=== PATIENT | female | born 1940 | race Caucasian/White ===

== ENCOUNTER 2023-04-15 08:30 | Outpatient (REF) | payer MEDICARE, SELFPAY ==
[2023-04-15 08:47] LABS: MANUAL DIFF FLAG NO
[2023-04-15 09:10] LABS: Basophils Percent Auto 0.7 % (0-2); Eosinophils Absolute Auto 0.2 X10*3/uL (0.0-0.4); Eosinophils Percent Auto 3.3 % (0-4); Hematocrit 44.7 % (37.0-47.0); Hemoglobin 13.9 g/dl (12.0-16.0); Imm Gran Abs Auto 0.02 X10*3/uL (0.00-0.03); Imm Gran Pct Auto 0.4 % (0.0-0.4); Lymphocytes Absolute Auto 1.3 X10*3/uL (1.2-4.9); Lymphocytes Percent Auto 27.3 % (20-40); Mean Corpuscular HGB Conc 31.1 g/dl (31.0-35.0); Mean Corpuscular Hemoglobin 25.7 pg (27.0-33.0); Mean Corpuscular Volume 82.8 fL (80.0-98.0); Mean Platelet Volume 10.4 fL (9.4-12.3); Monocytes Absolute Auto 0.5 X10*3/uL (0.1-1.2); Monocytes Percent Auto 9.8 % (2-11); Neutrophils Absolute Auto 2.7 x10*3/uL (2.0-8.3); Neutrophils Percent Auto 58.5 % (45-73); Platelet Count 202 X10*3/uL (160-400); Red Cell Distribution Width 14.7 % (11.0-16.0); White Blood Count 4.6 X10*3/uL (4.8-10.8)
[2023-04-15 10:08] LABS: Alanine Aminotransferase 16 U/L (0-31); Albumin Level 3.7 g/dL (3.5-5.0); Alkaline Phosphatase 83 U/L (39-117); Anion Gap 12 (12-20); Aspartate Amino Transferase 19 U/L (5-31); Bilirubin Total 0.6 mg/dL (0.0-1.0); Blood Urea Nitrogen 20 mg/dL (9-16); Carbon Dioxide 28 mmol/L (22-29); Chloride 108 mmol/L (96-108); Cholesterol 137 mg/dL; Estimated Glomerular Filt Rate 51; Glucose Fasting 95 mg/dL (60-99); HDL Cholesterol 43 mg/dL; Iron 53 mcg/dL (30-160); LDL Cholesterol Calculated 75 mg/dl; Percent Iron Saturation 16 % (15-50); Sodium 144 mmol/L (135-145); Total Iron Binding Capacity 326 mcg/dL (228-428); Total Protein 6.5 g/dL (6.5-8.0); Triglycerides 98 mg/dL; Unsaturated Iron Binding 273 ug/dL
[2023-04-15 10:16] LABS: TSH reflex Free T4 3.13 uIU/mL (0.32-4.0); Vitamin D 25-OH Total 61.4 ng/mL (>30)
[2023-04-15 10:26] LABS: Folate 15.8 ng/mL (> or = 4.0); Vitamin B12 1187 pg/mL (200-900)
== END 2023-04-15 08:31 | disposition home or self-care (01) ==
LOC: HO.LAB 08:30
PROVIDERS: PCP Internal Medicine; Visit Provider Internal Medicine
DX: I10 Essential (primary) hypertension (principal); E78.00 Pure hypercholesterolemia, unspecified; E55.9 Vitamin D deficiency, unspecified; E53.8 Deficiency of other specified B group vitamins; D50.9 Iron deficiency anemia, unspecified
CPT/HCPCS: 36415; 80053; 80061; 82306; 82607; 82746; 83540; 84443; 85025

== ENCOUNTER 2023-04-21 13:57 | Outpatient (REF) | payer MEDICARE, SELFPAY ==
[2023-04-21 14:12] LABS: Appearance Urine Clear; Color Urine Yellow; Glucose Urine UA Negative (Negative); Leukocyte Esterase Urine Trace (Negative); Nitrite Urine Positive (Negative); PH 5.5 (5.0-9.0); Specific Gravity - Urine 1.015 (1.005-1.025); UMIC TRIGGER UACC YES; Urine Blood Negative (Negative); Urine Ketones Negative (Negative); Urine Protein Negative (Neg-Trace)
[2023-04-21 14:20] LABS: Bacteria Urine 4+ (None Seen); Hyaline Casts Urine 0-2 /LPF (0-2); RBC Urine 0-2 /HPF (0-2); Squamous Epithelial Cell Urine 0-2 /HPF (0-2); UACC Culture Trigger YES; WBC Urine 0-5 /HPF (0-5)
== END 2023-04-21 13:58 | disposition home or self-care (01) ==
LOC: HO.LNP 13:57
PROVIDERS: Visit Provider Internal Medicine
DX: R82.90 Unspecified abnormal findings in urine (principal)
CPT/HCPCS: 81001; 87086; 87088; 87186

== ENCOUNTER 2023-07-01 13:58 | Outpatient (AMB) | payer MEDICARE, SELFPAY ==
--- NOTE | 2023-07-01 14:01 | A.OFFPC_ITS ---
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 Accompanied by: Self / Same As Patient Allergies amoxicillin [From Augmentin] Allergy (Severe, Verified 07/01/23 14:43) Rash clavulanic acid [From Augmentin] Allergy (Severe, Verified 07/01/23 14:43) Rash levofloxacin [From Levaquin] Allergy (Severe, Verified 07/01/23 14:43) Rash Medication List - Last Reconciled 07/01/23 by Shekhar Young MD apixaban (Eliquis) 2.5 mg PO BID 90 days atorvastatin 40 mg PO DAILY calcium carbonate-vitamin D3 600 mg-10 mcg (400 unit) (Calcium with Vitamin D) 1 tab PO BID cholecalciferol (vitamin D3) 50 mcg PO DAILY omeprazole 40 mg PO DAILY 90 days potassium chloride ER 10 mEq PO DAILY 90 days tramadol 50 mg PO DAILY PRN 90 days Tobacco use date assessed: 04/11/23 Fall risk assessment: No Falls in past year Last assessed Fall Risk: 07/01/23 Dental Screening Dental Screen Date: 07/01/23 Did you have a dental visit in the last 12 months?: Yes Did you have a dental problem in the last 6 months where you did not have access to dental care?: No Was dental information given to patient?: Patient has dentist HPI follow up 3m HPI Details Patient comes in today for her follow up visit States that she still has on and off episodes of palpitations/tachycardia Would notice on her smart watch that her heart rate is running over 100/minute during these episodes Recalls that she would sometimes feel slightly dizzy during these palpitations but denies any chest pains or pressure Notes that she gets SOB easily at times but these are independent of her palpitations Has also been experiencing recurrent pain and discomfort over her left lower abdomen lately States that her left lower abdominal pain has no correlation with bowel mo vements, activity or food intake Relates that she moves her bowels regularly and has no acute urinary symptoms She denies any headaches or fever Denies any nausea or vomiting Would like to know how she did on her labs done a couple of months ago [facility] Medical History Obesity (BMI 30-39.9) Insomnia Anemia Restless leg syndrome 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 History of colitis Hepatic hemangioma Hepatic cyst Osteoporosis Meniere's disease Large hiatal hernia Chronic kidney disease (CKD), stage III (moderate) Atherosclerosis of aorta History of recurrent deep vein thrombosis (DVT) (~12/2020) History of pulmonary embolism (~2017) History of deep vein thrombosis (DVT) of lower extremity (~2016) Pure hypercholesterolemia Benign essential hypertension Surgical History History of colonoscopy History of arthroplasty of left shoulder (~09/2022) History of arthroplasty of right hip (~12/2021) History of arthroplasty of right shoulder (~12/2020) S/P trigger finger release (~2018) History of total left hip arthroplasty (~2016) History of tubal ligation History of left oophorectomy Hx of parotidectomy History of ear surgery History of ankle surgery Family History Other Hypertension Social History Housing: Condominium Patient Tobacco Use Status: Former Tobacco user e-Cigarette/Vaping Use: Never Used service: No Current occupational status: retired Current occupational exposures/hazards: No Cognitive needs: No Hearing needs: No Vision needs: No Questionnaire PHQ-9 Over the last 2 weeks, how often have you been bothered by any of the following problems? Depression Screening Interpretation: Negative Source: Developed by Drs. Andrew Mcghee, Yue Mosqueda, Vazquez Johnson and colleagues, with an educational yesica from [employer]. Thrive Questionnaire Date Thrive assessed: 04/11/23 Currently or been in a relationship where the following occur: no concerns reported PERCY-7 AMB Questionnaire PERCY-7 Date PERCY - 7 assessed: 07/01/23 Feeling nervous, anxious, or on edge: 0 = Not at all Not being able to stop or control worryin = Not at all Worrying too much about different things: 0 = Not at all Trouble relaxin = Not at all Being so restless that it is hard to sit still: 0 = Not at all Becoming easily annoyed or irritable: 0 = Not at all Feeling afraid as if something awful might happen: 0 = Not at all Total PERCY-7 score (0-4 normal; 5-9 mild; 10-14 moderate; 15-21 severe): 0 Source: Developed by Drs. Andrew Mcghee, Yue Mosqueda, Vazquez Johnson and colleagues, with an educational yesica from [employer]. Review of Systems Const Denies chills, Denies fatigue, Denies fever(s) and Denies headache(s) ENT Denies dysphagia, Reports dizziness (at times, when heart rate increases), Denies otalgia, Denies headache(s), Denies odynophagia and Denies sore throat Card Denies chest pain, Reports rapid heart rate (on and off - see HPI), Denies palpitations and Denies dyspnea (but feels that she gets short-winded at times) Resp Denies cough and Denies dyspnea (but feels that she gets short-winded at times) GI Reports abdominal pain (over the left lower abdomen - see HPI), Denies constipation, Denies dysphagia, Denies heartburn, Denies diarrhea, Denies nausea, Denies odynophagia and Denies vomiting Denies difficulty voiding, Denies nocturia and Denies dysuria Musc Reports back pain, Reports arthralgias (involving shoulders and hips, on and off) and Denies muscle weakness Skin/Breast Denies rash Neuro Reports dizziness (at times, when heart rate increases) and Denies headache(s) Endo Denies fatigue and Denies palpitations Physical exam (Primary Care) Vital Signs: Last Vital Signs Pulse 76 07/01/23 14:02 BP 160/100 H 07/01/23 15:06 Pulse Ox 96 07/01/23 14:02 Oxygen Delivery Method Room Air 07/01/23 14:02 BMI result Body Mass Index 31.3 Tobacco/Smoking Status: Tobacco use Status Tobacco use date assessed 04/11/23 07/01/23 14:11 Patient Tobacco Use Status Former Tobacco user 07/01/23 14:11 e-Cigarette/Vaping Use Never Used 07/01/23 14:11 Depression Screening Interpretation: Negative Thrive Assessment: Date of Thrive Assessment Date Thrive assessed 04/11/23 07/01/23 14:11 Currently or been in a relationship where the following occur: no concerns reported Const General: no acute distress and alert HENMT Ears: TM's normal bilaterally and EAC's normal Throat: Yes posterior oropharynx normal and Yes tonsils normal (no TP congestion) Neck Neck: Yes no lymphadenopathy and Yes supple Resp Auscultation: clear to auscultation bilaterally, no rales and no wheezes Cardio Rate: regular rate Rhythm: regular rhythm Heart sounds: no murmurs GI Palpation (GI): Soft to palpation, Tenderness to palpation present (GI) in the LLQ, no guarding, not rigid and No Rebound tenderness present Auscultation: normal bowel sounds Extrem General: Yes no clubbing, cyanosis or edema Results Reviewed Results Reviewed: Laboratory Tests 04/15/23 04/15/23 04/15/23 08:45 08:45 08:45 WBC 4.6 L Hgb Hct Plt Count 202 Sodium Potassium Creatinine Estimated GFR Fasting Glucose 95 Calcium Iron 53 TIBC 326 % Saturation 16 Unsat Iron Binding 273 AST ALT Triglycerides Cholesterol LDL Cholesterol, Calc HDL Cholesterol Vitamin B12 25-OH Vitamin D Total Folate TSH Ur Specific [place] Urine Protein Urine Glucose (UA) Urine Blood 04/15/23 04/15/23 04/15/23 08:45 08:45 08:45 WBC Hgb 13.9 Hct 44.7 Plt Count Sodium Potassium Creatinine Estimated GFR Fasting Glucose Calcium Iron TIBC % Saturation Unsat Iron Binding AST ALT Triglycerides 98 Cholesterol 137 LDL Cholesterol, Calc 75 HDL Cholesterol 43 Vitamin B12 1187 H 25-OH Vitamin D Total 61.4 Folate 15.8 TSH 3.13 Ur Specific [place] Urine Protein Urine Glucose (UA) Urine Blood 04/21/23 04/21/23 07/01/23 09:00 09:00 15:31 WBC Hgb Hct Plt Count Sodium 141 Potassium 4.2 Creatinine 0.95 Estimated GFR 57 Fasting Glucose Calcium Iron TIBC % Saturation Unsat Iron Binding AST ALT Triglycerides Cholesterol LDL Cholesterol, Calc HDL Cholesterol Vitamin B12 25-OH Vitamin D Total Folate TSH Ur Specific [place] 1.015 Urine Protein Negative Urine Glucose (UA) Negative Urine Blood Negative 07/01/23 07/01/23 15:31 15:31 WBC Hgb Hct Plt Count Sodium Potassium Creatinine Estimated GFR Fasting Glucose Calcium 10.0 Iron TIBC % Saturation Unsat Iron Binding AST 22 ALT 15 Triglycerides Cholesterol LDL Cholesterol, Calc HDL Cholesterol Vitamin B12 25-OH Vitamin D Total Folate TSH Ur Specific [place] Urine Protein Urine Glucose (UA) Urine Blood Assessment and Plan Assessment & Plan (1) Left sided abdominal pain: Code(s): R10.9 - Unspecified abdominal pain Plan: Will send her for some repeat labs ALEXANDER for further evaluation Will also send her for abdominal and pelvic US for further evaluation of her recurrent left lower abdominal pain (2) Palpitations: Code(s): R00.2 - Palpitations Plan: Will send her for a 12-lead EKG ALEXANDER Will also send her for an echocardiogram and a 3-day Holter monitor for further evaluation Will refer her as well to cardiology for further evaluation and management (3) Benign essential hypertension: Code(s): I10 - Essential (primary) hypertension Plan: Reinforced low sodium diet - goal is systolic BP of at least 120 to 130 mm, based on her multiple comorbidities Was previously on Triamterene-HCTZ (also for her lower extremity edema) and Irbesartan but these were held due to low blood pressure during hospitalization a few years ago and she has NOT required any Rx since then States that her systolic BP at home usually runs between 110 to 120 mm and diastolic is often in the 70s range Patient is advised to continue monitoring her blood pressure regularly at home (4) Pure hypercholesterolemia: Code(s): E78.00 - Pure hypercholesterolemia, unspecified Plan: Results of her labs done a few months ago reviewed and discussed with patient Reinforced low cholesterol diet Continue Atorvastatin 40 mg QD (5) Atherosclerosis of aorta: Comment: seen on abdominal aorta CT in 2016 and on chest x-rays in 2017 - mild Code(s): I70.0 - Atherosclerosis of aorta Plan: Recommend to continue risk factor(s) modification, including control of her BP and cholesterol, continuing statin therapy, etc. (6) Chronic kidney disease (CKD), stage III (moderate): Comment: due to long-term NSAID use Code(s): N18.30 - Chronic kidney disease, stage 3 unspecified Qualifiers: Chronic kidney disease stage 3 subtype: stage 3a (GFR 45-59) Qualified Code(s): N18.31 - Chronic kidney disease, stage 3a Plan: Patient is advised that her renal function appears stable on her labs done a co uple of months ago and we will continue to monitor her renal function regularly Reinforced avoidance of all NSAIDs as much as possible (7) Anemia: Comment: unable to tolerate oral iron supplements Code(s): D64.9 - Anemia, unspecified Qualifiers: Anemia type: unspecified type Qualified Code(s): D64.9 - Anemia, unspecified Plan: Most likely due to her CKD Patient reportedly had iron infusion done (late last year) shortly before she left [place] and moved here to [facility] earlier this year; she is unable to tolerate any oral iron supplements Recalls experiencing improvement of her symptoms, including less dizziness/orthostasis and less fatigue/more energy Advised that her CBC done a couple of months ago came back normal, with H/H of 13.9/44.7 Her iron studies also came back normal then Will continue to monitor her CBC regularly (8) History of recurrent deep vein thrombosis (DVT): Onset Date: ~12/2020 Comment: initial DVT occurred in 2017 following hip surgery; recurred following right shoulder arthroplasty and s/p COVID vaccine in 12/2020 Code(s): Z86.718 - Personal history of other venous thrombosis and embolism Plan: Continue Eliquis 2.5 mg BID (9) Osteoarthritis of multiple joints: Comment: involving hips and shoulders - symptoms relieved with Celecoxib (previously discussed NSAID use with PCP back in 2018) Code(s): M15.9 - Polyosteoarthritis, unspecified Qualifiers: Osteoarthritis type: primary Qualified Code(s): M15.9 - Polyosteoarthritis, unspecified Plan: Continue Tramadol 50 mg QD PRN Reinforced avoidance of NSAIDs due to her CKD but advised that she can continue taking OTC Tylenol PRN (10) Large hiatal hernia: Comment: seen on MRI in 2017 Code(s): K44.9 - Diaphragmatic hernia without obstruction or gangrene Plan: Dietary restrictions similar to GERD reinforced Continue Omeprazole 40 mg QD (11) Osteoporosis: Comment: of hip (BMD in 08/2018 revealed T-score of -2.9) - started on Alendronate in 09/2018; repeat BMD last done 08/2021 Code(s): M81.0 - Age-related osteoporosis without current pathological fracture Qualifiers: Osteoporosis type: age-related Presence of current pathological fracture: without current pathological fracture Qualified Code(s): M81.0 - Age- related osteoporosis without current pathological fracture Plan: Reinforced fall precautions Continue daily oral Calcium and Vitamin D supplements Will consider repeating BMD next year (2023) for follow up and continuing monitoring (12) Restless leg syndrome: Comment: symptoms relieved with Ropinirole - 2020 Code(s): G25.81 - Restless legs syndrome Plan: Continue Ropinirole - patient takes this only PRN (13) Insomnia: Code(s): G47.00 - Insomnia, unspecified Qualifiers: Insomnia type: unspecified Qualified Code(s): G47.00 - Insomnia, unspecified Plan: Sleep hygiene reinforced Has taken Zolpidem 5 mg Q HS PRN and/or Trazodone 50 mg Q HS PRN in the past (14) Obesity (BMI 30-39.9): Code(s): E66.9 - Obesity, unspecified Plan: Reinforced diet; exercise and weight loss are unrealistic at this point given patient's multiple comorbidities and to a lesser extent, her age States that she gained some weight since she quit smoking a couple of years ago Plan Follow up in 2 months Orders: Orders CA echo transthoracic complete 07/01/23 R06.09 - Other forms of dyspnea, R00.2 - Palpitations ECG 3 day holter monitor 07/01/23 R00.2 - Palpitations US abdomen limited 07/01/23 R10.9 - Unspecified abdominal pain Comprehensive Met. Panel 07/01/23 R10.9 - Unspecified abdominal pain, R60.9 - Edema, unspecified US pelvic limited 07/01/23 R10.9 - Unspecified abdominal pain Complete Blood Count Auto Diff 3 Months I10 - Essential (primary) hypertension, R10.9 - Unspecified abdominal pain, R60.9 - Edema, unspecified Erythrocyte Sedimentation Rate 3 Months R10.9 - Unspecified abdominal pain, R60.9 - Edema, unspecified ECG 12 lead EKG 07/01/23 R00.2 - Palpitations Referrals Cardiology Referral R00.2 - Palpitations Coding Level of Care Code Est Pt Level 4 (99587) Diagnoses Left sided abdominal pain R10.9 Palpitations R00.2 Benign essential hypertension I10 Pure hypercholesterolemia E78.00 Atherosclerosis of aorta I70.0 Stage 3a chronic kidney disease N18.31 Chronic kidney disease stage 3 subtype: stage 3a (GFR 45-59) Anemia, unspecified type D64.9 Anemia type: unspecified type History of recurrent deep vein thrombosis (DVT) Z86.718 Primary osteoarthritis involving multiple joints M15.9 Osteoarthritis type: primary Large hiatal hernia K44.9 Age-related osteoporosis without current pathological fracture M81.0 Osteoporosis type: age-related Presence of current pathological fracture: without current pathological fracture Restless leg syndrome G25.81 Insomnia, unspecified type G47.00 Insomnia type: unspecified Obesity (BMI 30-39.9) E66.9
[2023-07-01 14:02] VITALS: BP 168/84; PULSE 76; O2SAT 96; BMI 31.3
[2023-07-01 15:06] VITALS: BP 160/100
== END 2023-07-01 15:15 | disposition home or self-care (01) ==
PROVIDERS: PCP Internal Medicine; Visit Provider Internal Medicine
DX: R10.9 Unspecified abdominal pain (principal); I70.0 Atherosclerosis of aorta; N18.31 Chronic kidney disease, stage 3a; R00.2 Palpitations; I12.9 Hypertensive chronic kidney disease with stage 1 through stage 4 chronic kidney disease, or unspecified chronic kidney disease; E78.00 Pure hypercholesterolemia, unspecified; D64.9 Anemia, unspecified; Z86.718 Personal history of other venous thrombosis and embolism; M15.9 Polyosteoarthritis, unspecified; K44.9 Diaphragmatic hernia without obstruction or gangrene; M81.0 Age-related osteoporosis without current pathological fracture; G25.81 Restless legs syndrome
CPT/HCPCS: 99214

== ENCOUNTER 2023-07-01 15:22 | Outpatient (REF) | payer MEDICARE, SELFPAY ==
--- NOTE | 2023-07-01 15:33 | ECG_ITS ---
Test Reason : palpitations Blood Pressure : / mmHG Vent. Rate : 088 BPM Atrial Rate : 088 BPM P-R Int : 130 ms QRS Dur : 070 ms QT Int : 352 ms P-R-T Axes : -04 004 049 degrees QTc Int : 425 ms Normal sinus rhythm Normal ECG No previous ECGs available Referred By: Shekhar Young Electronically Signed By:ЕКАТЕРИНА BAUTISTA
[2023-07-01 16:24] LABS: Alanine Aminotransferase 15 U/L (0-31); Alkaline Phosphatase 86 U/L (39-117); Anion Gap 11 (12-20); Aspartate Amino Transferase 22 U/L (5-31); Bilirubin Total 0.4 mg/dL (0.0-1.0); Blood Urea Nitrogen 20 mg/dL (9-16); Carbon Dioxide 27 mmol/L (22-29); Chloride 107 mmol/L (96-108); Estimated Glomerular Filt Rate 57; Glucose Random 99 mg/dL (60-115); Potassium 4.2 mmol/L (3.3-5.1); Sodium 141 mmol/L (135-145); Total Protein 6.8 g/dL (6.5-8.0)
== END 2023-07-01 15:23 | disposition home or self-care (01) ==
LOC: HO.LAB 15:22
PROVIDERS: PCP Internal Medicine; Visit Provider Internal Medicine
DX: R10.9 Unspecified abdominal pain (principal); R60.9 Edema, unspecified; R00.2 Palpitations; R06.09 Other forms of dyspnea
CPT/HCPCS: 36415; 80053; 93005

== ENCOUNTER 2023-07-14 09:35 | Outpatient (REF) | payer MEDICARE, SELFPAY ==
--- NOTE | ~2023-07-14 | US_ITS ---
EXAMINATION: US ABDOMEN LIMITED CLINICAL INFORMATION: Unspecified abdominal pain. Left-sided abdominal pain. COMPARISON: None available. TECHNIQUE: Real-time imaging of the left flank (left kidney and spleen) and left lower quadrant pelvis. FINDINGS: The spleen appears normal measuring 10.1 cm in length. The left kidney measures 9.6 x 3.9 x 4.9 cm. There is parenchymal thinning. A 1.5 cm simple cyst is seen in the lower pole. No follow-up imaging is recommended. The patient directed the hollow handle bench worker to the area of concern. Direct ultrasound performed showed no visible hernia, fluid collection, or mass. US/US abdomen limited IMPRESSION: No visible sonographic abnormality to correlate with the patient's symptoms.
== END 2023-07-14 09:36 | disposition home or self-care (01) ==
LOC: HO.HMGCX 09:35
PROVIDERS: PCP Internal Medicine; Visit Provider Internal Medicine
DX: R10.9 Unspecified abdominal pain (principal)
CPT/HCPCS: 76705

== ENCOUNTER 2023-08-22 15:11 | Outpatient (AMB) | payer MEDICARE, SELFPAY ==
--- NOTE | 2023-08-22 15:19 | A.OFFVIS_ITS ---
Intake Vital Signs 08/22/23 15:29 Height 5 ft 5 in Weight 184 lb BMI 30.6 BP 120/75 Blood Pressure Location Lt brachial Position Sitting Pulse 120 H Intake Visit Reasons: Abdominal pain Intake Note: Patient new consult for abdominal pain. Patient cc: LLQ is been sore and tenderness because abdominal pain in the last weeks, acid reflex is better with Omeprazole and some loose stool . 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 Patient was sent to us by her PCP. Patient had ultrasound for abdominal pain and it was normal. Patient reports left lower quadrant pain for the last few weeks. Patient states that postprandially she will occasionally have a bowel movement, however she does not feel like she empties her bowels completely. Patient denies any melena, hematochezia, unintentional weight loss or ribbon like stools. Patient reports occasional acid reflux without dyspep alpa, dysphagia or odynophagia. Patient also had normal liver enzymes. Patient denies any nausea or vomiting. Denies any history of pancreatitis. 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 History of colitis Hepatic hemangioma Hepatic cyst Osteoporosis Meniere's disease Large hiatal hernia Chronic kidney disease (CKD), stage III (moderate) Atherosclerosis of aorta History of recurrent deep vein thrombosis (DVT) (~12/2020) History of pulmonary embolism (~2016) History of deep vein thrombosis (DVT) of lower extremity (~2016) Pure hypercholesterolemia Benign essential hypertension Surgical History History of colonoscopy History of arthroplasty of left shoulder (~09/2022) History of arthroplasty of right hip (~12/2021) History of arthroplasty of right shoulder (~12/2020) S/P trigger finger release (~2018) History of total left hip arthroplasty (~2016) History of tubal ligation History of left oophorectomy Hx of parotidectomy History of ear surgery History of ankle surgery Family History Other Hypertension [facility] Patient Tobacco Use Status: Former Tobacco user e-Cigarette/Vaping Use: Never Used service: No Current occupational status: retired Current occupational exposures/hazards: No Cognitive needs: No Hearing needs: No Vision needs: No Review of Systems Const Denies weight gain and Denies weight loss ENT Reports no additional complaints, Denies dysphagia and Denies odynophagia Card Reports no additional complaints Resp Reports no additional complaints GI Reports abdominal pain (LLQ), Denies belching, Denies melena, Denies bloating, D enies change in bowel habits, Denies dysphagia, Denies excessive flatus, Denies dyspepsia, Denies heartburn, Denies diarrhea, Denies loose stools, Denies nausea, Denies odynophagia and Denies vomiting Reports no additional complaints Musc Reports no additional complaints Neuro Reports no additional complaints Psych Reports no additional complaints Endo Reports no additional complaints Physical Exam Vital Signs: Last Vital Signs Pulse 120 H 08/22/23 15:29 BP 120/75 08/22/23 15:29 BMI result Body Mass Index 30.6 Const General: healthy appearing, no acute distress and well developed Nutritional Appearance: obese Orientation/consciousness: patient oriented x3 HEENT Head: Yes normal to inspection, Yes normocephalic and Yes atraumatic Face and sinus: Yes normal facial exam Mouth: Normal oral and palatal mucosa present Throat: Yes posterior oropharynx normal, Yes tonsils normal and Yes uvula midline Eyes General: appearance normal, both eyes and all related structures Neck Neck: Yes normal visual inspection, Yes full ROM and Yes trachea midline Thyroid: Thyroid normal Resp Effort & Inspection: normal respiratory effort, able to speak in complete sentences, no tracheal deviation and symmetric chest movement Auscultation: clear to auscultation bilaterally Cardio Rate: regular rate Heart sounds: S1 normal heart sound present and S2 normal heart sound present GI Inspection: Yes normal to inspection, No distended and Yes obesity Palpation (GI): Soft to palpation, not firm, nontender and No hepatosplenomegaly present Auscultation: normal bowel sounds General: Yes no CVA tenderness Back/Spine/Pelvis Back: no CVA tenderness Skin General skin exam: elasticity normal, turgor normal and dry skin Neuro General: patient oriented x3 Psych Appearance: grossly normal Mental Status: mental status grossly normal Results Reviewed Results Reviewed: ABDOMINAL ULTRASOUND LIMITED TO LEFT LOWER QUADRANT 07/14/2023 FINDINGS: The spleen appears normal measuring 10.1 cm in length. The left kidney measures 9.6 x 3.9 x 4.9 cm. There is parenchymal thinning. A 1.5 cm simple cyst is seen in the lower pole. No follow-up imaging is recommended. The patient directed the support specialist to the area of concern. Direct ultrasound performed showed no visible hernia, fluid collection, or mass. US/US abdomen limited IMPRESSION: No visible sonographic abnormality to correlate with the patient's symptoms. Assessment & Plan Assessment & Plan (1) Left sided abdominal pain: Code(s): R10.9 - Unspecified abdominal pain (2) IBS (irritable bowel syndrome): Code(s): K58.9 - Irritable bowel syndrome without diarrhea Qualifiers: Irritable bowel syndrome type: with both diarrhea and constipation Qualified Code(s): K58.2 - Mixed irritable bowel syndrome (3) History of colitis: Code(s): Z87.19 - Personal history of other diseases of the digestive system Plan: Will check CRP, kidney function before sending patient for CT scan. Patient will go for IV and oral CT scan left lower quadrant pain without any tenderness. Most likely cost by diverticulosis, gas trapping or stool trapping. Unlikely diverticulitis, colitis. Patient is afebrile Patient was also encouraged to take Citrucel and Colace daily. I will see her in 3 months, sooner on as needed basis. Patient is agreeable to this plan and verbalizes understanding of instructions. She was given the opportunity to ask questions and all questions answered. Orders: Orders Blood Urea Nitrogen 08/22/23 R10.11 - Right upper quadrant pain CT abdomen pelvis w IV con 08/22/23 R10.9 - Unspecified abdominal pain C Reactive Protein 08/22/23 K58.9 - Irritable bowel syndrome without diarrhea Creatinine 08/22/23 R10.11 - Right upper quadrant pain Medications: New docusate sodium 100 mg PO DAILY 30 caps 3RF K59.00 - Constipation, unspecified methylcellulose (laxative) (Citrucel) 500 mg PO DAILY 30 tabs 3RF K59.00 - Constipation, unspecified Coding Level of Care Code New Pt Level 4 (61817) Diagnoses Left sided abdominal pain R10.9 Irritable bowel syndrome with both constipation and diarrhea K58.2 Irritable bowel syndrome type: with both diarrhea and constipation History of colitis Z87.19 Time Spent (min) 45 Comment 30 minutes spent with patient and additional 15 minutes spent reviewing her records
[2023-08-22 15:29] VITALS: BP 120/75; PULSE 120; BMI 30.6
== END 2023-08-22 15:52 | disposition home or self-care (01) ==
PROVIDERS: PCP Internal Medicine; Visit Provider Nurse Practitioner Family
DX: R10.9 Unspecified abdominal pain (principal); K58.2 Mixed irritable bowel syndrome; Z87.19 Personal history of other diseases of the digestive system
CPT/HCPCS: 99204

== ENCOUNTER 2023-08-22 15:11 | Outpatient (REF) | payer MEDICARE, SELFPAY ==
[2023-08-22 16:41] LABS: Blood Urea Nitrogen 21 mg/dL (9-16); C Reactive Protein 0.48 mg/dL (< or = 0.50); Estimated Glomerular Filt Rate 45
== END 2023-08-22 15:12 | disposition home or self-care (01) ==
LOC: HO.LAB 15:11
PROVIDERS: PCP Internal Medicine; Visit Provider Nurse Practitioner Family
DX: R10.11 Right upper quadrant pain (principal); K58.9 Irritable bowel syndrome, unspecified; Z87.19 Personal history of other diseases of the digestive system
CPT/HCPCS: 36415; 82565; 84520; 86140; 99202

== ENCOUNTER → 2023-08-27 13:48 | Outpatient (REF) | payer MEDICARE, SELFPAY ==
--- NOTE | 2023-08-27 13:52 | HM_ITS ---
* Total monitoring time 7 days. * Underlying rhythm is sinus. Average ventricular rate 83/Min. Range 59 to 136/Min. * Rare supraventricular and ventricular ectopy. * No sustained arrhythmias. * No significant pauses or AV blocks. * No patient markers or events in diary. MTDD
--- NOTE | 2023-08-27 13:52 | CA_ITS ---
Transthoracic Echocardiogram Patient (Last, First, Middle): Macie Gregorio, Gender: Female Date of : 1940 Age: 82 Procedure Date: 08/27/2023 Procedure Type: Transthoracic Echocardiogram Location: OP Height: 165.1 cm Weight: 83.46 kg BSA: 1.91 m2 Heart Rate: 74 bpm BP: 162 / 86 mmHg Hospital Educator: YAYO Referring MD: Shekhar Young MD Air Traffic Control Operator: El Brantley MD Symptoms: R06.09 - Other forms of dyspnea Study Quality: Adequate ECG Rhythm: Sinus Conclusions: - 1. Normal LV ejection fraction of 60-65% 2. Mild calcific aortic and mitral annular calcification noted with normal cardiac valvular Dopplers 3. Normal RV systolic pressure 4. No pericardial effusion Findings Left Ventricle Normal left ventricular size, thickness, and systolic function. The visually estimated ejection fraction is between 60-65%. Spectral Doppler is indicative of an impaired relaxation filling pattern. E/E prime ratio is between 8 and 15 consistent with indeterminate filling pressures. Right Ventricle Normal right ventricular cavity size and systolic function. Atria Both atria are normal in size. Interatrial shunt cannot be excluded. Aortic Valve There is mild calcification of the aortic valve. There is no aortic valve stenosis. There is no aortic valve regurgitation. Mitral Valve There is mild anterior mitral leaflet thickening. There is mild mitral annular calcification. There is trace mitral valve regurgitation. There is no mitral valve stenosis. Pulmonic Valve The pulmonic valve was not well visualized. Tricuspid Valve Likely normal tricuspid valve structure and function. There is mild tricuspid valve regurgitation. The right ventricular systolic pressure is normal. The right ventricular systolic pressure is 31 mmHg. Normal right atrial pressure. There is no evidence of pulmonary hypertension. Great Vessels The pulmonary artery was not well visualized. Venous The inferior vena cava is normal in size and collapses greater than 50% with inspiration. Pericardium/Pleural There is no evidence of pericardial effusion. Prior Study Comparison No prior study available for comparison. Measurements 2D Linear Measurements IVSd: 0.92 0.6-0.9/0.6-1.0 cm LVIDd: 4.84 3.9-5.3/4.2-5.9 cm LVIDd Index: 2.53 2.4-3.2/2.2-3.1 cm/m2 LVIDs: 2.99 2.0-3.6 cm LVPWd: 1.03 0.7-1.1 cm LA Diam: 3.00 2.7-3.8/3.0-4.0 cm LAIDs Index: 1.57 1.5-2.3 cm/m2 LV Mass: 207.08 67-162/88-224 g LV Mass Index: 108.42 43-95/49-115 g/m2 LVOT Diam: 1.90 3.0+(-)1.3 cm Mitral Valve MV Pk E: 1.03 MV PK A: 1.10 MV Decel Time: 167.00 E/A: 0.90 E'Lateral: 3.38 E'Medial: 3.90 E/E' Med: 26.40 E/E' Lat: 30.50 PHT: 49.00 MVA PHT: 4.49 Decel Swain: 6.16 Aortic Valve AoV Pk Bryson: 1.14 AoV Mn Bryson: 0.81 AoV VTI: 0.26 AoV Pk Grad: 5.00 Aov Mn Grad: 3.00 ALEXANDRE Cont.VTI: 1.93 LVOT LVOT Pk Bryson: 0.74 LVOT Mn Bryson: 0.54 LVOT VTI: 0.17 LVOT Pk Grad: 2.00 LVOT Mn Grad: 1.00 LVOT Diam: 1.90 LVOT Area: 2.84 Diastolic Function MV Pk E: 1.03 MV Pk A: 1.10 E/A: 0.90 E'Medial: 3.90 E/E' Med: 26.40 E' Laterial: 3.38 E/E' Lat: 30.50 Right Ventricle TVS' Bryson: 10.10 Tricuspid Valve TR Pk Bryson: 2.64 TR Pk Grad: 28.00 RA Press: 3.00 RVSP: 31.00 Great Vessels Aorta Sinus of Valsalva: 3.10 2.0-3.5 cm Ao Asc: 3.50 2.1-3.4 cm Ao Arch: 2.90 Pulmonary Valve PV Pk Bryson: 0.88 Peak PV Grad: 3.00 Updated in Other Vendor System with Status of Final El Brantley MD electronically signed on 08/27/2023 5:13:50 PM with status of Final
== END ==
LOC: HO.CARD 13:48
PROVIDERS: PCP Internal Medicine; Visit Provider Internal Medicine
DX: R00.2 Palpitations (principal); R06.09 Other forms of dyspnea
CPT/HCPCS: 93242; 93306

== ENCOUNTER → 2023-08-27 13:52 | Outpatient (BNV) | payer MEDICARE, SELFPAY | PROVIDERS: PCP Internal Medicine; Visit Provider Internal Medicine Cardiovascular Disease | DX: I47.10 Supraventricular tachycardia, unspecified (principal) | CPT/HCPCS: 93244; 93306 ==

== ENCOUNTER 2023-09-10 14:03 | Outpatient (AMB) | payer MEDICARE, SELFPAY ==
--- NOTE | 2023-09-10 14:03 | A.OFFPC_ITS ---
Intake Visit Reasons: 2 month f/u/[phone] Intake Note: Patient here for 3 month follow up, c/o lower left side pain, right foot swelling, rapid heart rate [employer] Required: No Accompanied by: Self / Same As Patient Allergies amoxicillin [From Augmentin] Allergy (Severe, Verified 09/15/23 02:38) Rash clavulanic acid [From Augmentin] Allergy (Severe, Verified 09/15/23 02:38) Rash levofloxacin [From Levaquin] Allergy (Severe, Verified 09/15/23 02:38) Rash Medication List - Last Reconciled 09/15/23 by Shekhar Young MD apixaban (Eliquis) 2.5 mg PO BID 90 days atorvastatin 40 mg PO DAILY calcium carbonate-vitamin D3 600 mg-10 mcg (400 unit) (Calcium with Vitamin D) 1 tab PO BID cholecalciferol (vitamin D3) 50 mcg PO DAILY docusate sodium 100 mg PO DAILY methylcellulose (laxative) (Citrucel) 500 mg PO DAILY omeprazole 40 mg PO DAILY 90 days potassium chloride ER 10 mEq PO DAILY 90 days tramadol 50 mg PO DAILY PRN 90 days Tobacco use date assessed: 09/10/23 Fall risk assessment: No Falls in past year Last assessed Fall Risk: 09/10/23 Dental Screening Dental Screen Date: 09/10/23 Did you have a dental visit in the last 12 months?: Yes Did you have a dental problem in the last 6 months where you did not have access to dental care?: No Was dental information given to patient?: Patient has dentist HPI 2 month f/u/[phone] HPI Details Patient's follow-up visit / consultation today is done over the phone - this is a Telehealth visit Patient's current medications have been reviewed and verified with patient and / or caregiver / proxy and have been updated accordingly in the medication list Patient states that she asked to have her appointment today changed to a telehealth visit because she started experiencing sore throat (throat feels like it is on fire ), increased coughing and nasal congestion since last night She denies any fever, headaches or dizziness Denies any chest pains, no increased shortness of breath No nausea/ vomiting; still has on and off left lower abdominal pain No change in bowel habits noted She was seen by GI for left lower abdominal pain recently and she is now scheduled for an abdominal and pelvic CT on 10/21/2023 for further evaluation States that she would still notice her heart rate to be running over 100 beats per minute at times on her smart watch Would like to know how her tests done recently to look into this came out [facility] Medical History Obesity (BMI 30-39.9) Insomnia Anemia Restless leg syndrome 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 History of colitis Hepatic hemangioma Hepatic cyst Osteoporosis Meniere's disease Large hiatal hernia Chronic kidney disease (CKD), stage III (moderate) Atherosclerosis of aorta History of recurrent deep vein thrombosis (DVT) (~12/2020) History of pulmonary embolism (~2016) History of deep vein thrombosis (DVT) of lower extremity (~2016) Pure hypercholesterolemia Benign essential hypertension Surgical History History of colonoscopy History of arthroplasty of left shoulder (~09/2022) History of arthroplasty of right hip (~12/2021) History of arthroplasty of right shoulder (~12/2020) S/P trigger finger release (~2018) History of total left hip arthroplasty (~2016) History of tubal ligation History of left oophorectomy Hx of parotidectomy History of ear surgery History of ankle surgery Family History Other Hypertension [facility] Patient Tobacco Use Status: Former Tobacco user e-Cigarette/Vaping Use: Never Used service: No Current occupational status: retired Current occupational exposures/hazards: No Cognitive needs: No Hearing needs: No Vision needs: No Questionnaire PHQ-9 Over the last 2 weeks, how often have you been bothered by any of the following problems? 1. Little interest or pleasure in doing things: not at all 2. Feeling down, depressed, or hopeless: not at all 3. Trouble falling or staying asleep, or sleeping too much: not at all 4. Feeling tired or having little energy: not at all 5. Poor appetite or overeating: not at all 6. Feeling bad about yourself - or that you are a failure or have let yourself or your family down: not at all 7. Trouble concentrating on things, such as reading the newspaper or watching television: not at all 8. Moving or speaking so slowly that other people could have noticed. Or the opposite - being so fidgety or restless that you have been moving around a lot more than usual: not at all 9. Thoughts that you would be better off or of hurting yourself in some way: not at all Total score: 0 Depression Screening Interpretation: Negative Depression Screening Done: Yes 46306 - PHQ-9 Billing: Yes Source: Developed by Drs. Andrew Mcghee, Yue Mosqueda, Vazquez Johnson and colleagues, with an educational yesica from [employer]. Thrive Questionnaire Date Thrive assessed: 09/10/23 I am a: Patient What is your living situation today?: I have a steady place to live Within the past 12 months, did the food you bought not last and you didn't have the money to get more?: Never true Within the past 12 months, did you worry whether your food would run out before you got money to buy more?: Never true Do you have trouble paying for medicines?: No Do you have trouble getting transportation to medical appointments?: No Do you have trouble paying your heating and electricity bill?: No Do you have trouble taking care of your child, family member or friend?: No Do you have trouble with day-to-day activities such as bathing, preparing meals, shopping, managing finances, etc.?: No Are you currently unemployed and looking for a job?: No Are you interested in more education?: No Please select the resources that you would like help with: None Currently or been in a relationship where the following occur: no concerns reported AUDIT C Alcohol Use Questionnaire (AUDIT-C) 1. How often do you have a drink containing alcohol?: Monthly or less 3. How often do you have six or more drinks on one occasion?: Never Total Score: 1 Score Reviewed/Action Taken: Yes PERCY-7 AMB Questionnaire PERCY-7 Date PERCY - 7 assessed: 09/10/23 Feeling nervous, anxious, or on edge: 0 = Not at all Not being able to stop or control worryin = Not at all Worrying too much about different things: 0 = Not at all Trouble relaxin = Not at all Being so restless that it is hard to sit still: 0 = Not at all Becoming easily annoyed or irritable: 0 = Not at all Feeling afraid as if something awful might happen: 0 = Not at all Total PERCY-7 score (0-4 normal; 5-9 mild; 10-14 moderate; 15-21 severe): 0 Source: Developed by Drs. Andrew Mcghee, Yue Mosqueda, Vazquez Johnson and colleagues, with an educational yesica from [employer]. Review of Systems Const Denies chills, Denies fatigue, Denies fever(s) and Denies headache(s) ENT Denies dysphagia, Reports dizziness (at times, when heart rate increases), Denies headache(s), Denies odynophagia and Denies sore throat Card Denies chest pain, Reports rapid heart rate (on and off - see HPI), Denies palpitations and Denies dyspnea (but feels that she gets short-winded at times) Resp Denies cough and Denies dyspnea (but feels that she gets short-winded at times) GI Reports abdominal pain (over the left lower abdomen - see HPI), Denies constipation, Denies dysphagia, Denies heartburn, Denies diarrhea, Denies nausea, Denies odynophagia and Denies vomiting Denies difficulty voiding, Denies nocturia and Denies dysuria Musc Reports back pain, Reports arthralgias (involving shoulders and hips, on and off) and Denies muscle weakness Skin/Breast Denies rash Neuro Reports dizziness (at times, when heart rate increases) and Denies headache(s) Endo Denies fatigue and Denies palpitations Physical exam (Primary Care) Vital Signs: Physical examination is not performed as visit / consultation today is done over the phone - Telehealth visit All physical findings indicated here, if present, are as per patient's and / or caregivers / proxy's report Tobacco/Smoking Status: Tobacco use Status Tobacco use date assessed 09/10/23 09/10/23 14:06 Patient Tobacco Use Status Former Tobacco user 09/10/23 14:06 e-Cigarette/Vaping Use Never Used 09/10/23 14:06 PHQ-9: PHQ-9 Score PHQ-9: Total score 0 09/10/23 15:05 Depression Screening Interpretation: Negative Thrive Assessment: Date of Thrive Assessment Date Thrive assessed 09/10/23 09/10/23 14:06 Currently or been in a relationship where the following occur: no concerns reported Telehealth Telehealth Location of provider rendering services: practice address Location of patient: address on file Patient Identification confirmed using: Name, : Yes Telehealth method: voice only Patient verbally consented to treatment: Yes Patient verbally consented to billing insurance company: Yes Patient informed of any privacy concerns related to visit: Yes Minutes spent on Phone/Video with Pt.: 23 Assessment and Plan Assessment & Plan (1) Left sided abdominal pain: Code(s): R10.9 - Unspecified abdominal pain Plan: Her labs and abdominal and pelvic US done a couple of months ago were unrev ealing She was seen by GI for her left lower abdominal pain recently and is now scheduled for abdominal and pelvic CT on 10/21/2023 for further evaluation (2) Palpitations: Code(s): R00.2 - Palpitations Plan: Patient's EKG, echocardiogram and 7-day Holter monitor done a few weeks ago all came back normal She was previously referred to cardiology for further evaluation and management and she is scheduled to be seen sometime in early October 2023 She is advised to discuss with Cardiology about possibly setting her up for a 30 day cardiac event monitor for further evaluation if her symptoms continue (3) Benign essential hypertension: Code(s): I10 - Essential (primary) hypertension Plan: Reinforced low sodium diet - goal is systolic BP of at least 120 to 130 mm, based on her multiple comorbidities Was previously on Triamterene-HCTZ (also for her lower extremity edema) and Irbesartan but these were held due to low blood pressure during hospitalization a few years ago and she has NOT required any Rx since then States that her systolic BP at home usually runs between 110 to 120 mm and diastolic is often in the 70s range Patient is reminded to continue monitoring her blood pressure regularly at home (4) Pure hypercholesterolemia: Code(s): E78.00 - Pure hypercholesterolemia, unspecified Plan: Reinforced low cholesterol diet Continue Atorvastatin 40 mg QD (5) Atherosclerosis of aorta: Comment: seen on abdominal aorta CT in 2016 and on chest x-rays in 2017 - mild Code(s): I70.0 - Atherosclerosis of aorta Plan: Recommend to continue risk factor(s) modification, including control of her BP and cholesterol, continuing statin therapy, etc. (6) Chronic kidney disease (CKD), stage III (moderate): Comment: due to long-term NSAID use Code(s): N18.30 - Chronic kidney disease, stage 3 unspecified Qualifiers: Chronic kidney disease stage 3 subtype: stage 3a (GFR 45-59) Qualified Code(s): N18.31 - Chronic kidney disease, stage 3a Plan: Reinforced avoidance of all NSAIDs as much as possible Will continue to monitor her renal function regularly (7) Anemia: Comment: unable to tolerate oral iron supplements Code(s): D64.9 - Anemia, unspecified Qualifiers: Anemia type: unspecified type Qualified Code(s): D64.9 - Anemia, unspecified Plan: Most likely due to her CKD Patient reportedly had iron infusion done (late last year) shortly before she left [place] and moved here to [facility] earlier this year; she is unable to tolerate any oral iron supplements Recalls experiencing improvement of her symptoms, including less dizziness/orthostasis and less fatigue/more energy She is reminded that her CBC done a couple of months ago came back normal, with H/H of 13.9/44.7; her iron studies done back then also came out normal Will continue to monitor her CBC regularly (8) History of recurrent deep vein thrombosis (DVT): Onset Date: ~12/2020 Comment: initial DVT occurred in 2016 following hip surgery; recurred following right shoulder arthroplasty and s/p COVID vaccine in 12/2020 Code(s): Z86.718 - Personal history of other venous thrombosis and embolism Plan: Continue Eliquis 2.5 mg BID (9) Osteoarthritis of multiple joints: Comment: involving hips and shoulders - symptoms relieved with Celecoxib (previously discussed NSAID use with PCP back in 2018) Code(s): M15.9 - Polyosteoarthritis, unspecified Qualifiers: Osteoarthritis type: primary Qualified Code(s): M15.9 - Polyosteoarthritis, unspecified Plan: Continue Tramadol 50 mg QD PRN Reinforced avoidance of NSAIDs due to her CKD but advised that she can continue taking OTC Tylenol PRN (10) Large hiatal hernia: Comment: seen on MRI in 2017 Code(s): K44.9 - Diaphragmatic hernia without obstruction or gangrene Plan: Dietary restrictions similar to GERD reinforced Continue Omeprazole 40 mg QD (11) Osteoporosis: Comment: of hip (BMD in 08/2018 revealed T-score of -2.9) - started on Alendronate in 09/2018; repeat BMD last done 08/2021 Code(s): M81.0 - Age-related osteoporosis without current pathological fracture Qualifiers: Osteoporosis type: age-related Presence of current pathological fracture: without current pathological fracture Qualified Code(s): M81.0 - Age- related osteoporosis without current pathological fracture Plan: Reinforced fall precautions Continue daily oral Calcium and Vitamin D supplements Will consider repeating BMD next year (2023) for follow up and continuing monitoring (12) Restless leg syndrome: Comment: symptoms relieved with Ropinirole - 2020 Code(s): G25.81 - Restless legs syndrome Plan: Continue Ropinirole - patient takes this only PRN (13) Insomnia: Code(s): G47.00 - Insomnia, unspecified Qualifiers: Insomnia type: unspecified Qualified Code(s): G47.00 - Insomnia, unspecified Plan: Sleep hygiene reinforced Has taken Zolpidem 5 mg Q HS PRN and/or Trazodone 50 mg Q HS PRN in the past (14) Obesity (BMI 30-39.9): Code(s): E66.9 - Obesity, unspecified Plan: Reinforced diet; exercise and weight loss are unrealistic at this point given patient's multiple comorbidities and to a lesser extent, her age States that she gained some weight since she quit smoking a couple of years ago Plan Follow up in November 2023 Coding Level of Care Code Tele Est Pt Level 4 (32887) Diagnoses Left sided abdominal pain R10.9 Palpitations R00.2 Benign essential hypertension I10 Pure hypercholesterolemia E78.00 Atherosclerosis of aorta I70.0 Stage 3a chronic kidney disease N18.31 Chronic kidney disease stage 3 subtype: stage 3a (GFR 45-59) Anemia, unspecified type D64.9 Anemia type: unspecified type History of recurrent deep vein thrombosis (DVT) Z86.718 Primary osteoarthritis involving multiple joints M15.9 Osteoarthritis type: primary Large hiatal hernia K44.9 Age-related osteoporosis without current pathological fracture M81.0 Osteoporosis type: age-related Presence of current pathological fracture: without current pathological fracture Restless leg syndrome G25.81 Insomnia, unspecified type G47.00 Insomnia type: unspecified Obesity (BMI 30-39.9) E66.9
== END 2023-09-10 15:07 | disposition home or self-care (01) ==
LOC: HO.HMGH 14:03
PROVIDERS: PCP Internal Medicine; Visit Provider Internal Medicine
DX: R10.32 Left lower quadrant pain (principal); R00.2 Palpitations; R22.41 Localized swelling, mass and lump, right lower limb; N18.31 Chronic kidney disease, stage 3a
CPT/HCPCS: 99443

== ENCOUNTER 2023-10-21 13:16 | Outpatient (REF) | payer MEDICARE, SELFPAY ==
--- NOTE | ~2023-10-21 | CT_ITS ---
EXAMINATION: CT ABDOMEN AND PELVIS WITH CONTRAST CLINICAL INFORMATION: Unspecified abdominal pain COMPARISON: None available. TECHNIQUE: Multidetector volumetric images were obtained from the superior aspect of the liver through the pubic symphysis following administration 85 mL of Omnipaque 350 intravenous and oral contrast. Sagittal and coronal reformatted images were obtained on the technologist's workstation. Oral contrast: No This CT examination was performed using dose optimization techniques as appropriate, variously including the following: *Automated exposure control *Adjustment of mA and/or kV according to patient size (this includes techniques or standardized protocols for targeted exams where dose is matched to indication/reason for exam; i.e. extremities or head) *Use of iterative reconstruction technique DLP: 569 mGy-cm FINDINGS: LUNG BASES: There is platelike atelectasis right middle lobe, lingula.. There is a large hiatal hernia. LIVER, GALLBLADDER, AND BILIARY TREE: The liver is normal in size, shape, and attenuation. There are multiple liver cysts. The largest lobulated cyst in right hepatic lobe measures 5.1 cm. No biliary ductal dilatation is present. The gallbladder is unremarkable with no evidence of radiopaque gallstones, gallbladder wall thickening, or obvious pericholecystic inflammatory changes. PANCREAS: Unremarkable. SPLEEN: Unremarkable. ADRENAL GLANDS: Unremarkable. KIDNEYS AND URETERS: The kidneys are normal in size, shape, and attenuation. No hydronephrosis, hydroureter, or calculi seen. No perinephric stranding. There are bilateral hypodense nonenhancing cyst. 8 1.1 cm cyst seen in mid to lower pole left kidney. BLADDER: Unremarkable. GASTROINTESTINAL TRACT: There is scattered stool, diverticuli and gas seen throughout the colon without distention. Contrast opacified small bowel loops are unremarkable. ABDOMINAL WALL: There is a small umbilical hernia containing fat. LYMPH NODES: Normal. VASCULAR: Unremarkable. PELVIC VISCERA: Unremarkable. OSSEOUS STRUCTURES: There is grade 1 anterolisthesis L3 over L4 and L4 over L5 with loss of L3-L4 and L4-L5 disc heights. No aggressive lytic or sclerotic process seen. CT/CT abdomen pelvis w IV con IMPRESSION: 1. No acute intra-abdominal process seen. 2. Large hiatal hernia. 3. Bilateral renal and liver cysts. 4. Mild constipation. Colonic diverticulosis without diverticulitis. 5. Small umbilical hernia containing fat. 6. Degenerative disc changes L3-L4 and L4-L5 disc levels with grade 1 anterolisthesis L3 over L4 and L4 over L5. Fleischner guidelines were followed.
[2023-10-21] MEDS: Barium Sulfate Oral (Berry) 450 ML ORAL.SUSP 900 ML PO (16:05)
[2023-10-21] MEDS: iohexoL 350 MG/ML 75 ML INFUS..BTL 85 ML IV (16:05)
[2023-10-22 10:42] LABS: Creatinine POC 0.9 mg/dL (0.5-1.4); GFR POC > 60
== END 2023-10-21 13:17 | disposition home or self-care (01) ==
LOC: HO.CT 13:16
PROVIDERS: PCP Internal Medicine; Visit Provider Nurse Practitioner Family
DX: R10.9 Unspecified abdominal pain (principal)
CPT/HCPCS: 74177; 82565; Q9967

== ENCOUNTER 2023-11-28 14:44 | Outpatient (AMB) | payer MEDICARE, SELFPAY ==
--- NOTE | 2023-11-28 14:46 | A.OFFVIS_ITS ---
Intake Vital Signs 11/28/23 14:57 Height 5 ft 5 in Weight 183 lb 15.965 oz BMI 30.6 BP 132/68 Blood Pressure Location Lt brachial Position Sitting Pulse 97 Intake Visit Reasons: 3 month follow up Intake Note: Patient is seen in office for 3 month follow up, following CT results. 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 Patient will go for IV and oral CT scan left lower quadrant pain without any tenderness. Most likely cost by diverticulosis, gas trapping or stool trapping. Unlikely diverticulitis, colitis. Patient is afebrile Patient was also encouraged to take Citrucel and Colace daily. I will see her in 3 months, sooner on as needed basis. Patient is agreeable to this plan and verbalizes understanding of instructions. She was given the opportunity to ask questions and all questions answered. Plan Orders Orders Blood Urea Nitrogen 08/22/[address] abdomen pelvis w IV con 08/22/23 R10.9 C Reactive Protein 08/22/23 K58.9 Creatinine 08/22/23 R10.11 Medications New docusate sodium 100 mg PO DAILY 30 caps 3RF K59.00 methylcellulose (laxative) (Citrucel) 500 mg PO DAILY 30 tabs 3RF K59.00 TODAY'S VISIT: Patient is here today for follow-up and to discuss lab results and CT scan results. Normal CRP. Patient reports that she has been doing well since the last time I have seen her. No more abdominal discomfort. Patient states that she is moving her bowels well without any issues now. CT scan results discussed with patient. Patient had stool scattered throughout her colon. Diverticulosis without diverticulitis. That could have been most likely reason for patient's pain and colleague. Patient reports that she has been moving her bowels well without any issues. She no longer is using Citrucel or Colace. Patient denies any melena, hematochezia, unintentional weight loss or ribbon like stools. Patient wishes not to go for colonoscopy at this time. Reports to be feeling well. Denies any dyspepsia, dysphagia or odynophagia. 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 History of colitis Hepatic hemangioma Hepatic cyst Osteoporosis Meniere's disease Large hiatal hernia Chronic kidney disease (CKD), stage III (moderate) Atherosclerosis of aorta History of recurrent deep vein thrombosis (DVT) (~12/2020) History of pulmonary embolism (~2016) History of deep vein thrombosis (DVT) of lower extremity (~2016) Pure hypercholesterolemia Benign essential hypertension Surgical History History of colonoscopy History of arthroplasty of left shoulder (~09/2022) History of arthroplasty of right hip (~12/2021) History of arthroplasty of right shoulder (~12/2020) S/P trigger finger release (~2018) History of total left hip arthroplasty (~2017) History of tubal ligation History of left oophorectomy Hx of parotidectomy History of ear surgery History of ankle surgery Family History Other Hypertension Social [facility] Patient Tobacco Use Status: Former Tobacco user e-Cigarette/Vaping Use: Never Used service: No Current occupational status: retired Current occupational exposures/hazards: No Cognitive needs: No Hearing needs: No Vision needs: No Review of Systems Const Denies weight gain and Denies weight loss ENT Reports no additional complaints, Denies dysphagia and Denies odynophagia Card Reports no additional complaints Resp Reports no additional complaints GI Denies abdominal pain, Denies belching, Denies melena, Denies bloating, Denies change in bowel habits, Denies dysphagia, Denies excessive flatus, Denies dyspepsia, Denies heartburn, Denies diarrhea, Denies loose stools, Denies nausea, Denies odynophagia and Denies vomiting Musc Reports no additional complaints Neuro Reports no additional complaints Psych Reports no additional complaints Endo Reports no additional complaints Physical Exam Vital Signs: Last Vital Signs Pulse 97 11/28/23 14:57 BP 132/68 11/28/23 14:57 BMI result Body Mass Index 30.6 Const General: healthy appearing, no acute distress and well developed Nutritional Appearance: well nourished and obese Orientation/consciousness: patient oriented x3 Resp Effort & Inspection: normal respiratory effort, able to speak in complete sentences, no tracheal deviation and symmetric chest movement Auscultation: clear to auscultation bilaterally Cardio Rate: regular rate GI Inspection: Yes normal to inspection, No distended and Yes obesity Palpation (GI): Soft to palpation, not firm, nontender and No hepatosplenomegaly present Auscultation: normal bowel sounds General: Yes no CVA tenderness Back/Spine/Pelvis Back: no CVA tenderness Skin General skin exam: elasticity normal, turgor normal and dry skin Neuro General: patient oriented x3 Psych Appearance: grossly normal Mental Status: mental status grossly normal Results Reviewed Results Reviewed: CT OF ABDOMEN AND PELVIS FINDINGS: LUNG BASES: There is platelike atelectasis right middle lobe, lingula.. There is a large hiatal hernia. LIVER, GALLBLADDER, AND BILIARY TREE: The liver is normal in size, shape, and attenuation. There are multiple liver cysts. The largest lobulated cyst in right hepatic lobe measures 5.1 cm. No biliary ductal dilatation is present. The gallbladder is unremarkable with no evidence of radiopaque gallstones, gallbladder wall thickening, or obvious pericholecystic inflammatory changes. PANCREAS: Unremarkable. SPLEEN: Unremarkable. ADRENAL GLANDS: Unremarkable. KIDNEYS AND URETERS: The kidneys are normal in size, shape, and attenuation. No hydronephrosis, hydroureter, or calculi seen. No perinephric stranding. There are bilateral hypodense nonenhancing cyst. 8 1.1 cm cyst seen in mid to lower pole left kidney. BLADDER: Unremarkable. GASTROINTESTINAL TRACT: There is scattered stool, diverticuli and gas seen throughout the colon without distention. Contrast opacified small bowel loops are unremarkable. ABDOMINAL WALL: There is a small umbilical hernia containing fat. LYMPH NODES: Normal. VASCULAR: Unremarkable. PELVIC VISCERA: Unremarkable. OSSEOUS STRUCTURES: There is grade 1 anterolisthesis L3 over L4 and L4 over L5 with loss of L3-L4 and L4-L5 disc heights. No aggressive lytic or sclerotic process seen. CT/CT abdomen pelvis w IV con IMPRESSION: 1. No acute intra-abdominal process seen. 2. Large hiatal hernia. 3. Bilateral renal and liver cysts. 4. Mild constipation. Colonic diverticulosis without diverticulitis. 5. Small umbilical hernia containing fat. 6. Degenerative disc changes L3-L4 and L4-L5 disc levels with grade 1 anterolisthesis L3 over L4 and L4 over L5. Laboratory Tests 08/22/23 16:06 C-Reactive Protein 0.48 Assessment & Plan Assessment & Plan (1) Left sided abdominal pain: Code(s): R10.9 - Unspecified abdominal pain Plan Patient was encouraged to increase fluid intake and activity to promote better bowel motility. Patient was encouraged to take MiraLax [id number] or stool softeners to help her move her bowels better. Avoid dietary triggers. Avoid food that can make her feel bloated, gassy. Low FODMAP diet discussed with patient. List of food recommended as well as list of food to avoid given to patient. Patient will follow-up in the office on as needed basis. She is agreeable to this plan and verbalizes understanding of instructions. She was given the opportunity to ask questions and all questions answered. Thank you for allowing me to participate in her care Coding Level of Care Code Est Pt Level 3 (35435) Diagnoses Left sided abdominal pain R10.9 Time Spent (min) 25 Comment 15 minutes spent with patient and additional 10 minutes spent reviewing her records
[2023-11-28 14:57] VITALS: BP 132/68; PULSE 97; BMI 30.6
== END 2023-11-28 15:37 | disposition home or self-care (01) ==
PROVIDERS: PCP Internal Medicine; Visit Provider Nurse Practitioner Family
DX: R10.9 Unspecified abdominal pain (principal)
CPT/HCPCS: 99213

== ENCOUNTER → 2023-11-28 14:44 | Outpatient (BNVA) | payer MEDICARE, SELFPAY | PROVIDERS: PCP Internal Medicine; Visit Provider Nurse Practitioner Family | DX: R10.9 Unspecified abdominal pain (principal) | CPT/HCPCS: 99212 ==

== ENCOUNTER 2023-12-10 14:28 | Outpatient (AMB) | payer MEDICARE, SELFPAY ==
[2023-12-10 14:49] VITALS: BP 132/86; PULSE 95; O2SAT 94; BMI 31.9
--- NOTE | 2023-12-10 14:49 | MHC.PC.OV ---
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: No Accompanied by: Self / Same As Patient Allergies amoxicillin [From Augmentin] Allergy (Severe, Verified 12/15/23 02:46) Rash clavulanic acid [From Augmentin] Allergy (Severe, Verified 12/15/23 02:46) Rash levofloxacin [From Levaquin] Allergy (Severe, Verified 12/15/23 02:46) Rash Medication List - Last Reconciled 12/15/23 by Shekhar Young MD apixaban (Eliquis) 2.5 mg PO BID 90 days atorvastatin 40 mg PO DAILY 90 days calcium carbonate-vitamin D3 600 mg-10 mcg (400 unit) (Calcium with Vitamin D) 1 tab PO BID cholecalciferol (vitamin D3) 50 mcg PO DAILY omeprazole 40 mg PO DAILY 90 days potassium chloride ER 10 mEq PO DAILY 90 days tramadol 50 mg PO DAILY PRN 90 days trazodone 50 mg PO BEDTIME PRN Tobacco use date assessed: 12/10/23 Fall risk assessment: No Falls in past year Last assessed Fall Risk: 12/10/23 Dental Screening Dental Screen Date: 12/10/23 Did you have a dental visit in the last 12 months?: Yes Did you have a dental problem in the last 6 months where you did not have access to dental care?: No Was dental information given to patient?: Patient has dentist HPI 3 month f/u HPI Details Patient comes in for her follow up visit States that she feels okay She denies any headaches but still has occasional brief dizziness that occurs only when her heart is racing Denies any chest pains, no SOB but still has on and off bouts/sensations of her heart racing No nausea/vomiting, no abdominal pain No change in bowel habits noted Needs her Atorvastatin Rx refilled Had her follow up labs done at [facility] in [place] a couple of weeks ago - to discuss her results (patient brought in a copy of her recent lab results) States that she was seen at [facility] for her recurrent bouts of tachycardia and all of her tests came out okay and the specialist there could also not find a cause/etiology of her symptoms [facility] Medical History Obesity (BMI 30-39.9) Insomnia Anemia Restless leg syndrome 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 History of colitis Hepatic hemangioma Hepatic cyst Osteoporosis Meniere's disease Large hiatal hernia Chronic kidney disease (CKD), stage III (moderate) Atherosclerosis of aorta History of recurrent deep vein thrombosis (DVT) (~12/2020) History of pulmonary embolism (~2016) History of deep vein thrombosis (DVT) of lower extremity (~2016) Pure hypercholesterolemia Benign essential hypertension Surgical History History of colonoscopy History of arthroplasty of left shoulder (~09/2022) History of arthroplasty of right hip (~12/2021) History of arthroplasty of right shoulder (~12/2020) S/P trigger finger release (~2018) History of total left hip arthroplasty (~2016) History of tubal ligation History of left oophorectomy Hx of parotidectomy History of ear surgery History of ankle surgery Family History Other Hypertension Social History Housing: Condominium Patient Tobacco Use Status: Former Tobacco user e-Cigarette/Vaping Use: Never Used service: No Current occupational status: retired Current occupational exposures/hazards: No Cognitive needs: No Hearing needs: No Vision needs: No Questionnaire PHQ-9 Over the last 2 weeks, how often have you been bothered by any of the following problems? 1. Little interest or pleasure in doing things: not at all 2. Feeling down, depressed, or hopeless: not at all 3. Trouble falling or staying asleep, or sleeping too much: not at all 4. Feeling tired or having little energy: not at all 5. Poor appetite or overeating: not at all 6. Feeling bad about yourself - or that you are a failure or have let yourself or your family down: not at all 7. Trouble concentrating on things, such as reading the newspaper or watching television: not at all 8. Moving or speaking so slowly that other people could have noticed. Or the opposite - being so fidgety or restless that you have been moving around a lot more than usual: not at all 9. Thoughts that you would be better off or of hurting yourself in some way: not at all Total score: 0 Depression Screening Interpretation: Negative Depression Screening Done: Yes 94750 - PHQ-9 Billing: Yes Source: Developed by Drs. Andrew Mcghee, Yue Mosqueda, Vazquez Johnson and colleagues, with an educational yesica from [employer]. Thrive Questionnaire Date Thrive assessed: 12/10/23 I am a: Patient What is your living situation today?: I have a steady place to live Within the past 12 months, did the food you bought not last and you didn't have the money to get more?: Never true Within the past 12 months, did you worry whether your food would run out before you got money to buy more?: Never true Do you have trouble paying for medicines?: No Do you have trouble getting transportation to medical appointments?: No Do you have trouble paying your heating and electricity bill?: No Do you have trouble taking care of your child, family member or friend?: No Do you have trouble with day-to-day activities such as bathing, preparing meals, shopping, managing finances, etc.?: No Are you currently unemployed and looking for a job?: No Are you interested in more education?: No Please select the resources that you would like help with: None Currently or been in a relationship where the following occur: no concerns reported THRIVE Score: 0 AUDIT C Alcohol Use Questionnaire (AUDIT-C) 1. How often do you have a drink containing alcohol?: Monthly or less 3. How often do you have six or more drinks on one occasion?: Never Total Score: 1 Score Reviewed/Action Taken: Yes PERCY-7 AMB Questionnaire PERCY-7 Date PERCY - 7 assessed: 12/10/23 Feeling nervous, anxious, or on edge: 0 = Not at all Not being able to stop or control worryin = Not at all Worrying too much about different things: 0 = Not at all Trouble relaxin = Not at all Being so restless that it is hard to sit still: 0 = Not at all Becoming easily annoyed or irritable: 0 = Not at all Feeling afraid as if something awful might happen: 0 = Not at all Total PERCY-7 score (0-4 normal; 5-9 mild; 10-14 moderate; 15-21 severe): 0 Source: Developed by Drs. Andrew Mcghee, Yue Mosqueda, Vazquez Johnson and colleagues, with an educational yesica from [employer]. Review of Systems Const Denies chills, Denies fatigue, Denies fever(s) and Denies headache(s) ENT Denies dysphagia, Reports dizziness (at times, when heart rate increases), Denies otalgia, Denies headache(s), Denies neck pain, Denies odynophagia and Denies sore throat Card Denies chest pain, Reports rapid heart rate (on and off - see HPI), Denies palpitations and Denies dyspnea (but feels that she gets short-winded at times) Resp Denies cough and Denies dyspnea (but feels that she gets short-winded at times) GI Denies abdominal pain, Denies constipation, Denies dysphagia, Denies heartburn, Denies diarrhea, Denies nausea, Denies odynophagia and Denies vomiting Denies difficulty voiding, Denies nocturia, Denies dysuria and Denies urinary urgency Musc Reports back pain, Reports arthralgias (involving shoulders and hips, on and off), Denies muscle weakness and Denies neck pain Skin/Breast Denies rash Neuro Reports dizziness (at times, when heart rate increases) and Denies headache(s) Endo Denies fatigue and Denies palpitations Physical exam (Primary Care) Vital Signs: Last Vital Signs Pulse 95 12/10/23 14:49 BP 132/86 12/10/23 14:49 Pulse Ox 94 12/10/23 14:49 Oxygen Delivery Method Room Air 12/10/23 14:49 BMI result Body Mass Index 31.9 Tobacco/Smoking Status: Tobacco use Status Tobacco use date assessed 12/10/23 12/10/23 14:51 Patient Tobacco Use Status Former Tobacco user 12/10/23 14:51 e-Cigarette/Vaping Use Never Used 12/10/23 14:51 PHQ-9: PHQ-9 Score PHQ-9: Total score 0 12/10/23 15:51 Depression Screening Interpretation: Negative Thrive Assessment: Date of Thrive Assessment Date Thrive assessed 12/10/23 12/10/23 14:51 Currently or been in a relationship where the following occur: no concerns reported Const General: no acute distress and alert HENMT Ears: TM's normal bilaterally and EAC's normal Throat: Yes posterior oropharynx normal and Yes tonsils normal (no TP congestion) Neck Neck: Yes no lymphadenopathy and Yes supple Resp Auscultation: clear to auscultation bilaterally, no rales and no wheezes Cardio Rate: regular rate Rhythm: regular rhythm Heart sounds: no murmurs GI Palpation (GI): Soft to palpation and nontender Auscultation: normal bowel sounds General: Yes no CVA tenderness Back/Spine/Pelvis Back: no CVA tenderness Thoracic/Lumbar Spine: lumbar spinal tenderness (mild) Skin Rashes: no rashes Extrem General: Yes no clubbing, cyanosis or edema Assessment and Plan Assessment & Plan (1) Palpitations: Code(s): R00.2 - Palpitations Plan: Patient's EKG, echocardiogram and 7-day Holter monitor done a few months ago all came back normal She was reportedly seen by cardiology at [facility] in [place] a few weeks ago and was also advised that her tests have all come back normal and they have no explanation at present for her recurrent symptoms (2) Benign essential hypertension: Code(s): I10 - Essential (primary) hypertension Plan: Reinforced low sodium diet - goal is systolic BP of at least 120 to 130 mm, based on her multiple comorbidities Was previously on Triamterene-HCTZ (also for her lower extremity edema) and Irbesartan but these were held due to low blood pressure during hospitalization a few years ago and she has NOT required any Rx since then States that her systolic BP at home usually runs between 110 to 120 mm and diastolic is often in the 70s range Patient is reminded to continue monitoring her blood pressure regularly at home (3) Pure hypercholesterolemia: Code(s): E78.00 - Pure hypercholesterolemia, unspecified Plan: Reinforced low cholesterol diet Continue Atorvastatin 40 mg QD - Rx refilled Will recheck her fasting lipids and labs in 4 months for follow up (4) Atherosclerosis of aorta: Comment: seen on abdominal aorta CT in 2016 and on chest x-rays in 2017 - mild Code(s): I70.0 - Atherosclerosis of aorta Plan: She is recommended to continue risk factor(s) modification, including control of her BP and cholesterol, continuing statin therapy, etc. to help slow down progression of this (5) Chronic kidney disease (CKD), stage III (moderate): Comment: due to long-term NSAID use Code(s): N18.30 - Chronic kidney disease, stage 3 unspecified Qualifiers: Chronic kidney disease stage 3 subtype: stage 3a (GFR 45-59) Qualified Code(s): N18.31 - Chronic kidney disease, stage 3a Plan: Reinforced avoidance of all NSAIDs as much as possible Will continue to monitor her renal function regularly (6) Anemia: Comment: unable to tolerate oral iron supplements Code(s): D64.9 - Anemia, unspecified Qualifiers: Anemia type: unspecified type Qualified Code(s): D64.9 - Anemia, unspecified Plan: Most likely due to her CKD Patient reportedly had iron infusion done (late 2021) shortly before she left [place] and moved here to [facility] last year; she is unable to tolerate any oral iron supplements Recalls experiencing improvement of her symptoms, including less dizziness/orthostasis and less fatigue/more energy Her CBC done at [facility] a couple of weeks ago came back normal, with H/H of 14.0/45.3; her iron studies done back then also came out normal Will continue to monitor her CBC regularly (7) History of recurrent deep vein thrombosis (DVT): Onset Date: ~12/2020 Comment: initial DVT occurred in 2016 following hip surgery; recurred following right shoulder arthroplasty and s/p COVID vaccine in 12/2020 Code(s): Z86.718 - Personal history of other venous thrombosis and embolism Plan: Continue Eliquis 2.5 mg BID (8) Osteoarthritis of multiple joints: Comment: involving hips and shoulders - symptoms relieved with Celecoxib (previously discussed NSAID use with PCP back in 2018) Code(s): M15.9 - Polyosteoarthritis, unspecified Qualifiers: Osteoarthritis type: primary Qualified Code(s): M15.9 - Polyosteoarthritis, unspecified Plan: Continue Tramadol 50 mg QD PRN Reinforced avoidance of NSAIDs due to her CKD but advised that she can continue taking OTC Tylenol PRN (9) Large hiatal hernia: Comment: seen on MRI in 2017 Code(s): K44.9 - Diaphragmatic hernia without obstruction or gangrene Plan: Dietary restrictions similar to GERD reinforced Continue Omeprazole 40 mg QD (10) Osteoporosis: Comment: of hip (BMD in 08/2018 revealed T-score of -2.9) - started on Alendronate in 09/2018; repeat BMD last done 08/2021 Code(s): M81.0 - Age-related osteoporosis without current pathological fracture Qualifiers: Osteoporosis type: age-related Presence of current pathological fracture: without current pathological fracture Qualified Code(s): M81.0 - Age-related osteoporosis without current pathological fracture Plan: Reinforced fall precautions Continue daily oral Calcium and Vitamin D supplements Will consider repeating BMD later this year (2023) for follow up and continuing monitoring (11) Restless leg syndrome: Comment: symptoms relieved with Ropinirole - 2020 Code(s): G25.81 - Restless legs syndrome Plan: Continue Ropinirole - patient takes this only PRN (12) Insomnia: Code(s): G47.00 - Insomnia, unspecified Qualifiers: Insomnia type: unspecified Qualified Code(s): G47.00 - Insomnia, unspecified Plan: Sleep hygiene reinforced Has taken Zolpidem 5 mg Q HS PRN and/or Trazodone 50 mg Q HS PRN in the past (13) Obesity (BMI 30-39.9): Code(s): E66.9 - Obesity, unspecified Plan: Reinforced diet; exercise and weight loss are unrealistic at this point given patient's multiple comorbidities and to a lesser extent, her age States that she gained some weight since she quit smoking a couple of years ago Plan Follow up in 4 months Orders: Orders Comprehensive Galva. Panel Fast 4 Months E78.00 - Pure hypercholesterolemia, unspecified Complete Blood Count Auto Diff 4 Months D64.9 - Anemia, unspecified Lipid Panel 4 Months E78.00 - Pure hypercholesterolemia, unspecified TSH reflex Free T4 4 Months E78.00 - Pure hypercholesterolemia, unspecified UA CC w/rflx Micro + Cult 4 Months R30.0 - Dysuria Vitamin D 25-OH Total 4 Months E55.9 - Vitamin D deficiency, unspecified Medications: Changed From atorvastatin 40 mg PO DAILY To atorvastatin 40 mg PO DAILY 90 days 90 tabs 3RF Coding Level of Care Code Est Pt Level 4 (07137) Diagnoses Palpitations R00.2 Benign essential hypertension I10 Pure hypercholesterolemia E78.00 Atherosclerosis of aorta I70.0 Stage 3a chronic kidney disease N18.31 Chronic kidney disease stage 3 subtype: stage 3a (GFR 45-59) Anemia, unspecified type D64.9 Anemia type: unspecified type History of recurrent deep vein thrombosis (DVT) Z86.718 Primary osteoarthritis involving multiple joints M15.9 Osteoarthritis type: primary Large hiatal hernia K44.9 Age-related osteoporosis without current pathological fracture M81.0 Osteoporosis type: age-related Presence of current pathological fracture: without current pathological fracture Restless leg syndrome G25.81 Insomnia, unspecified type G47.00 Insomnia type: unspecified Obesity (BMI 30-39.9) E66.9
== END 2023-12-10 15:55 | disposition home or self-care (01) ==
PROVIDERS: PCP Internal Medicine; Visit Provider Internal Medicine
DX: I12.9 Hypertensive chronic kidney disease with stage 1 through stage 4 chronic kidney disease, or unspecified chronic kidney disease (principal); I70.0 Atherosclerosis of aorta; N18.31 Chronic kidney disease, stage 3a; R00.2 Palpitations; E78.00 Pure hypercholesterolemia, unspecified; D64.9 Anemia, unspecified; Z86.718 Personal history of other venous thrombosis and embolism; M15.9 Polyosteoarthritis, unspecified; K44.9 Diaphragmatic hernia without obstruction or gangrene; M81.0 Age-related osteoporosis without current pathological fracture; G25.81 Restless legs syndrome; G47.00 Insomnia, unspecified
CPT/HCPCS: 99214

== ENCOUNTER 2024-01-08 15:01 | Outpatient (AMB) | payer MEDICARE, SELFPAY ==
--- NOTE | 2024-01-08 15:01 | A.OFFPC_ITS ---
Intake Visit Reasons: Sore throat/Cough Intake Note: pt states sore throat that started 01/04. Pt states its gotten worse with symptoms of a cough, runny nose, and chest tightening. no relief. 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: No Allergies amoxicillin [From Augmentin] Allergy (Severe, Verified 01/08/24 15:02) Rash clavulanic acid [From Augmentin] Allergy (Severe, Verified 01/08/24 15:02) Rash levofloxacin [From Levaquin] Allergy (Severe, Verified 01/08/24 15:02) Rash Medication List - Last Reconciled 01/08/24 by Ashley Layton MD apixaban (Eliquis) 2.5 mg PO BID 90 days atorvastatin 40 mg PO DAILY 90 days azithromycin (Zithromax) For 250 mg dose pack: take 500 mg today (day 1), then 250 mg for 4 days (days 2-5) PO calcium carbonate-vitamin D3 600 mg-10 mcg (400 unit) (Calcium with Vitamin D) 1 tab PO BID cholecalciferol (vitamin D3) 50 mcg PO DAILY omeprazole 40 mg PO DAILY 90 days potassium chloride ER 10 mEq PO DAILY 90 days tramadol 50 mg PO DAILY PRN 90 days trazodone 50 mg PO BEDTIME PRN Tobacco use date assessed: 01/08/24 Fall risk assessment: No Falls in past year Last assessed Fall Risk: 01/08/24 HPI Sore throat/Cough HPI Details 83-year-old obese female with hypertensi on hypercholesterolemia chronic kidney disease with a history of DVT calling in through [employer]. 4 days ago sore throat, runny nose , cough. - states going to [facility] . no copd or asthma. was from [place]. 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 History of colitis Hepatic hemangioma Hepatic cyst Osteoporosis Meniere's disease Large hiatal hernia Chronic kidney disease (CKD), stage III (moderate) Atherosclerosis of aorta History of recurrent deep vein thrombosis (DVT) (~12/2020) History of pulmonary embolism (~2016) History of deep vein thrombosis (DVT) of lower extremity (~2016) Pure hypercholesterolemia Benign essential hypertension Surgical History History of colonoscopy History of arthroplasty of left shoulder (~09/2022) History of arthroplasty of right hip (~12/2021) History of arthroplasty of right shoulder (~12/2020) S/P trigger finger release (~2018) History of total left hip arthroplasty (~2016) History of tubal ligation History of left oophorectomy Hx of parotidectomy History of ear surgery History of ankle surgery Family History Other Hypertension Social History Housing: [facility] Patient Tobacco Use Status: Former Tobacco user e-Cigarette/Vaping Use: Never Used service: No Current occupational status: retired Current occupational exposures/hazards: No Cognitive needs: No Hearing needs: No Vision needs: No Questionnaire Thrive Questionnaire Date Thrive assessed: 12/10/23 AUDIT C Alcohol Use Questionnaire (AUDIT-C) 1. How often do you have a drink containing alcohol?: Monthly or less 3. How often do you have six or more drinks on one occasion?: Never Total Score: 1 Score Reviewed/Action Taken: Yes PERCY-7 AMB Questionnaire PERCY-7 Date PERCY - 7 assessed: 12/10/23 Source: Developed by Drs. Andrew Mcghee, Yue Mosqueda, Vazquez Johnson and colleagues, with an educational yesica from [employer]. Physical exam (Primary Care) Tobacco/Smoking Status: Tobacco use Status Tobacco use date assessed 01/08/24 01/08/24 15:03 Patient Tobacco Use Status Former Tobacco user 01/08/24 15:03 e-Cigarette/Vaping Use Never Used 01/08/24 15:03 Thrive Assessment: Date of Thrive Assessment Date Thrive assessed 12/10/23 01/08/24 15:03 Telehealth Telehealth Location of provider rendering services: practice address Location of patient: address on file Patient Identification confirmed using: Name, : Yes Telehealth method: voice only ([phone] // android ) Patient verbally consented to treatment: Yes Patient verbally consented to billing insurance company: Yes Patient informed of any privacy concerns related to visit: Yes Minutes spent on Phone/Video with Pt.: 15 Assessment and Plan Assessment & Plan (1) Upper respiratory infection: Code(s): J06.9 - Acute upper respiratory infection, unspecified Plan: increase oral fluid. , Cepacol lozenges for sore throat. For productive cough can use Mucinex and for dry cough can use Delsym. Medications: New azithromycin (Zithromax) For 250 mg dose pack: take 500 mg today (day 1), then 250 mg for 4 days (days 2-5) PO 6 tabs 0RF J06.9 - Acute upper respiratory infection, unspecified Coding Level of Care Code Tele Est Pt Level 3 (49217) Diagnoses Upper respiratory infection J06.9
== END 2024-01-08 16:37 | disposition home or self-care (01) ==
LOC: HO.HMGH 15:01
PROVIDERS: PCP Internal Medicine; Visit Provider Internal Medicine
DX: J06.9 Acute upper respiratory infection, unspecified (principal)
CPT/HCPCS: 99442

== ENCOUNTER 2024-04-12 14:24 | Outpatient (AMB) | payer MEDICARE, SELFPAY ==
--- NOTE | 2024-04-12 14:24 | A.OFFPC_ITS ---
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 Allergies amoxicillin [From Augmentin] Allergy (Severe, Verified 04/12/24 15:20) Rash clavulanic acid [From Augmentin] Allergy (Severe, Verified 04/12/24 15:20) Rash levofloxacin [From Levaquin] Allergy (Severe, Verified 04/12/24 15:20) Rash Medication List - Last Reconciled 04/12/24 by Shekhar Young MD apixaban (Eliquis) 2.5 mg PO BID 90 days atorvastatin 40 mg PO DAILY 90 days calcium carbonate-vitamin D3 600 mg-10 mcg (400 unit) (Calcium with Vitamin D) 1 tab PO BID cholecalciferol (vitamin D3) 50 mcg PO DAILY omeprazole 40 mg PO DAILY 90 days potassium chloride ER 10 mEq PO DAILY 90 days propranolol ER 60 mg PO DAILY tramadol 50 mg PO DAILY PRN 90 days trazodone 50 mg PO BEDTIME PRN Tobacco use date assessed: 01/08/24 Fall risk assessment: No Falls in past year Last assessed Fall Risk: 04/12/24 Dental Screening Dental Screen Date: 12/10/23 HPI 4 month f/u HPI Details Patient comes in today for her follow up visit States that she has been experiencing increased pain over her right knee lately Recalls that she received a cortisone injection into her right knee from [facility] a few months ago with (+) relief of her knee pain States that she was down in [place] with her daughter a couple of months ago and was at a family member's house when she suddenly stepped on a wet area on the floor by the pool about one and a half month ago and slipped and fell onto her right knee and has been experiencing increased pain in her right knee since States that she did not go and get her knee checked out after she fell and instead just iced her knee and kept her left leg elevated for a while and the pain gradually decreased to where it was at least tolerable She went and saw orthopedics at [facility] about a week later and had some x-rays done, which reportedly came out negative and she was advised at the time that she likely has some bone bruising in her knee States that she will be getting another cortisone injection into her knee at the end of April 2024 and that she would really like to avoid any knee surgery as much as possible States that she feels okay otherwise She denies any headaches or dizziness lately Denies any chest pains, no SOB; states that her heart has not raced any further since she was started on Propranolol ER No nausea/vomiting, no abdominal pain No change in bowel habits noted She was not able to get her follow up labs done prior to her appointment today [facility] Medical History Obesity (BMI 30-39.9) Insomnia Anemia Restless leg syndrome 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 History of colitis Hepatic hemangioma Hepatic cyst Osteoporosis Meniere's disease Large hiatal hernia Chronic kidney disease (CKD), stage III (moderate) Atherosclerosis of aorta History of recurrent deep vein thrombosis (DVT) (~12/2020) History of pulmonary embolism (~2016) History of deep vein thrombosis (DVT) of lower extremity (~2016) Pure hypercholesterolemia Benign essential hypertension Surgical History History of colonoscopy History of arthroplasty of left shoulder (~09/2022) History of arthroplasty of right hip (~12/2021) History of arthroplasty of right shoulder (~12/2020) S/P trigger finger release (~2018) History of total left hip arthroplasty (~2016) History of tubal ligation History of left oophorectomy Hx of parotidectomy History of ear surgery History of ankle surgery Family History Other Hypertension Social History Housing: Condominium Patient Tobacco Use Status: Former Tobacco user e-Cigarette/Vaping Use: Never Used service: No Current occupational status: retired Current occupational exposures/hazards: No Cognitive needs: No Hearing needs: No Vision needs: No Questionnaire PHQ-9 Over the last 2 weeks, how often have you been bothered by any of the following problems? 1. Little interest or pleasure in doing things: not at all 2. Feeling down, depressed, or hopeless: not at all 3. Trouble falling or staying asleep, or sleeping too much: not at all 4. Feeling tired or having little energy: not at all 5. Poor appetite or overeating: not at all 6. Feeling bad about yourself - or that you are a failure or have let yourself or your family down: not at all 7. Trouble concentrating on things, such as reading the newspaper or watching television: not at all 8. Moving or speaking so slowly that other people could have noticed. Or the opposite - being so fidgety or restless that you have been moving around a lot more than usual: not at all 9. Thoughts that you would be better off or of hurting yourself in some way: not at all Total score: 0 Depression Screening Interpretation: Negative Depression Screening Done: Yes [id number] - PHQ-9 Billing: Yes Source: Developed by Drs. Andrew Mcghee, Yue Mosqueda, Vazquez Johnson and colleagues, with an educational yesica from [employer]. Thrive Questionnaire Date Thrive assessed: 12/10/23 I am a: Patient What is your living situation today?: I have a steady place to live Within the past 12 months, did the food you bought not last and you didn't have the money to get more?: Never true Within the past 12 months, did you worry whether your food would run out before you got money to buy more?: Never true Do you have trouble paying for medicines?: No Do you have trouble getting transportation to medical appointments?: No Do you have trouble paying your heating and electricity bill?: No Do you have trouble taking care of your child, family member or friend?: No Do you have trouble with day-to-day activities such as bathing, preparing meals, shopping, managing finances, etc.?: No Are you currently unemployed and looking for a job?: No Are you interested in more education?: No Please select the resources that you would like help with: None Currently or been in a relationship where the following occur: no concerns reported THRIVE Score: 0 AUDIT C Alcohol Use Questionnaire (AUDIT-C) 1. How often do you have a drink containing alcohol?: Monthly or less 3. How often do you have six or more drinks on one occasion?: Never Total Score: 1 Score Reviewed/Action Taken: Yes PERCY-7 AMB Questionnaire PERCY-7 Date PERCY - 7 assessed: 12/10/23 Source: Developed by Drs. Andrew Mcghee, Yue Mosqueda, Vazquez Johnson and colleagues, with an educational yesica from [employer]. Review of Systems Const Denies chills, Denies fatigue, Denies fever(s) and Denies headache(s) ENT Denies dysphagia, Denies dizziness, Denies otalgia, Denies headache(s), Denies neck pain, Denies odynophagia and Denies sore throat Card Denies chest pain, Denies rapid heart rate (controlled on Propranolol ER), Denies palpitations and Denies dyspnea Resp Denies cough and Denies dyspnea GI Denies abdominal pain, Denies constipation, Denies dysphagia, Denies heartburn, Denies diarrhea, Denies nausea, Denies odynophagia and Denies vomiting Denies difficulty voiding, Denies nocturia, Denies dysuria and Denies urinary urgency Musc Reports back pain, Reports arthralgias (involving shoulders and hips, on and off; increased pain in the R knee), Denies neck pain and Denies stiffness Skin/Breast Denies rash Neuro Denies dizziness and Denies headache(s) Endo Denies fatigue and Denies palpitations Physical exam (Primary Care) Vital Signs: Last Vital Signs Pulse 78 04/12/24 14:25 BP 142/78 H 04/12/24 14:25 Pulse Ox 95 04/12/24 14:25 Oxygen Delivery Method Room Air 04/12/24 14:25 BMI result Body Mass Index 32.3 Tobacco/Smoking Status: Tobacco use Status Tobacco use date assessed 01/08/24 04/12/24 14:26 Patient Tobacco Use Status Former Tobacco user 04/12/24 14:26 e-Cigarette/Vaping Use Never Used 04/12/24 14:26 PHQ-9: PHQ-9 Score PHQ-9: Total score 0 04/12/24 15:33 Depression Screening Interpretation: Negative Thrive Assessment: Date of Thrive Assessment Date Thrive assessed 12/10/23 04/12/24 14:26 Currently or been in a relationship where the following occur: no concerns reported Const General: no acute distress and alert HENMT Ears: TM's normal bilaterally and EAC's normal Throat: Yes posterior oropharynx normal and Yes tonsils normal (no TP congestion) Neck Neck: Yes no lymphadenopathy and Yes supple Thyroid: Thyroid normal Resp Auscultation: clear to auscultation bilaterally, no rales and no wheezes Cardio Rate: regular rate Rhythm: regular rhythm Heart sounds: no murmurs GI Palpation (GI): Soft to palpation and nontender Auscultation: normal bowel sounds General: Yes no CVA tenderness Back/Spine/Pelvis Back: no CVA tenderness Thoracic/Lumbar Spine: lumbar spinal tenderness (mild) Skin Rashes: no rashes Extrem General: Yes no clubbing, cyanosis or edema Right lower extremity: knee Details: tenderness; no swelling Assessment and Plan Assessment & Plan (1) Palpitations: Code(s): R00.2 - Palpitations Plan: Patient's EKG, echocardiogram and 7-day Holter monitor done a few months ago all came back normal She was reportedly seen by cardiology at [facility] in [place] a few weeks ago and was also advised that her tests have all come back normal and they have no explanation for her recurrent symptoms of palpitations She has since been started on Propranolol ER 60 mg QD and she states that her symptoms have mostly subsided with the Rx - to continue on Propranolol ER 60 mg QD (2) Benign essential hypertension: Code(s): I10 - Essential (primary) hypertension Plan: Reinforced low sodium diet - goal is systolic BP of at least 120 to 130 mm, based on her multiple comorbidities She was previously on Triamterene-HCTZ (also for her lower extremity edema) and Irbesartan but these were held due to low blood pressure during hospitalization a few years ago and eventually stopped - she has NOT required any Rx since States that her systolic BP at home usually runs between 110 to 120 mm and diastolic is often in the 70s range She was started though on Propranolol ER 60 mg QD for her palpitations and she seems to be tolerating the Rx so far Patient is reminded to continue monitoring her blood pressure regularly at home (3) Pure hypercholesterolemia: Code(s): E78.00 - Pure hypercholesterolemia, unspecified Plan: She was not able to get her follow up labs done prior to her appointment today - states that she completely forgot about them but is coming back to [place] tomorrow morning and will try to get these done ALEXANDER Reinforced low cholesterol diet Continue Atorvastatin 40 mg QD Will recheck her fasting lipids in 4 months for follow up (4) Atherosclerosis of aorta: Comment: seen on abdominal aorta CT in 2016 and on chest x-rays in 2017 - mild Code(s): I70.0 - Atherosclerosis of aorta Plan: She is recommended to continue risk factor(s) modification, including control of her BP and cholesterol, continuing statin therapy, etc. to help slow down p rogression of this (5) Chronic kidney disease (CKD), stage III (moderate): Comment: due to long-term NSAID use Code(s): N18.30 - Chronic kidney disease, stage 3 unspecified Qualifiers: Chronic kidney disease stage 3 subtype: stage 3a (GFR 45-59) Qualified Code(s): N18.31 - Chronic kidney disease, stage 3a Plan: Reinforced avoidance of all NSAIDs as much as possible Will continue to monitor her renal function regularly (6) Anemia: Comment: unable to tolerate oral iron supplements Code(s): D64.9 - Anemia, unspecified Qualifiers: Anemia type: unspecified type Qualified Code(s): D64.9 - Anemia, unspecified Plan: Most likely due to her CKD Patient reportedly had iron infusion done (late 2021) shortly before she left [place] and moved here to [facility] last year; she is unable to tolerate any oral iron supplements Recalls experiencing improvement of her symptoms, including less dizziness/orthostasis and less fatigue/more energy Her CBC done at [facility] a few months ago came back normal, with H/H of 14.0/45.3; her iron studies done back then also came out normal Will continue to monitor her CBC regularly (7) History of recurrent deep vein thrombosis (DVT): Onset Date: ~12/2020 Comment: initial DVT occurred in 2017 following hip surgery; recurred following right shoulder arthroplasty and s/p COVID vaccine in 12/2020 Code(s): Z86.718 - Personal history of other venous thrombosis and embolism Plan: Continue Eliquis 2.5 mg BID (8) Osteoarthritis of multiple joints: Comment: involving hips and shoulders - symptoms relieved with Celecoxib (previously discussed NSAID use with PCP back in 2018) Code(s): M15.9 - Polyosteoarthritis, unspecified Qualifiers: Osteoarthritis type: primary Qualified Code(s): M15.9 - Polyosteoarthritis, unspecified Plan: Continue Tramadol 50 mg QD PRN Reinforced avoidance of NSAIDs due to her CKD but advised that she can continue taking OTC Tylenol PRN (9) Large hiatal hernia: Comment: seen on MRI in 2016 Code(s): K44.9 - Diaphragmatic hernia without obstruction or gangrene Plan: Dietary restrictions similar to GERD reinforced Continue Omeprazole 40 mg QD (10) Osteoporosis: Comment: of hip (BMD in 08/2018 revealed T-score of -2.9) - started on Alendronate in 09/2018; repeat BMD last done 08/2021 Code(s): M81.0 - Age-related osteoporosis without current pathological fracture Qualifiers: Osteoporosis type: age-related Presence of current pathological fracture: without current pathological fracture Qualified Code(s): M81.0 - Age- related osteoporosis without current pathological fracture Plan: Reinforced fall precautions Continue daily oral Calcium and Vitamin D supplements Will consider repeating BMD later this year (2023) for follow up and continuing monitoring (11) Restless leg syndrome: Comment: symptoms relieved with Ropinirole - 2020 Code(s): G25.81 - Restless legs syndrome Plan: Continue Ropinirole - patient takes this only PRN (12) Insomnia: Code(s): G47.00 - Insomnia, unspecified Qualifiers: Insomnia type: unspecified Qualified Code(s): G47.00 - Insomnia, unspecified Plan: Sleep hygiene reinforced Has taken Zolpidem 5 mg Q HS PRN and/or Trazodone 50 mg Q HS PRN in the past (13) Obesity (BMI 30-39.9): Code(s): E66.9 - Obesity, unspecified Plan: Reinforced diet; exercise and weight loss are unrealistic at this point given patient's multiple comorbidities and to a lesser extent, her age Plan Follow up in 4 months Orders: Orders Lipid Panel 4 Months E78.00 - Pure hypercholesterolemia, unspecified Comprehensive Marilla. Panel Fast 4 Months E78.00 - Pure hypercholesterolemia, unspecified Coding Level of Care Code Est Pt Level 4 (09201) Diagnoses Palpitations R00.2 Benign essential hypertension I10 Pure hypercholesterolemia E78.00 Atherosclerosis of aorta I70.0 Stage 3a chronic kidney disease N18.31 Chronic kidney disease stage 3 subtype: stage 3a (GFR 45-59) Anemia, unspecified type D64.9 Anemia type: unspecified type History of recurrent deep vein thrombosis (DVT) Z86.718 Primary osteoarthritis involving multiple joints M15.9 Osteoarthritis type: primary Large hiatal hernia K44.9 Age-related osteoporosis without current pathological fracture M81.0 Osteoporosis type: age-related Presence of current pathological fracture: without current pathological fracture Restless leg syndrome G25.81 Insomnia, unspecified type G47.00 Insomnia type: unspecified Obesity (BMI 30-39.9) E66.9
[2024-04-12 14:25] VITALS: BP 142/78; PULSE 78; O2SAT 95; BMI 32.3
== END 2024-04-12 15:29 | disposition home or self-care (01) ==
PROVIDERS: PCP Internal Medicine; Visit Provider Internal Medicine
DX: I12.9 Hypertensive chronic kidney disease with stage 1 through stage 4 chronic kidney disease, or unspecified chronic kidney disease (principal); R00.2 Palpitations; I70.0 Atherosclerosis of aorta; N18.31 Chronic kidney disease, stage 3a; E78.00 Pure hypercholesterolemia, unspecified; D64.9 Anemia, unspecified; Z86.718 Personal history of other venous thrombosis and embolism; M15.9 Polyosteoarthritis, unspecified; K44.9 Diaphragmatic hernia without obstruction or gangrene; M81.0 Age-related osteoporosis without current pathological fracture; G25.81 Restless legs syndrome; G47.00 Insomnia, unspecified; E66.9 Obesity, unspecified
CPT/HCPCS: 99214

== ENCOUNTER 2024-04-15 11:34 | Outpatient (REF) | payer MEDICARE, SELFPAY ==
[2024-04-15 12:03] LABS: MANUAL DIFF FLAG NO
[2024-04-15 12:47] LABS: Basophils Percent Auto 0.6 % (0-2); Eosinophils Absolute Auto 0.1 X10*3/uL (0.0-0.4); Eosinophils Percent Auto 2.6 % (0-4); Hematocrit 39.8 % (37.0-47.0); Hemoglobin 12.4 g/dl (12.0-16.0); Imm Gran Abs Auto 0.02 X10*3/uL (0.00-0.03); Imm Gran Pct Auto 0.4 % (0.0-0.4); Lymphocytes Absolute Auto 1.2 X10*3/uL (1.2-4.9); Lymphocytes Percent Auto 23.7 % (20-40); Mean Corpuscular HGB Conc 31.2 g/dl (31.0-35.0); Mean Corpuscular Hemoglobin 25.7 pg (27.0-33.0); Mean Corpuscular Volume 82.4 fL (80.0-98.0); Monocytes Absolute Auto 0.4 X10*3/uL (0.1-1.2); Monocytes Percent Auto 8.9 % (2-11); Neutrophils Absolute Auto 3.1 x10*3/uL (2.0-8.3); Neutrophils Percent Auto 63.8 % (45-73); Platelet Count 189 X10*3/uL (160-400); Red Blood Count 4.83 X10*6/uL (4.20-5.50); White Blood Count 4.9 X10*3/uL (4.8-10.8)
[2024-04-15 13:39] LABS: TSH reflex Free T4 1.94 uIU/mL (0.32-4.0); Vitamin D 25-OH Total 51.9 ng/mL (>30)
== END 2024-04-15 11:35 | disposition home or self-care (01) ==
LOC: HO.LAB 11:34
PROVIDERS: PCP Internal Medicine; Visit Provider Internal Medicine
DX: E78.00 Pure hypercholesterolemia, unspecified (principal); E55.9 Vitamin D deficiency, unspecified; D64.9 Anemia, unspecified
CPT/HCPCS: 36415; 82306; 84443; 85025

== ENCOUNTER 2024-04-16 10:00 | Outpatient (REF) | payer MEDICARE, SELFPAY ==
[2024-04-16 10:47] LABS: Appearance Urine Cloudy; Color Urine Yellow; Glucose Urine UA Negative (Negative); Leukocyte Esterase Urine Moderate (2+) (Negative); Nitrite Urine Positive (Negative); Specific Gravity - Urine 1.015 (1.005-1.025); UMIC TRIGGER UACC YES; Urine Blood Negative (Negative); Urine Ketones Negative (Negative); Urine Protein Negative (Neg-Trace)
[2024-04-16 10:56] LABS: Bacteria Urine 4+ (None Seen); Hyaline Casts Urine 0-2 /LPF (0-2); RBC Urine 0-2 /HPF (0-2); Squamous Epithelial Cell Urine 0-2 /HPF (0-2); UACC Culture Trigger YES
[2024-04-16 11:26] LABS: Alanine Aminotransferase 16 U/L (0-31); Alkaline Phosphatase 82 U/L (39-117); Anion Gap 11 (12-20); Aspartate Amino Transferase 20 U/L (5-31); Bilirubin Total 0.7 mg/dL (0.0-1.0); Blood Urea Nitrogen 14 mg/dL (9-16); Calcium 9.6 mg/dL (8.4-10.2); Carbon Dioxide 28 mmol/L (22-29); Chloride 109 mmol/L (96-108); Cholesterol 128 mg/dL (<200); Estimated Glomerular Filt Rate 45; Glucose Fasting 95 mg/dL (60-99); HDL Cholesterol 49 mg/dL (>40); LDL Cholesterol Calculated 63 mg/dL (<100); Sodium 144 mmol/L (135-145); Total Protein 6.5 g/dL (6.5-8.0); Triglycerides 84 mg/dL (<150)
== END 2024-04-16 10:01 | disposition home or self-care (01) ==
LOC: HO.LAB 10:00
PROVIDERS: PCP Internal Medicine; Visit Provider Internal Medicine
DX: E78.00 Pure hypercholesterolemia, unspecified (principal); R30.0 Dysuria; R82.90 Unspecified abnormal findings in urine
CPT/HCPCS: 36415; 80053; 80061; 81001; 87086; 87088; 87186

== ENCOUNTER 2024-06-29 16:41 | Outpatient (REF) | payer MEDICARE, SELFPAY ==
--- NOTE | ~2024-06-29 | CT_ITS ---
EXAMINATION CT HEAD WITHOUT CONTRAST CLINICAL INFORMATION: Dizziness and giddiness COMPARISON: None TECHNIQUE: CT of the head was performed without intravenous contrast. Reformatted axial, coronal, and sagittal images were reviewed. This CT examination was performed using dose optimization techniques as appropriate, variously including the following: *Automated exposure control *Adjustment of mA and/or kV according to patient size (this includes techniques or standardized protocols for targeted exams where dose is matched to indication/reason for exam; i.e. extremities or head) *Use of iterative reconstruction technique DLP: 665 mGy-cm FINDINGS: No intracranial hemorrhage, extra-axial fluid collection, or midline shift is identified. Evidence of the cerebral sulci with commensurate ventriculomegaly consistent with age-related cerebral volume loss. Auguste-white matter differentiation is preserved. The ventricles are within normal limits. Basal cisterns are within normal limits. Vascular calcifications of the cerebellar arteries. Paranasal sinuses are clear. Mastoid air cells and middle ear cavities are clear. No acute calvarial fractures. CT/CT head/brain wo IV con IMPRESSION: 1. No acute intracranial abnormality. 2. Age-related cerebral volume loss. Electronically signed by: Simeon Ramos DO 06/30/2024 05:27 PM EDT
== END 2024-06-29 16:42 | disposition home or self-care (01) ==
LOC: HO.CT 16:41
PROVIDERS: PCP Internal Medicine; Visit Provider Internal Medicine
DX: R42 Dizziness and giddiness (principal)
CPT/HCPCS: 70450

== ENCOUNTER 2024-08-10 14:18 | Outpatient (AMB) | payer MEDICARE, SELFPAY ==
[2024-08-10 14:25] VITALS: BP 120/72; PULSE 70; O2SAT 96; BMI 32.0
--- NOTE | 2024-08-10 14:25 | A.OFFPC_ITS ---
Vital Signs 08/10/24 14:25 Height 5 ft 5 in Weight 192 lb 6 oz BMI 32.0 BP 120/72 Blood Pressure Location Lt brachial Position Sitting Pulse 70 Pulse Source Pulse Oximeter Pulse Oximetry (%) 96 Oxygen Delivery Method Room Air Intake Visit Reasons: 3 Month F/U Testing Specialist Required: No Accompanied by: Self / Same As Patient Allergies amoxicillin [From Augmentin] Allergy (Severe, Verified 08/10/24 14:59) Rash clavulanic acid [From Augmentin] Allergy (Severe, Verified 08/10/24 14:59) Rash levofloxacin [From Levaquin] Allergy (Severe, Verified 08/10/24 14:59) Rash Medication List - Last Reconciled 08/10/24 by Shekhar Young MD apixaban (Eliquis) 2.5 mg PO BID 90 days atorvastatin 40 mg PO DAILY 90 days calcium carbonate-vitamin D3 600 mg-10 mcg (400 unit) (Calcium with Vitamin D) 1 tab PO BID cholecalciferol (vitamin D3) 50 mcg PO DAILY omeprazole 40 mg PO DAILY 90 days potassium chloride ER 10 mEq PO DAILY 90 days propranolol ER 60 mg PO DAILY tramadol 50 mg PO DAILY PRN 90 days trazodone 50 mg PO BEDTIME PRN Tobacco use date assessed: 08/10/24 Fall risk assessment: 1 Fall in past year Last assessed Fall Risk: 08/10/24 Dental Screening Dental Screen Date: 08/10/24 Did you have a dental visit in the last 12 months?: Yes Did you have a dental problem in the last 6 months where you did not have access to dental care?: No Was dental information given to patient?: Patient has dentist HPI 3 Month F/U HPI Details Patient comes in today for her follow up visit States that she feels off-balanced from time to time lately when she is walking - she describes it more accurately as a sensation that she is listing to one side (more often her right side) when she is walking States that she feels okay otherwise She denies any headaches or dizziness Denies any chest pains or palpitations, no increased SOB No nausea/vomiting, no abdominal pain No change in bowel habits noted Needs her Trazodone Rx refilled She again was not able to get her follow up labs done prior to her appointment today although she did get her labs done a few days after her last visit in March 2024 [facility] Medical History Obesity (BMI 30-39.9) Insomnia Anemia Restless leg syndrome 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 History of colitis Hepatic hemangioma Hepatic cyst Osteoporosis Meniere's disease Large hiatal hernia Chronic kidney disease (CKD), stage III (moderate) Atherosclerosis of aorta History of recurrent deep vein thrombosis (DVT) (~12/2020) History of pulmonary embolism (~2016) History of deep vein thrombosis (DVT) of lower extremity (~2016) Pure hypercholesterolemia Benign essential hypertension Surgical History History of colonoscopy History of arthroplasty of left shoulder (~09/2022) History of arthroplasty of right hip (~12/2021) History of arthroplasty of right shoulder (~12/2020) S/P trigger finger release (~2018) History of total left hip arthroplasty (~2016) History of tubal ligation History of left oophorectomy Hx of parotidectomy History of ear surgery History of ankle surgery Family History Other Hypertension Social History Housing: Condominium Patient Tobacco Use Status: Former Tobacco user e-Cigarette/Vaping Use: Never Used service: No Current occupational status: retired Current occupational exposures/hazards: No Cognitive needs: No Hearing needs: No Vision needs: No Questionnaire PHQ-9 Over the last 2 weeks, how often have you been bothered by any of the following problems? 1. Little interest or pleasure in doing things: not at all 2. Feeling down, depressed, or hopeless: not at all 3. Trouble falling or staying asleep, or sleeping too much: not at all 4. Feeling tired or having little energy: not at all 5. Poor appetite or overeating: not at all 6. Feeling bad about yourself - or that you are a failure or have let yourself or your family down: not at all 7. Trouble concentrating on things, such as reading the newspaper or watching television: not at all 8. Moving or speaking so slowly that other people could have noticed. Or the opposite - being so fidgety or restless that you have been moving around a lot more than usual: not at all 9. Thoughts that you would be better off or of hurting yourself in some way: not at all Total score: 0 Depression Screening Interpretation: Negative Depression Screening Done: Yes 12323 - PHQ-9 Billing: Yes Source: Developed by Drs. Andrew Mcghee, Yue Mosqueda, Vazquez Johnson and colleagues, with an educational yesica from [employer]. Thrive Questionnaire Date Thrive assessed: 08/10/24 I am a: Patient What is your living situation today?: I have a steady place to live Within the past 12 months, did the food you bought not last and you didn't have the money to get more?: Never true Within the past 12 months, did you worry whether your food would run out before you got money to buy more?: Never true Do you have trouble paying for medicines?: No Do you have trouble getting transportation to medical appointments?: No Do you have trouble paying your heating and electricity bill?: No Do you have trouble taking care of your child, family member or friend?: No Do you have trouble with day-to-day activities such as bathing, preparing meals, shopping, managing finances, etc.?: No Are you currently unemployed and looking for a job?: No Are you interested in more education?: No Please select the resources that you would like help with: None Currently or been in a relationship where the following occur: No concerns reported THRIVE Score: 0 AUDIT C Alcohol Use Questionnaire (AUDIT-C) 1. How often do you have a drink containing alcohol?: Monthly or less 3. How often do you have six or more drinks on one occasion?: Never Total Score: 1 Score Reviewed/Action Taken: Yes PERCY-7 AMB Questionnaire PERCY-7 Date PERCY - 7 assessed: 08/10/24 Feeling nervous, anxious, or on edge: 0 = Not at all Not being able to stop or control worryin = Not at all Worrying too much about different things: 0 = Not at all Trouble relaxin = Not at all Being so restless that it is hard to sit still: 0 = Not at all Becoming easily annoyed or irritable: 0 = Not at all Feeling afraid as if something awful might happen: 0 = Not at all Total PERCY-7 score (0-4 normal; 5-9 mild; 10-14 moderate; 15-21 severe): 0 Source: Developed by Drs. Andrew Mcghee, Yue Mosqueda, Vazquez Johnson and colleagues, with an educational yesica from [employer]. Review of Systems Const Denies chills, Denies fatigue, Denies fever(s) and Denies headache(s) ENT Denies dysphagia, Denies dizziness, Denies otalgia, Denies headache(s), Denies neck pain, Denies odynophagia and Denies sore throat Card Denies chest pain, Denies rapid heart rate (controlled on Propranolol ER), Denies palpitations and Denies dyspnea Resp Denies cough and Denies dyspnea GI Denies abdominal pain, Denies constipation, Denies dysphagia, Denies heartburn, Denies diarrhea, Denies nausea, Denies odynophagia and Denies vomiting Denies difficulty voiding, Denies nocturia, Denies dysuria and Denies urinary urgency Musc Reports back pain, Reports arthralgias (involving shoulders and hips, on and off; (+)pain in the R knee ), Denies neck pain and Denies stiffness Skin/Breast Denies rash Neuro Denies dizziness and Denies headache(s) Endo Denies fatigue and Denies palpitations Physical exam (Primary Care) Vital Signs: Last Vital Signs Pulse 70 08/10/24 14:25 BP 120/72 08/10/24 14:25 Pulse Ox 96 08/10/24 14:25 Oxygen Delivery Method Room Air 08/10/24 14:25 BMI result Body Mass Index 32.0 Tobacco/Smoking Status: Tobacco use Status Tobacco use date assessed 08/10/24 08/10/24 14:27 Patient Tobacco Use Status Former Tobacco user 08/10/24 14:27 e-Cigarette/Vaping Use Never Used 08/10/24 14:27 PHQ-9: PHQ-9 Score PHQ-9: Total score 0 08/10/24 15:01 Depression Screening Interpretation: Negative Thrive Assessment: Date of Thrive Assessment Date Thrive assessed 08/10/24 08/10/24 14:27 Currently or been in a relationship where the following occur: No concerns reported Const General: no acute distress and alert HENMT Ears: TM's normal bilaterally and EAC's normal Throat: Yes posterior oropharynx normal and Yes tonsils normal (no TP congestion) Neck Neck: Yes no lymphadenopathy and Yes supple Thyroid: Thyroid normal Resp Auscultation: clear to auscultation bilaterally, no rales and no wheezes Cardio Rate: regular rate Rhythm: regular rhythm Heart sounds: no murmurs GI Palpation (GI): Soft to palpation and nontender Auscultation: normal bowel sounds General: Yes no CVA tenderness Back/Spine/Pelvis Back: no CVA tenderness Thoracic/Lumbar Spine: lumbar spinal tenderness (mild) Skin Rashes: no rashes Extrem General: Yes no clubbing, cyanosis or edema Right lower extremity: knee Details: tenderness; no swelling Office Procedures Flu Questionnaire Does the patient have a severe egg allergy?: No Immunizations Fluarix Triv [id number] (PF) 45 mcg (15 mcg x 3)/0.5 mL IM syringe Performing Provider: Shekhar Young MD [facility] Documented (not given) by: ARIADNE Rice on 08/10/24 14:32 Reason Not Given: Received Previously Results Reviewed Results Reviewed: Laboratory Tests 04/15/24 04/16/24 04/16/24 12:02 08:30 10:10 WBC 4.9 Hgb 12.4 Hct 39.8 Plt Count 189 Sodium 144 Potassium 4.0 Creatinine 1.16 Estimated GFR 45 Fasting Glucose 95 Calcium 9.6 AST 20 ALT 16 Triglycerides 84 Cholesterol 128 LDL Cholesterol, Calc 63 HDL Cholesterol 49 25-OH Vitamin D Total 51.9 TSH 1.94 Ur Specific [place] 1.015 Urine Protein Negative Urine Glucose (UA) Negative Urine Blood Negative Urine Nitrite Positive H Ur Leukocyte Esterase Moderate (2+) H Coding Level of Care Code Est Pt Level 4 (46255) Diagnoses Benign essential hypertension I10 Pure hypercholesterolemia E78.00 Palpitations R00.2 Atherosclerosis of aorta I70.0 Stage 3a chronic kidney disease N18.31 Chronic kidney disease stage 3 subtype: stage 3a (GFR 45-59) Anemia, unspecified type D64.9 Anemia type: unspecified type History of recurrent deep vein thrombosis (DVT) Z86.718 Primary osteoarthritis involving multiple joints M15.9 Osteoarthritis type: primary Large hiatal hernia K44.9 Age-related osteoporosis without current pathological fracture M81.0 Osteoporosis type: age-related Presence of current pathological fracture: without current pathological fracture Restless leg syndrome G25.81 Insomnia, unspecified type G47.00 Insomnia type: unspecified Obesity (BMI 30-39.9) E66.9 Assessment & Plan Assessment & Plan (1) Benign essential hypertension: Code(s): I10 - Essential (primary) hypertension Category: Medical Plan: Reinforced low sodium diet - goal is systolic BP of at least 120 to 130 mm, based on her multiple comorbidities She was previously on Triamterene-HCTZ (also for her lower extremity edema) and Irbesartan but these were held due to low blood pressure during hospitalization a few years ago and eventually stopped - she has NOT required any Rx since States that her systolic BP at home usually runs between 110 to 120 mm and diastolic is often in the 70s range She was however started on Propranolol ER 60 mg QD for her palpitations and she seems to be tolerating the Rx so far Patient is reminded to continue monitoring her blood pressure regularly at home (2) Pure hypercholesterolemia: Code(s): E78.00 - Pure hypercholesterolemia, unspecified Category: Medical Plan: She was not able to get her follow up labs done prior to her appointment today although she did get her prior labs done a few days after her last appointment in March 2024, which were reviewed with her today Reinforced low cholesterol diet Continue Atorvastatin 40 mg QD Will recheck her fasting lipids in a few months for follow up - she asked to have her appointment scheduled in January 2025 so she does not have to come out here in the winter time (3) Palpitations: Code(s): R00.2 - Palpitations Category: Medical Plan: Patient's EKG, echocardiogram and 7-day Holter monitor done a few months ago all came back normal She was reportedly seen by cardiology at [facility] in [place] a few weeks ago and was also advised that her tests have all come back normal and they have no explanation for her recurrent symptoms of palpitations She has since been started on Propranolol ER 60 mg QD and she states that her symptoms have mostly subsided with the Rx (4) Atherosclerosis of aorta: Comment: seen on abdominal aorta CT in 2016 and on chest x-rays in 2017 - mild Code(s): I70.0 - Atherosclerosis of aorta Category: Medical Plan: She has been recommended to continue risk factor(s) modification, including control of her BP and cholesterol, and to continue statin therapy to help slow down progression of this (5) Chronic kidney disease (CKD), stage III (moderate): Comment: due to long-term NSAID use Code(s): N18.30 - Chronic kidney disease, stage 3 unspecified Category: Medical Qualifiers: Chronic kidney disease stage 3 subtype: stage 3a (GFR 45-59) Qualified Code(s): N18.31 - Chronic kidney disease, stage 3a Plan: Reinforced avoidance of all NSAIDs as much as possible Will continue to monitor her renal function regularly (6) Anemia: Comment: unable to tolerate oral iron supplements Code(s): D64.9 - Anemia, unspecified Category: Medical Qualifiers: Anemia type: unspecified type Qualified Code(s): D64.9 - Anemia, unspecified Plan: CORRECTED - this was most likely due to her CKD Her H/H was normal on her most recent labs done back in March 2024 - H/H was at 12.4/39.[address] [facility] earlier this year came back normal, with H/H of 14.0/45.3; her iron studies done back then also came out normal Patient reportedly had iron infusion done (late 2021) shortly before she left [place] and moved here to [facility] last year (she is unable to tolerate any oral iron supplements), and recalls experiencing improvement of her symptoms, including less dizziness/orthostasis and less fatigue/more energy Will continue to monitor her CBC regularly (7) History of recurrent deep vein thrombosis (DVT): Onset Date: ~12/2020 Comment: initial DVT occurred in 2017 following hip surgery; recurred following right shoulder arthroplasty and s/p COVID vaccine in 12/2020 Code(s): Z86.718 - Personal history of other venous thrombosis and embolism Category: Medical Plan: Continue Eliquis 2.5 mg BID (8) Osteoarthritis of multiple joints: Comment: involving hips and shoulders - symptoms relieved with Celecoxib (previously discussed NSAID use with PCP back in 2018) Code(s): M15.9 - Polyosteoarthritis, unspecified Category: Medical Qualifiers: Osteoarthritis type: primary Qualified Code(s): M15.9 - Polyosteoarthritis, unspecified Plan: Continue Tramadol 50 mg QD PRN Reinforced avoidance of NSAIDs due to her CKD but advised that she can continue taking OTC Tylenol PRN (9) Large hiatal hernia: Comment: seen on MRI in 2017 Code(s): K44.9 - Diaphragmatic hernia without obstruction or gangrene Category: Medical Plan: Dietary restrictions similar to GERD reinforced Continue Omeprazole 40 mg QD (10) Osteoporosis: Comment: of hip (BMD in 08/2018 revealed T-score of -2.9) - started on Alendronate in 09/2018; repeat BMD last done 08/2021 Code(s): M81.0 - Age-related osteoporosis without current pathological fracture Category: Medical Qualifiers: Osteoporosis type: age-related Presence of current pathological fracture: without current pathological fracture Qualified Code(s): M81.0 - Age- related osteoporosis without current pathological fracture Plan: Reinforced fall precautions Continue daily oral Calcium and Vitamin D supplements Will consider repeating BMD next year (2024) for follow up and continuing monitoring (11) Restless leg syndrome: Comment: symptoms relieved with Ropinirole - 2020 Code(s): G25.81 - Restless legs syndrome Category: Medical Plan: Continue Ropinirole - patient takes this only PRN (12) Insomnia: Code(s): G47.00 - Insomnia, unspecified Category: Medical Qualifiers: Insomnia type: unspecified Qualified Code(s): G47.00 - Insomnia, unspecified Plan: Sleep hygiene reinforced Has taken Zolpidem 5 mg Q HS PRN and/or Trazodone 50 mg Q HS PRN in the past but has been on Trazodone lately (Rx refilled) (13) Obesity (BMI 30-39.9): Code(s): E66.9 - Obesity, unspecified Category: Medical Plan: Reinforced diet; exercise and weight loss are unrealistic at this point given patient's multiple comorbidities and to a lesser extent, her age Plan Follow up in 6 months Orders: Orders Influenza [id number] Immunization 08/10/24 Z23 - Encounter for immunization Complete Blood Count Auto Diff 01/18/25 D64.9 - Anemia, unspecified Comprehensive [place]. Panel Fast 01/18/25 E78.00 - Pure hypercholesterolemia, unspecified TSH reflex Free T4 01/18/25 E78.00 - Pure hypercholesterolemia, unspecified UA CC w/rflx Micro + Cult 01/18/25 R30.0 - Dysuria Vitamin D 25-OH Total 01/18/25 E55.9 - Vitamin D deficiency, unspecified Lipid Panel 01/18/25 E78.00 - Pure hypercholesterolemia, unspecified Medications: Refilled trazodone 50 mg PO BEDTIME PRN 30 tabs 2RF sleep
== END 2024-08-10 15:15 | disposition home or self-care (01) ==
PROVIDERS: PCP Internal Medicine; Visit Provider Internal Medicine
DX: I10 Essential (primary) hypertension (principal); E78.00 Pure hypercholesterolemia, unspecified; R00.2 Palpitations; I70.0 Atherosclerosis of aorta; N18.31 Chronic kidney disease, stage 3a; D64.9 Anemia, unspecified; Z86.718 Personal history of other venous thrombosis and embolism; M15.9 Polyosteoarthritis, unspecified; K44.9 Diaphragmatic hernia without obstruction or gangrene; M81.0 Age-related osteoporosis without current pathological fracture; G25.81 Restless legs syndrome; G47.00 Insomnia, unspecified; E66.9 Obesity, unspecified

== ENCOUNTER → 2024-08-10 14:18 | Outpatient (BNVA) | payer MEDICARE, SELFPAY | PROVIDERS: PCP Internal Medicine; Visit Provider Internal Medicine | DX: I12.9 Hypertensive chronic kidney disease with stage 1 through stage 4 chronic kidney disease, or unspecified chronic kidney disease (principal); N18.31 Chronic kidney disease, stage 3a; E78.00 Pure hypercholesterolemia, unspecified; R00.2 Palpitations; I70.0 Atherosclerosis of aorta; D63.1 Anemia in chronic kidney disease; M15.9 Polyosteoarthritis, unspecified; K44.9 Diaphragmatic hernia without obstruction or gangrene; M81.0 Age-related osteoporosis without current pathological fracture; G25.81 Restless legs syndrome; G47.00 Insomnia, unspecified; E66.9 Obesity, unspecified; Z68.32 Body mass index [BMI] 32.0-32.9, adult; Z86.718 Personal history of other venous thrombosis and embolism; Z79.01 Long term (current) use of anticoagulants; Z79.899 Other long term (current) drug therapy | CPT/HCPCS: 90471; 96127; 99212 ==

== ENCOUNTER 2024-08-24 09:29 | Outpatient (REF) | payer MEDICARE, SELFPAY ==
--- NOTE | ~2024-08-24 | XR_ITS ---
EXAMINATION: XR CHEST CLINICAL INFORMATION: Patient states wheezing for about a week. COMPARISON: CT abdomen and pelvis of 10/21/2023. TECHNIQUE: 2 views of the chest were obtained. FINDINGS: Lung volumes are low. There is no gross pneumothorax. Heart size within normal limits. Bilateral total shoulder prostheses partially imaged. Multiple retrocardiac air-fluid levels. CT scan of 10/21/2023 demonstrated a large hiatal hernia. Degenerative changes in the thoracic spine. Mild streaky bibasilar opacities. No significant pleural effusion. XR/XR chest 2V IMPRESSION: 1. Multiple retrocardiac air-fluid levels. CT scan abdomen and pelvis of 10/21/2023 demonstrated a large hiatal hernia. 2. Mild streaky bibasilar opacities. This study was presented today, 08/24/2024, for interpretation. Stat results provided at this time as requested by referring provider. Electronically signed by: Yojana Sam MD 08/24/2024 12:12 PM JUDY
== END 2024-08-24 09:30 | disposition home or self-care (01) ==
LOC: HO.XRAY 09:29
PROVIDERS: PCP Internal Medicine; Visit Provider Internal Medicine
DX: R06.2 Wheezing (principal); J98.8 Other specified respiratory disorders
CPT/HCPCS: 71046; 96127; 99212

== ENCOUNTER 2024-08-24 09:29 | Outpatient (AMB) | payer MEDICARE, SELFPAY ==
[2024-08-24 09:45] VITALS: BP 124/70; PULSE 73; O2SAT 96; BMI 31.7
--- NOTE | 2024-08-24 09:45 | A.OFFPC_ITS ---
Vital Signs 08/24/24 09:45 Height 5 ft 5 in Weight 190 lb 6 oz BMI 31.7 BP 124/70 Blood Pressure Location Lt brachial Position Sitting Pulse 73 Pulse Source Pulse Oximeter Pulse Oximetry (%) 96 Oxygen Delivery Method Room Air Intake Visit Reasons: Wheezing Ict Managers Required: No Accompanied by: Self / Same As Patient Allergies amoxicillin [From Augmentin] Allergy (Severe, Verified 08/24/24 10:02) Rash clavulanic acid [From Augmentin] Allergy (Severe, Verified 08/24/24 10:02) Rash levofloxacin [From Levaquin] Allergy (Severe, Verified 08/24/24 10:02) Rash Medication List - Last Reconciled 08/24/24 by Shekhar Young MD apixaban (Eliquis) 2.5 mg PO BID 90 days atorvastatin 40 mg PO DAILY 90 days calcium carbonate-vitamin D3 600 mg-10 mcg (400 unit) (Calcium with Vitamin D) 1 tab PO BID cholecalciferol (vitamin D3) 50 mcg PO DAILY fluticasone propionate 50 mcg/actuation 2 sprays intranasal DAILY PRN 30 days omeprazole 40 mg PO DAILY 90 days potassium chloride ER 10 mEq PO DAILY 90 days propranolol ER 60 mg PO DAILY tramadol 50 mg PO DAILY PRN 90 days trazodone 50 mg PO BEDTIME PRN Tobacco use date assessed: 08/24/24 Fall risk assessment: 1 Fall in past year Last assessed Fall Risk: 08/24/24 Dental Screening Dental Screen Date: 08/24/24 Did you have a dental visit in the last 12 months?: Yes Did you have a dental problem in the last 6 months where you did not have access to dental care?: No Was dental information given to patient?: Patient has dentist HPI Wheezing HPI Details Patient comes in today for evaluation of what she describes as a recurrent/frequent sensation of wheezing / noisy breathing that has been going on since after her last visit here a couple of weeks ago States that the noise is loud enough to be heard by the people around her and she is starting to feel embarrased by it States that she physically does not feel short of breath or feel like she is gasping for air She denies any recent cough/cold symptoms; denies any sore throat and has had no trouble swallowing when she eats or drinks She denies any significant nasal or sinus congestion recently States that she has no trouble sleeping at night and does not wake up coughing or with SOB States that since she is coming in today to have her symptoms checked out, her symptoms appear to have subsided today as she has not heard any of the wheezing today that she has been hearing over the past couple of weeks No other acute complaints or symptoms are noted [facility] Medical History Obesity (BMI 30-39.9) Insomnia Anemia Restless leg syndrome 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 History of colitis Hepatic hemangioma Hepatic cyst Osteoporosis Meniere's disease Large hiatal hernia Chronic kidney disease (CKD), stage III (moderate) Atherosclerosis of aorta History of recurrent deep vein thrombosis (DVT) (~12/2020) History of pulmonary embolism (~2016) History of deep vein thrombosis (DVT) of lower extremity (~2016) Pure hypercholesterolemia Benign essential hypertension Surgical History History of colonoscopy History of arthroplasty of left shoulder (~09/2022) History of arthroplasty of right hip (~12/2021) History of arthroplasty of right shoulder (~12/2020) S/P trigger finger release (~2018) History of total left hip arthroplasty (~2016) History of tubal ligation History of left oophorectomy Hx of parotidectomy History of ear surgery History of ankle surgery Family History Other Hypertension Social History [facility] Patient Tobacco Use Status: Former Tobacco user e-Cigarette/Vaping Use: Never Used service: No Current occupational status: retired Current occupational exposures/hazards: No Cognitive needs: No Hearing needs: No Vision needs: No Questionnaire PHQ-9 Over the last 2 weeks, how often have you been bothered by any of the following problems? 1. Little interest or pleasure in doing things: not at all 2. Feeling down, depressed, or hopeless: not at all 3. Trouble falling or staying asleep, or sleeping too much: not at all 4. Feeling tired or having little energy: not at all 5. Poor appetite or overeating: not at all 6. Feeling bad about yourself - or that you are a failure or have let yourself or your family down: not at all 7. Trouble concentrating on things, such as reading the newspaper or watching television: not at all 8. Moving or speaking so slowly that other people could have noticed. Or the opposite - being so fidgety or restless that you have been moving around a lot more than usual: not at all 9. Thoughts that you would be better off or of hurting yourself in some way: not at all Total score: 0 Depression Screening Interpretation: Negative Depression Screening Done: Yes 99653 - PHQ-9 Billing: Yes Source: Developed by Drs. Andrew Mcghee, Yue Mosqueda, Vazquez Johnson and colleagues, with an educational yesica from [employer]. Thrive Questionnaire Date Thrive assessed: 08/24/24 I am a: Patient What is your living situation today?: I have a steady place to live Within the past 12 months, did the food you bought not last and you didn't have the money to get more?: Never true Within the past 12 months, did you worry whether your food would run out before you got money to buy more?: Never true Do you have trouble paying for medicines?: No Do you have trouble getting transportation to medical appointments?: No Do you have trouble paying your heating and electricity bill?: No Do you have trouble taking care of your child, family member or friend?: No Do you have trouble with day-to-day activities such as bathing, preparing meals, shopping, managing finances, etc.?: No Are you currently unemployed and looking for a job?: No Are you interested in more education?: No Please select the resources that you would like help with: None Currently or been in a relationship where the following occur: No concerns reported THRIVE Score: 0 AUDIT C Alcohol Use Questionnaire (AUDIT-C) 1. How often do you have a drink containing alcohol?: Monthly or less 3. How often do you have six or more drinks on one occasion?: Never Total Score: 1 Score Reviewed/Action Taken: Yes PERCY-7 AMB Questionnaire PERCY-7 Date PERCY - 7 assessed: 08/24/24 Feeling nervous, anxious, or on edge: 0 = Not at all Not being able to stop or control worryin = Not at all Worrying too much about different things: 0 = Not at all Trouble relaxin = Not at all Being so restless that it is hard to sit still: 0 = Not at all Becoming easily annoyed or irritable: 0 = Not at all Feeling afraid as if something awful might happen: 0 = Not at all Total PERCY-7 score (0-4 normal; 5-9 mild; 10-14 moderate; 15-21 severe): 0 Source: Developed by Drs. Andrew Mcghee, Yue Mosqueda, Vazquez Johnson and colleagues, with an educational yesica from [employer]. Review of Systems Const Denies chills, Denies fatigue, Denies fever(s) and Denies headache(s) ENT Denies dysphagia, Denies dizziness, Denies otalgia, Denies headache(s), Denies nasal congestion, Reports nasal discharge (occasional), Denies neck pain, Denies odynophagia, Denies sore throat and Denies throat swelling Card Denies chest pain, Denies rapid heart rate (controlled on Propranolol ER), Denies palpitations and Denies dyspnea Resp Denies chest congestion, Denies cough, Denies dyspnea and Reports wheezing (see HPI) GI Denies abdominal pain, Denies constipation, Denies dysphagia, Denies heartburn, Denies diarrhea, Denies nausea, Denies odynophagia and Denies vomiting Denies difficulty voiding, Denies nocturia, Denies dysuria and Denies urinary urgency Musc Reports back pain, Reports arthralgias (involving shoulders and hips, on and off; (+)pain in the R knee ), Denies neck pain and Denies stiffness Skin/Breast Denies rash Neuro Denies dizziness and Denies headache(s) Endo Denies fatigue and Denies palpitations Aller/Immun Denies throat swelling and Reports wheezing (see HPI) Physical exam (Primary Care) Vital Signs: Last Vital Signs Pulse 73 08/24/24 09:45 BP 124/70 08/24/24 09:45 Pulse Ox 96 08/24/24 09:45 Oxygen Delivery Method Room Air 08/24/24 09:45 BMI result Body Mass Index 31.7 Tobacco/Smoking Status: Tobacco use Status Tobacco use date assessed 08/24/24 08/24/24 09:46 Patient Tobacco Use Status Former Tobacco user 08/24/24 09:46 e-Cigarette/Vaping Use Never Used 08/24/24 09:46 PHQ-9: PHQ-9 Score PHQ-9: Total score 0 08/24/24 10:07 Depression Screening Interpretation: Negative Thrive Assessment: Date of Thrive Assessment Date Thrive assessed 08/24/24 08/24/24 09:46 Currently or been in a relationship where the following occur: No concerns reported Const General: no acute distress and alert HENMT Ears: TM's normal bilaterally and EAC's normal Throat: Yes posterior oropharynx normal and Yes tonsils normal (no TP congestion) Neck Neck: Yes no lymphadenopathy and Yes supple Thyroid: Thyroid normal Resp Auscultation: clear to auscultation bilaterally (but breath sounds appear slightly diminished on auscultation), no rales and no wheezes Cardio Rate: regular rate Rhythm: regular rhythm Heart sounds: no murmurs GI Palpation (GI): Soft to palpation and nontender Auscultation: normal bowel sounds General: Yes no CVA tenderness Back/Spine/Pelvis Back: no CVA tenderness Thoracic/Lumbar Spine: lumbar spinal tenderness (mild) Skin Rashes: no rashes Extrem General: Yes no clubbing, cyanosis or edema Right lower extremity: knee Details: tenderness; no swelling Coding Level of Care Code Est Pt Level 3 (35619) Diagnoses Wheezing R06.2 Assessment & Plan Assessment & Plan (1) Wheezing: Code(s): R06.2 - Wheezing Category: Medical Plan: Have discussed with patient possible causes of her recently perceived wheezing, including allergies and GERD, as well as asthma (which she denies any history of) as well as some interstitial lung disease Will send patient for chest x-rays for further evaluation Will start her for now on a trial of Fluticasone 50 mcg nasal spray QD PRN in the meantime until we have the results of her chest x-rays If x-rays are unrevealing and her symptoms persist, can consider sending her for PFTs for further evaluation Plan Follow up as scheduled in January 2025 Orders: Orders XR chest 2V 08/24/24 J98.8 - Other specified respiratory disorders, R06.2 - Wheezing Medications: New fluticasone propionate 50 mcg/actuation administer into each nostril 2 sprays intranasal DAILY 30 days PRN 16 grams 5RF allergy symptoms
== END 2024-08-24 10:03 | disposition home or self-care (01) ==
LOC: HO.HMCH 09:29
PROVIDERS: PCP Internal Medicine; Visit Provider Internal Medicine
DX: R06.2 Wheezing (principal)

== ENCOUNTER → 2024-11-26 08:32 | Outpatient (BNVA) | payer MEDICARE, SELFPAY | PROVIDERS: PCP Internal Medicine; Visit Provider Nurse Practitioner Family | DX: K44.9 Diaphragmatic hernia without obstruction or gangrene (principal); K21.9 Gastro-esophageal reflux disease without esophagitis; R06.2 Wheezing | CPT/HCPCS: 99212 ==

== ENCOUNTER → 2024-11-26 08:32 | Outpatient (AMB) ==
--- NOTE | 2024-11-26 08:33 | A.OFFVIS_ITS ---
Vital Signs 11/26/24 08:34 Height 5 ft 5 in Weight 195 lb 5.273 oz BMI 32.5 BP 134/68 Blood Pressure Location Rt brachial Position Sitting Pulse 74 Pulse Source Pulse Oximeter Pulse Oximetry (%) 94 Oxygen Delivery Method Room Air Intake Visit Reasons: Diaphragmatic hernia w/o obstruction or gangrene Intake Note: ESTABLISHED PATIENT for 1 YR FUV, new concern regarding diaphragmatic hernia. Imaging per PCP Chief Complaint; c/o only wheezing. Pt denies ANY GI concerns. PCP recommended GI FUV based on this sx per hx of large hiatal hernia. PCP is concerned about possible worsening of the condition. Computer Tape Librarian Required: No Accompanied by: Self / Same As Patient Allergies amoxicillin [From Augmentin] Allergy (Severe, Verified 11/26/24 08:46) Rash clavulanic acid [From Augmentin] Allergy (Severe, Verified 11/26/24 08:46) Rash levofloxacin [From Levaquin] Allergy (Severe, Verified 11/26/24 08:46) Rash HPI HPI Diaphragmatic hernia w/o obstruction or gangrene: Details: LAST VISIT 12/17/2023 Left sided abdominal pain Plan Patient was encouraged to increase fluid intake and activity to promote better bowel motility. Patient was encouraged to take MiraLax [id number] or stool softeners to help her move her bowels better. Avoid dietary triggers. Avoid food that can make her feel bloated, gassy. Low FODMAP diet discussed with patient. List of food recommended as well as list of food to avoid given to patient. Patient will follow-up in the office on as needed basis. She is agreeable to this plan and verbalizes understanding of instructions. She was given the opportunity to ask questions and all questions answered. TODAY'S VISIT Patient is here today referred by PCP. Patient has been wheezing occasionally. Patient reports that that does not happen often. Sometimes happens when she is sitting up and sometimes when she is laying down. Has not happened for quite some time. Large hiatal hernia was identified way back in 2017. So far has not caused patient any trouble. Patient currently is taking omeprazole. Patient will acid reflux and epigastric burning that is sometimes feels like the acid is going up all the way occasionally. Patient does not eat late at night. Low lung volume was identified on chest x-ray which could be caused by hiatal hernia. Patient denies any nausea or vomiting. Denies dyspepsia, dysphagia or odynophagia. [facility] Medical History Obesity (BMI 30-39.9) Insomnia Anemia Restless leg syndrome 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 History of colitis Hepatic hemangioma Hepatic cyst Osteoporosis Meniere's disease Large hiatal hernia Chronic kidney disease (CKD), stage III (moderate) Atherosclerosis of aorta History of recurrent deep vein thrombosis (DVT) (~12/2020) History of pulmonary embolism (~2017) History of deep vein thrombosis (DVT) of lower extremity (~2017) Pure hypercholesterolemia Benign essential hypertension Surgical History History of colonoscopy History of arthroplasty of left shoulder (~09/2022) History of arthroplasty of right hip (~12/2021) History of arthroplasty of right shoulder (~12/2020) S/P trigger finger release (~2018) History of total left hip arthroplasty (~2016) History of tubal ligation History of left oophorectomy Hx of parotidectomy History of ear surgery History of ankle surgery Family History Other Hypertension Social History Housing: Condominium Patient Tobacco Use Status: Former Tobacco user e-Cigarette/Vaping Use: Never Used service: No Current occupational status: retired Current occupational exposures/hazards: No Cognitive needs: No Hearing needs: No Vision needs: No Review of Systems Const Denies weight gain and Denies weight loss ENT Reports no additional complaints, Denies dysphagia and Denies odynophagia Card Reports no additional complaints Resp Reports wheezing (Occasional) GI Denies abdominal pain, Denies belching, Denies melena, Denies bloating, Denies change in bowel habits, Denies dysphagia, Denies excessive flatus, Denies dyspepsia, Reports heartburn (Occasional), Denies diarrhea, Denies loose stools, Denies nausea, Denies odynophagia and Denies vomiting Musc Reports no additional complaints Neuro Reports no additional complaints Psych Reports no additional complaints Endo Reports no additional complaints Aller/Immun Reports wheezing (Occasional) Physical Exam Const General: healthy appearing, no acute distress and well developed Nutritional Appearance: well nourished and obese Orientation/consciousness: patient oriented x3 Resp Effort & Inspection: normal respiratory effort, able to speak in complete sentences, no tracheal deviation and symmetric chest movement Auscultation: clear to auscultation bilaterally Cardio Rate: regular rate GI Inspection: Yes normal to inspection, No distended and Yes obesity Palpation (GI): Soft to palpation, not firm, nontender and No hepatosplenomegaly present Auscultation: normal bowel sounds General: Yes no CVA tenderness Back/Spine/Pelvis Back: no CVA tenderness Skin General skin exam: elasticity normal, turgor normal and dry skin Neuro General: patient oriented x3 Psych Appearance: grossly normal Mental Status: mental status grossly normal Assessment & Plan Assessment & Plan (1) Wheezing: Code(s): R06.2 - Wheezing Category: Medical (2) Large hiatal hernia: Code(s): K44.9 - Diaphragmatic hernia without obstruction or gangrene Category: Medical Plan Will change PPI to Nexium. Patient will take it every morning. Pepcid order as needed, however patient reports that she most likely will not needed. Will send patient for upper GI with barium swallow. Will look for hernia and see if patient has reflux. We will refer patient to Dr. Pope if needed. Patient will be seen in 3 months. Patient will call us if she will have any GI concerning symptoms. She is agreeable to this plan and verbalizes understanding of instructions. She was given the opportunity to ask questions and all questions answered. Thank you for allowing me participate in her care Orders: Orders [place] upper GI w Ba Swallow Today K21.9 - Gastro-esophageal reflux disease without esophagitis Referrals Pulmonology Referral R06.00 - Dyspnea, unspecified, R06.2 - Wheezing Medications: New esomeprazole magnesium (Nexium) 40 mg PO DAILY 30 caps 5RF K21.9 - Gastro- esophageal reflux disease without esophagitis famotidine (Pepcid) 20 mg PO BEDTIME PRN 30 tabs 3RF acid reflux K21.9 - Gastro-esophageal reflux disease without esophagitis Discontinued omeprazole Discontinued Reason: Doctor's Order 40 mg PO DAILY 90 days 90 caps 3RF Coding Level of Care Code Est Pt Level 3 (40016) Diagnoses Wheezing R06.2 Large hiatal hernia K44.9 Time Spent (min) 30 Comment 20 minutes spent with patient and additional 10 minutes spent reviewing her records
--- OUTSIDE RECORDS SUMMARY | 2024-11-26 08:58 | XMS_ITS | Clinical Summary ---
Author Organization [facility] Address [phone] [address] [place] [address] Care Team Providers Care Caretaker Grounds Name Role Phone Shekhar Young MD Primary Care Provider [phone] Allergies Active Allergy Reactions Criticality Noted Date Comments Amoxicillin-Pot Clavulanate 05/21/20 rash Levofloxacin 05/21/2024 rash Medications Medication Sig Dispensed Refills Start Date End Date Status omeprazole (PRILOSEC) 40 MG capsule Take 40 mg by mouth daily. Active cholecalciferol (VITAMIN D3) 2,000 unit capsule Take by mouth daily. Active apixaban (ELIQUIS) 2.5 mg Take 2.5 mg by mouth 2 (two) times a day. Active traMADoL (ULTRAM) 50 mg tablet Take 50 mg by mouth daily as needed for pain (specific location in comments). Active atorvastatin (LIPITOR) 40 MG tablet Take 40 mg by mouth daily. Active potassium chloride (KLOR-CON) 10 MEQ ER tablet Take 10 mEq by mouth daily. Active traZODone (DESYREL) 50 MG tablet Take 50 mg by mouth daily. Active propranoloL (INDERAL LA) 60 mg 24 hr capsuleIndications:B orderline high blood pressure Take 1 capsule (60 mg total) by mouth daily. 90 capsule 3 10/26/2024 Active Active Problems Problem Noted Date Diagnosed Date Dizziness and giddiness 06/01/2024 Assessment & Plan (06/01/2024 5:39 PM EDT): Not clear given this recent interval history that this is caused by bradycardia. Labs not revealing either. Has seen urgent care since, and was given meclizine, but it has not helped. Given that starting and stopping Inderal has not helped or hurt symptoms, it is more clear that symptoms are not related to heart rhythm disorder and as such broader workup is indicated. She has appt with PCP office on . I will also follow up zio patch results (strips have not been downloaded yet) to make sure there is not evidence of rhytm disorder causing symptoms - she did have symptoms when she had the zio patch on so a negative result would be meaningful. Tachycardia 08/12/2023 Assessment & Plan (11/25/2023 4:26 PM EST): She still does note tachycardia although apple watch EKG feature does not show AF. Also I can see that 7 day monitor showed no AF. So AF is unlikely although she will continue to watch with apple watch and let us know. We reviewed her cardiac testing that does not demonstrate a clear cause. She tells me that she was diagnosed with anemia in [place] and given IV iron, since she could not take PO iron because of diarrhea. She does not recall any cause identified of the anemia. At that time she was dizzy (and now she is just tachycardic without dizziness). She does not currently have any dizziness. Both her daughter say she has some limitations to exertion because of back pain. No reason to suspect other secondary causes including thyroid, infection etc. She does say that the watch readings make her nervous so that this might be contributing. Will check TSH, CBC, iron studies anyhow to evaluate. We discussed that it is important to watch apple watch readings because if she is ever shown to have AF she would need higher doses of Eliquis. To see if she feels a bit better, we will trial low dose Inderal XL - she does not have depression. She will watch out for dizziness, fatigue, depression - she will let us know. Assessment & Plan (08/12/2023 4:17 PM EDT): On her apple watch, she tells me that she is sometimes in the 120s, probably now less often than before - every 2 days or so. She does not have symptoms when she has tachycardia. No dizziness. She is scheduled for 48 hour Holter with PCP for next week. I advised confirming length - maybe more expeditious to have 7 day zio given frequency of symptoms. She is also scheduled for an echo next week as well. Her daughter will get results and send them along. 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 During the visit I reviewed prior shingler record from [place], they have her on prophylaxis 2.5 mg BID dose. In case she has AF she would probably need to move up to 5 mg BID based on weight but we would need to check Cr (I am checking today) to confirm dose. If no new diagnosis, ok to keep 2.5 mg BID given this has been already determined by shingler. Borderline high blood pressure 08/12/2023 Assessment & Plan (06/01/2024 5:07 PM EDT): BP high today but home log reviewed - good control at home after restarting Inderal - so would not make additional changes now Assessment & Plan (08/12/2023 4:19 PM EDT): BP 134/76 today, she has been on meds in the past but had orthostatic Hotn in setting of blood loss. Now not clearly needing therapy so will hold off for now. Localized edema 08/12/2023 Assessment & Plan (11/25/2023 4:27 PM EST): This continues to have resolved. Assessment & Plan (08/12/2023 4:20 PM EDT): She had edema several months ago but this resolved without intervention. She is also on ppx dose Eliquis. If this were to recur or PE was more suggestive could pursue imaging. Homans negative on exam today. Immunizations Name Administration Dates Next Due Influenza, Unspecified Formulation 09/18/2011(De ferred: Other) Pneumococcal polysaccharide PPSV23 09/18/2011(De ferred: Other) Social History Tobacco Use Types Packs/Day Years Used Date Smoking Tobacco: Never Assessed Education Answer Date Recorded Are you interested in more education? Not on cristina e 07/15/2023 Are you concerned about learning? Not on file 07/15/2023 No 07/15/2023 No 07/15/2023 Digital Access Answer Date Recorded No 07/15/2023 No 07/15/2023 Reliable internet access at home? Not on file 07/15/2023 Device with a working camera? Not on file Sex and Gender Information Value Date Recorded Sex Assigned at Not on file Gender Identity Not on file Sexual Orientation Not on file Last Filed Vital Signs Vital Sign Reading Time Taken Comments Blood Pressure 161/91 06/01/2024 4:36 PM EDT Pulse 97 06/01/2024 4:36 PM EDT Temperature - - Respiratory Rate - - Oxygen Saturation - - Inhaled Oxygen Concentration - - Weight 86.2 kg (190 lb) 06/01/2024 4:36 PM EDT Height 165.1 cm (5' 5 ) 11/25/2023 3:57 PM EST Body Mass Index 31.62 11/25/2023 3:57 PM EST Plan of Treatment Health Maintenance Due Date Last Done Comments Adult Td,Tdap Booster 1942 DEPRESSION SCREENING 1954 HEPATITIS B SCREENING 1960 ZOSTER VACCINES (1 of 2) 1992 PNEUMOCOCCAL VACCINES (50+ years) (2 of 2 - PCV) 07/29/2015 07/29/2014, 05/29/2005 RSV VACCINE (1 - 1-dose 75+ series) 2017 INFLUENZA VACCINE (#1) 2024 COVID-19 VACCINE ( - season) 2024 CREATININE LEVEL 05/21/2025 05/21/2024, , 05/30/2012, Additional history exists POTASSIUM LEVEL 05/21/2025 05/21/2024, 07/21, 05/30/2012, Additional history exists OSTEOPOROSIS SCREENING INITIAL (ONE-TIME) Completed 08/23/2021 HEPATITIS A VACCINES Aged Out No long er eligible based on patient's age to complete this topic HEPATITIS B VACCINES Aged Out No long er eligible based on patient's age to complete this topic HIB VACCINES Aged Out No longer eligi ble based on patient's age to complete this topic MENINGOCOCCAL VACCINES (ACWY) Aged Out No longer eligible based on patient's age to complete this topic Medical Devices Not on file Procedures Procedure Name Priority Date/Time Associated Diagnosis Comments BASIC METABOLIC PANEL Routine 05/21/2024 3:11 PM EDT Dizziness Bradycardia from Last 3 Months or Most Recently Relevant to Health Maintenance Results * (ABNORMAL) Basic metabolic panel (05/21/2024 3:11 PM EDT) SODIUM 143 135 - 145 mmol/L [facility] POTASSIUM 4.2 3.4 - 5.0 mmol/L [facility] CHLORIDE 106 98 - 108 mmol/L [facility] CO2 26 23 - 32 mmol/L [facility] BUN 20 8 - 25 mg/dL [facility] CREATININE 1.20 0.60 - 1.50 mg/dL [facility] GLUCOSE 86 70 - 110 mg/dL [facility] CALCIUM 9.9 8.5 - 10.5 mg/dL [facility] EGFR 45(L) >59 mL/min/1.7 3m2 [facility] Comment:Estimated glomerular filtration rate calculated using the CKD-EPI refit equation. ANION GAP 11 3 - 17 mmol/L [facility] Blood 05/21/2024 3:11 PM EDT 05/21/2024 5:14 PM EDT Chilango Gonzáles MD, MPhil LAB BLOOD ORDERA BLES Performing Organization Address City/State/[facility] Co de Phone Number [address] [address] from Last 3 Months or Most Recently Relevant to Health Maintenance Care Teams Caretaker Grounds Relationship Specialty Start Date End Date Shekhar Young MD [address] [place] [address] [facility] [place] [address] PCP - General Internal Medicine 08/28/23 Additional Source Comments The information contained in this document represents components of the legal health record. It is not the complete legal health record.[facility]
--- OUTSIDE RECORDS SUMMARY | 2024-11-26 08:58 | XMS_ITS | Continuity of Care Document ---
Author Organization [facility] Address [address] [place] [address] Phone Care Team Providers Care Relief Pharmacist Name Role Phone Randy Newman MD Unavailable [...] Diagnoses Date Provider Providers Copied on [facility]counter [facility], [address], [place], [place], [id number], [place] tel:[phone] LIN[facility]ett Metal Filer No Information 3 Paty Padilla. [address] [place] [address], [id number] , [place]. tel:[phone] [facility], [address], [place], [place], [id number], [place] tel:[phone] [facility] No Information 3 Roshan Kee. [address] [place] [address], [id number] , . tel:[phone] [facility] E&m Estab Pt; 65/> [facility], [address], [place], [place], [id number], [place] tel:[phone] [facility] Metal Filer annual exam (chief complaint) Encounter for gynecological examination (general) (routine) without abnormal findings 2 Wei Crump. [address] [place] [address], [id number] , [place]. tel:[phone] Referring Provider: Alisia Carvajal MD, [address] [place] [address], [address] . tel:[phone] [facility] E&m Estab Pt; 65/> [facility], [facility] [address], [place], [place], [id number], [place] tel:[phone] [facility] Metal Filer annual exam (chief complaint) Encounter for gynecological examination (general) (routine) without abnormal findings 1 Wei Crump. [address] [place] [address], [id number] , . tel:[phone] Referring Provider: Alisia Carvajal MD, [address] [place] [address], [address] . 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 [address] [place] [address], [id number] , . [phone] Referring Provider: Alisia Carvajal MD, [address] [place] [address], [address] . tel:[phone] [facility] E&m Estab Pt; 65/> [facility], [address], [place], [place], [id number], tel:[phone] [facility] Jacquelyn [facility] Metal Filer annual exam (chief complaint) Encntr for sql ssrs developer exam (general) (routine) w/o abn findingsUrinary urgency 0 8 Wei Crump. [address] [place] [address], [address] [place] [address] , [place]. tel:[phone] Referring Provider: Alisia Carvajal MD, [address] [place] [address], [address] . tel:[phone] [facility] E&m Estab Pt; 65/> [facility], [address], [place], [place], [id number], [place] tel:[phone] [facility] Metal Filer annual exam (chief complaint) Encntr for sql ssrs developer exam (general) (routine) w/o abn findingsEncounter for screening for malignant neoplasm of cervix 7 Wei Crump. [address] [place] [address], [id number] , . [phone] Referring Provider: Alisia Carvajal MD, [address] [place] [address], [address] . 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 [address] [place] [address], [address] [place] [address] , [place]. [phone] Referring Provider: Alisia Carvajal MD, [address] [place] [address], [address] . tel:[phone] [facility], [place] [address], [place], [place], [address] [place] [address], tel:[phone] Nadeem [facility] Metal Filer No Information 5 Wei Crump. [address] [place] [address], [address] [place] [address] , . [phone] Referring Provider: Alisia Carvajal MD, [address] [place] [address], [address] [place] [address] . tel:[phone] [facility] E&m Estab Pt; 65/> [facility], [place] [address], [place], [place], [address] [place] [address], tel:[phone] Nadeem [facility] Metal Filer annual exam (chief complaint) Encntr for sql ssrs developer exam (general) (routine) w/o abn findingsEncounter for screening for malignant neoplasm of cervix 5 Wei Crump. [address] [place] [address], [address] [place] [address] , . [phone] Referring Provider: Alisia Carvajal MD, [address] [place] [address], [address] . tel:[phone] [place] [address], [place], [address] [place] [address], tel:[phone] Nadeem [facility] Metal Filer No Information 4 Wei Crump. [address] [place] [address], [address] [place] [address] , . tel:[phone] Referring Provider: Alisia Carvajal MD, [address] [place] [address], [address] . 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 [address] [place] [address], [address] [place] [address] , . tel:[phone] Referring Provider: Alisia Carvajal MD, [address] [place] [address], [address] . tel:[phone] [facility], [address], [place], [place], [id number], [place] tel:[phone] Nadeem Vall[facility] Metal Filer No Information 3 Wei Crump. [address] [place] [address], [address] [place] [address] , . [phone] Referring Provider: Alisia Carvajal MD, [address] [place] [address], [address] [place] [address] . tel:[phone] [facility] E&m Estab Pt; 65/> [facility], [facility] [address], [place], [address] [place] [address], tel:[phone] Nadeem Vall[facility] Metal Filer annual exam (chief complaint) Routine DRUG INSPECTOR Exam W/wo A Pap 3 Wei Crump. [address] [place] [address], [id number] , [place]. tel:[phone] Referring Provider: Alisia Carvajal MD, [address] [place] [address], [address] . tel:[phone] [facility], [address], [place], [place], [id number], tel:[phone] Nadeem [facility] Metal Filer No Information 2 Wei Crump. [address] [place] [address], [id number] , [place]. tel:[phone] Referring Provider: Alisia Carvajal MD, [address] [place] [address], [address] . tel:[phone] [facility] E&m Estab Pt; 65/> [facility], [address], [place], [place], [id number], [place] tel:[phone] [facility] Metal Filer annual visit (chief complaint) Screening PAP Only/pp Visit/obRoutine DRUG INSPECTOR Exam W/wo A Pap 2 Wei Crump. [address] [place] [address], [id number] , [place]. tel:[phone] Referring Provider: Alisia Carvajal MD, [address] [place] [address], [address] . tel:[phone] [facility], [address], [place], [place], [id number], [place] tel:[phone] Nadeem [facility] Metal Filer No Information 1 eWi Crump. [address] [place] [address], [id number] , [place]. tel:[phone] Referring Provider: Alisia Carvajal MD, [address] [place] [address], [address] . tel:[phone] Offic/outpt E&m Estab Low-mod [facility], [address], [place], [place], [id number], [place] tel:[phone] LINH Valladares [facility] Metal Filer consult (chief complaint) No Information 1 Wei Crump. [address] [place] [address], [id number] , [place]. tel:[phone] Referring Provider: Alisia Carvajal MD, [address] [place] [address], [address] . tel:[phone] [facility], [address], [place], [place], [id number], [place] tel:[phone] [facility] Metal Filer No Information Sep-2 8 1 Wei Crump. [address] [place] [address], [address] [place] [address] , . tel:[phone] Referring Provider: Alisia Carvajal MD, [address] [place] [address], [address] . tel:[phone] [facility], [address], [address] [place] [address], tel:[phone] [facility] Metal Filer No Information Sep-0 6 1 Wei Crump. [address] [place] [address], [address] [place] [address] , . tel:[phone] Referring Provider: Alisia Carvajal MD, [address] [place] [address], [address] [place] [address] . tel:[phone] [facility] E&m Estab Pt; 65/> [facility], [address], [address] [place] [address], tel:[phone] [facility] Metal Filer annual visit (chief complaint) No Information Sep-0 1 Wei Crump. [address] [place] [address], [address] [place] [address] , . [phone] Referring Provider: Alisia Carvajal MD, [address] [place] [address], [address] . tel:[phone] [facility], [address], [address] [place] [address], tel:[phone] [facility] Metal Filer No Information Sep-0 2201 0 Wei Crump. [address] [place] [address], [address] [place] [address] , . tel:[phone] Referring Provider: Alisia Carvajal MD, [address] [place] [address], [address] . tel:[phone] [facility], [address], [place], [address] [place] [address], tel:[phone] [facility] Metal Filer annual visit (chief complaint) Colon/ Rectal CA Screening Jun-0 0 Wei Crump. [address] [place] [address], [address] [place] [address] , . [phone] Referring Provider: Alisia Carvajal MD, [address] [place] [address], [address] [place] [address] . [phone] [facility] Meds E&m Estab Pt; 65/> [facility], [facility] [address], [place], [place], [address] [place] [address], tel:[phone] Nadeem Rodrigo Jacquelyn [facility] Metal Filer annual visit (chief complaint) No Information 9 Wei Crump. [address] [place] [address], [address] [place] [address] , . [phone] Referring Provider: Alisia Carvajal MD, [address] [place] [address], [address] . tel:[phone] [facility], [facility] [address], [place], [address] [place] [address], [place] tel:[phone] [facility] Metal Filer No Information 8 Wei Crump. [address] [place] [address], [address] [place] [address] , [place]. [phone] Med[facility] E&m Estab Pt; 65/> [facility], [address], [place], [place], [address] [place] [address], [place] tel:[phone] [facility] Metal Filer No Information 8 Wei Crump. [address] [place] [address], [address] [place] [address] , [place]. tel: [phone] Referring Provider: Alisia Carvajal MD, [address] [place] [address], [address] . tel:[phone] [facility], [address], [place], [address] [place] [address], tel:[phone] Nadeem Rodrigo [facility] Metal Filer No Information 7 Wei Crump. [address] [place] [address], [address] [place] [address] , . tel: [phone] [facility] E&m Estab Pt; 40-6 [facility], [address] [facility], [place], [place], [address] [place] [address], tel:[phone] [facility] Metal Filer annual visit (chief complaint) No Information 7 Wei Crump. [address] [place] [address], [address] [place] [address] , . tel:[phone] [facility], [place] [address], [place], [address] [place] [address], tel:[phone] [facility] Metal Filer annual visit (chief complaint) No Information 6 Wei Crump. [address] [place] [address], [address] [place] [address] , . tel: [phone] [facility], [address] [facility], [place], [place], [address] [place] [address], tel:[phone] [facility] Metal Filer annual visit (chief complaint) No Information 200 5 Wei Crump. [address] [place] [address], [address] [place] [address] , . tel: [phone] Family History Family Member Type Diagnosis Age At Onset Sister Problem (finding) Myocardial infarction Problem (finding) Family history of hyper tension Paternal aunt Problem (finding) breast cancer Maternal grandmother Problem (finding) Heart disease Sister Problem (finding) renal failure syndrome Payers Payer name Insurance type Covered republican ID Authoriza tion(s) [employer] PPO 16 [id number] Social History Type Description Quantity Date Captured [...] screening. Due on due Goal Zoster vaccine (). Due on due Goal Colonoscopy. Due on due Goal Zoster vaccine (). Due on due Goal Colonoscopy. Due on due Goal DEXA Scan. Due on 3 due Goal Colonoscopy. Due on due Goal DEXA Scan. Due on 3 due Goal Zoster vaccine (). Due on due Goal DEXA Scan. Due on 3 due Goal Lipid Panel. Due on 017 due Goal Colonoscopy. Due on due Goal DEXA Scan. Due on 3 due Goal Lipid Panel. Due on due Goal Colonoscopy. Due on due Goal Mammogram. Due on 9 due Goal Mammogram. Due on 8 due [...] Goal Mammogram. Due on 3 due Goal FOBT. Due on due Goal DEXA Scan. Due on 3 due Goal Pneumococcal Vaccine. Due on due Goal H&P. Due on due Goal Lipid Panel. Due on 011 due Goal TD Vaccine. Due on 13 due Future Order: Lab Order FOBT ([id number]), Ord ered on: Ordered History Of Present [...] Diet and exercise Rela marina to Routine DRUG INSPECTOR Exam W/wo A Pap Perform self breast exam Related to Routine DRUG INSPECTOR Exam W/wo A Pap discussed colonoscop y dexa amd mammogram timing continue vitamin d Related to RO UTINE DRUG INSPECTOR EXAMINATION Discussed Diet and exercise Rela marina to Routine DRUG INSPECTOR Exam W/wo A Pap Perform self breast exam Related to Routine DRUG INSPECTOR Exam W/wo A Pap Assessments Type Assessment Date No Information Patient Care Teams Name Effective Dates (start - stop) Status Members No Information
--- OUTSIDE RECORDS SUMMARY | 2024-11-26 08:58 | XMS_ITS ---
Author Organization [facility] Address [address] [place] [address] Care Team Providers Care Vehicle Dismantler Name Role Phone Hector CHILD [employer] Primary Care Provider Unava ilKiki Constantino [phone] Encounters Encounter Location Date Provider Diagnosis [facility] [address] [facility] [place] [address] 10/15/2024 Kiki Bledsoe Plan Of Treatment Next Appt Details Provider Name:Kikimendez Bledsoe , 12/14/2024 02:00:00 PM, [address], [place], [address], Progress Notes * Claude GREGORIOOB:1940 ([age] yo F)Acc No.[id number]:10/15/2024 Patient:?Macie GREGORIO :1940???Age:84 Y???Sex:Female Address:[place], [address] * true * Date:? Generated for Printi ng/Fasangitag/eTransmitting on:?11/26/2024 08:57 AM EST
--- OUTSIDE RECORDS SUMMARY | 2024-11-26 08:58 | XMS_ITS ---
Author Organization [facility] Address [address] [place] [address] Care Team Providers Care Physician Aide Name Role Phone Hector CHILD [place] Primary Care Provider Unava ilable Kiki Bledsoe Unavailable [phone] REASON FOR VISIT IMPORT CLERK PPWK Entered Encounters Encounter Location Date Provider Diagnosis [facility] [address] [place] [address] 11/05/2024 Kikiligia Bledsoe Plan Of Treatment Next Appt Details Provider Name:Kiki Silver Rakan , 12/14/2024 02:00:00 PM, [address] [facility], [place], [address], Progress Notes * Claude GREGORIOOB:1940 ([age] yo F)Acc No.[id number]:11/05/2024 Patient:?MARALJavier Rothmanis :1940???Age:84 Y???Sex:Female [facility]:[address] [facility] [place], [address] * true * Date:? Generated for Printi ko/Fasangitag/eTransmitting on:?11/26/2024 08:58 AM EST
--- OUTSIDE RECORDS SUMMARY | 2024-11-26 08:58 | XMS_ITS | Clinical Summary ---
Author Organization [facility] Address [address] [place] [address] Phone Care Team Providers Care Terrazzo Helper Name Role Phone Stephen Harrison MD Primary Care Pr ovider Allergies Active Allergy Reactions Criticality Noted Date Comments Amoxicillin-Pot Clavulanate Rash Medium 10/04/20 22 Medications Medication Sig Dispensed Refills Start Date End Date Status atorvastatin (LIPITOR) 40 mg tablet Take 1 tablet (40 mg total) by mouth at bedtime. Active calcium citrate-vitamin D (CITRACAL+D) 315 mg-5 mcg (200 unit) per tablet Take 1 tablet by mouth 1 (one) time each day. Active apixaban (ELIQUIS) 2.5 mg tablet Take 1 tablet (2.5 mg total) by mouth 2 (two) times a day. Active acetaminophen (TYLENOL) 500 mg tablet Take by mouth every 6 (six) hours if needed for mild pain. Active omeprazole (PriLOSEC) [address] capsule Take 1 capsule (40 mg total) by mouth 1 (one) time each day. Do not crush or chew. Active potassium chloride (MICRO-K) 10 mEq CR capsule Take 1 capsule (10 mEq total) by mouth 2 (two) times a day. Active traMADoL (ULTRAM) 50 mg tablet Take 1 tablet (50 mg total) by mouth 1 (one) time each day. Active cholecalciferol (VITAMIN D-3) 50 mcg (2,000 unit) tablet Take 1 tablet (2,000 Units total) by mouth 1 (one) time each day. Active B complex tablet Take 1 tablet by mouth 1 (one) time each day. Active latanoprost (XALATAN) 0.005 % ophthalmic solution Administer 1 drop into both eyes at bedtime. Active zolpidem (AMBIEN) 5 mg tablet Take 1 tablet (5 mg total) by mouth at bedtime as needed for sleep. Max Daily Amount: 5 mg Active Active Problems Problem Noted Date Diagnosed Date Primary osteoarthritis, left shoulder 10/09/2022 Surgical History Surgery Date Site/Laterality Comments ANKLE FRACTURE SURGERY 10/20/1951 - 10/19/1952 Left ENDOLYMPHATIC SHUNT DECOMPRESSION Left SALIVARY GLAND SURGERY Left OVARY SURGERY Left oopherectomy TUBAL LIGATION TOTAL HIP ARTHROPLASTY 10/20/2016 - 10/19/2017 Left TRIGGER FINGER RELEASE 10/20/2018 - 10/19/2019 Left middle finger TOTAL SHOULDER ARTHROPLASTY 12/18/2020 - 01/17/2021 Right TOTAL HIP ARTHROPLASTY 12/18/2021 - 01/17/2022 Right Medical History Medical History Date Comments HTN (hypertension) Hyperlipemia DVT (deep vein thrombosis) in 2016 PE Atherosclerosis of aorta (CMS/HCC) 2017 CKD (chronic kidney disease) , stage III (CMS/HCC) Hiatal hernia Meniere's disease Osteoporosis hip Hepatic cyst hemangiomas 2011 Colitis 09/2011 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 Osteoarthritis hips shoulders Restless legs Wears glasses hearing aid Anesthesia drop in oxygen level several days post op, requires oxygen Social History Tobacco Use Types Packs/Day Years Used Date Smoking Tobacco: Former Cigarettes Q uit: 2016 Smokeless Tobacco: Never Tobacco Cessation:Counseling Given: Not Answered Alcohol Use Standard Drinks/Week Comments Not Currently 0 (1 standard drink = 0.6 oz pur e alcohol) Sex and Gender Information Value Date Recorded Sex Assigned at Not on file Gender Identity Not on file Sexual Orientation Not on file Job Start Date Occupation Industry Not on file Not on file Not on file Obstetrics History Last Filed Vital Signs Vital Sign Reading Time Taken Comments Blood Pressure 125/72 10/10/2022 11:14 AM EST Pulse 64 10/10/2022 11:14 AM EST Temperature 36.6 ??C (97.9 ??F) 10/10/2022 11:[address] Respiratory Rate 18 10/10/2022 11:14 AM EST Oxygen Saturation 94% 10/10/2022 11:14 AM EST Inhaled Oxygen Concentration - - Weight 82.8 kg (182 lb 8.7 oz) 10/09/2022 8:31 A M EST Height 163.2 cm (5' 4.25 ) 10/09/2022 8:31 AM ES T Body Mass Index 31.09 10/09/2022 8:31 AM EST Plan of Treatment Health Maintenance Due Date Last Done Comments Hepatitis A Vaccines (1 of 2 - Risk 2-dose series) 1961 Hepatitis B Vaccines (1 of 3 - Risk 3-dose series) 2002 RSV Immunization Patients 60+ Years Old (1 - 1-dose 75+ series) 2017 Falls Risk Assessment 04/30/2021 Medicare Annual Wellness Visit 04/30/2021 Social Influencers of Health Screening 04/30/2021 Depression Screening 07/17/2023 07/17/2022 Hypertension/CHF/CAD Annual BMP Blood Test 10/10/2023 10/10/2022, 10/09/2022, 09/25/2022, Additional history exists COVID-19 Vaccine ( season) 2024 07/24/2022, 02/26/2022, 07/14/2021, Additional history exists Influenza Vaccine (#1) 2024 , 07/30/2021, 07/29/2020, Additional history exists DTaP,Tdap,and Td Vaccines (2 - Td or Tdap) 02/21/2025 02/21/2015 Cholesterol Screening (Lipid Panel) 08/20/2027 08/20/2022, 02/20/2022, 08/23/2021, Additional history exists Osteoporosis Screening (Bone Density Screening) 08/23/2031 08/23/2021, 09/07/2018, 02/21/2015 Pneumococcal Vaccine: 65+ Years Completed 02/21/2015, 07/29/2014 Zoster Vaccines Completed 01/26/2019, 03/13/2018 HIB Vaccines Aged Out No longer eligi ble based on patient's age to complete this topic HPV Vaccines Aged Out No longer eligi ble based on patient's age to complete this topic IPV Vaccines Aged Out No longer eligi ble based on patient's age to complete this topic MMR Vaccines Aged Out No longer eligi ble based on patient's age to complete this topic Meningococcal ACWY Vaccine Aged Out N o longer eligible based on patient's age to complete this topic RSV Immunization Patients Under 20 months Aged Out No longer eligible based on patient's age to complete this topic Varicella Vaccines Aged Out No longer eligible based on patient's age to complete this topic Medical Devices Implanted Type Area Toxicology Teacher Device Identifier Shelf Expiration Date Model / Serial / Lot Reversed Multi Direction Lock Screw 4.5x20mm - Sn/A - [id number] Implanted:Qty: 1 on 10/09/2022 by Francis Brown MD at [facility] Internal and External Fixation Left: Shoulder [employer] [id number] / N/A / N/A Reversed Multi Direction Lock Screw 4.5x23mm - Sn/A - [id number] Implanted:Qty: 2 on 10/09/2022 by Francis Brown MD at [facility] Internal and External Fixation Left: Shoulder [employer] [id number] / N/A / N/A Reversed Multi Direction Lock Screw 4.5x26mm - Sn/A - [id number] Implanted:Qty: 1 on 10/09/2022 by Francis Brown MD at [facility] Internal and External Fixation Left: Shoulder [employer] [id number] / N/A / N/A Reverse Baseplate 2 Line Extension [id number] - [id number] - [id number] Implanted:Qty: 1 on 10/09/2022 by Francis Brown MD at [facility] Joints Shoulder Left: Shoulder [employer] [id number] 01/18/2027 [id number] / [id number] / N/A Glenoid Sphere Centered 36 Mm,25mm Baseplate - [id number] - [id number] Implanted:Qty: 1 on 10/09/2022 by Francis Brown MD at [facility] [employer] Shoulder Left: Shoulder [employer] 07/29/2027 [id number] / [id number] / N/A Tray Flex Rev Shldr Sys +0 - [id number] - [id number] Implanted:Qty: 1 on 10/09/2022 by Francis Brown MD at [facility] Shoulder Left: Shoulder [employer] 09/06/2027 [id number] / [id number] / N/A Shoulder Insrt Rev 36 6/12.5 B - [id number] - [id number] Implanted:Qty: 1 on 10/09/2022 by Francis Brown MD at [facility] Shoulder Left: Shoulder [employer] 05/27/2027 [id number] / [id number] / N/A Shoulder Stem Hum Ptc Flx 5b - [id number] - [id number] Implanted:Qty: 1 on 10/09/2022 by Francis Brown MD at [facility] Shoulder Left: Shoulder [employer] 02/06/2027 [id number] / [id number] / N/A Procedures Procedure Name Priority Date/Time Associated Diagnosis Comments BASIC METABOLIC PANEL Routine 10/10/2022 3:37 AM EST from Last 3 Months or Most Recently Relevant to Health Maintenance Results * (ABNORMAL) Basic metabolic panel (10/10/2022 3:37 AM EST) Sodium 135(L) 136 - 145 mmol/L LAB CHEMISTRY METHOD 10/10/2022 5:25 AM EST [facility] Potassium 4.5 3.6 - 5.1 mmol/L LAB CHEMISTRY METHOD 10/10/2022 5:25 AM EST [facility] Chloride 104 98 - 107 mmol/L LAB CHEMISTRY METHOD 10/10/2022 5:25 AM EST [facility] CO2 26 22 - 32 mmol/L LAB CHEMISTRY METHOD 10/10/2022 5:25 AM EST [facility] Anion Gap 5(L) 6 - 18 LAB CHEMISTRY METHOD 10/10/2022 5:25 AM EST [facility] Glucose 139(H) 70 - 99 mg/dL LAB CHEMISTRY METHOD 10/10/2022 5:25 AM EST [facility] BUN 25(H) 8 - 20 mg/dL LAB CHEMISTRY METHOD 10/10/2022 5:25 AM EST [facility] Creatinine 0.98 0.60 - 1.30 mg/dL LAB CHEMISTRY METHOD 10/10/2022 5:25 AM [facility] eGFR 59(L) >=60 mL/min/1. 73m2 LAB CHEMISTRY METHOD 10/10/2022 5:25 AM [facility] Comment:Effective July 28, 2022, calculation based on the??Chronic Kidney Disease Epidemiology Collaboration (CKD-EPI) equation refit??without adjustment for race. BUN/Creatinine Ratio 25.5(H) 12.0 - 20.0 LAB CHEMISTRY METHOD 10/10/2022 5:25 AM [facility] Calcium 9.0 8.9 - 10.3 mg/dL LAB CHEMISTRY METHOD 10/10/2022 5:25 AM [facility] Blood Venous blood specimen / Unknown Venipuncture / Unknown 10/10/2022 3:37 AM EST 10/10/2022 4:58 AM EST Alan BLAKELY LAB BLOOD ORDERABLES [facility] [address], [place] [id number] from Last 3 Months or Most Recently Relevant to Health Maintenance Advance Directives * Full Code - Default (Latest Code Status on File) Date Activated Date Inactivated Comments 10/09/2022 2:31 PM 10/10/2022 5:13 PM This is or wolfgang is used when code status has not been discussed with the patient, or code status is otherwise unknown/unconfirmed To update the patient's code status, place a code status order. Do not modify or discontinue any currently active code status orders. Care Teams Terrazzo Helper Relationship Specialty Start Date End Date Stephen Harrison MD PCP - General 12/17/22
--- OUTSIDE RECORDS SUMMARY | 2024-11-26 08:59 | XMS_ITS | Encounter Summary ---
Author Organization [facility] Address [phone] [address] [email or web address] [address] Care Team Providers Care Riveter Pneumatic Name Role Phone Shekhar Young MD Primary Care Provider [phone] Encounter Details Date Type Department Care Team (Late st Contact Info) Description 05/20/2024 Documentation [facility] Noninvasive Cardiology [address] [place] [address] Chilango Gonzáles MD, MPhil [address] [place] [address] [email or web address] Social History Tobacco Use Types Packs/Day Years [...] on file Sexual Orientation Not on file documented as of this encounter Plan of Treatment Not on file documented as of this encounter Visit Diagnoses Not on filedocumented in this encounter Care Teams Riveter Pneumatic Relationship Specialty Start Date End Date Shekhar Young MD [address] [place] [address] [address] [place] [address] PCP - General Internal Medicine 08/28/23 documented as of this encounter Additional Source Comments The information contained in this document represents components of the legal health record. It is not the complete legal health record.[facility]
--- OUTSIDE RECORDS SUMMARY | 2024-11-26 08:59 | XMS_ITS | Patient Health Record ---
Author Organization [facility] Address [address] [place] [address] Care Team Providers Care Product Promoter Retail Pet Name Role Phone Hector CHILD, [place] Primary Care Provider [place]on Bledsoe Kiki Unavailable [phone] Allergies Allergen (clinical drug ingredient) Drug/Non Drug Allergy documented on EMR Reaction Allergy Type Onset Date Status amoxicillin / clavulanate Augmentin Unknown Drug Allergy Active Levaquin Unknown Drug Allergy Active Reason For Referral No Information Social History Tobacco Use: Social History Observation Description Date Details (start date - stop date) Former Smoker NA - NA Tobacco use other than smoking: Question Answer Notes Are you an other tobacco user? No Tobacco Control (Standard) Question Answer Notes Tobacco use: Former smoker Additional Findings: Tobacco non-user Current no nsmoker AUDIT-C (Standard) Question Answer Notes Did you have a drink containing alcohol in the p ast year? No Points 0 Interpretation Negative Encounters Encounter Location Date Provider Diagnosis [facility] [address] [place] [address] 10/15/2024 Kiki Bledsoe [facility] [address] [place] [address] 11/05/2024 Kiki Bledsoe Plan Of Treatment Next Appt Details Provider Name:Kiki Silver Rakan , 12/14/2024 02:00:00 PM, [address] [facility], [place], [address], Insurance Providers Payer Name Payer Address Payer Phone Subscriber Number Group Number Insured Name Patient Relationship to Insured Coverage Start Date Coverage End Date [employer] [address] [place] [address] [id number] Macie Gregorio Self - patient is the insured Medical (General) History Medical History History ICD Code Anemia Arthritis Back,Hip,and Knee pain Broken bones Cataracts Glaucoma Hiatal hernia Menieres disease Reflux ( GERD) Sciatica Mumps Chicken pox Joint implants/screws Surgical History Surgery Date(Month/Year) right hip replacement shoulder replacement, left left hip replacement shoulder replacement, right 10/11 endolymphatic shunt 1969 parotid tumor 1980
--- OUTSIDE RECORDS SUMMARY | 2024-11-26 08:59 | XMS_ITS | Patient Health Record ---
Author Organization [facility] Address [address] [place] [address] Care Team Providers Care Inspector Packer Name Role Phone Nicholas CHILD, Moises Messer Primary Care Provider Abran Claudio Unavailable [phone] ALLERGIES Allergen (clinical drug ingredient) Drug/Non Drug Allergy documented on EMR Reaction Allergy Type Onset Date Status amoxicillin / clavulanate Augmentin rash Drug Allergy Active Levaquin Unknown Drug Allergy Active REASON FOR REFERRAL No Information MEDICATIONS Medication SIG (Take, Route, Frequency, Duration) Notes Start Date End Date Status Vitamin D 50 MCG (1999 UT) 1 tablet Oral ly Once a day Active Triamterene-HCTZ 37.5-25 MG 1 capsule in the morning Orally Once a day Active Lexapro 5 MG 1 tablet Orally Once a day Active Omeprazole 40 MG 1 capsule 30 minutes before morning meal Orally Once a day Active traMADol HCl 50 MG 1 tablet as needed O rally Once a day Active Klor-Con 10 10 MEQ 1 tablet with food O rally Twice a day Active Eliquis 2.5 MG as directed Orally Active Alendronate Sodium 70 MG 1 tablet 30 min utes before the first food, beverage or medicine of the day with plain water Orally Active Vitamin B Complex Ac tive Fluconazole 200 MG 2 tablets on Day 1, then one tablet daily for total of 14 days Orally 07/02/2022 Active rOPINIRole HCl 0.5 MG 1 tablet 1 to 3 ho urs before bedtime Orally Once a day Active Latanoprost 0.005 % 1 drop into affected eye in the evening Ophthalmic Once a day Active Atorvastatin Calcium Active SOCIAL HISTORY Tobacco Use: Social History Observation Description Date Details (start date - stop date) Former Smoker NA - NA Sex Assigned At : Social History Observation Description Sex Assigned At Female Tobacco Use/Smoking Question Answer Notes Are you a Former smoker How long has it been since you last smoked? 1-5 years PLAN OF TREATMENT No Information Insurance Providers Payer Name Payer Address Payer Phone Subscriber Number Group Number Insured Name Patient Relationship to Insured Coverage Start Date Coverage End Date [employer] MEDICARE REPLACEMEN T [address] [place], [place] [id number] Macie Gregorio Self - patient is the insured MEDICAL (GENERAL) HISTORY Medical History History ICD Code Arthritis High Cholesterol Blood Clots Surgical History Surgery Date(Month/Year) Hip replacement 2016 Shoulder replacement 2020
--- OUTSIDE RECORDS SUMMARY | 2024-11-26 08:59 | XMS_ITS | Encounter Summary ---
Author Organization [facility] Address [phone] [place] [address] Care Team Providers Care A And P Technician Name Role Phone Shekhar Young MD Primary Care Provider [phone] Encounter Details Date Type Department Care Team (Late st Contact Info) Description 05/21/2024 Procedure Pass [facility] [address] [place] [address] Social History Tobacco Use Types Packs/Day Years [...] on filedocumented in this encounter Care Teams A And P Technician Relationship Specialty Start Date End Date Shekhar Young MD [address] [place] [address] [place] [address] [place] [address] PCP - General Internal Medicine 08/28/23 documented as of this encounter Additional Source Comments The information contained in this document represents components of the legal health record. It is not the complete legal health record.[facility]
== END | disposition home or self-care (01) ==
CPT/HCPCS: 99213

== ENCOUNTER 2024-12-10 07:57 | Outpatient (REF) | payer MEDICARE, SELFPAY ==
--- NOTE | ~2024-12-10 | FL_ITS ---
EXAMINATION: XR FLUOROSCOPY UPPER GI WITH AIR CLINICAL INFORMATION: Reflux COMPARISON: None TECHNIQUE: Fluoroscopic air contrast upper GI examination was performed utilizing standard techniques with thin and thick barium and effervescent granules. Numerous spot images were obtained. FINDINGS: Dual and single contrast images of the esophagus demonstrate normal caliber and contour. An anterior cervical web is present at the level of C4. No masses or ulcerations are seen. Esophageal peristalsis is moderately disorganized. A large type 3 paraesophageal hernia is present, with the majority the fundus located within the thoracic cavity. No significant gastroesophageal reflux was seen during the course of the examination and on reflux views. Dual contrast and single contrast images of the stomach demonstrated a normal contour. The gastric rugal folds have a thickened appearance, suggestive of gastritis. There are multiple focal areas of contrast pooling in the fundus and body of the stomach that are present small mucosal erosions. No masses are present. Contrast freely passed into the gastric antrum and duodenal bulb without delay. Single and air-contrast images of the duodenal bulb demonstrate no abnormality. The duodenal sweep has a normal appearance, course, and mucosal fold appearance. The imaged proximal jejunum has a normal fold pattern and caliber. FLUOROSCOPY TIME: 2 minutes 54 seconds Number of Spot Images: 7 Number of Cine: 11 DOSE AREA PRODUCT: 2103 uGy-m2 (microgray-meter squared) FL/FL upper GI w Ba Swallow IMPRESSION: 1. Anterior cervical web noted just below the hypopharynx at the level of C4. 2. Moderate esophageal dysmotility. 3. Large type 3 paraesophageal hernia, with the majority the fundus located within the thoracic cavity. 4. Thickened appearance the gastric rugal folds. In addition there are multiple foci of contrast pooling in the fundus and body of the stomach. These findings are suggestive of erosive gastritis. Recommend correlation with EGD. This procedure was performed by Cornelio Mosley PA-C, and supervised by Dr. Echevarria Electronically signed by: Ciaran Echevarria MD 12/10/2024 03:26 PM [facility]
--- OUTSIDE RECORDS SUMMARY | 2024-12-10 08:01 | XMS_ITS | Clinical Summary ---
Author Organization [facility] Address [address] [place] [address] Phone Care Team Providers Care Grocery Caddy Name Role Phone Stephen Harrison MD Primary Care Pr ovider Allergies Active Allergy Reactions Criticality Noted Date Comments Amoxicillin-Pot Clavulanate Rash Medium 10/04/20 22 Medications atorvastatin (LIPITOR) 40 mg tablet Take 1 [...] drink = 0.6 oz pur e alcohol) Comments Unknown Sex and Gender Information Value Date Recorded Sex Assigned at Not on file Legal Sex Female 6:55 PM EDT Gender Identity Not on file Sexual Orientation Not on file Obstetrics History Last Filed [...] Screening) 08/23/2031 08/23/2021, 09/07/2018, 02/21/2015 Pneumococcal Vaccine: 50+ Years Completed 02/21/2015, 07/29/2014 Zoster Vaccines Completed [...] patient's age to complete this topic Meningococcal B Vacine Aged Out No lo nger eligible based on patient's age to complete this topic RSV Immunization Patients Under 20 months Aged Out No longer eligible based on patient's age to complete this topic Varicella Vaccines Aged Out No longer eligible based on patient's age to complete this topic Medical Devices Implanted Type Area Sail Finisher Hand Device Identifier Shelf Expiration Date Model / Serial / Lot Reversed Multi Direction Lock Screw 4.5x20mm - Sn/A - [id number] Implanted:Qty: 1 on 10/09/2022 by Francis Brown MD at [facility] Internal and External Fixation Left: Shoulder [employer] [id number] / N/A / N/A Reversed Multi Direction Lock Screw 4.5x23mm - Sn/A - [id number] Implanted:Qty: 2 on 10/09/2022 by Francis Brown MD at [facility] Internal and External Fixation Left: Shoulder [employer] [id number] / N/A / N/A Reversed Multi Direction Lock Screw 4.5x26mm - Sn/A - [id number] Implanted:Qty: 1 on 10/09/2022 by Francis Brown MD at [facility] Internal and External Fixation Left: Shoulder [employer] [id number] / N/A / N/A Reverse Baseplate 2 Line Extension [id number] - [id number] - [id number] Implanted:Qty: 1 on 10/09/2022 by Francis Brown MD at [facility] Joints Shoulder Left: Shoulder [employer] [id number] 01/18/2027 [id number] / [id number] / N/A Glenoid Sphere Centered 36 Mm,25mm Baseplate - [id number] - [id number] Implanted:Qty: 1 on 10/09/2022 by Francis Brown MD at [facility] Joints Shoulder Left: Shoulder [employer] 07/29/2027 [id number] / [id number] / N/A Tray Flex Rev Shldr Sys +0 - [id number] - [id number] Implanted:Qty: 1 on 10/09/2022 by Francis Brown MD at [facility] Shoulder Left: Shoulder [employer] 09/06/2027 [id number] / [id number] / N/A Shoulder Insrt Rev 36 6/12.5 B - [id number] - [id number] Implanted:Qty: 1 on 10/09/2022 by Francis Brown MD at [facility] Shoulder Left: Shoulder [employer] 05/27/2027 [id number] / [id number] / N/A Shoulder Stem Hum Ptc Flx 5b - [id number] - [id number] Implanted:Qty: 1 on 10/09/2022 by Francis Brown MD at [facility] Shoulder Left: Shoulder [employer] 02/06/2027 [id number] / [id number] / N/A Procedures Procedure Name Priority Date/Time Associated Diagnosis Comments BASIC METABOLIC PANEL Routine 10/10/2022 3:37 AM EST from Last 3 Months or Most Recently Relevant to Health Maintenance Results * (ABNORMAL) Basic metabolic panel (10/10/2022 3:37 AM EST) Sodium 135(L) 136 - 145 mmol/L LAB CHEMISTRY METHOD 10/10/2022 5:25 AM EST [facility] Potassium 4.5 3.6 - 5.1 mmol/L LAB CHEMISTRY METHOD 10/10/2022 5:25 AM EST [facility] Chloride 104 98 - 107 mmol/L LAB CHEMISTRY METHOD 10/10/2022 5:25 AM EST [facility] CO2 26 22 - 32 mmol/L LAB CHEMISTRY METHOD 10/10/2022 5:25 AM EST [facility] Anion Gap 5(L) 6 - 18 LAB CHEMISTRY METHOD 10/10/2022 5:25 AM EST [facility] Glucose 139(H) 70 - 99 mg/dL LAB CHEMISTRY METHOD 10/10/2022 5:25 AM EST [facility] BUN 25(H) 8 - 20 mg/dL LAB CHEMISTRY METHOD 10/10/2022 5:25 AM EST [facility] Creatinine 0.98 0.60 - 1.30 mg/dL LAB CHEMISTRY METHOD 10/10/2022 5:25 AM EST [facility] eGFR 59(L) >=60 mL/min/1. 73m2 LAB CHEMISTRY METHOD 10/10/2022 5:25 AM EST [facility] Comment:Effective July 28, 2022, calculation based on the??Chronic Kidney Disease Epidemiology Collaboration (CKD-EPI) equation refit??without adjustment for race. BUN/Creatinine Ratio 25.5(H) 12.0 - 20.0 LAB CHEMISTRY METHOD 10/10/2022 5:25 AM [facility] Calcium 9.0 8.9 - 10.3 mg/dL LAB CHEMISTRY METHOD 10/10/2022 5:25 AM EST [facility] Blood Venous blood specimen / Unknown Venipuncture / Unknown 10/10/2022 3:37 AM EST 10/10/2022 4:58 AM EST us Alan BLAKELY LAB BLOOD ORDERABLES Final Resul t [facility] [address] [place] [address] from Last 3 Months or Most Recently Relevant to Health Maintenance Insurance [employer] MED[employer]ARE [employer]VANTAGE Advance Directives * Full Code - Default [...] currently active code status orders. Care Teams Grocery Caddy Relationship Specialty Start Date End Date Stephen Harrison MD PCP - General 12/17/22
--- OUTSIDE RECORDS SUMMARY | 2024-12-10 08:01 | XMS_ITS ---
Author Organization [facility] Address [address] [place] [address] Care Team Providers Care Range Management Specialist Name Role Phone Hector CHILD [place] Primary Care Provider Unava ilKiki Constantino [phone] Encounters Encounter Location Date Provider Diagnosis [facility] [address] [facility] [place] [address] 10/15/2024 Kiki Bledsoe Plan Of Treatment Next Appt Details Provider Name:Kiki Nadeem Bledsoe , 12/14/2024 02:00:00 PM, [address], [place], [address], Progress Notes * Claude GREGORIOOB:1940 (10 2 yo F)Acc No.[id number]:10/15/2024 Patient:?Macie GREGORIO :1940???Age:84 Y???Sex:Female Address:[place], [address] * true * Date:? Generated for Printi ng/Fasangitag/eTransmitting on:?12/10/2024 08:01 AM EST
--- OUTSIDE RECORDS SUMMARY | 2024-12-10 08:02 | XMS_ITS | Encounter Summary ---
Author Organization [facility] Address [phone] [place] [address] Care Team Providers Care Dimension Specification Inspector Name Role Phone Shekhar Young MD Primary Care Provider [phone] Encounter Details Date Type Department Care Team (Late st Contact Info) Description 05/21/2024 Procedure Pass [facility] [address] [place] [address] Social History Tobacco Use Types Packs/Day Years [...] on filedocumented in this encounter Care Teams Dimension Specification Inspector Relationship Specialty Start Date End Date Shekhar Young MD [address] [place] [address] [place] [address] [place] [address] PCP - General Internal Medicine 08/28/23 documented as of this encounter Additional Source Comments The information contained in this document represents components of the legal health record. It is not the complete legal health record.[facility]
--- OUTSIDE RECORDS SUMMARY | 2024-12-10 08:02 | XMS_ITS | Patient Health Record ---
Author Organization [facility] Address [address] [place] [address] Care Team Providers Care Washer Operator Name Role Phone Hector CHILD, [place] Primary Care Provider [place] Bledsoe Kiki Unavailable [phone] Allergies Allergen (clinical drug ingredient) Drug/Non Drug [...] Negative Encounters Encounter Location Date Provider Diagnosis [facility] [address] [place] [address] 10/15/[address] [facility] [address] [place] [address] 11/05/2024 Kiki Bledsoe Plan Of Treatment Next Appt Details Provider Name:Kiki Silver Rakan , 12/14/2024 02:00:00 PM, [address] [facility], [place], [address], Insurance Providers Payer Name Payer Address Payer Phone Subscriber Number Group Number Insured Name Patient Relationship to Insured Coverage Start Date Coverage End Date [employer] [address] [place] [address] [id number] Macie Gregorio Self - patient is the [...]
--- OUTSIDE RECORDS SUMMARY | 2024-12-10 08:02 | XMS_ITS | Clinical Summary ---
Author Organization [facility] Address [phone] [address] [place] [address] Care Team Providers Care Dairy Husbandman Name Role Phone Shekhar Young MD Primary Care Provider [phone] Allergies Active Allergy Reactions Criticality Noted Date [...] that she was diagnosed with anemia in [place] and given IV iron, since she could [...] surgery. During the visit I reviewed prior mainframe consultant record from [place], they have her on prophylaxis 2.5 mg BID dose. In case she has AF she would probably need to move up to 5 mg BID based on weight but we would need to check Cr (I am checking today) to confirm dose. If no new diagnosis, ok to keep 2.5 mg BID given this has been already determined by mainframe consultant. Borderline high blood pressure 08/12/2023 Assessment & [...] EDT) SODIUM 143 135 - 145 mmol/L [facility] POTASSIUM 4.2 3.4 - 5.0 mmol/L [facility] CHLORIDE 106 98 - 108 mmol/L [facility] CO2 26 23 - 32 mmol/L [facility] BUN 20 8 - 25 mg/dL [facility] CREATININE 1.20 0.60 - 1.50 mg/dL [facility] GLUCOSE 86 70 - 110 mg/dL [facility] CALCIUM 9.9 8.5 - 10.5 mg/dL [facility] EGFR 45(L) >59 mL/min/1.7 3m2 [facility] Comment:Estimated glomerular filtration rate calculated using the CKD-EPI refit equation. ANION GAP 11 3 - 17 mmol/L [facility] Blood 05/21/2024 3:11 PM EDT 05/21/2024 5:14 PM EDT Chilango Gonzáles MD, MPhil LAB BLOOD ORDERA BLES Performing Organization Address City/State/[facility] Co de Phone Number [address] [address] from Last 3 Months or Most Recently Relevant to Health Maintenance Care Teams Dairy Husbandman Relationship Specialty Start Date End Date Shekhar Young MD [address] [place] [address] [address] [place] [address] PCP - General Internal Medicine 08/28/23 Additional Source Comments The information contained in this document represents components of the legal health record. It is not the complete legal health record.[facility]
--- OUTSIDE RECORDS SUMMARY | 2024-12-10 08:02 | XMS_ITS ---
Author Organization [facility] Address [address] [place] [address] Care Team Providers Care Fishing Tackle Repairer Name Role Phone Hector CHILD [place] Primary Care Provider Unava ilable Kiki Bledsoe Unavailable [phone] REASON FOR VISIT BEADWORKER PPWK Entered Encounters Encounter Location Date Provider Diagnosis [facility] [address] [place] [address] 11/05/2024 Kikiligia Bledsoe Plan Of Treatment Next Appt Details Provider Name:Kiki Silver Rakan , 12/14/2024 02:00:00 PM, [address] [facility], [place], [address], Progress Notes * Claude GREGORIOOB:1940 ([age] yo F)Acc No.[id number]:11/05/2024 Patient:?MARALJavier Rothmanis :1940???Age:84 Y???Sex:Female [address] [place], [address] * true * Date:? Generated for Printi ng/Fasangitag/eTransmitting on:?12/10/2024 08:01 AM EST
--- OUTSIDE RECORDS SUMMARY | 2024-12-10 08:02 | XMS_ITS | Continuity of Care Document ---
Author Organization [facility] Address [address] [place] [address] Phone Care Team Providers Care Commercial Credit Head Name Role Phone Randy Newman MD Unavailable [...] Diagnoses Date Provider Providers Copied on Encounter [facility], [address], [place], [place], [id number], [place] tel:[phone] LINH Lovett Clinical Nursing Coordinator No Information 3 Paty Padilla. [address] [place] [address], [id number] , [place]. tel:[phone] [facility], [address], [place], [place], [id number], [place] tel:[phone] [facility] No Information 3 Roshan Kee. [address] [place] [address], [id number] , . tel:[phone] [facility] E&m Estab Pt; 65/> [facility], [address], [place], [place], [id number], [place] tel:[phone] [facility] Clinical Nursing Coordinator annual exam (chief complaint) Encounter for gynecological examination (general) (routine) without abnormal findings 2 Wei Crump. [address] [place] [address], [id number] , [place]. tel:[phone] Referring Provider: Alisia Carvajal MD, [address] [place] [address], [address] . tel:[phone] [facility] E&m Estab Pt; 65/> [facility], [facility] [address], [place], [place], [id number], [place] tel:[phone] [facility] Clinical Nursing Coordinator annual exam (chief complaint) Encounter for gynecological examination (general) (routine) without abnormal findings 1 Wei Crump. [address] [place] [address], [id number] , . tel:[phone] Referring Provider: Alisia Carvajal MD, [address] [place] [address], [address] . tel:[phone] [facility] E&m Estab Pt; 65/> [facility], [facility] [address]28, [place], [place], [id number], [place] tel:[phone] [facility] Clinical Nursing Coordinator annual exam (chief complaint) Encntr for meter calibrator exam (general) (routine) w/o abn findings 9 Wei Crump. [address] [place] [address], [id number] , . [phone] Referring Provider: Alisia Carvajal MD, [address] [place] [address], [address] . tel:[phone] [facility] E&m Estab Pt; 65/> [facility], [address], [place], [place], [id number], tel:[phone] [facility] Jacquelyn [facility] Clinical Nursing Coordinator annual exam (chief complaint) Encntr for meter calibrator exam (general) (routine) w/o abn findingsUrinary urgency 0 8 Wei Crump. [address] [place] [address], [address] [place] [address] , [place]. tel:[phone] Referring Provider: Alisia Carvajal MD, [address] [place] [address], [address] . tel:[phone] [facility] E&m Estab Pt; 65/> [facility], [address], [place], [place], [id number], [place] tel:[phone] [facility] Clinical Nursing Coordinator annual exam (chief complaint) Encntr for meter calibrator exam (general) (routine) w/o abn findingsEncounter for screening for malignant neoplasm of cervix 7 Wei Crump. [address] [place] [address], [id number] , . [phone] Referring Provider: Alisia Carvajal MD, [address] [place] [address], [address] . tel:[phone] [facility] E&m Estab Pt; 65/> [facility], [address], [place], [place], [id number], tel:[phone] [facility] Clinical [facility] Coordinator annual exam (chief complaint) Encntr for meter calibrator exam (general) (routine) w/o abn findings 6 Wei Crump. [address] [place] [address], [address] [place] [address] , [place]. [phone] Referring Provider: Alisia Carvajal MD, [address] [place] [address], [address] . tel:[phone] [facility], [place] [address], [place], [place], [address] [place] [address], tel:[phone] Nadeem Valladares [facility] Clinical Nursing Coordinator No Information 5 Wei Crump. [address] [place] [address], [address] [place] [address] , . [phone] Referring Provider: Alisia Carvajal MD, [address] [place] [address], [address] [place] [address] . tel:[phone] [facility] E&m Estab Pt; 65/> [facility], [place] [address], [place], [place], [address] [place] [address], tel:[phone] Nadeem Valladares [facility] Clinical Nursing Coordinator annual exam (chief complaint) Encntr for meter calibrator exam (general) (routine) w/o abn findingsEncounter for screening for malignant neoplasm of cervix 5 Wei Crump. [address] [place] [address], [address] [place] [address] , . [phone] Referring Provider: Alisia Carvajal MD, [address] [place] [address], [address] . tel:[phone] [place] [address], [place], [place], [address] [place] [address], tel:[phone] Nadeem Vallada[facility] Clinical Nursing Coordinator No Information 4 Wei Crump. [address] [place] [address], [address] [place] [address] , . tel:[phone] Referring Provider: Alisia Carvajal MD, [address] [place] [address], [address] . tel:[phone] [facility] E&m Estab Pt; 65/> [facility], [address] [place] [address], [id number], tel:[phone] LAURINadeem Valladares [facility] Clinical Nursing Coordinator annual exam (chief complaint) ROUTINE HEAD OF QUALITY EXAMINATION 4 Wei Crump. [address] [place] [address], [address] [place] [address] , . tel:[phone] Referring Provider: Alisia Carvajal MD, [address] [place] [address], [address] . tel:[phone] [facility], [address], [place], [place], [id number], [place] tel:[phone] Nadeem Valladares [facility] Clinical Nursing Coordinator No Information 3 Wei Crump. [address] [place] [address], [address] [place] [address] , . [phone] Referring Provider: Alisia Carvajal MD, [address] [place] [address], [address] [place] [address] . tel:[phone] [facility] E&m Estab Pt; 65/> [facility], [facility] [address], [place], [address] [place] [address], tel:[phone] Nadeem Valladares [facility] Clinical Nursing Coordinator annual exam (chief complaint) Routine HEAD OF QUALITY Exam W/wo A Pap 3 Wei Crump. [address] [place] [address], [id number] , [place]. tel:[phone] Referring Provider: Alisia Carvajal MD, [address] [place] [address], [address] . tel:[phone] [facility], [address], [place], [place], [id number], tel:[phone] Nadeem Valladares [facility] Clinical Nursing Coordinator No Information 2 Wei Crump. [address] [place] [address], [id number] , [place]. tel:[phone] Referring Provider: Alisia Carvajal MD, [address] [place] [address], [address] . tel:[phone] Pre[facility] E&m Estab Pt; 65/> [facility], [address], [place], [place], [id number], [place] tel:[phone] [facility] Clinical Nursing Coordinator annual visit (chief complaint) Screening PAP Only/pp Visit/obRoutine HEAD OF QUALITY Exam W/wo A Pap 2 Wei Crump. [address] [place] [address], [id number] , [place]. tel:[phone] Referring Provider: Alisia Carvajal MD, [address] [place] [address], [address] . tel:[phone] [facility], [address], [place], [place], [id number], [place] tel:[phone] Nadeem Valladares [facility] Clinical Nursing Coordinator No Information 1 Wei Crump. [address] [place] [address], [id number] , [place]. tel:[phone] Referring Provider: Alisia Carvajal MD, [address] [place] [address], [address] . tel:[phone] Offic/outpt E&m Estab Low-mod [facility], [address], [place], [place], [id number], [place] tel:[phone] LINH Valladares [facility] Clinical Nursing Coordinator consult (chief complaint) No Information 1 Wei Crump. [address] [place] [address], [id number] , [place]. tel:[phone] Referring Provider: Alisia Carvajal MD, [address] [place] [address], [address] . tel:[phone] [facility], [address], [place], [place], [id number], [place] tel:[phone] [facility] Clinical Nursing Coordinator No Information Sep-2 8 1 Wei Crump. [address] [place] [address], [address] [place] [address] , . tel:[phone] Referring Provider: Alisia Carvajal MD, [address] [place] [address], [address] . tel:[phone] [facility], [address], [address] [place] [address], tel:[phone] [facility] Clinical Nursing Coordinator No Information Sep-0 6 1 Wei Crump. [address] [place] [address], [address] [place] [address] , . tel:[phone] Referring Provider: Alisia Carvajal MD, [address] [place] [address], [address] [place] [address] . tel:[phone] [facility] E&m Estab Pt; 65/> [facility], [address], [address] [place] [address], tel:[phone] [facility] Clinical Nursing Coordinator annual visit (chief complaint) No Information Sep-0 1 Wei Crump. [address] [place] [address], [address] [place] [address] , . [phone] Referring Provider: Alisia Carvajal MD, [address] [place] [address], [address] . tel:[phone] [facility], [address], [address] [place] [address], tel:[phone] [facility] Clinical Nursing Coordinator No Information Sep-0 2201 0 Wei Crump. [address] [place] [address], [address] [place] [address] , . tel:[phone] Referring Provider: Alisia Carvajal MD, [address] [place] [address], [address] . tel:[phone] [facility], [address], [place], [id number], tel:[phone] [facility] Clinical Nursing Coordinator annual visit (chief complaint) Colon/ Rectal CA Screening Jun-0 0 Wei Crump. [address] [place] [address], [address] [place] [address] , . [phone] Referring Provider: Alisia Carvajal MD, [address] [place] [address], [address] [place] [address] . tel:[phone] [facility] Meds E&m Estab Pt; 65/> [facility], [facility] [address]38, [place], [place], [address] [place] [address], tel:[phone] Nadeem Rodrigo Jacquelyn [facility] Clinical Nursing Coordinator annual visit (chief complaint) No Information 9 Wei Crump. [address] [place] [address], [address] [place] [address] , . [phone] Referring Provider: Alisia Carvajal MD, [address] [place] [address], [address] . tel:[phone] [facility], [facility] [address], [place], [address] [place] [address], [place] tel:[phone] [facility] Clinical Nursing Coordinator No Information 8 Wei Crump. [address] [place] [address], [address] [place] [address] , [place]. [phone] [facility] Pt; 65/> [facility], [address], [place], [address] [place] [address], [place] tel:[phone] [facility] Clinical Nursing Coordinator No Information 8 Wei Crump. [address] [place] [address], [address] [place] [address] , [place]. tel:[phone] Referring Provider: Alisia Carvajal MD, [address] [place] [address], [address] . tel:[phone] [facility], [address], [place], [address] [place] [address], tel:[phone] Nadeem Rodrigo [facility] Clinical Nursing Coordinator No Information 7 Wei Crump. [address] [place] [address], [address] [place] [address] , . tel: [phone] [facility] E&m Estab Pt; 40-6 [facility], [address] [facility], [place], [place], [address] [place] [address], tel:[phone] Nadeem [facility] Clinical Nursing Coordinator annual visit (chief complaint) No Information 7 Wei Crump. [address] [place] [address], [address] [place] [address] , . tel:[phone] [facility], [address] [address], [place], [address] [place] [address], tel:[phone] Nadeem [facility] Clinical Nursing Coordinator annual visit (chief complaint) No Information 6 Wei Crump. [address] [place] [address], [address] [place] [address] , . tel: [phone] [facility], Box [facility], [place], [place], [address] [place] [address], tel:[phone] [facility] Clinical Nursing Coordinator annual visit (chief complaint) No Information 200 5 Wei Crump. [address] [place] [address], [address] [place] [address] , . tel: [phone] Family History Family Member Type Diagnosis Age At Onset Sister Problem (finding) Myocardial infarction Problem (finding) Family history of hyper tension Paternal aunt Problem (finding) breast cancer Maternal grandmother Problem (finding) Heart disease Sister Problem (finding) renal failure syndrome Payers Payer name Insurance type Covered green party ID Authoriza tion(s) [employer] PPO 16 [id number] Social History Type Description Quantity Date Captured [...] Lipid Panel. Due on 017 due Goal Mammogram. Due on 9 due Goal Colonoscopy. Due on due Goal DEXA Scan. Due on 3 due Goal DEXA Scan. Due on due Goal Colonoscopy. Due on 022 due [...] 13 due Future Order: Lab Order FOBT ([id number]), Ord ered on: Ordered History Of Present [...] Diet and exercise Rela marina to Routine HEAD OF QUALITY Exam W/wo A Pap Perform self breast exam Related to Routine HEAD OF QUALITY Exam W/wo A Pap discussed colonoscop y dexa amd mammogram timing continue vitamin d Related to RO UTINE HEAD OF QUALITY EXAMINATION Discussed Diet and exercise Rela marina to Routine HEAD OF QUALITY Exam W/wo A Pap Perform self breast exam Related to Routine HEAD OF QUALITY Exam W/wo A Pap Assessments Type Assessment Date No Information Patient Care Teams Name Effective Dates (start - stop) Status Members No Information
--- OUTSIDE RECORDS SUMMARY | 2024-12-10 08:02 | XMS_ITS | Data Portability ---
Author Organization [place] - [facility] Address [address] [address] Assessment Encounter Date Assessment Date Assessment LastModified by Organization Details LastModified Time 06/14/2024 06/14/2024 83-year-old female presents for cerumen removal. Cerumen impaction removed bilaterally. Bilateral TMs are intact. Follow up in 6 months for routine debridement, or sooner if needed. [email or web address] Not available 06/14/2024 13:36:41 Plan of Treatment Reminders Order Date Submit Date Provider Last Modified By Organization Details Last Modified Time Details Appointments Establish ed 15 2024 11:00A M WANG MORENO MD Not available Not available Not available Lab None recorded. Referral None recorded. Procedures None recorded. Surgeries None recorded. Imaging None recorded. Medication Orders None recorded. Patient TargetsNo targets recorded. Patient InstructionsNo instructions recorded. Reason for Referral None Reported. Results Created Date Observation Date Name Description Value Unit Range Abnormal Flag Note LastModifiedBy Organization Detail LastModifiedTime 06/09/2006/26/2023 imagi ng/di agnos tic resul t No observ ation record ed. [email or web address] Not Available 11:44:27 06/09/20 24 07/10/2022 imagi ng/di agnos tic resul t No observ ation record ed. [email or web address] Not Available 11:44:30 06/09/20 24 11/20/2023 audio gram No observ ation record ed. [email or web address] Not Available 11:44:47 06/09/20 24 01/29/2024 audio gram No observ ation record ed. [email or web address] Not Available 11:44:51 06/09/2008/15/2023 audio gram No observ ation record ed. [email or web address] Not Available 11:44:57 06/09/2009/02/2023 audio gram No observ ation record ed. [email or web address] Not Available 11:44:58 06/09/2009/22/2023 audio gram No observ ation record ed. [email or web address] Not Available 11:45:01 06/09/2010/15/2023 audio gram No observ ation record ed. [email or web address] Not Available 11:45:02 Result Notes None recorded. Problems Name Problem SNOMED Code Status Onset Date Resolution Date Notes Provider Name and Address Organization Details Recorded Time Sensorine ural hearing loss of bilateral ears 398903853 Active 2022 Sensorine ural hearing loss, bilateral ; Note: Date Diagnosed : 06/26/2023 5:34 PM (H90.3) Not Available [facility] 03:27:49 Impacted cerumen of bilateral ears 29397555841 66466 Active 2022 Impacted cerumen, bilateral ; Note: Date Diagnosed : 06/26/2023 4:24 PM (H61.23) Not Available [facility] 03:27:49 Problem Notes None recorded. Procedures Surgical History Date Name Laterality Status Provider Name and Address Organization Details Recorded Time Cerumen removal without microscope bilat completed JOSE YADAV PA-C [address] [place] [address], [address], [facility] - [facility] 06/14/2024 13:36:20 Imaging Results Imaging Date Name Status LastModified by Organ [facility] Details LastModified Time 06/26/2023 imaging/diagno stic result completed Information not available 06/09/2024 11:44:27 07/10/2022 imaging/diagno stic result completed Information not available 06/09/2024 11:44:30 11/20/2023 audiogram completed Information not available 06/09/2024 11:44:47 01/29/2024 audiogram completed Information not available 06/09/2024 11:44:51 08/15/2023 audiogram completed Information not available 06/09/2024 11:44:57 09/02/2023 audiogram completed Information not available 06/09/2024 11:44:58 09/22/2023 audiogram completed Information not available 06/09/2024 11:45:01 10/15/2023 audiogram completed Information not available 06/09/2024 11:45:02 Procedure Notes None recorded. Medical Equipment None Reported. Allergies Allergen ID Allergen Name Allergen Category Reaction Reaction Severity Criticality Documentation Date Start Date Code Code System Note Provider Name and Address Organization Details Recorded Time 531885 Augmentin medicatio n other Not available Not available 03/02/2024 02005 2 RxNorm React ion: Unkno wn; Not Available [facility] 4 01:18:47 981986 Levaquin medicatio n other Not available Not available 03/02/2024 48617 2 RxNorm React ion: Unkno wn; Not Available [facility] 4 01:18:48 Medications Name Sig Start Date Stop Date Status Note LastModified by Organization Details LastModified Time latanoprost 0.005 % eye drops active Not Available Not Available Not Available atorvastatin 40 mg tablet active Not Available Not Available Not Available potassium chloride ER 10 mEq capsule,extend ed release active Not Available Not Available N ot Available trazodone 50 mg tablet TAKE 1 TABLET BY MOUTH AT BEDTIME NEEDED FOR SLEEP active Not Available Not Available No t Available azithromycin 250 mg tablet TAKE 2 TABLETS BY MOUTH TODAY, THEN TAKE 1 TABLET DAILY FOR 4 DAYS DIRECTED active Not Available Not Available No t Available propranolol ER 60 mg capsule,24 hr,extended release active Not Available Not Available Not Available clindamycin HCl 150 mg capsule TAKE 4 CAPSULES BY MOUTH 1 HOUR PRIOR TO APPT active Not Available Not Available No t Available omeprazole 40 mg capsule,delaye d release active Not Available Not Available No t Available tramadol 50 mg tablet TAKE 1 TABLET BY MOUTH EVERY DAY NEEDED FOR PAIN active Not Available Not Available No t Available meclizine 25 mg tablet TAKE 1 TABLET BY MOUTH THREE TIMES A DAY FOR 7 DAYS active Not Available Not Available No t Available Citrucel 500 mg tablet active Not Available Not Available No t Available docusate sodium 100 mg capsule TAKE 1 CAPSULE BY MOUTH EVERY DAY active Not Available Not Available No t Available Eliquis 2.5 mg tablet active Not Available Not Available Not Available Vitals Date Recorded Body height Body mass index (BMI) Body weight Provider Name and Address Organization Details Last Updated DateTime 06/14/2024 165.1 cm 31.5 kg/m2 87367.96 g Jesenia De La Garza [place] - [facility] 06/14/2024 13:30:15 Social History None recorded. Functional Status None recorded. Mental Status None recorded. Family History Nothing Reported. Medical History No medical history recorded. Gynecological HistoryNo gynecological history recorded. Obstetrics History GPAL:G 0 P 0 0 0 0 Past Encounters Encounter ID Performer Location Encounter Start Date Encounter Closed Date Diagnosis/Indication Diagnosis SNOMED-CT Code Diagnosis ICD10 Code Diagnosis Note [id number] VIKKI PATEL MD [facility] [address] [address] 06/14/2024 13:22:39 06/14/2024 13:46:14 Impacted cerumen of bilateral ears 5762785475 864219 H61.23 [id number] JUANCHO WOOD HERNANDE[facility] [address] [place] [address] [place] [address] 07/23/2024 12:55:40 07/26/2024 09:51:39 Sensorineural hearing loss of bilateral ears 681293145 H90.3 Health Concerns Section Related Observation LastModified by Organization Detai ls LastModified Time None Recorded Concern Status LastModified by Organization Details LastModified Time None Recorded Advance Directives Directive None Recorded Payers Encounter Date Sequence Insurance Name Policy Number Policy Mccormick Covered Member ID Mccormick Member ID Guarantor Name 06/14/2024 1 [employer] [id number] Macie Gregorio [id number] Macie Gregorio 07/23/2024 1 [employer] [id number] Macie Gregorio [id number] Macie Gregorio Notes Date Note Type Note Provider Name and Address Organization Details Recorded Time 06/14/2024 text/html 83-year-old femreid pozo presents for cerumen removal. No concerns today. 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 Had an episode of dizziness that has since resolved. VIKKI LEÓN MD 100 [facility],[address], [address], [facility] 06/14/2024 16:54:31 07/23/2024 text/html Doing well...Cortés s not feel that her hearing has changed so we did not update her HT at this time. Checked and cleaned aid. She will call as needed. JUANCHO WOOD 100 [facility],[address] [address], [place], [address], [facility] - [facility] 07/23/2024 12:58:30 OBGyn Episode No OBEpisode recorded.
--- OUTSIDE RECORDS SUMMARY | 2024-12-10 08:02 | XMS_ITS | Patient Health Record ---
Author Organization [facility] Address [address] [place] [address] Care Team Providers Care Punch Machine Operator Name Role Phone Nicholas CHILD, Moises Messer Primary Care Provider Abran Claudio Unavailable [phone] ALLERGIES Allergen (clinical drug ingredient) Drug/Non Drug [...] Date [employer] MEDICARE REPLACEMEN T [address] [place], [place] [phone] [id number] Macie Gregorio Self - patient is the insured MEDICAL (GENERAL) HISTORY Medical History History ICD Code Arthritis High Cholesterol Blood Clots Surgical History Surgery Date(Month/Year) Hip replacement 2016 Shoulder replacement 2020
--- OUTSIDE RECORDS SUMMARY | 2024-12-10 08:02 | XMS_ITS | Encounter Summary ---
Author Organization [facility] Address [phone] [address] [place] [address] Care Team Providers Care Residential Field Manager Name Role Phone Shekhar Young MD Primary Care Provider [phone] Encounter Details Date Type Department Care Team (Late st Contact Info) Description 05/20/2024 Documentation [facility] Noninvasive Cardiology [address] [place] [address] Chilango Gonzáles MD, MPhil [address] [place] [address] [email or web address] Social History Tobacco Use Types Packs/Day Years [...] on filedocumented in this encounter Care Teams Residential Field Manager Relationship Specialty Start Date End Date Shekhar Young MD [address] [place] [address] [address] [place] [address] PCP - General Internal Medicine 08/28/23 documented as of this encounter Additional Source Comments The information contained in this document represents components of the legal health record. It is not the complete legal health record.[facility]
== END 2024-12-10 07:58 | disposition home or self-care (01) ==
LOC: HO.XRAY 07:57
PROVIDERS: PCP Internal Medicine; Visit Provider Nurse Practitioner Family
DX: K21.9 Gastro-esophageal reflux disease without esophagitis (principal)
CPT/HCPCS: 74240

== ENCOUNTER → 2024-12-10 07:58 | Outpatient (BNV) | payer MEDICARE, SELFPAY | PROVIDERS: PCP Internal Medicine; Visit Provider Physician Assistant Surgical | DX: K21.9 Gastro-esophageal reflux disease without esophagitis (principal) | CPT/HCPCS: 74246; 74248 ==

== ENCOUNTER 2024-12-24 14:42 | Outpatient (AMB) | payer MEDICARE, SELFPAY ==
[2024-12-24 14:46] VITALS: BP 148/87; PULSE 79; O2SAT 95; BMI 32.6
--- NOTE | 2024-12-24 14:46 | A.OFFVIS_ITS ---
Vital Signs 12/24/24 14:46 Height 5 ft 5 in Weight 196 lb BMI 32.6 BP 148/87 H Blood Pressure Location Rt brachial Position Sitting Pulse 79 Pulse Source Doppler Pulse Oximetry (%) 95 Oxygen Delivery Method Room Air Intake Visit Reasons: Dyspnea/Wheezing Allergies amoxicillin [From Augmentin] Allergy (Severe, Verified 12/24/24 14:51) Rash clavulanic acid [From Augmentin] Allergy (Severe, Verified 12/24/24 14:51) Rash levofloxacin [From Levaquin] Allergy (Severe, Verified 12/24/24 14:51) Rash HPI HPI Dyspnea/Wheezing: Details: 84-year-old lady, former 30+ pack-year smoker, quit 2016, with underlying large hiatal hernia referred for evaluation of intermittent wheezing not associated wi th activity or dyspnea. Patient denies prior personal or family history of lung disease. Denies exposure to industrial dusts. Patient denies environmental allergies. She does not have pets. She does have intermittent mild insert reflux symptoms, overall controlled on Nexium. Her wheezing has no diurnal or body position variation. [facility] Medical History Obesity (BMI 30-39.9) Insomnia Anemia Restless leg syndrome 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 History of colitis Hepatic hemangioma Hepatic cyst Osteoporosis Meniere's disease Large hiatal hernia Chronic kidney disease (CKD), stage III (moderate) Atherosclerosis of aorta History of recurrent deep vein thrombosis (DVT) (~12/2020) History of pulmonary embolism (~2017) History of deep vein thrombosis (DVT) of lower extremity (~2017) Pure hypercholesterolemia Benign essential hypertension Surgical History History of colonoscopy History of arthroplasty of left shoulder (~09/2022) History of arthroplasty of right hip (~12/2021) History of arthroplasty of right shoulder (~12/2020) S/P trigger finger release (~2018) History of total left hip arthroplasty (~2017) History of tubal ligation History of left oophorectomy Hx of parotidectomy History of ear surgery History of ankle surgery Family History Other Hypertension Social History (Updated 12/24/24 @ 14:53 by ARIADNE Quinn) [facility] Tobacco Use Status: Former Tobacco user Years Smoked: quit 9 years ago e-Cigarette/Vaping Use: Never Used service: No Current occupational status: retired Current occupational exposures/hazards: No Cognitive needs: No Hearing needs: No Vision needs: No Review of Systems Const Denies daytime sleepiness, Denies excessive sweating, Denies fatigue, Denies fever(s), Denies lethargy, Denies malaise, Denies night sweats, Denies snoring and Denies weight loss Eyes Denies blurry vision and Denies itchy eyes ENT Denies nasal congestion, Denies post nasal drip, Denies sinus pain, Denies sinus pressure and Denies other ( Thrush) Card Denies chest pain, Denies pedal edema, Denies dyspnea, Denies orthopnea and Denies paroxysmal nocturnal dyspnea Resp Denies cough, Denies hemoptysis, Denies excessive phlegm production, Denies dyspnea, Denies snoring and Denies wheezing GI Denies abdominal pain and Denies heartburn Musc Denies myalgias, Denies arthralgias and Denies joint swelling Skin/Breast Denies rash Neuro Denies memory loss and Denies seizure-like activity Psych Denies abnormal sleep pattern, Denies anxiety and Denies memory loss Endo Denies excessive sweating, Denies fatigue and Denies heat intolerance Wilmer/Lymph Denies easy bruising Aller/Immun Denies itchy eyes, Denies seasonal rhinorrhea and Denies wheezing Physical Exam Vital Signs: Last Vital Signs Pulse 79 12/24/24 14:46 BP 148/87 H 12/24/24 14:46 Pulse Ox 95 12/24/24 14:46 Oxygen Delivery Method Room Air 12/24/24 14:46 BMI result Body Mass Index 32.6 Const General: no acute distress and alert Nutritional Appearance: not obese Orientation/consciousness: Other orientation findings ( oriented) HEENT Head: Yes atraumatic Eyes General: appearance normal, both eyes and all related structures Sclerae: sclerae normal EOM: EOMs intact bilaterally Neck Neck: Yes supple Lymphatic: no lymphadenopathy noted Resp Effort & Inspection: normal respiratory effort and no use of accessory muscles Auscultation: clear to auscultation bilaterally Cardio Rate: regular rate Rhythm: regular rhythm Heart sounds: no gallops, no murmurs and no rubs Skin General skin exam: other ( warm) Extrem General: No clubbing, No cyanosis and No edema Assessment & Plan Assessment & Plan (1) Wheezing: Code(s): R06.2 - Wheezing Category: Medical Plan: Unclear etiology, may have acid reflux or reactive airway component. Rather intermittent and without other associated symptoms. Will try on as needed albuterol MDI. (2) Large hiatal hernia: Code(s): K44.9 - Diaphragmatic hernia without obstruction or gangrene Category: Medical Plan: Also on the background of scoliosis and increased abdominal obesity causing restrictive ventilatory defect, though clinically asymptomatic. Coding Level of Care Code New Pt Level 4 (36514) Diagnoses Wheezing R06.2 Large hiatal hernia K44.9
--- OUTSIDE RECORDS SUMMARY | 2024-12-24 16:27 | XMS_ITS ---
Author Organization [facility] Address [address] [place] [address] Care Team Providers Care Magazine Worker Name Role Phone Hector CHILD [place] Primary Care Provider Unava ilable Rakan Kiki Unavailable [phone] REASON FOR VISIT buy pedag size 38 Encounters Encounter Location Date [facility] [address] [place] [address] 12/14/2024 Kiki Bledsoe Plan Of Treatment Next Appt Details Provider Name:Kiki Silver Rakan , 02/01/2025 02:00:00 PM, [address] [place] [address], [place], [address], Progress Notes * Claude GREGORIOOB:1940 ([age] yo F)Acc No.[id number]:12/14/2024 Patient:?DAJA Macie :1940???Age:84 Y???Sex:Female Address:[address], [place], [address] * true * Date:? Generated for Printi ko/Fasangitag/eTransmitting on:?12/24/2024 04:27 PM EST
--- OUTSIDE RECORDS SUMMARY | 2024-12-24 16:27 | XMS_ITS | Continuity of Care Document ---
Author Organization [place] [facility], [facility] Address [address] [place] [address] Care Team Providers Care Pipelines Superintendent Name Role Phone KWASI CANELA Primary Care Provider Assessment Encounter Date Assessment Date Assessment LastModified by Organization Details LastModified Time 12/16/2024 12/16/2024 Ears were meticulously cleaned bilaterally today with fine pics, curettes and/or suction. Patient is encouraged to avoid Q-tips in their ears relative to packing the wax in tighter. They may use the corner of their bath towel to gently clean the nooks and crannies of the external ears as needed. Yearly visits or as needed are recommended. She requested follow-up in a year for repeat cerumen and will continue to work with audiology team to manage her right sided hearing aid. There have been no new developments that would improve her hearing otherwise dplosky Not available 12/16/2024 11:09:04 Plan of Treatment Reminders Order Date Submit Date Provider Last Modified By Organization Details Last Modified Time Details Appointments Establish ed 15 2025 11:30A M CHINMAY JIMÉNEZ PA-C Not available Not available Not available Lab None recorded. Referral None recorded. Procedures None recorded. Surgeries None recorded. Imaging None recorded. Medication Orders None recorded. Patient TargetsNo targets recorded. Patient InstructionsNo instructions recorded. Reason for Referral None Reported. Problems Name Problem SNOMED Code Status Onset Date Resolution Date Notes Provider Name and Address Organization Details Recorded Time Sensorine ural hearing loss of bilateral ears 034438387 Active 2022 Sensorine ural hearing loss, bilateral ; Note: Date Diagnosed : 06/26/2023 5:34 PM (H90.3) Not Available [facility] 4 03:27:49 Impacted cerumen of bilateral ears 34388706392 25656 Active 2022 Impacted cerumen, bilateral ; Note: Date Diagnosed : 06/26/2023 4:24 PM (H61.23) Not Available [facility] 4 03:27:49 Problem Notes None recorded. Procedures Surgical History Date Name Laterality Status Provider Name and Address Organization Details Recorded Time 5 Wax_DP completed WANG MORENO MD [address] [place] [address],[address], [address], [facility] 12/14/2024 17:19:46 4 Cerumen removal without microscope bilat completed JOSE YADAV PA-C [address] [facility],[place] [address], [place], [address], [facility] 06/14/2024 13:36:20 Imaging Results None recorded. Procedure Notes None recorded. Medical Equipment None Reported. Allergies Allergen ID Allergen Name Allergen Category Reaction Reaction Severity Criticality Documentation Date Start Date Code Code System Note Provider Name and Address Organization Details Recorded Time 560718 Augmentin medicatio n other Not available Not available 03/02/2024 96015 2 RxNorm React ion: Unkno wn; Not Available [facility] 4 01:18:47 514923 Levaquin medicatio n other Not available Not available 03/02/2024 69178 2 RxNorm React ion: Unkno wn; Not Available [facility] 4 01:18:48 Medications Name Sig Start Date Stop Date Status Note LastModified by Organization Details LastModified Time latanoprost 0.005 % eye drops active Not Available Not Available Not Available atorvastati n 40 mg tablet active Not Available Not Available Not Available potassium chloride ER 10 mEq capsule,ext ended release active Not Available Not Available Not Available trazodone 50 mg tablet TAKE 1 TABLET BY MOUTH AT BEDTIME NEEDED FOR SLEEP active Not Available Not Available No t Available azithromyci n 250 mg tablet 12/12 completed Not Available Not Available Not Available propranolol ER 60 mg capsule,24 hr,extended release active Not Available Not Available Not Available clindamycin HCl 150 mg capsule 12/12 completed Not Available Not Available Not Available omeprazole 40 mg capsule,del ayed release active Not Available Not Available Not Available tramadol 50 mg tablet TAKE 1 TABLET BY MOUTH EVERY DAY NEEDED FOR PAIN FOR 90 DAYS active Not Available Not Available No t Available famotidine 20 mg tablet TAKE 1 TABLET BY MOUTH EVERY DAY AT BEDTIME NEEDED FOR ACID REFLUX active Not Available Not Available No t Available meclizine 25 mg tablet 12/12 completed Not Available Not Available Not Available esomeprazol e magnesium 40 mg capsule,del ayed release TAKE 1 CAPSULE BY MOUTH EVERY DAY active Not Available Not Available No t Available Citrucel 500 mg tablet 12/12 completed Not Available Not Available Not Available docusate sodium 100 mg capsule 12/12 completed Not Available Not Available Not Available fluticasone propionate 50 mcg/actuati on nasal spray,suspe nsion INSTILL 2 SPRAYS IN EACH NOSTRIL DAILY NEEDED FOR ALLERGY SYMPTOMS FOR 30 DAYS active Not Available Not Available No t Available Eliquis 2.5 mg tablet active Not Available Not Available No t Available Vitals Date Recorded Body height Body weight Provider Name and Address Organization Details Last Updated DateTime 12/16/2024 165.1 cm 03978.59 g Mary Lou Álvarez [place] [facility] 12/16/2024 10:57:15 Social History None recorded. Functional Status None recorded. Mental Status None recorded. Family History Nothing Reported. Medical History Condition Response Allergies/Hayfever N Heart Problems Y Anxiety N Tonsil Infections N Emphysema N Migraines N Thyroid Problems N Glaucoma Y Depression N COPD N Developmental Delay N Nasal or Sinus Problems N Anemia Y Immune System Disorder N Anesthesia Complications Y Heart Attack ([place]) N Other Skin Condition N Diabetes N Rhinitis N Bleeding Disorder Y Food Allergy N Arthritis Y Hearing Loss Y Hyperlipidemia N Cancer N Stroke N Dementia N Nasal polyps N Asthma N High Cholesterol N Sleep Disorder N GERD/Reflux Y Liver Disease N Headaches N Fibromyalgia N Hypertension N Speech Delay N Kidney Disease N Gynecological HistoryNo gynecological history recorded. Obstetrics History GPAL:G 0 P 0 0 0 0 Past Encounters Encounter ID Performer Location Encounter Start Date Encounter Closed Date Diagnosis/Indication Diagnosis SNOMED-CT Code Diagnosis ICD10 Code Diagnosis Note [id number] WANG MORENO MD [facility] [address] [place] [address] 12/16/2024 10:42:02 12/16/2024 11:09:57 Impacted cerumen of bilateral ears 0835227192 132748 H61.23 Sensorineu ral hearing loss of bilateral ears 414074808 H90.3 Health Concerns Section Related Observation LastModified by Organization Detai ls LastModified Time None Recorded Concern Status LastModified by Organization Details LastModified Time None Recorded Payers Encounter Date Sequence Insurance Name Policy Number Policy Mccormick Covered Member ID Mccormick Member ID Guarantor Name 12/16/2024 1 [employer] [id number] Macie Gregorio [id number] Macie Gregorio Notes Date Note Type Note Provider Name and Address Organization Details Recorded Time 12/16/2024 text/html cerumen No concerns today.History of left sided Meniere's disease status post endolymphatic mastoid shunt surgery in 1966Right sided hearing aid PV 06/14/24 Jose Root cerumen removed WANG MORENO MD [address] [place] [address], [place], [address], [place] [facility] 12/16/2024 11:09:16 OBGyn Episode No OBEpisode recorded.
--- OUTSIDE RECORDS SUMMARY | 2024-12-24 16:27 | XMS_ITS | Clinical Summary ---
Author Organization [facility] Address [address] [place] [address] Phone Care Team Providers Care Border Guard Name Role Phone Stephen Harrison MD Primary [...] this topic Medical Devices Implanted Type Area Tank Crewmember Device Identifier Shelf Expiration Date Model / Serial / Lot Reversed Multi Direction Lock Screw 4.5x20mm - Sn/A - [id number] Implanted:Qty: 1 on 10/09/2022 by Francis Brown MD at [facility] Internal and External Fixation Left: Shoulder [employer] [id number] / N/A / N/A Reversed Multi Direction Lock Screw 4.5x23mm - Sn/A - [id number] Implanted:Qty: 2 on 10/09/2022 by Francis Brown MD at [facility] Internal and External Fixation Left: Shoulder [employer] [id number] / N/A / N/A Reversed Multi Direction Lock Screw 4.5x26mm - Sn/A - [id number] Implanted:Qty: 1 on 10/09/2022 by Francis Brown MD at [facility] Internal and External Fixation Left: Shoulder [employer] [id number] / N/A / N/A Reverse Baseplate 2 Line Extension 64l50eh - [id number] - [id number] Implanted:Qty: 1 on 10/09/2022 by Francis Brown MD at [facility] Joints Shoulder Left: Shoulder [employer] [id number] 01/18/2027 [id number] / [id number] / N/A Glenoid Sphere Centered 36 Mm,25mm Baseplate - [id number] - [id number] Implanted:Qty: 1 on 10/09/2022 by Francis Brown MD at [facility] Joints Shoulder Left: Shoulder [employer] 07/29/2027 [id number] / [id number] / N/A Tray Flex Rev Shldr Sys +0 - [id number] - [id number] Implanted:Qty: 1 on 10/09/2022 by Francis Brown MD at [facility] Shoulder Left: Shoulder [employer] 09/06/2027 [id number] / [id number] / N/A Shoulder Insrt Rev 36 6/12.5 B - [id number] - [id number] Implanted:Qty: 1 on 10/09/2022 by Francis Brown MD at [facility] Shoulder Left: Shoulder [employer] 05/27/2027 [id number] / [id number] / N/A Shoulder Stem Hum Ptc Flx 5b - [id number] - [id number] Implanted:Qty: 1 on 10/09/2022 by Francis Brown MD at [facility] Shoulder Left: Shoulder [employer] 02/06/2027 [id number] / [id number] / N/A Procedures Procedure Name Priority Date/Time Associated Diagnosis Comments BASIC METABOLIC PANEL Routine 10/10/2022 3:37 AM EST from Last 3 Months or Most Recently Relevant to Health Maintenance Results * (ABNORMAL) Basic metabolic panel (10/10/2022 3:37 AM EST) Sodium 135(L) 136 - 145 mmol/L LAB CHEMISTRY METHOD 10/10/2022 5:25 AM EST [facility] Potassium 4.5 3.6 - 5.1 mmol/L LAB CHEMISTRY METHOD 10/10/2022 5:25 AM EST [facility] Chloride 104 98 - 107 mmol/L LAB CHEMISTRY METHOD 10/10/2022 5:25 AM EST [facility] CO2 26 22 - 32 mmol/L LAB CHEMISTRY METHOD 10/10/2022 5:25 AM EST [facility] Anion Gap 5(L) 6 - 18 LAB CHEMISTRY METHOD 10/10/2022 5:25 AM EST [facility] Glucose 139(H) 70 - 99 mg/dL LAB CHEMISTRY METHOD 10/10/2022 5:25 AM EST [facility] BUN 25(H) 8 - 20 mg/dL LAB CHEMISTRY METHOD 10/10/2022 5:25 AM EST [facility] Creatinine 0.98 0.60 - 1.30 mg/dL LAB CHEMISTRY METHOD 10/10/2022 5:25 AM EST [facility] eGFR 59(L) >=60 mL/min/1. 73m2 LAB CHEMISTRY METHOD 10/10/2022 5:25 AM EST [facility] Comment:Effective July 28, 2022, calculation based on the??Chronic Kidney Disease Epidemiology Collaboration (CKD-EPI) equation refit??without adjustment for race. BUN/Creatinine Ratio 25.5(H) 12.0 - 20.0 LAB CHEMISTRY METHOD 10/10/2022 5:25 AM [facility] Calcium 9.0 8.9 - 10.3 mg/dL LAB CHEMISTRY METHOD 10/10/2022 5:25 AM EST [facility] Blood Venous blood specimen / Unknown Venipuncture / Unknown 10/10/2022 3:37 AM EST 10/10/2022 4:58 AM EST us Alan BLAKELY LAB BLOOD ORDERABLES Final Resul t [facility] [address] [place] [address] from Last 3 Months or [...] currently active code status orders. Care Teams Border Guard Relationship Specialty Start Date End Date Stephen Harrison MD PCP - General 12/17/22
--- OUTSIDE RECORDS SUMMARY | 2024-12-24 16:28 | XMS_ITS | Encounter Summary ---
Author Organization [facility] Address [address] [facility] [address] [place] [address] Phone Care Team Providers Care Merchandising Consultant Name Role Phone Shekhar Young MD Primary Care Provider [phone] Encounter Details Date Type Department Care Team (Late st Contact Info) Description 05/20/2024 Documentation [facility] Noninvasive Cardiology [address] [place] [address] Chilango Gonzáles MD, MPhil [address] [place] [address] [email or web address] Social History Tobacco Use Types Packs/Day Years [...] on filedocumented in this encounter Care Teams Merchandising Consultant Relationship Specialty Start Date End Date Shekhar Young MD [address] [place] [address] [address] [place] [address] PCP - General Internal Medicine 08/28/23 documented as of this encounter Additional Source Comments The information contained in this document represents components of the legal health record. It is not the complete legal health record.[facility]
--- OUTSIDE RECORDS SUMMARY | 2024-12-24 16:28 | XMS_ITS ---
Author Organization [facility] Address [address] [facility] [place] [address] Care Team Providers Care Snow Plow Tractor Operator Name Role Phone Hector CHILD [place] Primary Care Provider Unava ilable RakanKiki Unavailable [phone] REASON FOR VISIT Ammonium lactate cream Encounters Encounter Location Date Provider Diagnosis [address] [facility] [place] [address] 12/22/2024 Kikiligia Bledsoe Plan Of Treatment Next Appt Details Provider Name:Kiki Silver Rakan , 02/01/2025 02:00:00 PM, [address], [place], [address], Progress Notes * Claude GREGORIOOB:1940 ([age] yo F)Acc No.[id number]:12/22/2024 Patient:?MARALJavier Rothmanis :1940???Age:84 Y???Sex:Female Address:[address], [facility] [place], [address] * true * Date:? Generated for Brendai ko/Ga/eTransmitting on:?12/24/2024 04:27 PM EST
--- OUTSIDE RECORDS SUMMARY | 2024-12-24 16:28 | XMS_ITS | Patient Health Record ---
Author Organization [facility] Address [address] [place] [address] Care Team Providers Care Mercury Cracking Tester Name Role Phone Hector CHILD, [place] Primary Care Provider [place] valadez Kiki Bledsoe Unavailable [phone] Allergies Allergen (clinical drug ingredient) Drug/Non Drug Allergy documented on EMR Reaction Allergy Type Onset Date Status amoxicillin / clavulanate Augmentin Unknown Drug Allergy Active Levaquin Unknown Drug Allergy Active Results Component Value Reference Range Notes X ray : Foot, right 3V Reviewed date:12/14/2024 04:37:00 PM Interpretation:See Examination above Performing Lab: Notes/Report: See Examination above X ray : Foot, left 3V Reviewed date:12/14/2024 04:37:09 PM Interpretation:See Examination above Performing Lab: Notes/Report: See Examination above Reason For Referral No Information Medications Medication SIG (Take, Route, Frequency, Duration) Notes Start Date End Date Status Calcium + D Active Propranolol HCl Acti ve Tri-Biozene Active Potassium Active traMADol HCl Active traZODone HCl Active Latanoprost Active Atorvastatin Calcium Active Night Splint AFO - L1930 1 wear at rest for 30 days Active Vitamin D Active Ammonium Lactate 12 % 1 application Exte rnally to affected areas of dry skin to feet except for between the toes Twice a day for 30 days Active Eliquis Active Omeprazole Active Social History Tobacco Use: Social History Observation Description Date Details (start date - stop date) Never Smoker NA - NA Tobacco use other than smoking: Question Answer Notes Are you an other tobacco user? No Tobacco Control (Standard) Question Answer Notes Tobacco use: Nonsmoker Additional Findings: Tobacco non-user Current no nsmoker AUDIT-C (Standard) Question Answer Notes Did you have a drink containing alcohol in the p ast year? No Points 0 Interpretation Negative Problems Problem Type SNOMED Code ICD Code Onset Dates Problem Status W/U Status Risk Notes Problem Plantar fascial fibromatosis (53153522) Plantar fasciitis, bilateral (M72.2) Active confirmed Vital Signs Blood pressure diastolic 74 mm Hg 12/14/2024 Height 5ft 5in in 12/14/2024 Blood pressure systolic 129 mm Hg 12/14/2024 Weight 185 lbs 12/14/2024 BMI 30.78 kg/m2 12/14/2024 Encounters Encounter Location Date Provider Diagnosis [address] [address] 12/14/2024 Kiki Black Xerosis of skin L85.3 ; Pain in right foot M79.671 ; Plantar fasciitis, bilateral M72.2 ; Calcaneal spur, right foot M77.31 ; Other myositis of right foot M60.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 ; Bursitis of right foot M77.51 ; Pain in left foot M79.672 ; Calcaneal spur, left foot M77.32 ; Other myositis of left foot M60.872 and Bursitis of left foot M77.[address] [address] [facility] [address] 11/05/[address] [address] 12/14/2024 Kiki Black [address] [address] 12/20/[address] [address] 12/22/2024 Kiki Black [facility] Encounter Date Diagnosis (ICD Code) Assessment Notes Treatment Notes Treatment Clinical Notes Section Notes 12/14/2024 Xerosis of skin (ICD-10 - L85.3) 12/14/2024 Pain in right foot (ICD-10 - M79.671) 12/14/2024 Plantar fasciitis, bilateral (ICD-10 - M72.2) Patient Educated with: HEEL CORD STRETCHES.pdf (HEEL CORD STRETCHES.pdf) Patient Educated with: RICE THERAPY.pdf (RICE THERAPY.pdf) 12/14/2024 Calcaneal spur, right foot (ICD-10 - M77.31) 12/14/2024 Other myositis of right foot (ICD-10 - M60.871) 12/14/2024 Bursitis of right foot (ICD-10 - M77.51) 12/14/2024 Pain in left foot (ICD-10 - M79.672) 12/14/2024 Calcaneal spur, left foot (ICD-10 - M77.32) 12/14/2024 Other myositis of left foot (ICD-10 - M60.872) 12/14/2024 Bursitis of left foot (ICD-10 - M77.52) Plan Of Treatment Next Appt Details Provider Name:Kiki Bledsoe , 02/01/2025 02:00:00 PM, [address] [facility], [place], [address], Insurance Providers Payer Name Payer Address Payer Phone Subscriber Number Group Number Insured Name Patient Relationship to Insured Coverage Start Date Coverage End Date A[employer] [address] [place] [address] [id number] Macie Gregorio Self - patient is the insured 4 Medical (General) History Medical History History ICD Code Anemia Arthritis Back,Hip,and Knee pain Broken bones Cataracts Glaucoma Hiatal hernia Menieres disease Reflux ( GERD) Sciatica Mumps Chicken pox Joint implants/screws Surgical History Surgery Date(Month/Year) right hip replacement shoulder replacement, left left hip replacement shoulder replacement, right 10/11 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
--- OUTSIDE RECORDS SUMMARY | 2024-12-24 16:28 | XMS_ITS | Continuity of Care Document ---
Author Organization [facility] Address [address] [place] [address] Phone Care Team Providers Care Chlorination Operator Name Role Phone Randy Newman MD [...] Diagnoses Date Provider Providers Copied on Encounter [facility], [address], [place], [place], [id number], [place] tel:[phone] LINH Lovett Melter Supervisor Oxygen Furnace No Information 3 Paty Padilla. [address] [place] [address], [id number] , [place]. tel:[phone] [facility], [address], [place], [place], [id number], [place] tel:[phone] [facility] Melter Supervisor Oxygen Furnace No Information 3 Roshan Kee. [address] [place] [address], [id number] , . tel:[phone] [facility] E&m Estab Pt; 65/> [facility], [address], [place], [place], [id number], [place] tel:[phone] [facility] Melter Supervisor Oxygen Furnace annual exam (chief complaint) Encounter for gynecological examination (general) (routine) without abnormal findings 2 Wei Crump. [address] [place] [address], [id number] , [place]. tel:[phone] Referring Provider: Alisia Carvajal MD, [address] [place] [address], [address] . tel:[phone] [facility] E&m Estab Pt; 65/> [facility], [facility] [address], [place], [place], [id number], [place] tel:[phone] [facility] Melter Supervisor Oxygen Furnace annual exam (chief complaint) Encounter for gynecological examination (general) (routine) without abnormal findings 1 Wei Crump. [address] [place] [address], [id number] , . tel:[phone] Referring Provider: Alisia Carvajal MD, [address] [place] [address], [address] . tel:[phone] [facility] E&m Estab Pt; 65/> [facility], [facility] [address], [place], [place], [id number], [place] tel:[phone] [facility] Melter Supervisor [employer]xygen Furnace annual exam (chief complaint) Encntr for storeroom keeper exam (general) (routine) w/o abn findings 9 Wei Crump. [address] [place] [address], [address] [place] [address] , . [phone] Referring Provider: Alisia Carvajal MD, [address] [place] [address], [address] . tel:[phone] [facility] E&m Estab Pt; 65/> [facility], [address], [place], [place], [id number], tel:[phone] [facility] Jacquelyn [facility] Melter Supervisor Oxygen Furnace annual exam (chief complaint) Encntr for storeroom keeper exam (general) (routine) w/o abn findingsUrinary urgency 0 8 Wei Crump. [address] [place] [address], [address] [place] [address] , [place]. tel:[phone] Referring Provider: Alisia Carvajal MD, [address] [place] [address], [address] . tel:[phone] [facility] E&m Estab Pt; 65/> [facility], [address], [place], [place], [id number], [place] tel:[phone] [facility] Melter Supervisor Oxygen Furnace annual exam (chief complaint) Encntr for storeroom keeper exam (general) (routine) w/o abn findingsEncounter for screening for malignant neoplasm of cervix 7 Wei Crump. [address] [place] [address], [id number] , . [phone] Referring Provider: Alisia Carvajal MD, [address] [place] [address], [address] . tel:[phone] [facility] E&m Estab Pt; 65/> [facility], [address], [place], [place], [id number], tel:[phone] Nadeem [facility] Melter Supervisor Oxygen Furnace annual exam (chief complaint) Encntr for storeroom keeper exam (general) (routine) w/o abn findings 6 Wei Crump. [address] [place] [address], [address] [place] [address] , [place]. [phone] Referring Provider: Alisia Carvajal MD, [address] [place] [address], [address] . tel:[phone] [facility], [place] [address], [place], [place], [address] [place] [address], tel:[phone] Nadeem Valladares [facility] Melter Supervisor Oxygen Furnace No Information 5 Wei Crump. [address] [place] [address], [address] [place] [address] , . [phone] Referring Provider: Alisia Carvajal MD, [address] [place] [address], [address] [place] [address] . tel:[phone] [facility] E&m Estab Pt; 65/> [facility], [place] [address], [place], [address] [place] [address], tel:[phone] Nadeem Valladares [facility] Melter Supervisor Oxygen Furnace annual exam (chief complaint) Encntr for storeroom keeper exam (general) (routine) w/o abn findingsEncounter for screening for malignant neoplasm of cervix 5 Wei Crump. [address] [place] [address], [address] [place] [address] , . [phone] Referring Provider: Alisia Carvajal MD, [address] [place] [address], [address] . tel:[phone] [place] [address], [place], [place], [address] [place] [address], tel:[phone] Nadeem Valladares [facility] Melter Supervisor Oxygen Furnace No Information 4 Wei Crump. [address] [place] [address], [address] [place] [address] , . tel:[phone] Referring Provider: Alisia Carvajal MD, [address] [place] [address], [address] . tel:[phone] [facility] E&m Estab Pt; 65/> [facility], [address], [id number], tel:[phone] LAURINadeem Valladares [facility] Melter Supervisor Oxygen Furnace annual exam (chief complaint) ROUTINE AGRICULTURAL AGENT EXAMINATION 4 Wei Crump. [address] [place] [address], [address] [place] [address] , . tel:[phone] Referring Provider: Alisia Carvajal MD, [address] [place] [address], [address] . tel:[phone] [facility], [address], [place], [place], [id number], [place] tel:[phone] Nadeem Valladares [facility] Melter Supervisor Oxygen Furnace No Information 3 Wei Crump. [address] [place] [address], [address] [place] [address] , . [phone] Referring Provider: Alisia Carvajal MD, [address] [place] [address], [address] [place] [address] . tel:[phone] [facility] E&m Estab Pt; 65/> [facility], [facility] [address], [place], [address] [place] [address], tel:[phone] Nadeem Valladares [facility] Melter Supervisor Oxygen Furnace annual exam (chief complaint) Routine AGRICULTURAL AGENT Exam W/wo A Pap 3 Wei Crump. [address] [place] [address], [id number] , [place]. tel:[phone] Referring Provider: Alisia Carvajal MD, [address] [place] [address], [address] . tel:[phone] [facility], [address], [place], [place], [id number], tel:[phone] Nadeem Valladares [facility] Melter Supervisor Oxygen Furnace No Information 2 Wei Crump. [address] [place] [address], [id number] , [place]. tel:[phone] Referring Provider: Alisia Carvajal MD, [address] [place] [address], [address] . tel:[phone] [facility] E&m Estab Pt; 65/> [facility], [address], [place], [place], [id number], [place] tel:[phone] [facility] Melter Supervisor Oxygen Furnace annual visit (chief complaint) Screening PAP Only/pp Visit/obRoutine AGRICULTURAL AGENT Exam W/wo A Pap 2 Wei Crump. [address] [place] [address], [id number] , [place]. tel:[phone] Referring Provider: Alisia Carvajal MD, [address] [place] [address], [address] . tel:[phone] [facility], [address], [place], [place], [address], [place] tel:[phone] Nadeem Valladares [facility] Melter Supervisor Oxygen Furnace No Information 1 Wei Crump. [address] [place] [address], [id number] , [place]. tel:[phone] Referring Provider: Alisia Carvajal MD, [address] [place] [address], [address] . tel:[phone] Offic/outpt E&m Estab Low-mod [facility], [address], [place], [place], [id number], [place] tel:[phone] LINH Valladares [facility] Melter Supervisor Oxygen Furnace consult (chief complaint) No Information 1 Wei Crump. [address] [place] [address], [id number] , [place]. tel:[phone] Referring Provider: Alisia Carvajal MD, [address] [place] [address], [address] . tel:[phone] [facility], [address], [place], [place], [id number], [place] tel:[phone] [facility] Melter Supervisor Oxygen Furnace No Information Sep-2 8 1 Wei Crump. [address] [place] [address], [address] [place] [address] , . tel:[phone] Referring Provider: Alisia Carvajal MD, [address] [place] [address], [address] . tel:[phone] [facility], [address], [address] [place] [address], tel:[phone] [facility] Melter Supervisor Oxygen Furnace No Information Sep-0 6 1 Wie Crump. [address] [place] [address], [address] [place] [address] , . tel:[phone] Referring Provider: Alisia Carvajal MD, [address] [place] [address], [address] [place] [address] . tel:[phone] [facility] E&m Estab Pt; 65/> [facility], [address], [address] [place] [address], tel:[phone] [facility] Melter Supervisor Oxygen Furnace annual visit (chief complaint) No Information Sep-0 1 Wei Crump. [address] [place] [address], [address] [place] [address] , . [phone] Referring Provider: Alisia Carvajal MD, [address] [place] [address], [address] . tel:[phone] [facility], [address], [address] [place] [address], tel:[phone] [facility] Melter Supervisor Oxygen Furnace No Information Sep-0 2201 0 Wei Crump. [address] [place] [address], [address] [place] [address] , . tel:[phone] Referring Provider: Alisia Carvajal MD, [address] [place] [address], [address] . tel:[phone] [facility], [address], [place], [address] [place] [address], tel:[phone] [facility] Melter Supervisor Oxygen Furnace annual visit (chief complaint) Colon/ Rectal CA Screening Jun-0 0 Wei Crump. [address] [place] [address], [address] [place] [address] , . [phone] Referring Provider: Alisia Carvajal MD, [address] [place] [address], [address] [place] [address] . tel:[phone] [facility] Meds E&m Estab Pt; 65/> [facility] [address], [place], [place], [address] [place] [address], tel:[phone] Nadeem Rodrigo Jacquelyn [facility] Melter Supervisor Oxygen Furnace annual visit (chief complaint) No Information 9 Wei Crump. [address] [place] [address], [address] [place] [address] , . [phone] Referring Provider: Alisia Carvajal MD, [address] [place] [address], [address] . tel:[phone] [facility], [facility] [address], [place], [address] [place] [address], [place] tel:[phone] [facility] Melter Supervisor Oxygen Furnace No Information 8 Wei Crump. [address] [place] [address], [address] [place] [address] , [place]. [phone] Med[facility] E&m Estab Pt; 65/> [facility], [address], [place], [address] [place] [address], [place] tel:[phone] Nadeem [facility] Melter Supervisor Oxygen Furnace No Information 8 Wei Crump. [address] [place] [address], [address] [place] [address] , [place]. tel:[phone] Referring Provider: Alisia Carvajal MD, [address] [place] [address], [address] . tel:[phone] [facility], [address], [place], [address] [place] [address], tel:[phone] Nadeem Rodrigo [facility] Melter Supervisor Oxygen Furnace No Information 7 Wei Crump. [address] [place] [address], [address] [place] [address] , . tel: [phone] [facility] E&m Estab Pt; 40-6 [facility], [address] [facility], [place], [place], [address] [place] [address], tel:[phone] Nadeem [facility] Melter Supervisor Oxygen Furnace annual visit (chief complaint) No Information 7 Wie Crump. [address] [place] [address], [address] [place] [address] , . tel:[phone] [facility], [place] [address], [place], [address] [place] [address], tel:[phone] Nadeem [facility] Melter Supervisor Oxygen Furnace annual visit (chief complaint) No Information 6 Wei Crump. [address] [place] [address], [address] [place] [address] , . tel: [phone] [facility], [address] [facility], [place], [address] [place] [address], tel:[phone] [facility] Melter Supervisor Oxygen Furnace annual visit (chief complaint) No Information 200 5 Wei Crump. [address] [place] [address], [address] [place] [address] , . tel: [phone] Family History Family Member Type Diagnosis Age At Onset Sister Problem (finding) Myocardial infarction Problem (finding) Family history of hyper tension Paternal aunt Problem (finding) breast cancer Maternal grandmother Problem (finding) Heart disease Sister Problem (finding) renal failure syndrome Payers Payer name Insurance type Covered democrat ID Authoriza tion(s) Aetna Medicare PPO 16 [id number] Social History Type Description Quantity Date Captured [...] 13 due Future Order: Lab Order FOBT ([id number]), Ord ered on: Ordered History Of Present [...] Diet and exercise Rela marina to Routine AGRICULTURAL AGENT Exam W/wo A Pap Perform self breast exam Related to Routine AGRICULTURAL AGENT Exam W/wo A Pap discussed colonoscop y dexa amd mammogram timing continue vitamin d Related to RO UTINE AGRICULTURAL AGENT EXAMINATION Discussed Diet and exercise Rela marina to Routine AGRICULTURAL AGENT Exam W/wo A Pap Perform self breast exam Related to Routine AGRICULTURAL AGENT Exam W/wo A Pap Assessments Type Assessment Date No Information Patient Care Teams Name Effective Dates (start - stop) Status Members No Information
--- OUTSIDE RECORDS SUMMARY | 2024-12-24 16:28 | XMS_ITS ---
Author Organization [facility] Address [address] [place] [address] Care Team Providers Care Automatic Embroidery Machine Tender Name Role Phone Hector CHILD [place] Primary Care Provider Unava ilable Rakan Kiki Unavailable [phone] REASON FOR VISIT RX Encounters Encounter Location Date Provider Diagnosis [facility] [address] [place] [address] 12/20/2024 Kikiligia Bledsoe Plan Of Treatment Next Appt Details Provider Name:Kiki Silver Rakan , 02/01/2025 02:00:00 PM, [address] [facility], [place], [address], Progress Notes * MARALLorna ClaudeOB:1940 ([age] yo F)Acc No.[id number]:12/20/2024 Patient:?MARALJavier Rothmanis :1940???Age:84 Y???Sex:Female Address:[address], [place], [address] * true * Date:? Generated for Brendai ko/Ga/eTransmitting on:?12/24/2024 04:27 PM EST
--- OUTSIDE RECORDS SUMMARY | 2024-12-24 16:28 | XMS_ITS | Encounter Summary ---
Author Organization [facility] Address [address] [facility] [address] [place] [address] Phone Care Team Providers Care Sow Farm Barn Technician Name Role Phone Shekhar Young MD Primary Care Provider [phone] Encounter Details Date Type Department Care Team (Late st Contact Info) Description 05/21/2024 Procedure Pass [facility] [address] [place] [address] Social History Tobacco Use Types Packs/Day Years [...] on filedocumented in this encounter Care Teams Sow Farm Barn Technician Relationship Specialty Start Date End Date Shekhar Young MD [address] [place] [address] [address] [place] [address] PCP - General Internal Medicine 08/28/23 documented as of this encounter Additional Source Comments The information contained in this document represents components of the legal health record. It is not the complete legal health record.[facility]
--- OUTSIDE RECORDS SUMMARY | 2024-12-24 16:28 | XMS_ITS | Patient Health Record ---
Author Organization [facility] Address [address] [place] [address] Care Team Providers Care Water Plumber Name Role Phone Nicholas CHILD, Moises Messer Primary Care Provider Abran Claudio Unavailable [phone] ALLERGIES Allergen (clinical drug ingredient) Drug/Non Drug [...] Date [employer] MEDICARE REPLACEMEN T [address] [place], [place] [id number] Macie Gregorio Self - patient is the insured MEDICAL (GENERAL) HISTORY Medical History History ICD Code Arthritis High Cholesterol Blood Clots Surgical History Surgery Date(Month/Year) Hip replacement 2016 Shoulder replacement 2020
--- OUTSIDE RECORDS SUMMARY | 2024-12-24 16:28 | XMS_ITS | Clinical Summary ---
Author Organization [facility] Address [address] [facility] [address] [place] [id number] Phone Care Team Providers Care Ring Conductor Name Role Phone Shekhar Young MD Primary Care Provider [phone] Allergies Active Allergy Reactions Criticality Noted Date Comments Amoxicillin-Pot Clavulanate 05/21/20 24 rash Levofloxacin 05/21/2024 rash Medications Medication Sig [...] that she was diagnosed with anemia in [place] and given IV iron, since she could [...] surgery. During the visit I reviewed prior computer support analyst record from [place], they have her on prophylaxis 2.5 mg BID dose. In case she has AF she would probably need to move up to 5 mg BID based on weight but we would need to check Cr (I am checking today) to confirm dose. If no new diagnosis, ok to keep 2.5 mg BID given this has been already determined by computer support analyst. Borderline high blood pressure 08/12/2023 Assessment & [...] Adult Td,Tdap Booster 1942 DEPRESSION SCREENING 1954 ZOSTER VACCINES (1 of 2) 1992 PNEUMOCOCCAL VACCINES (50+ years) (2 of 2 - PCV) 07/29/2015 07/29/2014, 05/29/2005 RSV VACCINE (1 - 1-dose 75+ series) 2017 INFLUENZA VACCINE (#1) 2024 COVID-19 VACCINE ( - 2023- season) 2024 CREATININE LEVEL 05/21/2025 05/21/2024, , [...] EDT) SODIUM 143 135 - 145 mmol/L [facility] POTASSIUM 4.2 3.4 - 5.0 mmol/L [facility] CHLORIDE 106 98 - 108 mmol/L [facility] CO2 26 23 - 32 mmol/L [facility] BUN 20 8 - 25 mg/dL [facility] CREATININE 1.20 0.60 - 1.50 mg/dL [facility] GLUCOSE 86 70 - 110 mg/dL [facility] CALCIUM 9.9 8.5 - 10.5 mg/dL [facility] EGFR 45(L) >59 mL/min/1.7 3m2 [facility] Comment:Estimated glomerular filtration rate calculated using the CKD-EPI refit equation. ANION GAP 11 3 - 17 mmol/L [facility] Blood 05/21/2024 3:11 PM EDT 05/21/2024 5:14 PM EDT Chilango Gonzáles MD, MPhil LAB BLOOD ORDERA BLES Performing Organization Address City/State/[facility] Co de Phone Number [facility] [address] [place] [address] from Last 3 Months or Most Recently Relevant to Health Maintenance Care Teams Ring Conductor Relationship Specialty Start Date End Date Shekhar Young MD [address] [place] [address] [place] [address] [place] [id number] PCP - General Internal Medicine 08/28/23 Additional Source Comments The information contained in this document represents components of the legal health record. It is not the complete legal health record.[facility]
--- OUTSIDE RECORDS SUMMARY | 2024-12-24 16:28 | XMS_ITS | Data Portability ---
Author Organization [place] - [facility], Allergy Address [address] [address] Care Team Providers Care Propeller Inspector Name Role Phone KWASI CANELA Primary Care Provider Assessment Encounter Date Assessment Date Assessment LastModified by Organization Details LastModified Time 06/14/2024 06/14/2024 83-year-old female presents for cerumen removal. Cerumen impaction removed bilaterally. Bilateral TMs are intact. Follow up in 6 months for routine debridement, or sooner if needed. [email or web address] Not available 06/14/2024 13:36:41 12/16/2024 12/16/2024 Ears were meticulously cleaned bilaterally [...] Abnormal Flag Note LastModifiedBy Organization Detail LastModifiedTime 06/09/20 24 06/26/2023 imagi ng/di agnos tic resul t No [...] ation record ed. [email or web address] Not Available 11:45:01 06/09/20 24 10/15/2023 audio gram No observ ation record ed. [email or web address] Not Available 11:45:02 Result Notes None recorded. Problems Name Problem SNOMED Code Status Onset Date Resolution Date Notes Provider Name and Address Organization Details Recorded Time Sensorine ural hearing loss of bilateral ears 418499077 Active 2022 Sensorine ural hearing loss, bilateral ; Note: Date Diagnosed : 06/26/2023 5:34 PM (H90.3) Not Available [facility] 03:27:49 Impacted cerumen of bilateral ears 25522606322 00339 Active 2022 Impacted cerumen, bilateral ; Note: Date Diagnosed : 06/26/2023 4:24 PM (H61.23) Not Available [facility] 4 03:27:49 Problem Notes None recorded. Procedures Surgical History Date Name Laterality Status Provider Name and Address Organization Details Recorded Time 5 Wax_DP completed WANG MORENO MD [address] [facility], [place], [address], [place] - [facility] 12/14/2024 17:19:46 4 Cerumen removal without microscope bilat completed JOSE YADAV PA-C [address] [facility], [place], [address], [place] - [facility] 06/14/2024 13:36:20 Imaging Results Imaging Date Name Status LastModified by Organiz ation Details LastModified Time 06/26/2023 imaging/diagno stic result [...] Name and Address Organization Details Recorded Time 618194 Augmentin medicatio n other Not available Not available 03/02/2024 54464 2 RxNorm React ion: Unkno wn; Not Available [facility] 4 01:18:47 [id number] Levaquin medicatio n other Not available Not available 03/02/2024 41776 2 RxNorm React ion: Unkno wn; Not Available [facility] 4 01:18:48 Medications Name Sig Start Date [...] Updated DateTime 06/14/2024 165.1 cm 31.5 kg/m2 91158.96 g Jesenia De La Garza [place] - [facility] 06/14/2024 13:30:15 Date Recorded Body height Body weight Provider Name and Address Organization Details Last Updated DateTime 12/16/2024 165.1 cm 50653.59 g Mary Lou Álvarez [place] [facility] 12/16/2024 10:57:15 Social History None recorded. Functional [...] Disorder N Anesthesia Complications Y Heart Attack (OR) N Other Skin Condition N Diabetes N Rhinitis N Bleeding Disorder Y Food Allergy N Arthritis Y Hearing Loss Y Hyperlipidemia N Cancer N Stroke N Dementia N Nasal polyps N Asthma N Sleep Disorder N GERD/Reflux Y High Cholesterol N Liver Disease N Headaches N Fibromyalgia N Hypertension N Speech Delay N Kidney Disease N Gynecological HistoryNo gynecological history recorded. Obstetrics History GPAL:G 0 P 0 0 0 0 Past Encounters Encounter ID Performer Location Encounter Start Date Encounter Closed Date Diagnosis/Indication Diagnosis SNOMED-CT Code Diagnosis ICD10 Code Diagnosis Note [id number] VIKKI PATEL MD [facility] [address] [address] 06/14/2024 13:22:39 06/14/2024 13:46:14 Impacted cerumen of bilateral ears 1620495148 900345 H61.23 [id number] JUANCHO WOOD HERNANDEZ - [address] [address] 07/23/2024 12:55:40 07/26/2024 09:51:39 Sensorineural hearing loss of bilateral ears 331604902 H90.3 [id number] WANG MORENO MD [facility] [address] [address] 12/16/2024 10:42:02 12/16/2024 11:09:57 Impacted cerumen of bilateral ears 1968262141 374380 H61.23 Sensorineu ral hearing loss of bilateral ears 013391605 H90.3 Health Concerns Section Related Observation LastModified by Organization Detai ls LastModified Time None Recorded Concern Status LastModified by Organization Details LastModified Time None Recorded Advance Directives Directive None Recorded Payers Encounter Date Sequence Insurance Name Policy Number Policy Mccormick Covered Member ID Mccormick Member ID Guarantor Name 06/14/2024 1 [employer] [id number] Macie Messer Solt [id number] Macie Messer Solt 07/23/2024 1 [employer] [id number] Macie Messer Solt [id number] Macie Messer Solt 12/16/2024 1 [employer] [id number] Macie Messer Solt [id number] Macie Messer Solt Notes Date Note Type Note Provider Name and Address Organization Details Recorded Time 06/14/2024 text/html 83-year-old adolfo pozo presents for cerumen removal. No concerns today. 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 Had an episode of dizziness that has since resolved. VIKKI LEÓN MD [address] [place] [address],[address], [address], [facility] - [facility] 06/14/2024 16:54:31 07/23/2024 text/html Doing well...Cortés s not feel that her hearing has changed so we did not update her HT at this time. Checked and cleaned aid. She will call as needed. JUANCHO WOOD [address] [facility],[address], [address], [facility] 07/23/2024 12:58:30 12/16/2024 text/html cerumen No concerns today.History of left sided Meniere's disease status post endolymphatic mastoid shunt surgery in 1966Right sided hearing aid PV 06/14/24 Jose Root cerumen removed WANG MORENO MD [address] [facility],[address], [address], [facility] - [facility] 12/16/2024 11:09:16 OBGyn Episode No OBEpisode recorded.
== END 2024-12-24 15:06 | disposition home or self-care (01) ==
PROVIDERS: PCP Internal Medicine; Referring Provider Internal Medicine; Visit Provider Internal Medicine Pulmonary Disease
DX: R06.2 Wheezing (principal); K44.9 Diaphragmatic hernia without obstruction or gangrene
CPT/HCPCS: 99204

== ENCOUNTER → 2024-12-24 14:42 | Outpatient (BNVA) | payer MEDICARE, SELFPAY | PROVIDERS: PCP Internal Medicine; Referring Provider Internal Medicine; Visit Provider Internal Medicine Pulmonary Disease | DX: R06.00 Dyspnea, unspecified (principal); R06.2 Wheezing; K44.9 Diaphragmatic hernia without obstruction or gangrene; Z87.891 Personal history of nicotine dependence | CPT/HCPCS: 99202 ==

== ENCOUNTER 2025-01-26 13:19 | Outpatient (AMB) | payer MEDICARE, SELFPAY ==
[2025-01-26 13:36] VITALS: BP 120/78; PULSE 78; O2SAT 95; BMI 32.8
--- NOTE | 2025-01-26 13:36 | MHC.PC.OV ---
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: No Accompanied by: Self / Same As Patient Allergies amoxicillin [From Augmentin] Allergy (Severe, Verified 01/26/25 13:57) Rash clavulanic acid [From Augmentin] Allergy (Severe, Verified 01/26/25 13:57) Rash levofloxacin [From Levaquin] Allergy (Severe, Verified 01/26/25 13:57) Rash Medication List - Last Reconciled 01/26/25 by Shekhar Young MD albuterol sulfate 90 mcg/actuation 2 puffs inhalation Q4-6H PRN apixaban (Eliquis) 2.5 mg PO BID 90 days atorvastatin 40 mg PO DAILY 90 days calcium carbonate-vitamin D3 600 mg-10 mcg (400 unit) (Calcium with Vitamin D) 1 tab PO BID cholecalciferol (vitamin D3) 50 mcg PO DAILY esomeprazole magnesium (Nexium) 40 mg PO DAILY famotidine (Pepcid) 20 mg PO BEDTIME PRN fluticasone propionate 50 mcg/actuation 2 sprays intranasal DAILY PRN 30 days potassium chloride ER 10 mEq PO DAILY 90 days propranolol ER 60 mg PO DAILY tramadol 50 mg PO DAILY PRN 90 days trazodone 50 mg PO BEDTIME PRN Tobacco use date assessed: 01/26/25 Fall risk assessment: No Falls in past year Last assessed Fall Risk: 01/26/25 Dental Screening Dental Screen Date: 01/26/25 Did you have a dental visit in the last 12 months?: Yes Did you have a dental problem in the last 6 months where you did not have access to dental care?: No Was dental information given to patient?: Patient has dentist HPI follow up HPI Details Patient comes in today for her follow up visit States that she feels okay She denies any headaches or dizziness Denies any chest pains, no shortness of breath - states that she is no longer wheezing ever since she was started on an Albuterol inhaler by pulmonary a few weeks ago No nausea/vomiting, no abdominal pain No change in bowel habits noted She was not able to get her follow-up labs done prior to appointment today She was sent for an upper GI series by gastroenterology back in November 2024 and she has a follow-up appointment coming up with them next month [facility] Medical History Obesity (BMI 30-39.9) Insomnia Anemia Restless leg syndrome 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 History of colitis Hepatic hemangioma Hepatic cyst Osteoporosis Meniere's disease Large hiatal hernia Chronic kidney disease (CKD), stage III (moderate) Atherosclerosis of aorta History of recurrent deep vein thrombosis (DVT) (~12/2020) History of pulmonary embolism (~2016) History of deep vein thrombosis (DVT) of lower extremity (~2016) Pure hypercholesterolemia Benign essential hypertension Surgical History History of colonoscopy History of arthroplasty of left shoulder (~09/2022) History of arthroplasty of right hip (~12/2021) History of arthroplasty of right shoulder (~12/2020) S/P trigger finger release (~2018) History of total left hip arthroplasty (~2016) History of tubal ligation History of left oophorectomy Hx of parotidectomy History of ear surgery History of ankle surgery Family History Other Hypertension Social [facility] Patient Tobacco Use Status: Former Tobacco user Years Smoked: quit 9 years ago e-Cigarette/Vaping Use: Never Used service: No Current occupational status: retired Current occupational exposures/hazards: No Cognitive needs: No Hearing needs: No Vision needs: No Questionnaire PHQ-9 Over the last 2 weeks, how often have you been bothered by any of the following problems? 1. Little interest or pleasure in doing things: not at all 2. Feeling down, depressed, or hopeless: not at all 3. Trouble falling or staying asleep, or sleeping too much: not at all 4. Feeling tired or having little energy: not at all 5. Poor appetite or overeating: not at all 6. Feeling bad about yourself - or that you are a failure or have let yourself or your family down: not at all 7. Trouble concentrating on things, such as reading the newspaper or watching television: not at all 8. Moving or speaking so slowly that other people could have noticed. Or the opposite - being so fidgety or restless that you have been moving around a lot more than usual: not at all 9. Thoughts that you would be better off or of hurting yourself in some way: not at all Total score: 0 Depression Screening Interpretation: Negative Depression Screening Done: Yes 39725 - PHQ-9 Billing: Yes Source: Developed by Drs. Andrew Mcghee, Yue Mosqueda, Vazquez Johnson and colleagues, with an educational yesica from [employer]. Thrive Questionnaire Date Thrive assessed: 01/26/25 I am a: Patient What is your living situation today?: I have a steady place to live Within the past 12 months, did the food you bought not last and you didn't have the money to get more?: Never true Within the past 12 months, did you worry whether your food would run out before you got money to buy more?: Never true Do you have trouble paying for medicines?: No Do you have trouble getting transportation to medical appointments?: No Do you have trouble paying your heating and electricity bill?: No Do you have trouble taking care of your child, family member or friend?: No Do you have trouble with day-to-day activities such as bathing, preparing meals, shopping, managing finances, etc.?: No Are you currently unemployed and looking for a job?: No Are you interested in more education?: No Please select the resources that you would like help with: None Currently or been in a relationship where the following occur: No concerns reported THRIVE Score: 0 AUDIT C Alcohol Use Questionnaire (AUDIT-C) 1. How often do you have a drink containing alcohol?: Monthly or less 3. How often do you have six or more drinks on one occasion?: Never Total Score: 1 Score Reviewed/Action Taken: Yes PERCY-7 AMB Questionnaire PERCY-7 Date PERCY - 7 assessed: 01/26/25 Feeling nervous, anxious, or on edge: 0 = Not at all Not being able to stop or control worryin = Not at all Worrying too much about different things: 0 = Not at all Trouble relaxin = Not at all Being so restless that it is hard to sit still: 0 = Not at all Becoming easily annoyed or irritable: 0 = Not at all Feeling afraid as if something awful might happen: 0 = Not at all Total PERCY-7 score (0-4 normal; 5-9 mild; 10-14 moderate; 15-21 severe): 0 Source: Developed by Drs. Andrew Mcghee, Yue Mosqueda, Vazquez Johnson and colleagues, with an educational yesica from [employer]. Review of Systems Const Denies chills, Denies fatigue, Denies fever(s) and Denies headache(s) ENT Denies dysphagia, Denies dizziness, Denies otalgia, Denies headache(s), Denies neck pain, Denies odynophagia and Denies sore throat Card Denies chest pain, Denies rapid heart rate (controlled on Propranolol ER), Denies palpitations and Denies dyspnea Resp Denies chest congestion, Denies cough, Denies dyspnea and Denies wheezing GI Denies abdominal pain, Denies constipation, Denies dysphagia, Denies heartburn, Denies diarrhea, Denies nausea, Denies odynophagia and Denies vomiting Denies difficulty voiding, Denies nocturia, Denies dysuria and Denies urinary urgency Musc Reports back pain, Reports arthralgias (involving shoulders and hips, on and off; (+)pain in the R knee ), Denies neck pain and Denies stiffness Skin/Breast Denies rash Neuro Denies dizziness and Denies headache(s) Endo Denies fatigue and Denies palpitations Aller/Immun Denies wheezing Physical exam (Primary Care) Vital Signs: Last Vital Signs Pulse 78 01/26/25 13:36 BP 120/78 01/26/25 13:36 Pulse Ox 95 01/26/25 13:36 Oxygen Delivery Method Room Air 01/26/25 13:36 BMI result Body Mass Index 32.8 Tobacco/Smoking Status: Tobacco use Status Tobacco use date assessed 01/26/25 01/26/25 13:42 Patient Tobacco Use Status Former Tobacco user 01/26/25 13:42 e-Cigarette/Vaping Use Never Used 01/26/25 13:42 PHQ-9: PHQ-9 Score PHQ-9: Total score 0 01/26/25 13:59 Depression Screening Interpretation: Negative Thrive Assessment: Date of Thrive Assessment Date Thrive assessed 01/26/25 01/26/25 13:42 Currently or been in a relationship where the following occur: No concerns reported Const General: no acute distress and alert HENMT Ears: TM's normal bilaterally and EAC's normal Throat: Yes posterior oropharynx normal and Yes tonsils normal (no TP congestion) Neck Neck: Yes supple and No lymphadenopathy Thyroid: Thyroid normal Resp Auscultation: clear to auscultation bilaterally (although breath sounds appear slightly diminished on auscultation), no rales and no wheezes Cardio Rate: regular rate Rhythm: regular rhythm Heart sounds: no murmurs GI Palpation (GI): Soft to palpation and nontender Auscultation: normal bowel sounds General: Yes no CVA tenderness Back/Spine/Pelvis Back: no CVA tenderness Thoracic/Lumbar Spine: lumbar spinal tenderness (mild) Skin Rashes: no rashes Extrem General: Yes no clubbing, cyanosis or edema Right lower extremity: knee Details: tenderness; no swelling Coding Level of Care Code Est Pt Level 4 (68163) Complex EM visit Add On G2211 Diagnoses Pure hypercholesterolemia E78.00 Benign essential hypertension I10 Palpitations R00.2 Atherosclerosis of aorta I70.0 Stage 3a chronic kidney disease N18.31 Chronic kidney disease stage 3 subtype: stage 3a (GFR 45-59) Anemia, unspecified type D64.9 Anemia type: unspecified type History of recurrent deep vein thrombosis (DVT) Z86.718 Primary osteoarthritis involving multiple joints M15.9 Osteoarthritis type: primary Large hiatal hernia K44.9 Age-related osteoporosis without current pathological fracture M81.0 Osteoporosis type: age-related Presence of current pathological fracture: without current pathological fracture Restless leg syndrome G25.81 Insomnia, unspecified type G47.00 Insomnia type: unspecified Obesity (BMI 30-39.9) E66.9 Additional Codes PHQ-9 - 43999 - PHQ-9 Billing: Yes ([id number]) Assessment & Plan Assessment & Plan (1) Pure hypercholesterolemia: Code(s): E78.00 - Pure hypercholesterolemia, unspecified Category: Medical Plan: Patient is again not able to get her follow up labs done prior to her appointment today Reinforced low cholesterol diet Continue Atorvastatin 40 mg QD Will recheck her fasting lipids and labs in 4 months for follow up - her previous lab orders are all updated and printed out for patient to help remind her to get these done prior to her next appt in 4 months (2) Benign essential hypertension: Code(s): I10 - Essential (primary) hypertension Category: Medical Plan: Reinforced low sodium diet - goal is systolic BP of at least 120 to 130 mm, based on her multiple comorbidities She was previously on Triamterene-HCTZ (also for her lower extremity edema) and Irbesartan but these were held due to low blood pressure during hospitalization a few years ago and eventually stopped - she has NOT required any Rx for her blood pressure since States that her systolic BP at home usually runs between 110 to 120 mm and diastolic is often in the 70s range She was however started on Propranolol ER 60 mg QD for her palpitations and she seems to be tolerating the Rx so far Patient is reminded to continue monitoring her blood pressure regularly at home (3) Palpitations: Code(s): R00.2 - Palpitations Category: Medical Plan: Patient's EKG, echocardiogram and 7-day Holter monitor done a few months ago all came back normal She was reportedly seen by cardiology at [facility] in [place] a few months ago and was also advised that her tests have all come back normal and they have no explanation for her recurrent symptoms of palpitations She has since been started on Propranolol ER 60 mg QD and she states that her symptoms have mostly subsided/controlled with the Rx (4) Atherosclerosis of aorta: Comment: seen on abdominal aorta CT in 2016 and on chest x-rays in 2017 - mild Code(s): I70.0 - Atherosclerosis of aorta Category: Medical Plan: She has been recommended to continue with risk factor(s) modification, including control of her BP and cholesterol, and to continue statin therapy to help slow down progression of this (5) Chronic kidney disease (CKD), stage III (moderate): Comment: due to long-term NSAID use Code(s): N18.30 - Chronic kidney disease, stage 3 unspecified Category: Medical Qualifiers: Chronic kidney disease stage 3 subtype: stage 3a (GFR 45-59) Qualified Code(s): N18.31 - Chronic kidney disease, stage 3a Plan: Reinforced avoidance of all NSAIDs as much as possible Will continue to monitor her renal function regularly (6) Anemia: Comment: unable to tolerate oral iron supplements Code(s): D64.9 - Anemia, unspecified Category: Medical Qualifiers: Anemia type: unspecified type Qualified Code(s): D64.9 - Anemia, unspecified Plan: CORRECTED on her most recent labs done last year - this was most likely due to her CKD Her H/H was normal when last checked in March 2024 - H/H was at 12.4/39.8 Her CBC done at [facility] last year came back normal, with H/H of 14.0/45.3; her iron studies done back then also came out normal Patient reportedly had iron infusion done in late 2021 shortly before she left [place] and moved here to [facility] a couple of years ago (she is unable to tolerate any oral iron supplements), and recalls experiencing improvement of her symptoms, including less dizziness/orthostasis and less fatigue/more energy Will continue to monitor her CBC regularly (7) History of recurrent deep vein thrombosis (DVT): Onset Date: ~12/2020 Comment: initial DVT occurred in 2017 following hip surgery; recurred following right shoulder arthroplasty and s/p COVID vaccine in 12/2020 Code(s): Z86.718 - Personal history of other venous thrombosis and embolism Category: Medical Plan: Continue Eliquis 2.5 mg BID (8) Osteoarthritis of multiple joints: Comment: involving hips and shoulders - symptoms relieved with Celecoxib (previously discussed NSAID use with PCP back in 2018) Code(s): M15.9 - Polyosteoarthritis, unspecified Category: Medical Qualifiers: Osteoarthritis type: primary Qualified Code(s): M15.9 - Polyosteoarthritis, unspecified Plan: Continue Tramadol 50 mg QD PRN Reinforced avoidance of NSAIDs due to her CKD but advised that she can continue taking OTC Tylenol PRN (9) Large hiatal hernia: Code(s): K44.9 - Diaphragmatic hernia without obstruction or gangrene Category: Medical Plan: Dietary restrictions similar to GERD reinforced Continue Omeprazole 40 mg QD Repeat UGI series done in November 2024 revealed (+) large type 3 paraesophageal hernia, with the majority the fundus located within the thoracic cavity There are also findings of (+) 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 at the level of C4; (+) moderate esophageal dysmotility, (+) thickened appearance the gastric rugal folds with multiple foci of contrast pooling in the fundus and body of the stomach, suggestive of erosive gastritis - EGD is recommended for further evaluation Will refer her again to GI for consideration for EGD although she already has a follow up appt with them scheduled for next month (10) Osteoporosis: Comment: of hip (BMD in 08/2018 revealed T-score of -2.9) - started on Alendronate in 09/2018; repeat BMD last done 08/2021 Code(s): M81.0 - Age-related osteoporosis without current pathological fracture Category: Medical Qualifiers: Osteoporosis type: age-related Presence of current pathological fracture: without current pathological fracture Qualified Code(s): M81.0 - Age-related osteoporosis without current pathological fracture Plan: Reinforced fall precautions Continue daily oral Calcium and Vitamin D supplements Will consider repeating BMD later this year (2024) for follow up and continuing monitoring (11) Restless leg syndrome: Comment: symptoms relieved with Ropinirole - 2020 Code(s): G25.81 - Restless legs syndrome Category: Medical Plan: Continue Ropinirole - patient takes this only PRN (12) Insomnia: Code(s): G47.00 - Insomnia, unspecified Category: Medical Qualifiers: Insomnia type: unspecified Qualified Code(s): G47.00 - Insomnia, unspecified Plan: Sleep hygiene reinforced Has taken Zolpidem 5 mg Q HS PRN and/or Trazodone 50 mg Q HS PRN in the past but has been on Trazodone lately (Rx refilled) (13) Obesity (BMI 30-39.9): Code(s): E66.9 - Obesity, unspecified Category: Medical Plan: Reinforced diet; exercise and weight loss are unrealistic at this point given patient's multiple comorbidities and to a lesser extent, her age Per request, will start patient on a trial of Wegovy 0.25 mg SQ once a week to help her lose some weight (if approved by her insurance company) Plan Follow up in 4 months Orders: Referrals Gastroenterology Referral K29.60 - Other gastritis without bleeding Medications: New Wegovy (semaglutide (weight loss)) administer weeks 1 through 4 of therapy 0.25 mg (0.5 mL) subcut QWEEK 4 weeks 2 mL 0RF NS E66.9 - Obesity, unspecified
--- OUTSIDE RECORDS SUMMARY | 2025-01-26 15:23 | XMS_ITS | Continuity of Care Document ---
Author Organization [facility] Address [address] [place] [address] Phone Care Team Providers Care Model Photographers' Name Role Phone Randy Newman MD Unavailable [...] Diagnoses Date Provider Providers Copied on [facility]counter [facility], [address], [place], [place], [id number], [place] tel:[phone] [facility] Loan Documents Closer No Information 3 Paty Padilla. [address] [place] [address], [id number] , [place]. tel:[phone] [facility], [address], [place], [place], [id number], [place] tel:[phone] [facility] Closer No Information 3 Roshan Kee. [address] [place] [address], [id number] , . tel:[phone] Preven [facility] E&m Estab Pt; 65/> [facility], [address], [place], [place], [id number], [place] tel:[phone] [facility] Loan Documents Closer annual exam (chief complaint) Encounter for gynecological examination (general) (routine) without abnormal findings 2 Wei Crump. [address] [place] [address], [id number] , [place]. tel:[phone] Referring Provider: Alisia Carvajal MD, [address] [place] [address], [address] . tel:[phone] Preven Meds E&m Estab Pt; 65/> [facility], [facility] [address], [place], [place], [id number], [place] tel:[phone] [facility] Loan Documents Closer annual exam (chief complaint) Encounter for gynecological examination (general) (routine) without abnormal findings 1 Wei Crump. [address] [place] [address], [id number] , . tel:[phone] Referring Provider: Alisia Carvajal MD, [address] [place] [address], [address] . tel:[phone] Preven Meds E&m Estab Pt; 65/> [facility], [facility] [address], [place], [place], [id number], [place] tel:[phone] [facility] Loan Documents Closer annual exam (chief complaint) Encntr for housing relocation exam (general) (routine) w/o abn findings 9 Wei Crump. [address] [place] [address], [address] [place] [address] , . [phone] Referring Provider: Alisia Carvajal MD, [address] [place] [address], [address] . tel:[phone] Preven Meds E&m Estab Pt; 65/> [facility], [address], [place], [place], [id number], tel:[phone] [facility]elyn [facility] Loan Documents Closer annual exam (chief complaint) Encntr for housing relocation exam (general) (routine) w/o abn findingsUrinary urgency 0 8 Wei Crump. [address] [place] [address], [address] [place] [address] , [place]. tel:[phone] Referring Provider: Alisia Carvajal MD, [address] [place] [address], [address] . tel:[phone] Preven Meds E&m Estab Pt; 65/> [facility], [address], [place], [place], [id number], [place] tel:[phone] [facility] Loan Documents Closer annual exam (chief complaint) Encntr for housing relocation exam (general) (routine) w/o abn findingsEncounter for screening for malignant neoplasm of cervix 7 Wei Crump. [address] [place] [address], [id number] , . [phone] Referring Provider: Alisia Carvajal MD, [address] [place] [address], [address] . tel:[phone] Preven Meds E&m Estab Pt; 65/> [facility], [address], [place], [place], [id number], tel:[phone] [facility] Loan Documents Closer annual exam (chief complaint) Encntr for housing relocation exam (general) (routine) w/o abn findings 6 Wei Crump. [address] [place] [address], [address] [place] [address] , [place]. [phone] Referring Provider: Alisia Carvajal MD, [address] [place] [address], [address] . tel:[phone] [facility], [place] [address], [place], [address] [place] [address], tel:[phone] Nadeem [facility] Loan Documents Closer No Information 5 Wei Crump. [address] [place] [address], [address] [place] [address] , . [phone] Referring Provider: Alisia Carvajal MD, [address] [place] [address], [address] [place] [address] . tel:[phone] Preven Meds E&m Estab Pt; 65/> [facility], [place] [address], [place], [address] [place] [address], tel:[phone] Nadeem [facility] Loan Documents Closer annual exam (chief complaint) Encntr for housing relocation exam (general) (routine) w/o abn findingsEncounter for screening for malignant neoplasm of cervix 5 Wei Crump. [address] [place] [address], [address] [place] [address] , . [phone] Referring Provider: Alisia Carvajal MD, [address] [place] [address], [address] . tel:[phone] [place] [address], [place], [address] [place] [address], tel:[phone] Nadeem [facility] Loan Documents Closer No Information 4 Wei Crump. [address] [place] [address], [address] [place] [address] , . tel:[phone] Referring Provider: Alisia Carvajal MD, [address] [place] [address], [address] . tel:[phone] Preven Meds E&m Estab Pt; 65/> [facility], [address], [place], [id number], tel:[phone] LAURINadeem [facility] Loan Documents Closer annual exam (chief complaint) ROUTINE CAMPUS CHAPLAIN EXAMINATION 4 Wei Crump. [address] [place] [address], [address] [place] [address] , . tel:[phone] Referring Provider: Alisia Carvajal MD, [address] [place] [address], [address] . tel:[phone] [facility], [address], [place], [place], [id number], [place] tel:[phone] Nadeem [facility] Loan Documents Closer No Information 3 Wei Crump. [address] [place] [address], [address] [place] [address] , . [phone] Referring Provider: Alisia Carvajal MD, [address] [place] [address], [address] [place] [address] . tel:[phone] Preven Meds E&m Estab Pt; 65/> [facility], [facility] [address], [place], [address] [place] [address], tel:[phone] Nadeem [facility] Loan Documents Closer annual exam (chief complaint) Routine CAMPUS CHAPLAIN Exam W/wo A Pap 3 Wei Crump. [address] [place] [address], [id number] , [place]. tel:[phone] Referring Provider: Alisia Carvajal MD, [address] [place] [address], [address] . tel:[phone] [facility], [address], [place], [place], [id number], tel:[phone] Nadeem [facility] Loan Documents Closer No Information 2 Wei Crump. [address] [place] [address], [id number] , [place]. tel:[phone] Referring Provider: Alisia Carvajal MD, [address] [place] [address], [address] . tel:[phone] Preven Meds E&m Estab Pt; 65/> [facility], [address], [place], [place], [id number], [place] tel:[phone] [facility] Loan Documents Closer annual visit (chief complaint) Screening PAP Only/pp Visit/obRoutine CAMPUS CHAPLAIN Exam W/wo A Pap 2 Wei Crump. [address] [place] [address], [id number] , [place]. tel:[phone] Referring Provider: Alisia Carvajal MD, [address] [place] [address], [address] . tel:[phone] [facility], [address], [place], [place], [id number], [place] tel:[phone] Nadeem [facility] Loan Documents Closer No Information 1 Wei Crump. [address] [place] [address], [id number] , [place]. tel:[phone] Referring Provider: Alisia Carvajal MD, [address] [place] [address], [address] . tel:[phone] Offic/outpt E&m Estab Low-mod [facility], [address], [place], [place], [id number], [place] tel:[phone] LINH [facility] Loan Documents Closer consult (chief complaint) No Information 1 Wei Crump. [address] [place] [address], [id number] , [place]. tel:[phone] Referring Provider: Alisia Carvajal MD, [address] [place] [address], [address] . tel:[phone] [facility], [address], [place], [place], [id number], [place] tel:[phone] [facility] Loan Documents Closer No Information Sep-2 8 1 Wei Crump. [address] [place] [address], [address] [place] [address] , . tel:[phone] Referring Provider: Alisia Carvajal MD, [address] [place] [address], [address] . tel:[phone] [facility], [address], [address] [place] [address], tel:[phone] [facility] Loan Documents Closer No Information Sep-0 6 1 Wei Crump. [address] [place] [address], [address] [place] [address] , . tel:[phone] Referring Provider: Alisia Carvajal MD, [address] [place] [address], [address] [place] [address] . tel:[phone] [facility] E[facility] Pt; 65/> [facility], [address], [address] [place] [address], tel:[phone] [facility] Loan Documents Closer annual visit (chief complaint) No Information Sep-0 1 Wei Crump. [address] [place] [address], [address] [place] [address] , . [phone] Referring Provider: Alisia Carvajal MD, [address] [place] [address], [address] . tel:[phone] [facility], [address], [address] [place] [address], tel:[phone] [facility] Loan Documents Closer No Information Sep-0 2201 0 Wei Crump. [address] [place] [address], [address] [place] [address] , . tel:[phone] Referring Provider: Alisia Carvajal MD, [address] [place] [address], [address] . tel:[phone] [facility], [address], [place], [address] [place] [address], tel:[phone] [facility] Loan Documents Closer annual visit (chief complaint) Colon/ Rectal CA Screening Jun-0 0 Wei Crump. [address] [place] [address], [address] [place] [address] , . [phone] Referring Provider: Alisia Caravjal MD, [address] [place] [address], [address] [place] [address] . tel:[phone] [facility] Meds E&m Estab Pt; 65/> [facility], [facility] [id number], [place], [address] [place] [address], tel:[phone] Nadeem Rodrigo [facility] Loan Documents Closer annual visit (chief complaint) No Information 9 Wei Crump. [address] [place] [address], [address] [place] [address] , . [phone] Referring Provider: Alisia Carvajal MD, [address] [place] [address], [address] . tel:[phone] [facility], [facility] [address], [place], [address] [place] [address], [place] tel:[phone] [facility] Loan Documents Closer No Information 8 Wei Crump. [address] [place] [address], [address] [place] [address] , [place]. [phone] [facility] E[facility]m Estab Pt; 65/> [facility], [address], [place], [address] [place] [address], [place] tel:[phone] [facility] Loan Documents Closer No Information 8 Wei Crump. [address] [place] [address], [address] [place] [address] , [place]. tel:[phone] Referring Provider: Alisia Carvajal MD, [address] [place] [address], [address] . tel:[phone] [facility], [address], [place], [address] [place] [address], tel:[phone] Nadeem Rodrigo [facility] Loan Documents Closer No Information 7 Wei Crump. [address] [place] [address], [address] [place] [address] , . tel: [phone] [facility] E&m Estab Pt; 40-6 [facility], [address] [facility], [place], [place], [address] [place] [address], tel:[phone] Nadeem [facility] Loan Documents Closer annual visit (chief complaint) No Information 7 Wei Crump. [address] [place] [address], [address] [place] [address] , . tel:[phone] [facility], [place] [address], [place], [address] [place] [address], tel:[phone] Nadeem [facility] Loan Documents Closer annual visit (chief complaint) No Information 6 Wei Crump. [address] [place] [address], [address] [place] [address] , . tel: [phone] [facility], [address] [facility], [place], [place], [address] [place] [address], tel:[phone] [facility] Loan Documents Closer annual visit (chief complaint) No Information 200 5 Wei Crump. [address] [place] [address], [address] [place] [address] , . tel: [phone] Family History Family Member Type Diagnosis Age At Onset Sister Problem (finding) Myocardial infarction Problem (finding) Family history of hyper tension Paternal aunt Problem (finding) breast cancer Maternal grandmother Problem (finding) Heart disease Sister Problem (finding) renal failure syndrome Payers Payer name Insurance type Covered green party ID Authoriza tion(s) [employer] Medicare PPO 16 [id number] Social History Type Description Quantity Date Captured [...] Goal DEXA Scan. Due on due Goal Unhealthy drug u [...] Goal DEXA Scan. Due on due Goal Lipid Panel. Due on due Goal Colonoscopy. Due on due Goal DEXA Scan. Due on 3 due Goal Lipid Panel. Due on due Goal Colonoscopy. Due on due Goal Mammogram. Due on 9 due Goal Lipid Panel. Due on due [...] 13 due Future Order: Lab Order FOBT ([id number]), Ord ered on: Ordered History Of Present [...] check urine culture Related to Urinary urgency Perform self breast exam Related to Routine CAMPUS CHAPLAIN Exam W/wo A Pap Discussed Diet and exercise Rela marina to Routine CAMPUS CHAPLAIN Exam W/wo A Pap discussed colonoscop y dexa amd mammogram timing continue vitamin d Related to RO UTINE CAMPUS CHAPLAIN EXAMINATION Discussed Diet and exercise Rela marina to Routine CAMPUS CHAPLAIN Exam W/wo A Pap Perform self breast exam Related to Routine CAMPUS CHAPLAIN Exam W/wo A Pap Assessments Type Assessment Date No Information Patient Care Teams Name Effective Dates (start - stop) Status Members No Information
--- OUTSIDE RECORDS SUMMARY | 2025-01-26 15:23 | XMS_ITS | Clinical Summary ---
Author Organization [facility] Address [address] [place] [address] Phone Care Team Providers Care Millwork Estimator Name Role Phone Stephen Harrison MD Primary [...] - Risk 3-dose series) 2002 RSV Immunization Adult Patients (1 - 1-dose 75+ series) 2017 Falls Risk Assessment 04/30/2021 Medicare Annual Wellness Visit 04/30/2021 Social Influencers of Health Screening 04/30/2021 Depression Screening 07/17/2023 07/17/2022 Hypertension/CHF/CAD Annual BMP Blood Test 10/10/2023 10/10/2022, 10/09/2022, 09/25/2022, Additional history exists COVID-19 Vaccine ( season) 2024 07/24/2022, 02/26/2022, 07/14/2021, Additional history exists DTaP,Tdap,and Td Vaccines (2 - Td or Tdap) 02/21/2025 02/21/2015 Influenza Vaccine (Season Ended) 2025 07/18/2022, 07/30/2021, 07/29/2020, Additional history exists Cholesterol Screening (Lipid Panel) 08/20/2027 08/20/2022, 02/20/2022, [...] age to complete this topic Meningococcal B Vaccine Aged Out No l onger eligible based on patient's age to complete this topic RSV Immunization Patients Under 20 months Aged Out No longer eligible based on patient's age to complete this topic Varicella Vaccines Aged Out No longer eligible based on patient's age to complete this topic Medical Devices Implanted Type Area Community Resource Officer Device Identifier Shelf Expiration Date Model / Serial / Lot Reversed Multi Direction Lock Screw 4.5x20mm - Sn/A - [id number] Implanted:Qty: 1 on 10/09/2022 by Francis Brown MD at [facility] Internal and External Fixation Left: Shoulder [employer]- [employer] [id number] / N/A / N/A Reversed Multi Direction Lock Screw 4.5x23mm - Sn/A - [id number] Implanted:Qty: 2 on 10/09/2022 by Francis Brown MD at [facility] Internal and External Fixation Left: Shoulder [employer] [id number] / N/A / N/A Reversed Multi Direction Lock Screw 4.5x26mm - Sn/A - [id number] Implanted:Qty: 1 on 10/09/2022 by Francis Brown MD at [facility] Internal and External Fixation Left: Shoulder [employer] [id number] / N/A / N/A Reverse Baseplate 2 Line Extension [id number] - [id number] - [id number] Implanted:Qty: 1 on 10/09/2022 by Francis Brown MD at [facility] Joints Shoulder Left: Shoulder [employer] [id number] 01/18/2027 [id number] / [id number] / N/A Glenoid Sphere Centered 36 Mm,25mm Baseplate - [id number] - [id number] Implanted:Qty: 1 on 10/09/2022 by Francis Brown MD at [facility] Joints Shoulder Left: Shoulder [employer] 07/29/2027 [id number] / [id number] / N/A Tray Flex Rev Shldr Sys +0 - [id number] - [id number] Implanted:Qty: 1 on 10/09/2022 by Francis Brown MD at [facility] Shoulder Left: Shoulder [employer] 09/06/2027 [id number] / [id number] / N/A Shoulder Insrt Rev 36 6/12.5 B - [id number] - [id number] Implanted:Qty: 1 on 10/09/2022 by Francis Brown MD at [facility] Shoulder Left: Shoulder [employer] 05/27/2027 [id number] / [id number] / N/A Shoulder Stem Hum Ptc Flx 5b - [id number] - [id number] Implanted:Qty: 1 on 10/09/2022 by Francis Brown MD at [facility] Shoulder Left: Shoulder [employer] 02/06/2027 [id number] / [id number] / N/A Procedures Procedure Name Priority Date/Time Associated Diagnosis Comments BASIC METABOLIC PANEL Routine 10/10/2022 3:37 AM EST from Last 3 Months or Most Recently Relevant to Health Maintenance Results * (ABNORMAL) Basic metabolic panel (10/10/2022 3:37 AM EST) Sodium 135(L) 136 - 145 mmol/L LAB CHEMISTRY METHOD 10/10/2022 5:25 AM EST [facility] Potassium 4.5 3.6 - 5.1 mmol/L LAB CHEMISTRY METHOD 10/10/2022 5:25 AM EST [facility] Chloride 104 98 - 107 mmol/L LAB CHEMISTRY METHOD 10/10/2022 5:25 AM EST [facility] CO2 26 22 - 32 mmol/L LAB CHEMISTRY METHOD 10/10/2022 5:25 AM EST [facility] Anion Gap 5(L) 6 - 18 LAB CHEMISTRY METHOD 10/10/2022 5:25 AM EST [facility] Glucose 139(H) 70 - 99 mg/dL LAB CHEMISTRY METHOD 10/10/2022 5:25 AM EST [facility] BUN 25(H) 8 - 20 mg/dL LAB CHEMISTRY METHOD 10/10/2022 5:25 AM EST [facility] Creatinine 0.98 0.60 - 1.30 mg/dL LAB CHEMISTRY METHOD 10/10/2022 5:25 AM [facility] eGFR 59(L) >=60 mL/min/1. 73m2 LAB CHEMISTRY METHOD 10/10/2022 5:25 AM EST [facility] Comment:Effective July 28, 2022, calculation based on the??Chronic Kidney Disease Epidemiology Collaboration (CKD-EPI) equation refit??without adjustment for race. BUN/Creatinine Ratio 25.5(H) 12.0 - 20.0 LAB CHEMISTRY METHOD 10/10/2022 5:25 AM [facility] Calcium 9.0 8.9 - 10.3 mg/dL LAB CHEMISTRY METHOD 10/10/2022 5:25 AM [facility] Blood Venous blood specimen / Unknown Venipuncture / Unknown 10/10/2022 3:37 AM EST 10/10/2022 4:58 AM EST us Alan BLAKELY LAB BLOOD ORDERABLES Final Resul t [facility] [address] [place] [address] from Last 3 Months or [...] currently active code status orders. Care Teams Millwork Estimator Relationship Specialty Start Date End Date Stephen Harrison MD PCP - General 12/17/22
--- OUTSIDE RECORDS SUMMARY | 2025-01-26 15:24 | XMS_ITS ---
Author Organization [facility] Address [address] [place] [address] Care Team Providers Care Catia Designer Name Role Phone Hector CHILD [place] Primary Care Provider Unava ilable Black, Kiki Unavailable [phone] REASON FOR VISIT buy pedag size 38 Encounters Encounter Location Date Provider Diagnosis [address] [place] [address] 01/05/2025 Kiki Black Plan Of Treatment No Information Progress Notes * Javier GREGORIOisDOB:1940 ([age] yo F)Acc No.[id number]:01/05/2025 Patient:?Macie GREGORIO :1940???Age:84 Y???Sex:Female Address:[address], [facility] [place], [address] * true * Date:? Generated for Printi ng/Fasangitag/eTransmitting on:?01/26/2025 03:24 PM EDT
--- OUTSIDE RECORDS SUMMARY | 2025-01-26 15:24 | XMS_ITS | Patient Health Record ---
Author Organization [facility] Address [address] [place] [address] Care Team Providers Care Weight Control Lecturer Name Role Phone Nicholas CHILD, Moises Messer Primary Care Provider Abran Claudio Unavailable [phone] ALLERGIES Allergen (clinical drug ingredient) Drug/Non Drug [...] Date [employer] MEDICARE REPLACEMEN T [address] [place], [place] [id number] Macie Gregorio Self - patient is the insured MEDICAL (GENERAL) HISTORY Medical History History ICD Code Arthritis High Cholesterol Blood Clots Surgical History Surgery Date(Month/Year) Hip replacement 2016 Shoulder replacement 2020
--- OUTSIDE RECORDS SUMMARY | 2025-01-26 15:24 | XMS_ITS ---
Author Organization [facility] Address [address] [place] [address] Care Team Providers Care Photoflash Powder Mixer Name Role Phone Hector CHILD [place] Primary Care Provider Unava ilable Black, Kiki Unavailable [phone] REASON FOR VISIT Ammonium lactate cream Encounters Encounter Location Date Provider Diagnosis [address] [place] [address] 12/22/2024 Kiki Black Plan Of Treatment No Information Progress Notes * DAJA ClaudeOB:1940 ([age] yo F)Acc No.[id number]:12/22/2024 Patient:?Macie GREGORIO :1940???Age:84 Y???Sex:Female Address:[address], [place], [address] * true * Date:? Generated for Printi ng/Fasangitag/eTransmitting on:?01/26/2025 03:23 PM EDT
--- OUTSIDE RECORDS SUMMARY | 2025-01-26 15:24 | XMS_ITS | Patient Health Record ---
Author Organization [facility] Address [address] [place] [address] Care Team Providers Care Hydropulper Operator Name Role Phone Hector CHILD, [place] Primary Care Provider [place] valadez Kiki Bledsoe Unavailable [phone] Allergies Allergen (clinical drug ingredient) Drug/Non Drug Allergy documented on EMR Reaction Allergy Type Onset Date Status amoxicillin / clavulanate Augmentin Unknown Drug Allergy Active Levaquin Unknown Drug Allergy Active Results Component Value Reference Range Notes X ray : Foot, left 3V Reviewed date:12/14/2024 04:37:09 PM Interpretation:See Examination above Performing Lab: Notes/Report: See Examination above X ray : Foot, right 3V Reviewed [...] Status Risk Notes Problem Plantar fascial fibromatosis (78004252) Plantar fasciitis, bilateral (M72.2) Active confirmed Vital Signs Blood pressure diastolic 74 mm Hg 12/14/2024 Height 5ft 5in in 12/14/2024 Blood pressure systolic 129 mm Hg 12/14/2024 Weight 185 lbs 12/14/2024 BMI 30.78 kg/m2 12/14/2024 Encounters Encounter Location Date Provider Diagnosis [address] [address] 12/14/2024 Kiki Black Xerosis of skin L85.3 ; Pain in right foot M79.671 ; Plantar fasciitis, bilateral M72.2 ; Calcaneal spur, right foot M77.31 ; Other myositis of right foot M60.871 ; Bursitis of right foot M77.51 ; Pain in left foot M79.672 ; Calcaneal spur, left foot M77.32 ; Other myositis of left foot M60.872 and Bursitis of left foot M77.52 [facility] [address] [place] [address] [facility] [address] 11/05/2024 [facility] [address] [place] [address] 12/14/2024 Kiki Black [facility] [address] 12/20/2024 [facility] [address] [place] [address] 12/22/2024 [facility] [address] [place] [address] 01/05/2025 [facility] [place] [facility] [address] [address] 01/18/2025 Kiki Black Assessments Encounter Date Diagnosis (ICD Code) Assessment Notes [...] foot (ICD-10 - M77.52) Plan Of Treatment No Information Insurance Providers Payer Name Payer Address Payer Phone Subscriber Number Group Number Insured Name Patient Relationship to Insured Coverage Start Date Coverage End Date [employer] [address] [place] [address] [id number] Macie Gregorio Self - patient is the insured 4 Medical (General) History Medical History History ICD Code Anemia Arthritis Back,Hip,and Knee pain Broken bones Cataracts Glaucoma Hiatal hernia Menieres disease Reflux ( GERD) Sciatica Mumps Chicken pox Joint implants/screws Surgical History Surgery Date(Month/Year) right hip replacement shoulder replacement, left left hip replacement shoulder replacement, right 10/11 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
--- OUTSIDE RECORDS SUMMARY | 2025-01-26 15:25 | XMS_ITS | Data Portability ---
Author Organization [place] [facility], Allergy Address [address] [address] Care Team Providers Care Drying Room Operator Name Role Phone KWASI CANELA Primary Care Provider [phone] Assessment Encounter Date Assessment Date Assessment LastModified by Organization Details LastModified Time 06/14/2024 06/14/2024 83-year-old female presents for cerumen removal. Cerumen impaction removed bilaterally. Bilateral TMs are intact. Follow up in 6 months for routine debridement, or sooner if needed. [email or web address] Not available 06/14/2024 13:36:41 12/16/2024 12/16/2024 Ears [...] Sensorine ural hearing loss of bilateral ears 873809978 Active 2022 Sensorine ural hearing loss, bilateral ; Note: Date Diagnosed : 06/26/2023 5:34 PM (H90.3) Not Available [facility] 03:27:49 Impacted cerumen of bilateral ears 26814735728 09672 Active 2022 Impacted cerumen, bilateral ; Note: Date Diagnosed : 06/26/2023 4:24 PM (H61.23) Not Available [facility] 4 03:27:49 Problem Notes None recorded. Procedures Surgical History Date Name Laterality Status Provider Name and Address Organization Details Recorded Time 5 Wax_DP completed WANG MORENO MD [address] [facility], [place], [address], [place] [facility] 12/14/2024 17:19:46 4 Cerumen removal without microscope bilat completed JOSE YADAV PA-C 100 [facility] [address], [place], [address], [place] [facility] 06/14/2024 13:36:20 Imaging Results Imaging Date [...] Name and Address Organization Details Recorded Time [id number] Augmentin medicatio n other Not available Not available 03/02/2024 09675 2 RxNorm React ion: Unkno wn; Not Available [facility] 4 01:18:47 513536 Levaquin medicatio n other Not available Not available 03/02/2024 56264 2 RxNorm React ion: Unkno wn; Not Available [facility] 4 01:18:48 Medications Name Sig Start [...] Updated DateTime 06/14/2024 165.1 cm 31.5 kg/m2 39227.96 g Jesenia De La Garza [place] - [facility] 06/14/2024 13:30:15 Date Recorded Body height Body weight Provider Name and Address Organization Details Last Updated DateTime 12/16/2024 165.1 cm 77541.59 g Mary Lou Álvarez [place] [facility] [place] 12/16/2024 10:57:15 Social History None recorded. Functional [...] Disorder N Anesthesia Complications Y Heart Attack (AR) N Other Skin Condition N Diabetes N [...] SNOMED-CT Code Diagnosis ICD10 Code Diagnosis Note [id number] VIKKI PATEL MD [facility] [address] [address] 06/14/2024 13:22:39 06/14/2024 13:46:14 Impacted cerumen of bilateral ears 2438452661 421883 H61.23 [id number] JUANCHO WOOD HERNANDEZ - [address] [address] 07/23/2024 12:55:40 07/26/2024 09:51:39 Sensorineural hearing loss of bilateral ears 222904361 H90.3 [id number] WANG MORENO MD [facility] [address] [address] 12/16/2024 10:42:02 12/16/2024 11:09:57 Impacted cerumen of bilateral ears 1765830317 117360 H61.23 Sensorineu ral hearing loss of bilateral ears 756118567 H90.3 Health Concerns Section Related Observation LastModified by Organization Detai ls LastModified Time None Recorded Concern Status LastModified by Organization Details LastModified Time None Recorded Advance Directives Directive None Recorded Payers Encounter Date Sequence Insurance Name Policy Number Policy Mccormick Covered Member ID Mccormick Member ID Guarantor Name 06/14/2024 1 [employer] [id number] Macie Messer Solt [id number] Macie Messer Solt 07/23/2024 1 [employer] [id number] Macie Messer Solt [id number] Macie Messer Solt 12/16/2024 1 [employer] [id number] Macie Messer Solt [id number] Macie Messer Solt Notes Date Note Type Note Provider Name and Address Organization Details Recorded Time 06/14/2024 text/html 83-year-old adolfo pozo presents for cerumen removal. No concerns today. 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 Had an episode of dizziness that has since resolved. VIKKI LEÓN MD [address] [place] [address],[address], [address], [facility] - [facility] 06/14/2024 16:54:31 07/23/2024 text/html Doing well...Cortés s not feel that her hearing has changed so we did not update her HT at this time. Checked and cleaned aid. She will call as needed. JUANCHO WOOD [address] [facility],[address], [address], [facility] 07/23/2024 12:58:30 12/16/2024 text/html cerumen No concerns today.History of left sided Meniere's disease status post endolymphatic mastoid shunt surgery in 1966Right sided hearing aid PV 06/14/24 Jose Root cerumen removed WANG MORENO MD [address] [facility],[address], [address], [facility] - [facility] 12/16/2024 11:09:16 OBGyn Episode No OBEpisode recorded.
--- OUTSIDE RECORDS SUMMARY | 2025-01-26 15:25 | XMS_ITS ---
Author Organization [facility] Address [address] [place] [address] Care Team Providers Care Pipe Smoking Machine Offbearer Name Role Phone Hector CHILD Bieber Primary Care Provider Unava ilable Black, Kiki Unavailable [phone] REASON FOR VISIT 02/01/25 appt Encounters Encounter Location Date Provider Diagnosis [facility] [address] [place] [address] 01/18/2025 Kkii Black Plan Of Treatment No Information Progress Notes * MARALLorna JavierisDOB:1940 ([age] yo F)Acc No.[id number]:01/18/2025 Patient:?Macie GREGORIO :1940???Age:84 Y???Sex:Female Address:[address], [place], [address] * true * Date:? Generated for Printi ng/Fasangitag/eTransmitting on:?01/26/2025 03:24 PM EDT
== END 2025-01-26 14:17 | disposition home or self-care (01) ==
PROVIDERS: PCP Internal Medicine; Visit Provider Internal Medicine
DX: I12.9 Hypertensive chronic kidney disease with stage 1 through stage 4 chronic kidney disease, or unspecified chronic kidney disease (principal); E78.00 Pure hypercholesterolemia, unspecified; I70.0 Atherosclerosis of aorta; N18.31 Chronic kidney disease, stage 3a; R00.2 Palpitations; D64.9 Anemia, unspecified; Z86.718 Personal history of other venous thrombosis and embolism; M15.9 Polyosteoarthritis, unspecified; K44.9 Diaphragmatic hernia without obstruction or gangrene; M81.0 Age-related osteoporosis without current pathological fracture; G25.81 Restless legs syndrome; G47.00 Insomnia, unspecified

== ENCOUNTER → 2025-01-26 13:19 | Outpatient (BNVA) | payer MEDICARE, SELFPAY | PROVIDERS: PCP Internal Medicine; Visit Provider Internal Medicine | DX: E78.00 Pure hypercholesterolemia, unspecified (principal); I12.9 Hypertensive chronic kidney disease with stage 1 through stage 4 chronic kidney disease, or unspecified chronic kidney disease; N18.31 Chronic kidney disease, stage 3a; D63.1 Anemia in chronic kidney disease; M15.9 Polyosteoarthritis, unspecified; K44.9 Diaphragmatic hernia without obstruction or gangrene; M81.0 Age-related osteoporosis without current pathological fracture; G25.81 Restless legs syndrome; G47.00 Insomnia, unspecified; E66.9 Obesity, unspecified; K29.60 Other gastritis without bleeding; Z68.32 Body mass index [BMI] 32.0-32.9, adult; Z86.718 Personal history of other venous thrombosis and embolism | CPT/HCPCS: 96127; 99212 ==

== ENCOUNTER → 2025-03-02 10:43 | Outpatient (BNVA) | payer MEDICARE, SELFPAY | PROVIDERS: PCP Internal Medicine; Visit Provider Nurse Practitioner Family ==

== ENCOUNTER 2025-03-07 12:45 | Outpatient (AMB) | payer MEDICARE, SELFPAY ==
--- OUTSIDE RECORDS SUMMARY | 2025-03-07 12:58 | XMS_ITS | Clinical Summary ---
Author Organization [facility] Address [address] [facility] [address] [place] [address] Phone Care Team Providers Care Branch Office Administrator Name Role Phone Shekhar Young MD Primary Care Provider [phone] Allergies Active Allergy Reactions Criticality Noted Date Comments Amoxicillin-Pot Clavulanate 05/21/20 24 rash Levofloxacin 05/21/2024 rash Medications omeprazole (PRILOSEC) 40 MG capsule Take 40 [...] propranoloL (INDERAL LA) 60 mg 24 hr capsuleIndicati ons:Borderline high blood pressure Take 1 capsule (60 [...] that she was diagnosed with anemia in [place] and given IV iron, since she could [...] surgery. During the visit I reviewed prior grinder operator external tool record from [place], they have her on prophylaxis 2.5 mg BID dose. In case she has AF she would probably need to move up to 5 mg BID based on weight but we would need to check Cr (I am checking today) to confirm dose. If no new diagnosis, ok to keep 2.5 mg BID given this has been already determined by grinder operator external tool. Borderline high blood pressure 08/12/2023 Assessment & [...] imaging. Homans negative on exam today. Immunizations Immunization Administration Dates Next Due Influenza, Unspecified Formulation [...] with a working camera? Not on file Comments Unknown Sex and Gender Information Value Date Recorded Sex Assigned at Not on file Legal Sex Female 6:22 PM EST Gender Identity Not on file Sexual Orientation [...] VACCINE (1 - 1-dose 75+ series) 2017 COVID-19 VACCINE ( season) 2024 CREATININE LEVEL 05/21/2025 05/21/2024, , [...] age to complete this topic MENINGOCOCCAL VACCINES (B) Aged Out N o longer eligible based [...] EDT) SODIUM 143 135 - 145 mmol/L [facility] POTASSIUM 4.2 3.4 - 5.0 mmol/L [facility] CHLORIDE 106 98 - 108 mmol/L [facility] CO2 26 23 - 32 mmol/L [facility] BUN 20 8 - 25 mg/dL [facility] CREATININE 1.20 0.60 - 1.50 mg/dL [facility] GLUCOSE 86 70 - 110 mg/dL [facility] CALCIUM 9.9 8.5 - 10.5 mg/dL [facility] EGFR 45(L) >59 mL/min/1.7 3m2 [facility] Comment:Estimated glomerular filtration rate calculated using the CKD-EPI refit equation. ANION GAP 11 3 - 17 mmol/L [facility] Blood 05/21/2024 3:11 PM EDT 05/21/2024 5:14 PM EDT us Chilango Gonzáles MD, MPhil LAB BLOOD ORDERABLES Fin al Result [facility] [address] [place] [address] from Last 3 Months or Most Recently Relevant to Health Maintenance Insurance [employer] PPO AENA PPO [employer] PPO [employer] PPO [employer] PPO [employer] PPO Care Teams Branch Office Administrator Relationship Specialty Start Date End Date Shekhar Young MD [address] [place] [address] Dr [address] [place] [address] PCP - General Internal Medicine 08/28/23 Additional Source Comments The information contained in this document represents components of the legal health record. It is not the complete legal health record.[facility]
--- OUTSIDE RECORDS SUMMARY | 2025-03-07 12:58 | XMS_ITS | Encounter Summary ---
Author Organization [facility] Address [address] [facility] [address] [place] [address] Phone Care Team Providers Care Business Office Specialist Name Role Phone Shekhar Young MD Primary Care Provider [phone] Encounter Details Date Type Department Care Team (Late st Contact Info) Description 05/20/2024 Documentation [facility] Cardiovascular Medicine [address] [facility], 5th Floor, [address] [place] [address] Chilango Gonzáles MD, MPhil [address] [facility] [address] [place] [address] [email or web address] Social History Tobacco Use Types Packs/Day Years [...] on filedocumented in this encounter Care Teams Business Office Specialist Relationship Specialty Start Date End Date Shekhar Young MD [address] [place] [address] Dr [address] [place] [address] PCP - General Internal Medicine 08/28/23 documented as of this encounter Additional Source Comments The information contained in this document represents components of the legal health record. It is not the complete legal health record.[facility]
--- OUTSIDE RECORDS SUMMARY | 2025-03-07 12:58 | XMS_ITS | Continuity of Care Document ---
Author Organization [facility] Address [address] [place] [address] Phone Care Team Providers Care Building Service Worker Name Role Phone Randy Newman MD Unavailable [...] Diagnoses Date Provider Providers Copied on Encounter [facility], [address], [place], [place], [id number], [place] tel:[phone] LINH Lovett Director Business Integration No Information 3 Paty Padilla. [address] [place] [address], [id number] , [place]. tel:[phone] [facility], [address], [place], [place], [id number], [place] tel:[phone] [facility] Business Integration No Information 3 Roshan Kee. [address] [place] [address], [id number] , . tel:[phone] [facility] E&m Estab Pt; 65/> [facility], [address], [place], [place], [id number], [place] tel:[phone] [facility] Director Business Integration annual exam (chief complaint) Encounter for gynecological examination (general) (routine) without abnormal findings 2 Wei Crump. [address] [place] [address], [id number] , [place]. tel:[phone] Referring Provider: Alisia Carvajal MD, [address] [place] [address], [address] . tel:[phone] [facility] E&m Estab Pt; 65/> [facility], [facility] [address], [place], [place], [id number], [place] tel:[phone] [facility] Director Business Integration annual exam (chief complaint) Encounter for gynecological examination (general) (routine) without abnormal findings 1 Wei Crump. [address] [place] [address], [id number] , . tel:[phone] Referring Provider: Alisia Carvajal MD, [address] [place] [address], [address] . tel:[phone] [facility] E&m Estab Pt; 65/> [facility], [facility] [address], [place], [place], [id number], [place] tel:[phone] [facility] Director Business Integration annual exam (chief complaint) Encntr for rn obgyn exam (general) (routine) w/o abn findings 9 Wei Crump. [address] [place] [address], [id number] , . [phone] Referring Provider: Alisia Carvajal MD, [address] [place] [address], [address] . tel:[phone] [facility] E&m Estab Pt; 65/> [facility], [address], [place], [place], [id number], tel:[phone] [facility] Jac[facility]elyn [facility] Director Business Integration annual exam (chief complaint) Encntr for rn obgyn exam (general) (routine) w/o abn findingsUrinary urgency 0 8 Wei Crump. [address] [place] [address], [address] [place] [address] , [place]. tel:[phone] Referring Provider: Alisia Carvajal MD, [address] [place] [address], [address] . tel:[phone] [facility] E&m Estab Pt; 65/> [facility], [address], [place], [place], [id number], [place] tel:[phone] [facility] Director Business Integration annual exam (chief complaint) Encntr for rn obgyn exam (general) (routine) w/o abn findingsEncounter for screening for malignant neoplasm of cervix 7 Wei Crump. [address] [place] [address], [id number] , . [phone] Referring Provider: Alisia Carvajal MD, [address] [place] [address], [address] . tel:[phone] [facility] E&m Estab Pt; 65/> [facility], [address], [place], [place], [id number], tel:[phone] [facility] Director Business Integration annual exam (chief complaint) Encntr for rn obgyn exam (general) (routine) w/o abn findings 6 Wei Crump. [address] [place] [address], [address] [place] [address] , [place]. [phone] Referring Provider: Alisia Carvajal MD, [address] [place] [address], [address] . tel:[phone] [facility], [place] [address], [place], [address] [place] [address], tel:[phone] Nadeem Valladares [facility] Director Business Integration No Information 5 Wei Crump. [address] [place] [address], [address] [place] [address] , . [phone] Referring Provider: Alisia Carvajal MD, [address] [place] [address], [address] [place] [address] . tel:[phone] [facility] E&m Estab Pt; 65/> [facility], [place] [address], [place], [address] [place] [address], tel:[phone] Nadeem Valladares [facility] Director Business Integration annual exam (chief complaint) Encntr for rn obgyn exam (general) (routine) w/o abn findingsEncounter for screening for malignant neoplasm of cervix 5 Wei Crump. [address] [place] [address], [address] [place] [address] , . [phone] Referring Provider: Alisia Carvajal MD, [address] [place] [address], [address] . tel:[phone] [place] [address], [place], [address] [place] [address], tel:[phone] Nadeem Valladares [facility] Director Business Integration No Information 4 Wei Crump. [address] [place] [address], [address] [place] [address] , . tel:[phone] Referring Provider: Alisia Carvajal MD, [address] [place] [address], [address] . tel:[phone] [facility] E&m Estab Pt; 65/> [facility], [address], [id number], tel:[phone] LAURINadeem Valladares [facility] Director Business Integration annual exam (chief complaint) ROUTINE SUPERVISOR HOT STRIP MILL EXAMINATION 4 Wei Crump. [address] [place] [address], [address] [place] [address] , . tel:[phone] Referring Provider: Alisia Carvajal MD, [address] [place] [address], [address] . tel:[phone] [facility], [address], [place], [place], [id number], [place] tel:[phone] Nadeem Valladares [facility] Director Business Integration No Information 3 Wei Crmup. [address] [place] [address], [address] [place] [address] , . [phone] Referring Provider: Alisia Carvajal MD, [address] [place] [address], [address] [place] [address] . tel:[phone] [facility] E&m Estab Pt; 65/> [facility], [facility] [address], [place], [address] [place] [address], tel:[phone] Nadeem Valladares [facility] Director Business Integration annual exam (chief complaint) Routine SUPERVISOR HOT STRIP MILL Exam W/wo A Pap 3 Wei Crump. [address] [place] [address], [id number] , [place]. tel:[phone] Referring Provider: Alisia Carvajal MD, [address] [place] [address], [address] . tel:[phone] [facility], [address], [place], [place], [id number], tel:[phone] Nadeem Valladares [facility] Director Business Integration No Information 2 Wei Crump. [address] [place] [address], [id number] , [place]. tel:[phone] Referring Provider: Alisia Carvajal MD, [address] [place] [address], [address] . tel:[phone] [facility] E&m Estab Pt; 65/> [facility], [address], [place], [place], [id number], [place] tel:[phone] [facility] Director Business Integration annual visit (chief complaint) Screening PAP Only/pp Visit/obRoutine SUPERVISOR HOT STRIP MILL Exam W/wo A Pap 2 Wei Crump. [address] [place] [address], [id number] , [place]. tel:[phone] Referring Provider: Alisia Carvajal MD, [address] [place] [address], [address] . tel:[phone] [facility], [address], [place], [place], [id number], [place] tel:[phone] Nadeem Valladares [facility] Director Business Integration No Information 1 Wei Crump. [address] [place] [address], [id number] , [place]. tel:[phone] Referring Provider: Alisia Carvajal MD, [address] [place] [address], [address] . tel:[phone] Offic/outpt E&m Estab Low-mod [facility], [address], [place], [place], [id number], [place] tel:[phone] LINH Valladares [facility] Director Business Integration consult (chief complaint) No Information 1 Wei Crump. [address] [place] [address], [id number] , [place]. tel:[phone] Referring Provider: Alisia Carvajal MD, [address] [place] [address], [address] . tel:[phone] [facility], [address], [place], [place], [id number], [place] tel:[phone] [facility] Director Business Integration No Information Sep-2 8 1 Wei Crump. [address] [place] [address], [address] [place] [address] , . tel:[phone] Referring Provider: Alisia Carvajal MD, [address] [place] [address], [address] . tel:[phone] [facility], [address], [address] [place] [address], tel:[phone] [facility] Director Business Integration No Information Sep-0 6 1 Wei Crump. [address] [place] [address], [address] [place] [address] , . tel:[phone] Referring Provider: Alisia Carvajal MD, [address] [place] [address], [address] [place] [address] . tel:[phone] [facility] E&m Estab Pt; 65/> [facility], [address], [address] [place] [address], tel:[phone] [facility] Director Business Integration annual visit (chief complaint) No Information Sep-0 1 Wei Crump. [address] [place] [address], [address] [place] [address] , . [phone] Referring Provider: Alisia Carvajal MD, [address] [place] [address], [address] . tel:[phone] [facility], [address], [address] [place] [address], tel:[phone] [facility] Director Business Integration No Information Sep-0 2201 0 Wei Crump. [address] [place] [address], [address] [place] [address] , . tel:[phone] Referring Provider: Alisia Carvajal MD, [address] [place] [address], [address] . tel:[phone] [facility], [address], [place], [id number], tel:[phone] [facility] Director Business Integration annual visit (chief complaint) Colon/ Rectal CA Screening Jun-0 0 Wei Crump. [address] [place] [address], [address] [place] [address] , . [phone] Referring Provider: Alisia Carvajal MD, [address] [place] [address], [address] [place] [address] . tel:[phone] [facility] Meds E&m Estab Pt; 65/> [facility], [facility] [address], [place], [address] [place] [address], tel:[phone] Nadeem Rodrigo Jacquelyn [facility] Director Business Integration annual visit (chief complaint) No Information 9 Wei Crump. [address] [place] [address], [address] [place] [address] , . [phone] Referring Provider: Alisia Carvajal MD, [address] [place] [address], [address] . tel:[phone] [facility], [facility] [address], [place], [address] [place] [address], [place] tel:[phone] [facility] Director Business Integration No Information 8 Wei Crump. [address] [place] [address], [address] [place] [address] , [place]. [phone] [facility] E&m Estab Pt; 65/> [facility], [address], [place], [address] [place] [address], [place] tel:[phone] [facility] Director Business Integration No Information 8 Wei Crump. [address] [place] [address], [address] [place] [address] , [place]. tel:[phone] Referring Provider: Alisia Carvajal MD, [address] [place] [address], [address] . tel:[phone] [facility], [address], [place], [address] [place] [address], tel:[phone] Nadeem Rodrigo [facility] Director Business Integration No Information 7 Wei Crump. [address] [place] [address], [address] [place] [address] , . tel: [phone] [facility] E&m Estab Pt; 40-6 [facility], [address] [facility], [place], [place], [address] [place] [address], tel:[phone] Nadeem [facility] Director Business Integration annual visit (chief complaint) No Information 7 Wei Crump. [address] [place] [address], [address] [place] [address] , . tel:[phone] [facility], [place] [address], [place], [address] [place] [address], tel:[phone] Nadeem [facility] Director Business Integration annual visit (chief complaint) No Information 6 Wei Crump. [address] [place] [address], [address] [place] [address] , . tel: [phone] [facility], [address] [facility], [place], [address] [place] [address], tel:[phone] [facility] Director Business Integration annual visit (chief complaint) No Information 200 5 Wei Crump. [address] [place] [address], [address] [place] [address] , . tel: [phone] Family History Family Member Type Diagnosis Age At Onset Sister Problem (finding) Myocardial infarction Problem (finding) Family history of hyper tension Paternal aunt Problem (finding) breast cancer Maternal grandmother Problem (finding) Heart disease Sister Problem (finding) renal failure syndrome Payers Payer name Insurance type Covered democrat ID Authoriza tion(s) [employer] Medicare PPO 16 [id number] Social History Type Description Quantity Date Captured [...] 13 due Future Order: Lab Order FOBT ([id number]), Ord ered on: Ordered History Of Present [...] Diet and exercise Rela marina to Routine SUPERVISOR HOT STRIP MILL Exam W/wo A Pap Perform self breast exam Related to Routine SUPERVISOR HOT STRIP MILL Exam W/wo A Pap discussed colonoscop y dexa amd mammogram timing continue vitamin d Related to RO UTINE SUPERVISOR HOT STRIP MILL EXAMINATION Discussed Diet and exercise Rela marina to Routine SUPERVISOR HOT STRIP MILL Exam W/wo A Pap Perform self breast exam Related to Routine SUPERVISOR HOT STRIP MILL Exam W/wo A Pap Assessments Type Assessment Date No Information Patient Care Teams Name Effective Dates (start - stop) Status Members No Information
--- OUTSIDE RECORDS SUMMARY | 2025-03-07 12:58 | XMS_ITS | Encounter Summary ---
Author Organization [facility] Address [address] [facility] [address] [place] [address] Phone Care Team Providers Care Director Consumer Affairs Name Role Phone Shekhar Young MD Primary Care Provider [phone] Encounter Details Date Type Department Care Team (Late st Contact Info) Description 05/21/2024 Procedure Pass [facility] [address] [facility], 5th [address], [address] [place] [address] Social History Tobacco Use Types Packs/Day Years [...] on filedocumented in this encounter Care Teams Director Consumer Affairs Relationship Specialty Start Date End Date Shekhar Young MD [address] [place] [address] [address] [place] [address] PCP - General Internal Medicine 08/28/23 documented as of this encounter Additional Source Comments The information contained in this document represents components of the legal health record. It is not the complete legal health record.[facility]
--- OUTSIDE RECORDS SUMMARY | 2025-03-07 12:58 | XMS_ITS | Clinical Summary ---
Author Organization [facility] Address [address] [place] [address] Phone Care Team Providers Care Engineer Sergeant Name Role Phone Stephen Harrison MD Primary [...] thrombosis) in 2016 PE Atherosclerosis of aorta (CMS/HCC V24) 2017 CKD (chronic kidney disease) , stage III (CMS/HCC V24, CMS/HCC V28) Hiatal hernia Meniere's disease Osteoporosis hip Hepatic [...] this topic Medical Devices Implanted Type Area Upset Welding Machine Operator Device Identifier Shelf Expiration Date Model / Serial / Lot Reversed Multi Direction Lock Screw 4.5x20mm - Sn/A - [id number] Implanted:Qty: 1 on 10/09/2022 by Francis Brown MD at [facility] Internal and External Fixation Left: Shoulder [employer] [id number] / N/A / N/A Reversed Multi Direction Lock Screw 4.5x23mm - Sn/A - [id number] Implanted:Qty: 2 on 10/09/2022 by Francis Brown MD at [facility] Internal and External Fixation Left: Shoulder [employer] [id number] / N/A / N/A Reversed Multi Direction Lock Screw 4.5x26mm - Sn/A - [id number] Implanted:Qty: 1 on 10/09/2022 by Francis Brown MD at [facility] Internal and External Fixation Left: Shoulder [employer] [id number] / N/A / N/A Reverse Baseplate 2 Line Extension [id number] - [id number] - [id number] Implanted:Qty: 1 on 10/09/2022 by Francis Brown MD at [facility] Joints Shoulder Left: Shoulder [employer] [id number] 01/18/2027 [id number] / [id number] / N/A Glenoid Sphere Centered 36 Mm,25mm Baseplate - [id number] - [id number] Implanted:Qty: 1 on 10/09/2022 by Francis Brown MD at [facility] Joints Shoulder Left: Shoulder [employer] 07/29/2027 [id number] / [id number] / N/A Tray Flex Rev Shldr Sys +0 - [id number] - [id number] Implanted:Qty: 1 on 10/09/2022 by Francis Brown MD at [facility] Shoulder Left: Shoulder [employer] 09/06/2027 [id number] / [id number] / N/A Shoulder Insrt Rev 36 6/12.5 B - [id number] - [id number] Implanted:Qty: 1 on 10/09/2022 by Francis Brown MD at [facility] Shoulder Left: Shoulder [employer] 05/27/2027 [id number] / [id number] / N/A Shoulder Stem Hum Ptc Flx 5b - [id number] - [id number] Implanted:Qty: 1 on 10/09/2022 by Francis Brown MD at [facility] Shoulder Left: Shoulder [employer] 02/06/2027 [id number] / [id number] / N/A Procedures Procedure Name Priority Date/Time Associated Diagnosis Comments BASIC METABOLIC PANEL Routine 10/10/2022 3:37 AM EST from Last 3 Months or Most Recently Relevant to Health Maintenance Results * (ABNORMAL) Basic metabolic panel (10/10/2022 3:37 AM EST) Sodium 135(L) 136 - 145 mmol/L LAB CHEMISTRY METHOD 10/10/2022 5:25 AM EST [facility] Potassium 4.5 3.6 - 5.1 mmol/L LAB CHEMISTRY METHOD 10/10/2022 5:25 AM EST [facility] Chloride 104 98 - 107 mmol/L LAB CHEMISTRY METHOD 10/10/2022 5:25 AM EST [facility] CO2 26 22 - 32 mmol/L LAB CHEMISTRY METHOD 10/10/2022 5:25 AM EST [facility] Anion Gap 5(L) 6 - 18 LAB CHEMISTRY METHOD 10/10/2022 5:25 AM EST [facility] Glucose 139(H) 70 - 99 mg/dL LAB CHEMISTRY METHOD 10/10/2022 5:25 AM EST [facility] BUN 25(H) 8 - 20 mg/dL LAB CHEMISTRY METHOD 10/10/2022 5:25 AM [facility] Creatinine 0.98 0.60 - 1.30 mg/dL LAB CHEMISTRY METHOD 10/10/2022 5:25 AM [facility] eGFR 59(L) >=60 mL/min/1. 73m2 LAB CHEMISTRY METHOD 10/10/2022 5:25 AM EST [facility] Comment:Effective July 28, 2022, calculation based on the??Chronic Kidney Disease Epidemiology Collaboration (CKD-EPI) equation refit??without adjustment for race. BUN/Creatinine Ratio 25.5(H) 12.0 - 20.0 LAB CHEMISTRY METHOD 10/10/2022 5:25 AM [facility] Calcium 9.0 8.9 - 10.3 mg/dL LAB CHEMISTRY METHOD 10/10/2022 5:25 AM [facility] Blood Venous blood specimen / Unknown Venipuncture / Unknown 10/10/2022 3:37 AM EST 10/10/2022 4:58 AM EST us Alan BLAKELY LAB BLOOD ORDERABLES Final Resul t [facility] [address] [place] [address] from Last 3 Months or [...] currently active code status orders. Care Teams Engineer Sergeant Relationship Specialty Start Date End Date Stephen Harrison MD PCP - General 12/17/22
--- OUTSIDE RECORDS SUMMARY | 2025-03-07 12:58 | XMS_ITS | Data Portability ---
Author Organization [place] - [facility], Allergy Address [address] [address] Care Team Providers Care Jewelry Engraver Name Role Phone KWASI CANELA Primary Care Provider Assessment Encounter Date Assessment Date Assessment LastModified by Organization Details LastModified Time 06/14/2024 06/14/2024 83-year-old female presents for cerumen removal. Cerumen impaction removed bilaterally. Bilateral TMs are intact. Follow up in 6 months for routine debridement, or sooner if needed. [email or web address] Not available 06/14/2024 13:36:41 12/16/2024 12/16/2024 Ears [...] Sensorine ural hearing loss of bilateral ears [id number] Active 2022 Sensorine ural hearing loss, bilateral ; Note: Date Diagnosed : 06/26/2023 5:34 PM (H90.3) Not Available [facility] 03:27:49 Impacted cerumen of bilateral ears [id number] 46676 Active 2022 Impacted cerumen, bilateral ; Note: Date Diagnosed : 06/26/2023 4:24 PM (H61.23) Not Available [facility] 4 03:27:49 Problem Notes None recorded. Procedures Surgical History Date Name Laterality Status Provider Name and Address Organization Details Recorded Time 5 Wax_DP completed WANG MORENO MD 100 [facility] 100, [place], [address], [place] - [facility] 12/14/2024 17:19:46 4 Cerumen removal without microscope bilat completed JOSE YADAV PA-C 100 [facility] 100, [place], [address], [place] [facility] [...] Name and Address Organization Details Recorded Time [id number] Augmentin medicatio n other Not available Not available 03/02/2024 53162 2 RxNorm React ion: Unkno wn; Not Available [facility] 4 01:18:47 [id number] Levaquin medicatio n other Not available Not available 03/02/2024 18263 2 RxNorm React ion: Unkno wn; Not Available [facility] 4 01:18:48 Medications Name Sig [...] Updated DateTime 06/14/2024 165.1 cm 31.5 kg/m2 31149.96 g Jesenia De La Garza [place] - [facility] 06/14/2024 13:30:15 Date Recorded Body height Body weight Provider Name and Address Organization Details Last Updated DateTime 12/16/2024 165.1 cm 81421.59 g Mary Lou Álvarez [place] - [facility] [place] 12/16/2024 10:57:15 Social History None recorded. Functional Status None recorded. Mental Status None recorded. Family History Nothing Reported. Medical History Condition Response Tonsil Infections N Emphysema N Glaucoma Y Depression N COPD N Nasal or Sinus Problems N Anesthesia Complications Y Arthritis Y Hearing Loss Y Cancer N Stroke N High Cholesterol N Liver Disease N Headaches N Fibromyalgia N Speech Delay N Kidney Disease N Allergies/Hayfever N Heart Problems Y Anxiety N Migraines N Thyroid Problems N Developmental Delay N Anemia Y Immune System Disorder N Heart Attack (OR) N Other Skin Condition N Diabetes N Rhinitis N Bleeding Disorder Y Food Allergy N Hyperlipidemia N Dementia N Nasal polyps N Asthma N Sleep Disorder N GERD/Reflux Y Hypertension N Gynecological HistoryNo gynecological history recorded. Obstetrics History GPAL:G 0 P 0 0 0 0 Past Encounters Encounter ID Performer Location Encounter Start Date Encounter Closed Date Diagnosis/Indication Diagnosis SNOMED-CT Code Diagnosis ICD10 Code Diagnosis Note [id number] JOSE YADAV PA-C [facility] [address] [address] 06/14/2024 13:22:39 06/14/2024 13:46:14 Impacted cerumen of bilateral ears [id number] 399257 H61.23 [id number] JUANCHO WOOD HERNANDEZ [place] [address] [place] [address] [address] 07/23/2024 12:55:40 07/26/2024 09:51:39 Sensorineural hearing loss of bilateral ears [id number] H90.3 [id number] WANG MORENO MD [facility] [address] [address] 12/16/2024 10:42:02 12/16/2024 11:09:57 Impacted cerumen of bilateral ears [id number] 072807 H61.23 Sensorineu ral hearing loss of bilateral ears 594459120 H90.3 Health Concerns Section Related Observation LastModified by Organization Detai ls LastModified Time None Recorded Concern Status LastModified by Organization Details LastModified Time None Recorded Advance Directives Directive None Recorded Payers Insurance Date Sequence Insurance Name Policy Number Policy Mccormick Covered Member ID Mccormick Member ID Guarantor Name 12/16/2024 1 [employer] [id number] Macie Gregorio [id number] Macie Gregorio Notes Date Note Type Note Provider Name and Address Organization Details Recorded Time 06/14/2024 text/html 83-year-old fema nohelia presents for cerumen removal. No concerns today. 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 Had an episode of dizziness that has since resolved. VIKKI LEÓN MD 100 [facility],[address], [address], [place] - [facility] 06/14/2024 16:54:31 07/23/2024 text/html Doing well...Cortés s not feel that her hearing has changed so we did not update her HT at this time. Checked and cleaned aid. She will call as needed. JUANCHO WOOD 100 [facility] 100, [place], [address], [facility] - [facility] 07/23/2024 12:58:30 12/16/2024 text/html cerumen No concerns today.History of left sided Meniere's disease status post endolymphatic mastoid shunt surgery in 1966Right sided hearing aid PV 06/14/24 Jose Root cerumen removed WANG MORENO MD 100 [facility],[place] [address], [place], [address], [facility] - [facility] 12/16/2024 11:09:16 OBGyn Episode No OBEpisode recorded.
--- NOTE | 2025-03-07 12:59 | MHC.OFFVIS ---
Vital Signs 03/07/25 13:04 Height 5 ft 5 in Weight 194 lb 0.108 oz BMI 32.3 BP 160/75 H Blood Pressure Location Lt brachial Position Sitting Pulse 72 Intake Visit Reasons: Review imaging, 3 mos FUV. GERD w/ esophagitis Intake Note: Macie presents in the office as a 3 month follow up for for GERD and Esophagitis. CC: Sluice Tender Required: No Allergies amoxicillin [From Augmentin] Allergy (Severe, Verified 03/07/25 13:05) Rash clavulanic acid [From Augmentin] Allergy (Severe, Verified 03/07/25 13:05) Rash levofloxacin [From Levaquin] Allergy (Severe, Verified 03/07/25 13:05) Rash HPI Comments Details: 84 y.o F with PMH of who is here for second opinion for upper GI sx. Prev seen by Ivis Gorman. She mentions main CC is wheezing dunia at night time. Was seen by a database management specialist who recommended that she folow up with GI for large hiatal hernia. In the meantime has been using albuterol PRN that has been helping. Also on nexium 40 since nov. Does not have any dysphagia, odynophagia, regurgitation, nausea or vomiting. Last colo 5 years ago in [place] (moved in 2022 after her ). Barium swallow 11/2024: 1. Anterior cervical web noted just below the hypopharynx at the level of C4. 2. Moderate esophageal dysmotility. 3. Large type 3 paraesophageal hernia, with the majority the fundus located within the thoracic cavity. 4. Thickened appearance the gastric rugal folds. In addition there are multiple foci of contrast pooling in the fundus and body of the stomach. These findings are suggestive of erosive gastritis. Recommend correlation with EGD. [facility] Medical History Obesity (BMI 30-39.9) Insomnia Anemia Restless leg syndrome 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 History of colitis Hepatic hemangioma Hepatic cyst Osteoporosis Meniere's disease Large hiatal hernia Chronic kidney disease (CKD), stage III (moderate) Atherosclerosis of aorta History of recurrent deep vein thrombosis (DVT) (~12/2020) History of pulmonary embolism (~2016) History of deep vein thrombosis (DVT) of lower extremity (~2017) Pure hypercholesterolemia Benign essential hypertension Surgical History History of colonoscopy History of arthroplasty of left shoulder (~09/2022) History of arthroplasty of right hip (~12/2021) History of arthroplasty of right shoulder (~12/2020) S/P trigger finger release (~2019) History of total left hip arthroplasty (~2016) History of tubal ligation History of left oophorectomy Hx of parotidectomy History of ear surgery History of ankle surgery Family History Other Hypertension Social History Housing: Condominium Patient Tobacco Use Status: Former Tobacco user Years Smoked: quit 9 years ago e-Cigarette/Vaping Use: Never Used [email or web address] service: No Current occupational status: retired Current occupational exposures/hazards: No Cognitive needs: No Hearing needs: No Vision needs: No Review of Systems Const All systems reviewed & are unremarkable except as noted in HPI and below Physical Exam Vital Signs: Last Vital Signs Pulse 72 03/07/25 13:04 BP 160/75 H 03/07/25 13:04 BMI result Body Mass Index 32.3 No apparent distress Nonicteric Abdomen soft, nondistended Alert and oriented x3, normal gait Assessment & Plan Assessment & Plan (1) Upper esophageal web: Code(s): Q39.4 - Esophageal web Category: Medical (2) Erosive gastritis: Code(s): K29.60 - Other gastritis without bleeding Category: Medical (3) Hiatal hernia: Code(s): K44.9 - Diaphragmatic hernia without obstruction or gangrene Category: Medical (4) History of recurrent deep vein thrombosis (DVT): Onset Date: ~12/2020 Comment: initial DVT occurred in 2016 following hip surgery; recurred following right shoulder arthroplasty and s/p COVID vaccine in 12/2020 Code(s): Z86.718 - Personal history of other venous thrombosis and embolism Category: Medical (5) Osteoporosis: Comment: of hip (BMD in 08/2018 revealed T-score of -2.9) - started on Alendronate in 09/2018; repeat BMD last done 08/2021 Code(s): M81.0 - Age-related osteoporosis without current pathological fracture Category: Medical Qualifiers: Osteoporosis type: age-related Presence of current pathological fracture: without current pathological fracture Qualified Code(s): M81.0 - Age-related osteoporosis without current pathological fracture Plan Main concern is if the large hiatal hernia needs surgical evaluation. Recommend luminal visualization and also dilation of C4 esophageal web. Pt aware egd will be booked on an elective basis, based on findings can be referred to foregut surgery. Pt on eliquis for recurrent DVTs - aware to hold this for 2 days. Pt with known osteoporosis, will decrease nexium to 20 mg once daily from 40. Plan: - Decrease esomeprazole to 20 mg once daily - EGD with possible dilation to be booked - Pt aware to hold eliquis x 2 days - Referral to foregut surgery depending on findings of egd Follow up after egd Medications: Changed From esomeprazole magnesium (Nexium) 40 mg PO DAILY 30 caps 5RF K21.9 - Gastro-esophageal reflux disease without esophagitis To esomeprazole magnesium 20 mg PO DAILY 90 days 90 caps 1RF K21.9 - Gastro-esophageal reflux disease without esophagitis Coding Level of Care Code Est Pt Level 4 (12824) Diagnoses Upper esophageal web Q39.4 Erosive gastritis K29.60 Hiatal hernia K44.9 History of recurrent deep vein thrombosis (DVT) Z86.718 Age-related osteoporosis without current pathological fracture M81.0 Osteoporosis type: age-related Presence of current pathological fracture: without current pathological fracture
[2025-03-07 13:04] VITALS: BP 160/75; PULSE 72; BMI 32.3
== END 2025-03-07 14:31 | disposition home or self-care (01) ==
LOC: HO.HGI 12:46
PROVIDERS: PCP Internal Medicine; Visit Provider Internal Medicine
DX: Q39.4 Esophageal web (principal); K29.60 Other gastritis without bleeding; K44.9 Diaphragmatic hernia without obstruction or gangrene; Z86.718 Personal history of other venous thrombosis and embolism; M81.0 Age-related osteoporosis without current pathological fracture
CPT/HCPCS: 99214

== ENCOUNTER → 2025-03-07 12:45 | Outpatient (BNVA) | payer MEDICARE, SELFPAY | PROVIDERS: PCP Internal Medicine; Visit Provider Internal Medicine | DX: K44.9 Diaphragmatic hernia without obstruction or gangrene (principal); K29.60 Other gastritis without bleeding; Q39.4 Esophageal web; M81.0 Age-related osteoporosis without current pathological fracture; Z86.718 Personal history of other venous thrombosis and embolism | CPT/HCPCS: 99212 ==

== ENCOUNTER 2025-05-17 10:29 | Day surgery (SDC) | payer MEDICARE, SELFPAY ==
--- OUTSIDE RECORDS SUMMARY | 2023-04-08 05:32 | XMS_ITS | Continuity of Care Document ---
Author Organization [facility] Address [address] [place] [address] Phone Care Team Providers Care Linemarker Name Role Phone Randy Newman MD Unavailable [...] Diagnoses Date Provider Providers Copied on Encounter [facility], [address], [place], [place], [id number], [place] tel:[phone] LINH Lovett Greenskeeper Laborer No Information 3 Paty Padilla. [address] [place] [address], [id number] , [place]. tel:[phone] [facility], [address], [place], [place], [id number], [place] tel:[phone] [facility] Greens[facility] Lab[facility] No Information 3 Roshan Kee. [address] [place] [address], [id number] , . 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 [address] [place] [address], [id number] , [place]. tel:[phone] Referring Provider: Alisia Carvajal MD, [address] [place] [address], [address] . 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 [address] [place] [address], [id number] , . tel:[phone] Referring Provider: Alisia Carvajal MD, [address] [place] [address], [address] . 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 [address] [place] [address], [address] [place] [address] , . [phone] Referring Provider: Alisia Carvajal MD, [address] [place] [address], [address] . 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 [address] [place] [address], [address] [place] [address] , [place]. tel:[phone] Referring Provider: Alisia Carvajal MD, [address] [place] [address], [address] . 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 [address] [place] [address], [id number] , . [phone] Referring Provider: Alisia Carvajal MD, [address] [place] [address], [address] . 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 [address] [place] [address], [address] [place] [address] , [place]. [phone] Referring Provider: Alisia Carvajal MD, [address] [place] [address], [address] . tel:[phone] [facility], [place] [address], [place], [place], [address] [place] [address], tel:[phone] Nadeem Vallada[facility] Greenskeeper Laborer No Information 5 Wei Crump. [address] [place] [address], [address] [place] [address] , . [phone] Referring Provider: Alisia Carvajal MD, [address] [place] [address], [address] [place] [address] . tel:[phone] [facility] E&m Estab Pt; 65/> [facility], [place] [address], [place], [address] [place] [address], tel:[phone] Nadeem Valladares [facility] Greenskeeper Laborer annual exam (chief complaint) Encntr for forestry adviser exam (general) (routine) w/o abn findingsEncounter for screening for malignant neoplasm of cervix 5 Wei Crump. [address] [place] [address], [address] [place] [address] , . [phone] Referring Provider: Alisia Carvajal MD, [address] [place] [address], [address] . tel:[phone] [address] [address], [place], [address] [place] [address], tel:[phone] Nadeem Vallada[facility] Greenskeeper Laborer No Information 4 Wei Crump. [address] [place] [address], [address] [place] [address] , . tel:[phone] Referring Provider: Alisia Carvajal MD, [address] [place] [address], [address] . 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 [address] [place] [address], [address] [place] [address] , . tel:[phone] Referring Provider: Alisia Carvajal MD, [address] [place] [address], [address] . tel:[phone] [facility], [address], [place], [place], [id number], [place] tel:[phone] Nadeem Valladares [facility] Greenskeeper Laborer No Information 3 Wei Crump. [address] [place] [address], [address] [place] [address] , . [phone] Referring Provider: Alisia Carvajal MD, [address] [place] [address], [address] [place] [address] . 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 [address] [place] [address], [id number] , [place]. tel:[phone] Referring Provider: Alisia Carvajal MD, [address] [place] [address], [address] . tel:[phone] [facility], [address], [place], [place], [id number], tel:[phone] Nadeem Valladares [facility] Greenskeeper Laborer No Information 2 Wei Crump. [address] [place] [address], [id number] , [place]. tel:[phone] Referring Provider: Alisia Carvajal MD, [address] [place] [address], [address] . tel:[phone] [facility] E&m Estab Pt; 65/> [facility], [address], [place], [place], [id number], [place] tel:[phone] [facility] Greenskeeper Laborer annual visit (chief complaint) Screening PAP Only/pp Visit/obRoutine NAPKIN MACHINE OPERATOR Exam W/wo A Pap 2 Wei Crump. [address] [place] [address], [id number] , [place]. tel:[phone] Referring Provider: Alisia Carvajal MD, [address] [place] [address], [address] . tel:[phone] [facility], [address], [place], [place], [id number], [place] tel:[phone] Nadeem Valladares [facility] Greenskeeper Laborer No Information 1 Wei Crump. [address] [place] [address], [id number] , [place]. tel:[phone] Referring Provider: Alisia Carvajal MD, [address] [place] [address], [address] . tel:[phone] Offic/outpt E&m Estab Low-mod [facility], [address], [place], [place], [id number], [place] tel:[phone] LINH Valladares [facility] Greenskeeper Laborer consult (chief complaint) No Information 1 Wei Crump. [address] [place] [address], [id number] , [place]. tel:[phone] Referring Provider: Alisia Carvajal MD, [address] [place] [address], [address] . tel:[phone] [facility], [address], [place], [place], [id number], [place] tel:[phone] [facility] Greenskeeper Laborer No Information Sep-2 8 1 Wei Crump. [address] [place] [address], [address] [place] [address] , . tel:[phone] Referring Provider: Alisia Carvajal MD, [address] [place] [address], [address] . tel:[phone] [facility], [address], [address] [place] [address], tel:[phone] [facility] Greenskeeper Laborer No Information Sep-0 6 1 Wei Crump. [address] [place] [address], [address] [place] [address] , . tel:[phone] Referring Provider: Alisia Carvajal MD, [address] [place] [address], [address] [place] [address] . 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 [address] [place] [address], [address] [place] [address] , . [phone] Referring Provider: Alisia Carvajal MD, [address] [place] [address], [address] . tel:[phone] [facility], [address], [address] [place] [address], tel:[phone] [facility] Greenskeeper Laborer No Information Sep-0 2201 0 Wei Crump. [address] [place] [address], [address] [place] [address] , . tel:[phone] Referring Provider: Alisia Carvajal MD, [address] [place] [address], [address] . tel:[phone] [facility], [address], [place], [address] [place] [address], tel:[phone] [facility] Greenskeeper Laborer annual visit (chief complaint) Colon/ Rectal CA Screening Jun-0 0 Wei Crump. [address] [place] [address], [address] [place] [address] , . [phone] Referring Provider: Alisia Carvajal MD, [address] [place] [address], [address] [place] [address] . tel:[phone] [facility] Meds E&m Estab Pt; 65/> [facility], [facility] [address], [place], [address] [place] [address], tel:[phone] Nadeem Rodrigo Jacquelyn [facility] Greenskeeper Laborer annual visit (chief complaint) No Information 9 Wei Crump. [address] [place] [address], [address] [place] [address] , . [phone] Referring Provider: Alisia Carvajal MD, [address] [place] [address], [address] . tel:[phone] [facility], [facility] [address], [place], [address] [place] [address], [place] tel:[phone] [facility] Greenskeeper Laborer No Information 8 Wei Crump. [address] [place] [address], [address] [place] [address] , [place]. [phone] [facility] Med[facility] E&m Estab Pt; 65/> [facility], [address], [place], [address] [place] [address], [place] tel:[phone] [facility] Greenskeeper Laborer No Information 8 Wei Crump. [address] [place] [address], [address] [place] [address] , [place]. tel:[phone] Referring Provider: Alisia Carvajal MD, [address] [place] [address], [address] . tel:[phone] [facility], [address], [place], [address] [place] [address], tel:[phone] Nadeem Rodrigo [facility] Greenskeeper Laborer No Information 7 Wei Crump. [address] [place] [address], [address] [place] [address] , . tel: [phone] [facility] E&m Estab Pt; 40-6 [facility], [address] [facility], [place], [place], [address] [place] [address], tel:[phone] Nadeem [facility] Greenskeeper Laborer annual visit (chief complaint) No Information 7 Wei Crump. [address] [place] [address], [address] [place] [address] , . tel:[phone] [facility], [address] [address], [place], [address] [place] [address], tel:[phone] Nadeem [facility] Greenskeeper Laborer annual visit (chief complaint) No Information 6 Wei Crump. [address] [place] [address], [address] [place] [address] , . tel: [phone] [facility], [address] [facility], [place], [place], [address] [place] [address], tel:[phone] [facility] Greenskeeper Laborer annual visit (chief complaint) No Information 200 5 Wei Crump. [address] [place] [address], [address] [place] [address] , . tel: [phone] Family History Family Member Type Diagnosis Age At Onset Sister Problem (finding) Myocardial infarction Problem (finding) Family history of hyper tension Paternal aunt Problem (finding) breast cancer Maternal grandmother Problem (finding) Heart disease Sister Problem (finding) renal failure syndrome Payers Payer name Insurance type Covered democrat ID Authoriza tion(s) [employer] Medicare PPO 16 [id number] Social History Type Description Quantity Date Captured Comments Alcohol Use Details Unknown Caffeine Use Details Unknown Tobacco Use Status No Information Smoking Status No Information Sex Female Sexual Orientation Straight or heterosexual Chief Complaint And Reason For Visit No Information Reason For Referral Reason For Referral No Information Plan Of Treatment Date Type Action Status Goal Unhealthy drug u se screening. Due on due Goal Zoster vaccine (1st). Due on due Goal DEXA Scan. Due on due Goal Colonoscopy. Due on due Goal Colonoscopy. Due on due Goal Zoster vaccine (). Due on due Goal Unhealthy drug u se screening. Due on due Goal DEXA Scan. Due on 3 due Goal Colonoscopy. Due on due Goal DEXA Scan. Due on 3 due Goal Zoster vaccine (1st). Due on due Goal Colonoscopy. Due on due Goal DEXA Scan. Due on 3 due Goal Zoster vaccine (). Due on due Goal Colonoscopy. Due on due Goal Lipid Panel. Due on due Goal DEXA Scan. Due on 3 due Goal Lipid Panel. Due on due Goal Colonoscopy. Due on due Goal Mammogram. Due on 9 due Goal DEXA Scan. Due on 3 due Goal Lipid Panel. Due on due Goal DEXA Scan. Due on 3 due Goal Colonoscopy. Due on 022 due Goal Mammogram. Due on 8 due Goal DEXA Scan. Due on 3 due Goal DEXA Scan. Due on 3 due Goal Mammogram. Due on 5 due Goal Lipid Panel. Due on 019 due Goal DEXA Scan. Due on 3 due Goal DEXA Scan. Due on 3 due Goal FOBT. Due on due Goal Influenza Vaccine. Due on due Goal Mammogram. Due on 3 due Goal Pneumococcal Vaccine. Due on due Goal H&P. Due on due Goal Lipid Panel. Due on 011 due Goal TD Vaccine. 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
--- OUTSIDE RECORDS SUMMARY | 2025-02-01 10:00 | XMS_ITS ---
Author Organization [facility] Address [address] [place] [address] Care Team Providers Care Table Cover Folder Name Role Phone Shekhar Yonug MD Primary Care Provider Unava ilKiki Constantino [phone] Encounters Encounter Location Date Provider Diagnosis [address] [address] 02/01/2025 Kiki Bledsoe Plan Of Treatment No Information Progress Notes * Javier GREGORIOisDOB:1940 ([age] yo F)Acc No.[id number]:02/01/2025 Progress Notes Patient: Macie PANG Provider: Lorna Bledsoe DPM :1940 A ge:84 Y S ex:Female Date:02/01/2025 Address:[address] [place], [place] Pcp:Shekhar Young MD Subjective: * Chief Complaints: [...] 0 02/01/2025 Generated for Printi ng/Faxing/eTransmitting on: 05/13/2025 02:39 PM EDT
--- OUTSIDE RECORDS SUMMARY | 2025-05-13 14:40 | XMS_ITS | Clinical Summary ---
Author Organization [facility] Address [address] [place] [address] Phone Care Team Providers Care Community Coordinator For [employer] Name Role Phone Stephen Harrison MD Primary [...] 66 10/10/2022 11:14 AM EST Temperature 36.6 C (97.9 F) 10/10/2022 11:14 AM EST Respiratory Rate 18 10/10/2022 11:14 AM EST [...] 04/30/2021 Social Influencers of Health Screening 04/30/2021 Hypertension/CHF/CAD Annual BMP Blood Test 10/10/2023 10/10/2022, 10/09/2022, 09/25/2022, Additional history exists COVID-19 Vaccine ( season) 2024 07/24/2022, 02/26/2022, 07/14/2021, Additional history exists Depression Screening 10/20/2024 DTaP,Tdap,and Td Vaccines (2 - Td or Tdap) 02/21/2025 02/21/2015 Influenza Vaccine (#1) 2025 , 07/30/2021, 07/29/2020, Additional history exists Cholesterol Screening [...] this topic Medical Devices Implanted Type Area Student Services Vice President Device Identifier Shelf Expiration Date Model / Serial / Lot Reversed Multi Direction Lock Screw 4.5x20mm - Sn/A - [id number] Implanted:Qty: 1 on 10/09/2022 by Francis Brown MD at [facility] Internal and External Fixation Left: Shoulder [employer]- [employer] [id number] / N/A / N/A Reversed Multi Direction Lock Screw 4.5x23mm - Sn/A - [id number] Implanted:Qty: 2 on 10/09/2022 by Francis Brown MD at [facility] Internal and External Fixation Left: Shoulder [employer] [id number] / N/A / N/A Reversed Multi Direction Lock Screw 4.5x26mm - Sn/A - [id number] Implanted:Qty: 1 on 10/09/2022 by Francis Brown MD at [facility] Internal and External Fixation Left: Shoulder [employer] [id number] / N/A / N/A Reverse Baseplate 2 Line Extension [id number] - [id number] - [id number] Implanted:Qty: 1 on 10/09/2022 by Francis Brown MD at [facility] Joints Shoulder Left: Shoulder [employer] [id number] 01/18/2027 [id number] / [id number] / N/A Glenoid Sphere Centered 36 Mm,25mm Baseplate - [id number] - [id number] Implanted:Qty: 1 on 10/09/2022 by Francis Brown MD at [facility] Joints Shoulder Left: Shoulder [employer] 07/29/2027 [id number] / [id number] / N/A Tray Flex Rev Shldr Sys +0 - [id number] - [id number] Implanted:Qty: 1 on 10/09/2022 by Francis Brown MD at [facility] Shoulder Left: Shoulder [employer] 09/06/2027 [id number] / [id number] / N/A Shoulder Insrt Rev 36 6/12.5 B - [id number] - [id number] Implanted:Qty: 1 on 10/09/2022 by Francis Brown MD at [facility] Shoulder Left: Shoulder [employer] 05/27/2027 [id number] / [id number] / N/A Shoulder Stem Hum Ptc Flx 5b - [id number] - [id number] Implanted:Qty: 1 on 10/09/2022 by Francis Brown MD at [facility] Shoulder Left: Shoulder [employer] 02/06/2027 [id number] / [id number] / N/A Procedures Procedure Name Priority Date/Time Associated Diagnosis Comments BASIC METABOLIC PANEL Routine 10/10/2022 3:37 AM EST from Last 3 Months or Most Recently Relevant to Health Maintenance Results * (ABNORMAL) Basic metabolic panel (10/10/2022 3:37 AM EST) Sodium 135(L) 136 - 145 mmol/L LAB CHEMISTRY METHOD 10/10/2022 5:25 AM EST [facility] Potassium 4.5 3.6 - 5.1 mmol/L LAB CHEMISTRY METHOD 10/10/2022 5:25 AM EST [facility] Chloride 104 98 - 107 mmol/L LAB CHEMISTRY METHOD 10/10/2022 5:25 AM EST [facility] CO2 26 22 - 32 mmol/L LAB CHEMISTRY METHOD 10/10/2022 5:25 AM EST [facility] Anion Gap 5(L) 6 - 18 LAB CHEMISTRY METHOD 10/10/2022 5:25 AM EST [facility] Glucose 139(H) 70 - 99 mg/dL LAB CHEMISTRY METHOD 10/10/2022 5:25 AM EST [facility] BUN 25(H) 8 - 20 mg/dL LAB CHEMISTRY METHOD 10/10/2022 5:25 AM EST [facility] Creatinine 0.98 0.60 - 1.30 mg/dL LAB CHEMISTRY METHOD 10/10/2022 5:25 AM EST [facility] eGFR 59(L) >=60 mL/min/1. 73m2 LAB CHEMISTRY METHOD 10/10/2022 5:25 AM EST [facility] Comment:Effective July 28, 2022, calculation based on the Chronic Kidney Disease Epidemiology Collaboration (CKD-EPI) equation refit without adjustment for race. BUN/Creatinine Ratio 25.5(H) 12.0 - 20.0 LAB CHEMISTRY METHOD 10/10/2022 5:25 AM [facility] Calcium 9.0 8.9 - 10.3 mg/dL LAB CHEMISTRY METHOD 10/10/2022 5:25 AM [facility] Blood Venous blood specimen / Unknown Venipuncture / Unknown 10/10/2022 3:37 AM EST 10/10/2022 4:58 AM EST us Alan BLAKELY LAB BLOOD ORDERABLES Final Resul t [facility] [address] [place] [address] from Last 3 Months or [...] currently active code status orders. Care Teams Community Coordinator For [employer] Relationship Specialty Start Date End Date Stephen Harrison MD PCP - General 12/17/22
--- OUTSIDE RECORDS SUMMARY | 2025-05-13 14:40 | XMS_ITS | Clinical Summary ---
Author Organization [facility] Address [address] [facility] [address] [place] [address] Phone Care Team Providers Care Computer Systems Engineer Name Role Phone Shekhar Young MD Primary Care Provider [phone] Allergies Active Allergy Reactions Criticality Noted Date [...] that she was diagnosed with anemia in [place] and given IV iron, since she could [...] surgery. During the visit I reviewed prior ordnance truck installation mechanic record from [place], they have her on prophylaxis 2.5 mg BID dose. In case she has AF she would probably need to move up to 5 mg BID based on weight but we would need to check Cr (I am checking today) to confirm dose. If no new diagnosis, ok to keep 2.5 mg BID given this has been already determined by ordnance truck installation mechanic. Borderline high blood pressure 08/12/2023 Assessment & [...] EDT) SODIUM 143 135 - 145 mmol/L [facility] POTASSIUM 4.2 3.4 - 5.0 mmol/L [facility] CHLORIDE 106 98 - 108 mmol/L [facility] CO2 26 23 - 32 mmol/L [facility] BUN 20 8 - 25 mg/dL [facility] CREATININE 1.20 0.60 - 1.50 mg/dL [facility] GLUCOSE 86 70 - 110 mg/dL [facility] CALCIUM 9.9 8.5 - 10.5 mg/dL [facility] EGFR 45(L) >59 mL/min/1.7 3m2 [facility] Comment:Estimated glomerular filtration rate calculated using the CKD-EPI refit equation. ANION GAP 11 3 - 17 mmol/L [facility] Blood 05/21/2024 3:11 PM EDT 05/21/2024 5:14 PM EDT us Chilango Gonzáles MD, MPhil LAB BLOOD ORDERABLES Fin al Result [facility] [address] [place] [address] from Last 3 Months or Most Recently Relevant to Health Maintenance Insurance [employer] PPO AENA PPO AET[employer] PPO AET[employer] PPO [employer] PPO [employer] PPO Care Teams Computer Systems Engineer Relationship Specialty Start Date End Date Shekhar Young MD [address] [place] [address] Dr [facility] [address] PCP - General Internal Medicine 08/28/23 Additional Source Comments The information contained in this document represents components of the legal health record. It is not the complete legal health record.[facility]
--- OUTSIDE RECORDS SUMMARY | 2025-05-13 14:40 | XMS_ITS | Data Portability ---
Author Organization [place] - [facility], Allergy Address [address] [address] Care Team Providers Care Press Loader Name Role Phone KWASI CANELA Primary Care Provider [phone] Assessment Encounter Date Assessment Date Assessment LastModified by Organization Details LastModified Time 06/14/2024 06/14/2024 83-year-old female presents for cerumen removal. Cerumen impaction removed bilaterally. Bilateral TMs are intact. Follow up in 6 months for routine debridement, or sooner if needed. [email or web address] Not available 06/14/2024 13:36:41 12/16/2024 12/16/2024 Ears [...] ation record ed. [email or web address] Not Available 11:44:51 06/09/20 24 08/15/2023 audio gram No observ ation record ed. [email or web address] Not Available 11:44:57 06/09/20 24 09/02/2023 audio gram No observ ation record ed. [email or web address] Not Available 11:44:58 06/09/20 24 09/22/2023 audio gram No observ ation record ed. [email or web address] Not Available 11:45:01 06/09/20 24 10/15/2023 audio gram No observ ation record ed. [email or web address] Not Available 11:45:02 Result Notes None recorded. Problems Name Problem SNOMED Code Status Onset Date Resolution Date Notes Provider Name and Address Organization Details Recorded Time Sensorine ural hearing loss of bilateral ears 984304737 Active 2022 Sensorine ural hearing loss, bilateral ; Note: Date Diagnosed : 06/26/2023 5:34 PM (H90.3) Not Available [facility] 03:27:49 Impacted cerumen of bilateral ears 26682652302 54771 Active 2022 Impacted cerumen, bilateral ; Note: Date Diagnosed : 06/26/2023 4:24 PM (H61.23) Not Available [facility] 4 03:27:49 Problem Notes None recorded. Procedures Surgical History Date Name Laterality Status Provider Name and Address Organization Details Recorded Time 5 Wax_DP completed WANG MORENO MD [facility], [place], [address], [place] - [facility] 12/14/2024 17:19:46 4 Cerumen removal without microscope bilat completed JOSE YADAV PA-C [facility] [place], [place], [address], [facility] - [facility] 06/14/2024 13:36:20 Imaging Results None recorded. Procedure Notes None recorded. Medical Equipment None Reported. Allergies Allergen ID Allergen Name Allergen Category Reaction Reaction Severity Criticality Documentation Date Start Date Code Code System Note Provider Name and Address Organization Details Recorded Time [id number] Augmentin medicatio n other Not available Not available 03/02/2024 46055 2 RxNorm React ion: Unkno wn; Not Available [facility] 4 01:18:47 [id number] Levaquin medicatio n other Not available Not available 03/02/2024 14424 2 RxNorm React ion: Unkno wn; Not Available [facility] 4 01:18:48 Medications Name Sig Start Date [...] Details Last Updated DateTime 12/16/2024 165.1 cm 71833.59 g Mary Lou Álvarez [facility] 12/16/2024 10:57:15 Date Recorded Body height Body mass index (BMI) Body weight Provider Name and Address Organization Details Last Updated DateTime 06/14/2024 165.1 cm 31.5 kg/m2 90247.96 g Jesenia De La Garza [facility] 06/14/2024 13:30:15 Social History None recorded. Functional Status None recorded. Mental Status None recorded. Family History Nothing Reported. Medical History Condition Response Allergies/Hayfever N Heart Problems Y Anxiety N Tonsil Infections N Emphysema N Migraines N Thyroid Problems N Glaucoma Y Developmental Delay N Depression N COPD N Nasal or Sinus Problems N Anemia Y Immune System Disorder N Anesthesia Complications Y Heart Attack ([place]) N Other Skin Condition N Diabetes N Rhinitis N Bleeding Disorder Y Food Allergy N Hearing Loss Y Arthritis Y Hyperlipidemia N Cancer N Stroke N Dementia N Nasal polyps N Asthma N Sleep Disorder N High Cholesterol N GERD/Reflux Y Liver Disease N Headaches N Fibromyalgia N Hypertension N Speech Delay N Kidney Disease N Gynecological HistoryNo gynecological history recorded. Obstetrics History GPAL:G 0 P 0 0 0 0 Past Encounters Encounter ID Performer Location Encounter Start Date Encounter Closed Date Diagnosis/Indication Diagnosis SNOMED-CT Code Diagnosis ICD10 Code Diagnosis Note [id number] JOSE YADAV PA-C [facility] [address] [address] 06/14/2024 13:22:39 06/14/2024 13:46:14 Impacted cerumen of bilateral ears [id number] 562853 H61.23 [id number] [facility] [facility] [place] [address] [facility], [facility] [address] [place] [address] 07/23/2024 12:55:40 07/26/2024 09:51:39 Sensorineural hearing loss of bilateral ears 016974509 H90.3 [id number] WANG MORENO MD [facility] [address] [address] 12/16/2024 10:42:02 12/16/2024 11:09:57 Impacted cerumen of bilateral ears 4342965403 875660 H61.23 Sensorineu ral hearing loss of bilateral ears 139698259 H90.3 Health Concerns Section Related Observation LastModified by Organization Detai ls LastModified Time None Recorded Concern Status LastModified by Organization Details LastModified Time None Recorded Advance Directives Directive None Recorded Payers Insurance Date Sequence Insurance Name Policy Number Policy Mccormick Covered Member ID Mccormick Member ID Guarantor Name 12/16/2024 1 [employer] [id number] Macie Gregorio [id number] Macie Gregorio Notes Date Note Type Note Provider Name and Address Organization Details Recorded Time 06/14/2024 text/html ROS as noted in the HPI 83-year-old female presents for cerumen removal. No concerns today. 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 Had an episode of dizziness that has since resolved. VIKKI LEÓN MD [address] [facility],[place] [address], [place], [address], [facility] - [facility] 06/14/2024 16:54:31 07/23/2024 text/html Doing well...Does not feel that her hearing has changed so we did not update her HT at this time. Checked and cleaned aid. She will call as needed. JUANCHO WOOD [address] [facility],[place] [address], [place], [address], [facility] - [facility] 07/23/2024 12:58:30 12/16/2024 text/html ROS as noted in the HPI cerumen No concerns today.History of left sided Meniere's disease status post endolymphatic mastoid shunt surgery in 1966Right sided hearing aid PV 06/14/24 Jose - Ivett cerumen removed WANG MORENO MD [address] [place] [address], [place], [address], [facility] - [facility] 12/16/2024 11:09:16 OBGyn Episode No OBEpisode recorded.
--- NOTE | 2025-05-16 12:25 | HO.ANESPROP2 ---
HPI - Anesthesia Eval Consult details Narrative: 84yo F for Upper Endoscopy with Balloon Dilitation Eliquis for hx DVT No labs available by chart review at [facility], [facility]. Will order DOS for CKD St 3 Anesthesia Pre-Procedure Meds Is the patient on any of the following meds?: GLP1/DPP4 PMFSH Active Problems Active Problems: All Active Problems Upper esophageal web (Acute) Hiatal hernia (Acute) Erosive gastritis (Acute) Wheezing (Acute) Recurrent vertigo (Acute) Upper respiratory infection (Acute) Dyspnea (Acute) Edema (Acute) Left sided abdominal pain (Acute) Palpitations (Acute) Obesity (BMI 30-39.9) (Acute) Insomnia (Acute) History of recurrent deep vein thrombosis (DVT) (Acute ~12/2020) Atherosclerosis of aorta (Acute) Anemia (Acute) Restless leg syndrome (Acute) Osteoarthritis of multiple joints (Acute) Osteoporosis (Acute) Meniere's disease (Acute) Large hiatal hernia (Acute) Chronic kidney disease (CKD), stage III (moderate) (Acute) Pure hypercholesterolemia (Acute) Benign essential hypertension (Acute) Past Medical History Medical History Obesity (BMI 30-39.9) Insomnia Anemia Restless leg syndrome 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 History of colitis Hepatic hemangioma Hepatic cyst Osteoporosis Meniere's disease Large hiatal hernia Chronic kidney disease (CKD), stage III (moderate) Atherosclerosis of aorta History of recurrent deep vein thrombosis (DVT) (~12/2020) History of pulmonary embolism (~2016) History of deep vein thrombosis (DVT) of lower extremity (~2016) Pure hypercholesterolemia Benign essential hypertension Family History Family History Other Hypertension Surgical History Surgical History (Updated 05/25/25 @ 10:20 by ARIADNE Allen) History of esophagogastroduodenoscopy (EGD) History of colonoscopy History of arthroplasty of left shoulder (~09/2022) History of arthroplasty of right hip (~12/2021) History of arthroplasty of right shoulder (~12/2020) S/P trigger finger release (~2018) History of total left hip arthroplasty (~2016) History of tubal ligation History of left oophorectomy Hx of parotidectomy History of ear surgery History of ankle surgery Social History Social History Housing: Condominium Patient Tobacco Use Status: Former Tobacco user Years Smoked: quit 9 years ago e-Cigarette/Vaping Use: Never Used service: No Current occupational status: retired Current occupational exposures/hazards: No Cognitive needs: No Hearing needs: No Vision needs: No Meds Allergies Allergy/AdvReac Type Severity Reaction Status Date / Time amoxicillin (From Augmentin) Allergy Severe Rash Verified 05/25/25 10:20 clavulanic acid (From Allergy Severe Rash Verified 05/25/25 10:20 Augmentin) levofloxacin (From Levaquin) Allergy Severe Rash Verified 05/25/25 10:20 Home Medications ?Medication ?Instructions ?Recorded ?Confirmed ?Last Taken ?Type calcium 600 mg (as 1 tab PO BID 04/11/23 01/26/25 Unknown History carbonate)-vitamin D3 10 mcg (400 unit) tablet (Calcium with Vitamin D) cholecalciferol (vitamin D3) 50 50 mcg PO DAILY 04/11/23 01/26/25 Unknown History mcg (2,000 unit) capsule propranolol 60 mg capsule,24 60 mg PO DAILY 04/12/24 01/26/25 Unknown History hr,extended release Assessment and Plan Assessment Anesthesia Assessment: Chart Reviewed
--- NOTE | 2025-05-17 10:55 | HO.ANESPROP2 ---
[facility] Active Problems Active Problems: All Active Problems (Updated 03/07/25 @ 13:29 by Beth Perea MD) Upper esophageal web (Acute) Hiatal hernia (Acute) Erosive gastritis (Acute) Wheezing (Acute) Recurrent vertigo (Acute) Upper respiratory infection (Acute) Dyspnea (Acute) Edema (Acute) Left sided abdominal pain (Acute) Palpitations (Acute) Obesity (BMI 30-39.9) (Acute) Insomnia (Acute) History of recurrent deep vein thrombosis (DVT) (Acute ~12/2020) Atherosclerosis of aorta (Acute) Anemia (Acute) Restless leg syndrome (Acute) Osteoarthritis of multiple joints (Acute) Osteoporosis (Acute) Meniere's disease (Acute) Large hiatal hernia (Acute) Chronic kidney disease (CKD), stage III (moderate) (Acute) Pure hypercholesterolemia (Acute) Benign essential hypertension (Acute) Past Medical History Medical History Obesity (BMI 30-39.9) Insomnia Anemia Restless leg syndrome 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 History of colitis Hepatic hemangioma Hepatic cyst Osteoporosis Meniere's disease Large hiatal hernia Chronic kidney disease (CKD), stage III (moderate) Atherosclerosis of aorta History of recurrent deep vein thrombosis (DVT) (~12/2020) History of pulmonary embolism (~2016) History of deep vein thrombosis (DVT) of lower extremity (~2016) Pure hypercholesterolemia Benign essential hypertension Functional capacity: independent ambulation Patient : No Family History Family History Other Hypertension Family history of problems with anesthesia: No Surgical History Surgical History History of colonoscopy History of arthroplasty of left shoulder (~09/2022) History of arthroplasty of right hip (~12/2021) History of arthroplasty of right shoulder (~12/2020) S/P trigger finger release (~2018) History of total left hip arthroplasty (~2016) History of tubal ligation History of left oophorectomy Hx of parotidectomy History of ear surgery History of ankle surgery History of Problems with Anesthesia: No Social History Social History Housing: Condominium Patient Tobacco Use Status: Former Tobacco user Years Smoked: quit 9 years ago e-Cigarette/Vaping Use: Never Used service: No Current occupational status: retired Current occupational exposures/hazards: No Cognitive needs: No Hearing needs: No Vision needs: No Meds Allergies Allergy/AdvReac Type Severity Reaction Status Date / Time amoxicillin (From Augmentin) Allergy Severe Rash Verified 03/07/25 13:05 clavulanic acid (From Allergy Severe Rash Verified 03/07/25 13:05 Augmentin) levofloxacin (From Levaquin) Allergy Severe Rash Verified 03/07/25 13:05 Active Medications: Current Medications Lactated Ringer's (Lr) 1,000 mls @ 100 mls/hr IVCONT .Q10H ANNAMARIE Home Medications ?Medication ?Instructions ?Recorded ?Confirmed ?Last Taken ?Type calcium 600 mg (as 1 tab PO BID 04/11/23 01/26/25 Unknown History carbonate)-vitamin D3 10 mcg (400 unit) tablet (Calcium with Vitamin D) cholecalciferol (vitamin D3) 50 50 mcg PO DAILY 04/11/23 01/26/25 Unknown History mcg (2,000 unit) capsule propranolol 60 mg capsule,24 60 mg PO DAILY 04/12/24 01/26/25 Unknown History hr,extended release Exam Airway Mallampati Class: II TM Dist: >3cm Neck ROM: Full Heart: RRR Lungs: CTA Assessment and Plan Final Anesthetic Review Family History of Problems with Anesthesia: No History of Problems with Anesthesia: No NPO: Yes ASA Class: II and III Final Preanesthetic Review: Meds/Allgs Chart Reviewed, Consent Obtained/Reviewed and Anes Risks/Benef Reviewed Patient Risk: Intermediate Procedure Risk: Low Anesthetic Plan Anesthetic Plan: MAC: Disposition: Standard PACU
[2025-05-17 10:57] VITALS: BP 148/87; PULSE 79; RESP 16; TEMP 36.6; O2SAT 97; BMI 33.6
[2025-05-17] MEDS: Lactated Ringers 1,000 ML 100 ML IVCONT (11:02)
[2025-05-17 11:10] LABS: Hematocrit 41.7 % (37.0-47.0); Hemoglobin 13.3 g/dl (12.0-16.0); Mean Corpuscular HGB Conc 31.9 g/dl (31.0-35.0); Mean Corpuscular Hemoglobin 26.4 pg (27.0-33.0); Mean Corpuscular Volume 82.7 fL (80.0-98.0); NRBC Abs Auto 0.000 X10*3/uL (0.0-0.012); NRBC Pct Auto 0.0 /100WBC (0.0-0.2); Platelet Count 185 X10*3/uL (160-400); Red Blood Count 5.04 X10*6/uL (4.20-5.50); White Blood Count 4.8 X10*3/uL (4.8-10.8)
[2025-05-17 11:21] LABS: Anion Gap 10 (12-20); Blood Urea Nitrogen 17 mg/dL (9-16); Calcium 9.3 mg/dL (8.4-10.2); Carbon Dioxide 29 mmol/L (22-29); Chloride 111 mmol/L (96-108); Creatinine Clr Calc Pharmacy 43.3; Estimated Glomerular Filt Rate 47; Potassium 4.6 mmol/L (3.3-5.1); Sodium 145 mmol/L (135-145)
--- NOTE | 2025-05-17 11:24 | MHC.SHP ---
Pre-Procedural Eval Section A - 24 Hr Update-Section A only Date of Service: 05/17/25 The patient is an INPATIENT: No The patient has been examined within 24 hours of the surgical procedure. 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 History of colitis Hepatic hemangioma Hepatic cyst Osteoporosis Meniere's disease Large hiatal hernia Chronic kidney disease (CKD), stage III (moderate)) History of Previous Operations: Relevant previous surgery/procedure and date(s) (History of colonoscopy History of arthroplasty of left shoulder (~09/2022) History of arthroplasty of right hip (~12/2021) History of arthroplasty of right shoulder (~12/2020) S/P trigger finger release (~2018) History of total left hip arthroplasty (~2016) History of tubal ligation History of left ) Allergies: Allergies Allergy/AdvReac Type Severity Reaction Status Date / Time amoxicillin (From Augmentin) Allergy Severe Rash Verified 03/07/25 13:05 clavulanic acid (From Allergy Severe Rash Verified 03/07/25 13:05 Augmentin) levofloxacin (From Levaquin) Allergy Severe Rash Verified 03/07/25 13:05 Review of Systems Sugical H&P ROS: Negative: Constitution, Cardiovascular, Respiratory and Gastrointestinal Exam Surgical H&P Exam: Normal: Heart, Normal: Lungs, Normal: Extremities and Normal: Abdomen Plan Diagnosis/Plan: Unchanged I have reviewed the history and physical and performed a pertinent physical examination on my patient. No changes have occurred unless specified. Time Spent With Patient Time: Total time managing care of this patient today ____ minutes.
--- NOTE | 2025-05-17 12:10 | W.PM.OPN ---
Operative Note Operative Note Date of Service: 05/17/25 Narrative: FLEXIBLE TRANSORAL UPPER GASTROINTESTINAL ENDOSCOPY WITH BIOPSIES AND ESOPHAGEAL BALLOON DILATION Pre-op diagnosis: GERD, Dysphagia Post-op diagnosis: GERD, Hiatal hernia, Roberth's ulcers, Gastritis, gastric polyps Endoscopist:? Claribel Ugalde MD Anesthesia:?MAC UPPER ENDOSCOPY Consent: Indications for the procedure and potential complications of bleeding, perforation, reaction to medications and missed diagnosis were discussed with the patient and informed consent was obtained. Instrument: Olympus GIF H 190 mid size upper endoscope Monitoring: Vital signs and clinical assessment, continuous EKG monitoring, Pulse oximetry, Carbon Dioxide monitoring and blood pressure monitoring were done throughout the procedure. Procedure: The patient was placed in the left lateral decubitis position and pre-procedure medications were administered and a bite block was placed. The endoscope was inserted into the mouth and advanced under direct vision to the third part of duodenum. A careful inspection was made as the upper endoscope was withdrawn including a retroflexed examination of the proximal stomach; Findings and interventions are described below. Findings: Larynx: Normal Esophagus: GE junction at 30 cms, large hiatal hernia 30 -36 cms with linear ulcers on gastric side. Tortuous esophagus without stricture or ring. Balloon dilation of upper esophageal sphincter was performed with a 16.5 mm CRE balloon x 60 seconds Stomach: A few 5 to 15 mm benign appearing polyps in the hiatal hernia sac - biopsied. Mild gastric antral erythema - biopsies were obtained from the antrum. Grade 4 flap valve on retroflexed examination of the cardia. Duodenum: Normal bulb and descending duodenum Intervention: Biopsies as noted above Impression and Post Procedure Diagnosis: Endoscopy Findings: ESOPHAGUS: Large hiatal hernia 30 -36 cms with linear ulcers on gastric side. Tortuous esophagus without stricture or ring. STOMACH: Gastric polyps and gastritis DUODENUM: Normal Plan: Pt to schedule a FU appointment with Dr Perea Consider referral to thoracic surgery for repair of para-esophageal hernia as planned by Dr Perea. Above findings were reviewed with the patient and relevant handouts were given and the discharge area. BIOPSIES SHOWED: A. Gastric antrum, biopsy: Gastric antral mucosa with ectatic vessels, reactive changes, and focal minimal chronic inactive inflammation; negative for H. pylori, intestinal metaplasia and dysplasia. B. Gastric polyp, biopsy: Fundic gland polyp with focal minimal chronic inactive inflammation; negative for H. pylori, intestinal metaplasia and dysplasia.
[2025-05-17 12:13] VITALS: BP 101/45; PULSE 73; RESP 16; TEMP 36.1; O2SAT 95
[2025-05-17 12:28] VITALS: BP 131/64; PULSE 72; RESP 18; TEMP 36.7; O2SAT 100
--- NOTE | 2025-05-17 14:28 | HO.POSTANES ---
Post Anesthesia Evaluation Post Anesthesia Evaluation Date of Service: 05/17/25 Vital Signs: Vital Signs Temp Pulse Resp BP Pulse Ox O2 Del Method 05/17/25 12:28 98.1 F 72 18 131/64 100 Room Air 05/17/25 12:13 97 F 73 16 101/45 L 95 Room Air 05/17/25 10:57 97.8 F 79 16 148/87 H 97 Room Air Anesthesia: Monitored Mental Status: Awake Pain Control: Satisfactory Nausea/Vomiting: None Hydration: Adequate Anesthesia-Related Issues: No Anes. Related Issues
== END 2025-05-17 12:51 | disposition home or self-care (01) ==
PROVIDERS: Nurse Practitioner; PCP Internal Medicine; Visit Provider Internal Medicine Gastroenterology
PROC: (CPT 43249; principal; 2025-05-17 10:00)
DX: K21.9 Gastro-esophageal reflux disease without esophagitis (principal); K29.50 Unspecified chronic gastritis without bleeding; K25.9 Gastric ulcer, unspecified as acute or chronic, without hemorrhage or perforation; Q39.4 Esophageal web; K22.89 Other specified disease of esophagus; K44.9 Diaphragmatic hernia without obstruction or gangrene; K31.7 Polyp of stomach and duodenum; D64.9 Anemia, unspecified; E78.00 Pure hypercholesterolemia, unspecified; I12.9 Hypertensive chronic kidney disease with stage 1 through stage 4 chronic kidney disease, or unspecified chronic kidney disease; N18.30 Chronic kidney disease, stage 3 unspecified; M81.0 Age-related osteoporosis without current pathological fracture; E66.9 Obesity, unspecified; Z68.32 Body mass index [BMI] 32.0-32.9, adult; Z86.718 Personal history of other venous thrombosis and embolism; Z86.711 Personal history of pulmonary embolism; Z88.1 Allergy status to other antibiotic agents; Z79.01 Long term (current) use of anticoagulants; Z87.891 Personal history of nicotine dependence; Z98.890 Other specified postprocedural states
CPT/HCPCS: 43249; 43239; 36415; 80048; 85027; 88305; 88342; C1726; J2003; J2371; J2704

== ENCOUNTER → 2025-05-17 10:29 | Outpatient (BNV) | payer MEDICARE, SELFPAY | PROVIDERS: PCP Internal Medicine; Visit Provider Internal Medicine Gastroenterology | DX: K22.89 Other specified disease of esophagus (principal); K22.10 Ulcer of esophagus without bleeding; K44.9 Diaphragmatic hernia without obstruction or gangrene; K29.70 Gastritis, unspecified, without bleeding | CPT/HCPCS: 43239; 43249 ==

== ENCOUNTER 2025-05-25 10:15 | Outpatient (AMB) | payer MEDICARE, SELFPAY ==
--- OUTSIDE RECORDS SUMMARY | 2025-02-01 10:00 | XMS_ITS ---
Author Organization [facility] Address [address] [place] [address] Care Team Providers Care Adjunct Physics Instructor Name Role Phone Shekhar Young MD Primary Care Provider Unava ilKiki Constantino [phone] Encounters Encounter Location Date Provider Diagnosis [address] [place] [address] 02/01/2025 Kiki Bledsoe Plan Of Treatment No Information Progress Notes * Javier GREGORIOisDOB:1940 ([age] yo F)Acc No.[id number]:02/01/2025 Progress Notes Patient: Macie PANG Provider: Lorna Bledsoe DPM :1940 A ge:84 Y S ex:Female Date:02/01/2025 Address:[address] [place], [place] Pcp:Shekhar Young MD Subjective: * Chief Complaints: [...] 02/01/2025 Generated for Printi ng/Faxing/eTransmitting on: 0 05/25/2025 10:50 AM EDT
--- NOTE | 2025-05-25 10:18 | MHC.OFFVIS ---
Vital Signs 05/25/25 10:19 Height 5 ft 5 in Weight 198 lb 6.656 oz BMI 33.0 BP 121/81 Blood Pressure Location Lt brachial Position Sitting Pulse 80 Intake Visit Reasons: egd post op Intake Note: Macie presents in the office as a EGD post op. CC: States she is not having any concerns - just here for results. Special Procedures Nurse Required: No Allergies amoxicillin (From Augmentin) Allergy (Severe, Verified 05/25/25 10:20) Rash clavulanic acid (From Augmentin) Allergy (Severe, Verified 05/25/25 10:20) Rash levofloxacin (From Levaquin) Allergy (Severe, Verified 05/25/25 10:20) Rash HPI Comments Details: 84 y.o F with PMH of who is here for second opinion for upper GI sx. Prev seen by Ivis Gorman. She mentions main CC is wheezing dunia at night time. Was seen by a community case manager who recommended that she folow up with GI for large hiatal hernia. In the meantime has been using albuterol PRN that has been helping. Also on nexium 40 since nov. Does not have any dysphagia, odynophagia, regurgitation, nausea or vomiting. Last colo 5 years ago in [place] (moved in 2022 after her ). Barium swallow 11/2024: 1. Anterior cervical web noted just below the hypopharynx at the level of C4. 2. Moderate esophageal dysmotility. 3. Large type 3 paraesophageal hernia, with the majority the fundus located within the thoracic cavity. 4. Thickened appearance the gastric rugal folds. In addition there are multiple foci of contrast pooling in the fundus and body of the stomach. These findings are suggestive of erosive gastritis. Recommend correlation with EGD. 05/17/25: EGD (Dr Ugalde): large hiatal hernia with aguila erosions. CRE balloon dilation to 16.5 mm of upper esophagus. Path: A. Gastric antrum, biopsy: Gastric antral mucosa with ectatic vessels, reactive changes, and focal minimal chronic inactive inflammation; negative for H. pylori, intestinal metaplasia and dysplasia. B. Gastric polyp, biopsy: Fundic gland polyp with focal minimal chronic inactive inflammation; negative for H. pylori, intestinal metaplasia and dysplasia 05/25/25: Here for follow up post procedure. Reports some soreness post procedure but swallowing is a lot better. Results of egd and bx reviewed. Takes nexium daily in the morning. 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 History of colitis Hepatic hemangioma Hepatic cyst Osteoporosis Meniere's disease Large hiatal hernia Chronic kidney disease (CKD), stage III (moderate) Atherosclerosis of aorta History of recurrent deep vein thrombosis (DVT) (~12/2020) History of pulmonary embolism (~2016) History of deep vein thrombosis (DVT) of lower extremity (~2016) Pure hypercholesterolemia Benign essential hypertension Surgical History (Updated 05/25/25 @ 10:20 by ARIADNE Allen) History of esophagogastroduodenoscopy (EGD) History of colonoscopy History of arthroplasty of left shoulder (~09/2022) History of arthroplasty of right hip (~12/2021) History of arthroplasty of right shoulder (~12/2020) S/P trigger finger release (~2018) History of total left hip arthroplasty (~2016) History of tubal ligation History of left oophorectomy Hx of parotidectomy History of ear surgery History of ankle surgery Family History Other Hypertension Social History [facility] Patient Tobacco Use Status: Former Tobacco user Years Smoked: quit 9 years ago e-Cigarette/Vaping Use: Never Used service: No Current occupational status: retired Current occupational exposures/hazards: No Cognitive needs: No Hearing needs: No Vision needs: No Review of Systems Const All systems reviewed & are unremarkable except as noted in HPI and below Physical Exam Exam Exam: No apparent distress Nonicteric Abdomen soft, nondistended Alert and oriented x3, normal gait Vital Signs: Last Vital Signs Pulse 80 05/25/25 10:19 BP 121/81 05/25/25 10:19 BMI result Body Mass Index 33.0 Assessment & Plan Assessment & Plan (1) Erosive gastritis: Code(s): K29.60 - Other gastritis without bleeding Category: Medical (2) Upper esophageal web: Code(s): Q39.4 - Esophageal web Category: Medical (3) Large hiatal hernia: Code(s): K44.9 - Diaphragmatic hernia without obstruction or gangrene Category: Medical Plan Referral already sent for HH repair. Pt knows to cont PPI for aguila erosions x 8 weeks. To call us for repeat EGD prn for recurrence of difficulty swallowing Follow up after seen by surgery. Coding Level of Care Code Est Pt Level 4 (71527) Diagnoses Erosive gastritis K29.60 Upper esophageal web Q39.4 Large hiatal hernia K44.9
[2025-05-25 10:19] VITALS: BP 121/81; PULSE 80; BMI 33.0
--- OUTSIDE RECORDS SUMMARY | 2025-05-25 10:51 | XMS_ITS | Clinical Summary ---
Author Organization [facility] Address [address] [place] [address] Phone Care Team Providers Care Marketing Instructor Name Role Phone Stephen Harrison MD Primary [...] exists Depression Screening 10/20/2024 DTaP,Tdap,and Td Vaccines (3 - Td or Tdap) 02/21/2025 02/21/2015, 05/29/2005 Influenza Vaccine (#1) 2025 , 07/30/2021, 07/29/2020, Additional history exists Cholesterol Screening (Lipid Panel) 10/30/2027 10/30/2022, 08/20/2022, 08/20/2022, Additional history exists Osteoporosis Screening (Bone Density Screening) 08/23/2031 08/23/2021, 08/23/2021, 09/07/2018, Additional history exists Pneumococcal Vaccine: 50+ Years Completed 02/21/2015, 07/29/2014, 05/29/2005 Zoster Vaccines Completed 01/26/2019, 02/18, 11/28/2008 HIB Vaccines Aged Out No longer eligi [...] this topic Medical Devices Implanted Type Area Keg Raiser Device Identifier Shelf Expiration Date Model / Serial / Lot Reversed Multi Direction Lock Screw 4.5x20mm - Sn/A - [id number] Implanted:Qty: 1 on 10/09/2022 by Francis Brown MD at [facility] Internal and External Fixation Left: Shoulder [employer] [id number] / N/A / N/A Reversed Multi Direction Lock Screw 4.5x23mm - Sn/A - [id number] Implanted:Qty: 2 on 10/09/2022 by Francis Brown MD at [facility] Internal and External Fixation Left: Shoulder [employer] [id number] / N/A / N/A Reversed Multi Direction Lock Screw 4.5x26mm - Sn/A - [id number] Implanted:Qty: 1 on 10/09/2022 by Francis Brown MD at [facility] Internal and External Fixation Left: Shoulder [employer] [id number] / N/A / N/A Reverse Baseplate 2 Line Extension [id number] - [id number] - [id number] Implanted:Qty: 1 on 10/09/2022 by Francis Brown MD at [facility] Joints Shoulder Left: Shoulder [employer] [id number] 01/18/2027 [id number] / [id number] / N/A Glenoid Sphere Centered 36 Mm,25mm Baseplate - [id number] - [id number] Implanted:Qty: 1 on 10/09/2022 by Francis Brown MD at [facility] Shoulder Left: Shoulder [employer] 07/29/2027 [id number] / [id number] / N/A Tray Flex Rev Shldr Sys +0 - [id number] - [id number] Implanted:Qty: 1 on 10/09/2022 by Francis Brown MD at [facility] Shoulder Left: Shoulder [employer] 09/06/2027 [id number] / [id number] / N/A Shoulder Insrt Rev 36 6/12.5 B - [id number] - [id number] Implanted:Qty: 1 on 10/09/2022 by Francis Brown MD at [facility] Shoulder Left: Shoulder [employer] 05/27/2027 [id number] / [id number] / N/A Shoulder Stem Hum Ptc Flx 5b - [id number] - [id number] Implanted:Qty: 1 on 10/09/2022 by Francis Brown MD at [facility] Shoulder Left: Shoulder [employer] 02/06/2027 [id number] / [id number] / N/A Procedures Procedure Name Priority Date/Time Associated Diagnosis Comments BASIC METABOLIC PANEL Routine 10/10/2022 3:37 AM EST from Last 3 Months or Most Recently Relevant to Health Maintenance Results * (ABNORMAL) Basic metabolic panel (10/10/2022 3:37 AM EST) Sodium 135(L) 136 - 145 mmol/L LAB CHEMISTRY METHOD 10/10/2022 5:25 AM EST [facility] Potassium 4.5 3.6 - 5.1 mmol/L LAB CHEMISTRY METHOD 10/10/2022 5:25 AM EST [facility] Chloride 104 98 - 107 mmol/L LAB CHEMISTRY METHOD 10/10/2022 5:25 AM EST [facility] CO2 26 22 - 32 mmol/L LAB CHEMISTRY METHOD 10/10/2022 5:25 AM EST [facility] Anion Gap 5(L) 6 - 18 LAB CHEMISTRY METHOD 10/10/2022 5:25 AM EST [facility] Glucose 139(H) 70 - 99 mg/dL LAB CHEMISTRY METHOD 10/10/2022 5:25 AM EST [facility] BUN 25(H) 8 - 20 mg/dL LAB CHEMISTRY METHOD 10/10/2022 5:25 AM EST [facility] Creatinine 0.98 0.60 - 1.30 mg/dL LAB CHEMISTRY METHOD 10/10/2022 5:25 AM EST [facility] eGFR 59(L) >=60 mL/min/1. 73m2 LAB CHEMISTRY METHOD 10/10/2022 5:25 AM EST [facility] Comment:Effective July 28, 2022, calculation based on the Chronic Kidney Disease Epidemiology Collaboration (CKD-EPI) equation refit without adjustment for race. BUN/Creatinine Ratio 25.5(H) 12.0 - 20.0 LAB CHEMISTRY METHOD 10/10/2022 5:25 AM [facility] Calcium 9.0 8.9 - 10.3 mg/dL LAB CHEMISTRY METHOD 10/10/2022 5:25 AM EST [facility] Blood Venous blood specimen / Unknown Venipuncture / Unknown 10/10/2022 3:37 AM EST 10/10/2022 4:58 AM EST us Alan BLAKELY LAB BLOOD ORDERABLES Final Resul t [facility] [address] [place] [address] from Last 3 Months or Most Recently Relevant to Health [place] [address] [employer] MED[employer]ARE ADVANTAGE Advance Directives * Full [...] currently active code status orders. Care Teams Marketing Instructor Relationship Specialty Start Date End Date Stephen Harrison MD PCP - General 12/17/22
--- OUTSIDE RECORDS SUMMARY | 2025-05-25 10:51 | XMS_ITS | Clinical Summary ---
Author Organization [facility] Address [address] [place] [address] Phone Care Team Providers Care Information Management Officer Name Role Phone Shekhar Young MD Primary Care Provider [phone] Allergies Active Allergy Reactions Criticality Noted Date [...] surgery. During the visit I reviewed prior addictions counselor assistant record from [place], they have her on prophylaxis 2.5 mg BID dose. In case she has AF she would probably need to move up to 5 mg BID based on weight but we would need to check Cr (I am checking today) to confirm dose. If no new diagnosis, ok to keep 2.5 mg BID given this has been already determined by addictions counselor assistant. Borderline high blood pressure 08/12/2023 Assessment & [...] EDT) SODIUM 143 135 - 145 mmol/L [facility] POTASSIUM 4.2 3.4 - 5.0 mmol/L [facility] CHLORIDE 106 98 - 108 mmol/L [facility] CO2 26 23 - 32 mmol/L [facility] BUN 20 8 - 25 mg/dL [facility] CREATININE 1.20 0.60 - 1.50 mg/dL [facility] GLUCOSE 86 70 - 110 mg/dL [facility] CALCIUM 9.9 8.5 - 10.5 mg/dL [facility] EGFR 45(L) >59 mL/min/1.7 3m2 [facility] Comment:Estimated glomerular filtration rate calculated using the CKD-EPI refit equation. ANION GAP 11 3 - 17 mmol/L [facility] Blood 05/21/2024 3:11 PM EDT 05/21/2024 5:14 PM EDT us Chilango Gonzáles MD, MPhil LAB BLOOD ORDERABLES Fin al Result [facility] [address] [place] [address] from Last 3 Months or Most Recently Relevant to Health Maintenance Insurance [employer] PPO AENA PPO AETNA PPO AETNA PPO AETNA PPO [employer] PPO Care Teams Information Management Officer Relationship Specialty Start Date End Date Shekhar Young MD [address] [place] [address] Dr [facility] [address] PCP - General Internal Medicine 08/28/23 Additional Source Comments The information contained in this document represents components of the legal health record. It is not the complete legal health record.[facility]
== END 2025-05-25 11:43 | disposition home or self-care (01) ==
LOC: HO.HGI 10:16
PROVIDERS: PCP Internal Medicine; Visit Provider Internal Medicine
DX: K29.60 Other gastritis without bleeding (principal); Q39.4 Esophageal web; K44.9 Diaphragmatic hernia without obstruction or gangrene
CPT/HCPCS: 99214

== ENCOUNTER → 2025-05-25 10:15 | Outpatient (BNVA) | payer MEDICARE, SELFPAY | PROVIDERS: PCP Internal Medicine; Visit Provider Internal Medicine | DX: K44.9 Diaphragmatic hernia without obstruction or gangrene (principal); K29.60 Other gastritis without bleeding; Q39.4 Esophageal web | CPT/HCPCS: 99212 ==

== ENCOUNTER 2025-06-01 08:58 | Outpatient (REF) | payer MEDICARE, SELFPAY ==
--- OUTSIDE RECORDS SUMMARY | 2023-04-08 05:32 | XMS_ITS | Continuity of Care Document ---
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 [address] [place] [address], [id number] , [place]. tel:[phone] [facility], [address], [place], [place], [id number], [place] tel:[phone] [facility] No Information 3 Roshan Kee. [address] [place] [address], [id number] , . tel:[phone] [facility] E&m Estab Pt; 65/> [facility], [address], [place], [place], [id number], [place] tel:[phone] [facility] Control Chemist annual exam (chief complaint) Encounter for gynecological examination (general) (routine) without abnormal findings 2 Wei Crump. [address] [place] [address], [id number] , [place]. tel:[phone] Referring Provider: Alisia Carvajal MD, [address] [place] [address], [address] . 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 [address] [place] [address], [id number] , . tel:[phone] Referring Provider: Alisia Carvajal MD, [address] [place] [address], [address] . 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 [address] [place] [address], [id number] , . [phone] Referring Provider: Alisia Carvajal MD, [address] [place] [address], [address] . tel:[phone] [facility] E&m Estab Pt; 65/> [facility], [address], [place], [place], [id number], tel:[phone] [facility] Jacquelyn [facility] Control Chemist annual exam (chief complaint) Encntr for field service specialist exam (general) (routine) w/o abn findingsUrinary urgency 0 8 Wei Crump. [address] [place] [address], [address] [place] [address] , [place]. tel:[phone] Referring Provider: Alisia Carvajal MD, [address] [place] [address], [address] . 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 [address] [place] [address], [id number] , . [phone] Referring Provider: Alisia Carvajal MD, [address] [place] [address], [address] . 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 [address] [place] [address], [address] [place] [address] , [place]. [phone] Referring Provider: Alisia Carvajal MD, [address] [place] [address], [address] . tel:[phone] [facility], [place] [address], [place], [place], [address] [place] [address], tel:[phone] Nadeem Valladares [facility] Control Chemist No Information 5 Wei Crump. [address] [place] [address], [address] [place] [address] , . [phone] Referring Provider: Alisia Carvajal MD, [address] [place] [address], [address] [place] [address] . 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 [address] [place] [address], [address] [place] [address] , . [phone] Referring Provider: Alisia Carvajal MD, [address] [place] [address], [address] . tel:[phone] [place] [address], [place], [place], [address] [place] [address], tel:[phone] Nadeem Valladares [facility] Control Chemist No Information 4 Wei Crump. [address] [place] [address], [address] [place] [address] , . tel:[phone] Referring Provider: Alisia Carvajal MD, [address] [place] [address], [address] . 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 [address] [place] [address], [address] [place] [address] , . tel:[phone] Referring Provider: Alisia Carvajal MD, [address] [place] [address], [address] . tel:[phone] [facility], [address], [place], [place], [id number], [place] tel:[phone] Nadeem Valladares [facility] Control Chemist No Information 3 Wei Crump. [address] [place] [address], [address] [place] [address] , . [phone] Referring Provider: Alisia Carvajal MD, [address] [place] [address], [address] [place] [address] . 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 [address] [place] [address], [id number] , [place]. tel:[phone] Referring Provider: Alisia Carvajal MD, [address] [place] [address], [address] . tel:[phone] [facility], [address], [place], [place], [id number], tel:[phone] Nadeem Valladares [facility] Control Chemist No Information 2 Wei Crump. [address] [place] [address], [id number] , [place]. tel:[phone] Referring Provider: Alisia Carvajal MD, [address] [place] [address], [address] . 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 [address] [place] [address], [id number] , [place]. tel:[phone] Referring Provider: Alisia Carvajal MD, [address] [place] [address], [address] . tel:[phone] [facility], [address], [place], [place], [id number], [place] tel:[phone] Nadeem Valladares [facility] Control Chemist No Information 1 Wei Crump. [address] [place] [address], [id number] , [place]. tel:[phone] Referring Provider: Alisia Carvajal MD, [address] [place] [address], [address] . tel:[phone] Offic/outpt E&m Estab Low-mod [facility], [address], [place], [place], [id number], [place] tel:[phone] LINH Valladares [facility] Control Chemist consult (chief complaint) No Information 1 Wei Crump. [address] [place] [address], [id number] , [place]. tel:[phone] Referring Provider: Alisia Carvajal MD, [address] [place] [address], [address] . tel:[phone] [facility], [address], [place], [place], [id number], [place] tel:[phone] [facility] Control Chemist No Information Sep-2 8 1 Wei Crump. [address] [place] [address], [address] [place] [address] , . tel:[phone] Referring Provider: Alisia Carvajal MD, [address] [place] [address], [address] . tel:[phone] [facility], [address], [address] [place] [address], tel:[phone] [facility] Control Chemist No Information Sep-0 6 1 Wei Crump. [address] [place] [address], [address] [place] [address] , . tel: [phone] Referring Provider: Alisia Carvajal MD, [address] [place] [address], [address] [place] [address] . tel:[phone] [facility] E&m Estab Pt; 65/> [facility], [address], [address] [place] [address], tel:[phone] [facility] Control Chemist annual visit (chief complaint) No Information Sep-0 1 Wei Crump. [address] [place] [address], [address] [place] [address] , . [phone] Referring Provider: Alisia Carvajal MD, [address] [place] [address], [address] . tel:[phone] [facility], [address], [address] [place] [address], tel:[phone] [facility] Control Chemist No Information Sep-0 2201 0 Wei Crump. [address] [place] [address], [address] [place] [address] , . tel:[phone] Referring Provider: Alisia Carvajal MD, [address] [place] [address], [address] . tel:[phone] [facility], [address], [place], [address] [place] [address], tel:[phone] [facility] Control Chemist annual visit (chief complaint) Colon/ Rectal CA Screening Jun-0 0 Wei Crump. [address] [place] [address], [address] [place] [address] , . [phone] Referring Provider: Alisia Carvajal MD, [address] [place] [address], [address] [place] [address] . tel:[phone] [facility] Meds E&m Estab Pt; 65/> [facility], [facility] [address]12799, [place], [place], [address] [place] [address], tel:[phone] Nadeem Rodrigo Jacquelyn [facility] Control Chemist annual visit (chief complaint) No Information 9 Wei Crump. [address] [place] [address], [address] [place] [address] , . [phone] Referring Provider: Alisia Carvajal MD, [address] [place] [address], [address] . tel:[phone] [facility], [facility] 034789, [place], [address] [place] [address], [place] tel:[phone] [facility] Control Chemist No Information 8 Wei Crump. [address] [place] [address], [address] [place] [address] , [place]. [phone] [facility] Med[facility] E&m Estab Pt; 65/> [facility], [address], [place], [place], [address] [place] [address], [place] tel:[phone] Nadeem [facility] Control Chemist No Information 8 Wei Crump. [address] [place] [address], [address] [place] [address] , [place]. tel:[phone] Referring Provider: Alisia Carvajal MD, [address] [place] [address], [address] . tel:[phone] [facility], [address], [place], [address] [place] [address], tel:[phone] Nadeem Rodrigo [facility] Control Chemist No Information 7 Wei Crump. [address] [place] [address], [address] [place] [address] , . tel: [phone] [facility] E&m Estab Pt; [phone] [facility], [address] [facility], [place], [place], [address] [place] [address], tel:[phone] Nadeem [facility] Control Chemist annual visit (chief complaint) No Information 7 Wei Crump. [address] [place] [address], [address] [place] [address] , . tel:[phone] [facility], [place] [address], [place], [address] [place] [address], tel:[phone] Nadeem [facility] Control Chemist annual visit (chief complaint) No Information 6 Wei Crump. [address] [place] [address], [address] [place] [address] , . tel: [phone] [facility], Box [facility], [place], [place], [address] [place] [address], tel:[phone] [facility] Control Chemist annual visit (chief complaint) No Information 200 5 Wei Crump. [address] [place] [address], [address] [place] [address] , . tel: [phone] Family History Family Member Type Diagnosis Age At Onset Sister Problem (finding) Myocardial infarction Problem (finding) Family history of hyper tension Paternal aunt Problem (finding) breast cancer Maternal grandmother Problem (finding) Heart disease Sister Problem (finding) renal failure syndrome Payers Payer name Insurance type Covered republican ID Authoriza tion(s) [employer] Medicare PPO 16 [id number] Social History Type Description Quantity Date Captured Comments Alcohol Use Details Unknown Caffeine Use Details Unknown Tobacco Use Status No Information Smoking Status No Information Sex Female Sexual Orientation Straight or heterosexual Chief Complaint And Reason For Visit No Information Reason For Referral Reason For Referral No Information Plan Of Treatment Date Type Action Status Goal Zoster vaccine (1st). Due on due [...] DEXA Scan. Due on 3 due Goal Influenza Vaccine. Due on due Goal Mammogram. Due on 3 due Goal H&P. Due on due Goal Lipid Panel. Due on 011 due Goal TD Vaccine. Due on 13 due Goal Pneumococcal Vaccine. 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
--- OUTSIDE RECORDS SUMMARY | 2025-02-01 10:00 | XMS_ITS ---
Author Organization [facility] Address [address] [place] [address] Care Team Providers Care Accredited Farm Manager Name Role Phone Shekhar Young MD Primary Care Provider Unava ilKiki Constantino [phone] Encounters Encounter Location Date Provider Diagnosis [address] [address] 02/01/2025 Kiki Bledsoe Plan Of Treatment No Information Progress Notes * Javier GREGORIOisDOB:1940 ([age] yo F)Acc No.[id number]:02/01/2025 Progress Notes Patient: Macie PANG Provider: Lorna Bledsoe DPM :1940 A ge:84 Y S ex:Female Date:02/01/2025 Address:[address] [place], [place] Pcp:Shekhar Young MD Subjective: * Chief Complaints: [...] 02/01/2025 Generated for Printi ng/Faxing/eTransmitting on: 0 06/01/2025 09:19 AM EDT
[2025-06-01 09:14] LABS: MANUAL DIFF FLAG NO
--- OUTSIDE RECORDS SUMMARY | 2025-06-01 09:19 | XMS_ITS | Clinical Summary ---
Author Organization [facility] Address [address] [place] [address] Phone Care Team Providers Care Fryer Line Helper Name Role Phone Shekhar Young MD Primary Care Provider [phone] Allergies Active Allergy Reactions Criticality Noted Date [...] that she was diagnosed with anemia in [place] and given IV iron, since she could [...] surgery. During the visit I reviewed prior repatcher record from [place], they have her on prophylaxis 2.5 mg BID dose. In case she has AF she would probably need to move up to 5 mg BID based on weight but we would need to check Cr (I am checking today) to confirm dose. If no new diagnosis, ok to keep 2.5 mg BID given this has been already determined by repatcher. Borderline high blood pressure 08/12/2023 Assessment & [...] EDT) SODIUM 143 135 - 145 mmol/L [facility] POTASSIUM 4.2 3.4 - 5.0 mmol/L [facility] CHLORIDE 106 98 - 108 mmol/L [facility] CO2 26 23 - 32 mmol/L [facility] BUN 20 8 - 25 mg/dL [facility] CREATININE 1.20 0.60 - 1.50 mg/dL [facility] GLUCOSE 86 70 - 110 mg/dL [facility] CALCIUM 9.9 8.5 - 10.5 mg/dL [facility] EGFR 45(L) >59 mL/min/1.7 3m2 [facility] Comment:Estimated glomerular filtration rate calculated using the CKD-EPI refit equation. ANION GAP 11 3 - 17 mmol/L [facility] Blood 05/21/2024 3:11 PM EDT 05/21/2024 5:14 PM EDT us Chilango Gonzáles MD, MPhil LAB BLOOD ORDERABLES Fin al Result [facility] [address] [place] [address] from Last 3 Months or Most Recently Relevant to Health Maintenance Insurance [employer] PPO AENA PPO AETNA PPO AETNA PPO AETNA PPO AET[employer] PPO Care Teams Fryer Line Helper Relationship Specialty Start Date End Date Shekhar Young MD [address] [place] [address] Dr [facility] [address] PCP - General Internal Medicine 08/28/23 Additional Source Comments The information contained in this document represents components of the legal health record. It is not the complete legal health record.[facility]
--- OUTSIDE RECORDS SUMMARY | 2025-06-01 09:19 | XMS_ITS | Clinical Summary ---
Author Organization [facility] Address [address] [place] [address] Phone Care Team Providers Care Rn Care Transition Name Role Phone Stephen Harrison MD Primary [...] this topic Medical Devices Implanted Type Area Manager Of Compliance Device Identifier Shelf Expiration Date Model / Serial / Lot Reversed Multi Direction Lock Screw 4.5x20mm - Sn/A - [id number] Implanted:Qty: 1 on 10/09/2022 by Francis Brown MD at [facility] Internal and External Fixation Left: Shoulder [employer] [id number] / N/A / N/A Reversed Multi Direction Lock Screw 4.5x23mm - Sn/A - [id number] Implanted:Qty: 2 on 10/09/2022 by Francis Brown MD at [facility] Internal and External Fixation Left: Shoulder [employer] [id number] / N/A / N/A Reversed Multi Direction Lock Screw 4.5x26mm - Sn/A - [id number] Implanted:Qty: 1 on 10/09/2022 by Francis Brown MD at [facility] Internal and External Fixation Left: Shoulder [employer] [id number] / N/A / N/A Reverse Baseplate 2 Line Extension 18p36um - [id number] - [id number] Implanted:Qty: 1 on 10/09/2022 by Francis Brown MD at [facility] Joints Shoulder Left: Shoulder [employer] [id number] 01/18/2027 [id number] / [id number] / N/A Glenoid Sphere Centered 36 Mm,25mm Baseplate - [id number] - [id number] Implanted:Qty: 1 on 10/09/2022 by Francis Brown MD at [facility] Shoulder Left: Shoulder [employer] 07/29/2027 [id number] / [id number] / N/A Tray Flex Rev Shldr Sys +0 - [id number] - [id number] Implanted:Qty: 1 on 10/09/2022 by Francis Brown MD at [facility] Shoulder Left: Shoulder [employer] 09/06/2027 [id number] / [id number] / N/A Shoulder Insrt Rev 36 6/12.5 B - [id number] - [id number] Implanted:Qty: 1 on 10/09/2022 by Francis Brown MD at [facility] Shoulder Left: Shoulder [employer] 05/27/2027 [id number] / [id number] / N/A Shoulder Stem Hum Ptc Flx 5b - [id number] - [id number] Implanted:Qty: 1 on 10/09/2022 by Francis Brown MD at [facility] Shoulder Left: Shoulder [employer] 02/06/2027 [id number] / [id number] / N/A Procedures Procedure Name Priority Date/Time Associated Diagnosis Comments BASIC METABOLIC PANEL Routine 10/10/2022 3:37 AM EST from Last 3 Months or Most Recently Relevant to Health Maintenance Results * (ABNORMAL) Basic metabolic panel (10/10/2022 3:37 AM EST) Sodium 135(L) 136 - 145 mmol/L LAB CHEMISTRY METHOD 10/10/2022 5:25 AM EST [facility] Potassium 4.5 3.6 - 5.1 mmol/L LAB CHEMISTRY METHOD 10/10/2022 5:25 AM EST [facility] Chloride 104 98 - 107 mmol/L LAB CHEMISTRY METHOD 10/10/2022 5:25 AM EST [facility] CO2 26 22 - 32 mmol/L LAB CHEMISTRY METHOD 10/10/2022 5:25 AM EST [facility] Anion Gap 5(L) 6 - 18 LAB CHEMISTRY METHOD 10/10/2022 5:25 AM EST [facility] Glucose 139(H) 70 - 99 mg/dL LAB CHEMISTRY METHOD 10/10/2022 5:25 AM EST [facility] BUN 25(H) 8 - 20 mg/dL LAB CHEMISTRY METHOD 10/10/2022 5:25 AM EST [facility] Creatinine 0.98 0.60 - 1.30 mg/dL LAB CHEMISTRY METHOD 10/10/2022 5:25 AM EST [facility] eGFR 59(L) >=60 mL/min/1. 73m2 LAB CHEMISTRY METHOD 10/10/2022 5:25 AM EST [facility] Comment:Effective July 28, 2022, calculation based on the Chronic Kidney Disease Epidemiology Collaboration (CKD-EPI) equation refit without adjustment for race. BUN/Creatinine Ratio 25.5(H) 12.0 - 20.0 LAB CHEMISTRY METHOD 10/10/2022 5:25 AM [facility] Calcium 9.0 8.9 - 10.3 mg/dL LAB CHEMISTRY METHOD 10/10/2022 5:25 AM EST [facility] Blood Venous blood specimen / Unknown Venipuncture / Unknown 10/10/2022 3:37 AM EST 10/10/2022 4:58 AM EST us Alan BLAKELY LAB BLOOD ORDERABLES Final Resul t [facility] [address] [place] [address] from Last 3 Months or Most Recently Relevant to [place] [address] [employer] MEDICARE ADVANTAGE Advance Directives * Full [...] currently active code status orders. Care Teams Rn Care Transition Relationship Specialty Start Date End Date Stephen Harrison MD PCP - General 12/17/22
[2025-06-01 09:49] LABS: Hematocrit 40.4 % (37.0-47.0); Hemoglobin 12.7 g/dl (12.0-16.0); Imm Gran Abs Auto 0.01 X10*3/uL (0.00-0.03); Imm Gran Pct Auto 0.2 % (0.0-0.4); Lymphocytes Absolute Auto 1.1 X10*3/uL (1.2-4.9); Mean Corpuscular HGB Conc 31.4 g/dl (31.0-35.0); Mean Corpuscular Hemoglobin 26.2 pg (27.0-33.0); Mean Corpuscular Volume 83.5 fL (80.0-98.0); NRBC Abs Auto 0.000 X10*3/uL (0.0-0.012); NRBC Pct Auto 0.0 /100WBC (0.0-0.2); Platelet Count 211 X10*3/uL (160-400); Red Blood Count 4.84 X10*6/uL (4.20-5.50); White Blood Count 4.4 X10*3/uL (4.8-10.8)
[2025-06-01 10:41] LABS: Alanine Aminotransferase 18 U/L (0-31); Albumin Level 4.0 g/dL (3.5-5.0); Alkaline Phosphatase 75 U/L (39-117); Anion Gap 11 (12-20); Aspartate Amino Transferase 22 U/L (5-31); Blood Urea Nitrogen 21 mg/dL (9-16); Calcium 9.2 mg/dL (8.4-10.2); Carbon Dioxide 25 mmol/L (22-29); Chloride 111 mmol/L (96-108); Cholesterol 124 mg/dL (<200); Estimated Glomerular Filt Rate 52; HDL Cholesterol 43 mg/dL (>40); Potassium 4.0 mmol/L (3.3-5.1); Sodium 143 mmol/L (135-145); Total Protein 6.3 g/dL (6.5-8.0); Triglycerides 73 mg/dL (<150)
== END 2025-06-01 08:59 | disposition home or self-care (01) ==
LOC: HO.LAB 08:58
PROVIDERS: PCP Internal Medicine; Visit Provider Internal Medicine
DX: E78.00 Pure hypercholesterolemia, unspecified (principal); D64.9 Anemia, unspecified; E55.9 Vitamin D deficiency, unspecified
CPT/HCPCS: 36415; 80053; 80061; 82306; 84443; 85025

== ENCOUNTER 2025-06-03 07:20 | Outpatient (REF) | payer MEDICARE, SELFPAY ==
--- OUTSIDE RECORDS SUMMARY | 2023-04-08 05:32 | XMS_ITS | Continuity of Care Document ---
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 Name Role Phone Randy Newman MD Unavailable Unavailable Allergies, Adverse Reactions, Alerts Substance Reaction Status Criticality POTASSIUM CLAVULANATE Pruritic rash Active No In formation AMOXICILLIN TRIHYDRATE Pruritic rash Active No I nformation levofloxacin Rash(severe) Active No Information Medications Medication Instructions Dosage Effective Dates (start - stop) Status Comments Calcium 600 600 mg (1,500 mg) Tab 1 po bid - Active Metanx 3 mg-35 mg-2 mg Tab As Directed - Active POTASSIUM 75MGTABLET Take one tablet by mouth three times per day - Active Eliquis 5 mg tablet take 1 tablet by oral route 2 times every day 5 MG - Active irbesartan 75 mg tablet take 1 tablet by oral route every day 75 MG - Active latanoprost (bulk) 100 % oil - Active tramadol 50 mg tablet take 1 tablet by oral route every 6 hours as needed 50 MG - Active Tylenol Arthritis Pain 650 mg tablet,extended release take 2 tablet by oral route every 8 hours as needed swallowing whole with water. Do not break, crush, dissolve and/or chew. 1300 MG - Active hydrochlorothiazide 12.5 mg capsule take 1 capsule by oral route every day 12.5 MG - Active aspirin 81 mg chewable tablet chew 1 Tablet by ORAL route every day 81 MG - Active atorvastatin 40 mg tablet take 1 tablet by oral route every day 40 MG - Active omeprazole 40 mg capsule,delayed release take 1 capsule (40MG) by oral route every day before a meal as needed 40 MG - Active Ambien 5 mg tablet 1 tablet by oral route at hs as needed. - No Longer Active Problems Condition Type Effective Dates (start - stop) Clini cinthia Status Comments No Known Problems Procedures Procedure Date Cerv/vag Ca Screen Pelvic/jovana 22 Screen Pap Obtain Prep Convey 2 Preven Meds E&m Estab Pt; 65/> 22 Preven Meds E&m Estab Pt; 65/> 21 Cerv/vag Ca Screen Pelvic/jovana 19 Screen Pap Obtain Prep Convey 9 Preven Meds E&m Estab Pt; 65/> 19 Preven Meds E&m Estab Pt; 65/> 18 Cerv/vag Ca Screen Pelvic/jovana 18 Screen Pap Obtain Prep Convey 7 Cerv/vag Ca Screen Pelvic/jovana 17 Preven Meds E&m Estab Pt; 65/> 17 Preven Meds E&m Estab Pt; 65/> 16 Cerv/vag Ca Screen Pelvic/jovana 16 Bld Occlt Fecl Hgb Immuoas Can 15 Screen Pap Obtain Prep Convey 5 Cerv/vag Ca Screen Pelvic/jovana 15 Preven Meds E&m Estab Pt; 65/> 15 Bld Occlt Fecl Hgb Immuoas Can 14 Routine Venipunct/finger/heel 4 K[facility] Lab Calcifediol Preven Meds E&m Estab Pt; 65/> 14 Cerv/vag Ca Screen Pelvic/jovana 14 Blood Occult Screen Pap Obtain Prep Convey 3 Cerv/vag Ca Screen Pelvic/jovana 13 Preven Meds E&m Estab Pt; > 13 Routine Venipunct/finger/heel 2 K[facility] Lab Calcifediol Screen Pap Obtain Prep Convey 2 Preven Meds E&m Estab Pt; > 12 Routine Venipunct/finger/heel 1 [facility] Lab Calcifediol Offic/outpt E&m Estab Low-mod 1 Dual-energy X-ray Absorptiomet 11 Blood Occult Preven Meds E&m Estab Pt; 11 Cerv/vag Ca Screen Pelvic/jovana 11 Screen Pap Obtain Prep Convey 1 Blood Occult Preven Meds E&m Estab Pt; 09 Cerv/vag Ca Screen Pelvic/jovana 09 Screen Pap Obtain Prep Convey 9 DEXA Ordered Bld Occlt Fecl Hgb Immuoas Can 08 Preven Meds E&m Estab Pt; 08 Cerv/vag Ca Screen Pelvic/jovana 08 Screen Pap Obtain Prep Convey 8 DEXA Ordered Bld Occlt Fecl Hgb Immuoas Can 07 Preven Meds E&m Estab Pt; 40-6 07 Cytopath Cerv/vag Thin Prep; R 07 Advance Directives Directive Yes / No Effective Date File Name No Information Encounters Encounter Description Practice Location Reason(s) For Visit Diagnoses Date Provider Providers [facility] on [facility], [address], [place], [place], [id number], [place] tel:[phone] LIN[facility] Lovett Quantitative Equity Head No Information 3 Paty Padilla. [address] [place] [address], [id number] , [place]. tel:[phone] [facility], [address], [place], [place], [id number], [place] tel:[phone] [facility] No Information 3 Roshan Kee. [address] [place] [address], [id number] , . tel:[phone] Preven Meds E&m Estab Pt; 65/> [facility], [address], [place], [place], [id number], [place] tel:[phone] [facility] Quantitative Equity Head annual exam (chief complaint) Encounter for gynecological examination (general) (routine) without abnormal findings 2 Wei Crump. [address] [place] [address], [id number] , [place]. tel:[phone] Referring Provider: Alisia Carvajal MD, [address] [place] [address], [address] . tel:[phone] Preven Meds E&m Estab Pt; 65/> [facility], [facility] [address], [place], [place], [id number], [place] tel:[phone] [facility] Quantitative Equity Head annual exam (chief complaint) Encounter for gynecological examination (general) (routine) without abnormal findings 1 Wei Crump. [address] [place] [address], [id number] , . tel:[phone] Referring Provider: Alisia Carvajal MD, [address] [place] [address], [address] . 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 [address] [place] [address], [id number] , . [phone] Referring Provider: Alisia Carvajal MD, [address] [place] [address], [address] . tel:[phone] Preven Meds E&m Estab Pt; 65/> [facility], [address], [place], [place], [id number], tel:[phone] [facility] Jacquelyn [facility] Quantitative Equity Head annual exam (chief complaint) Encntr for cardiopulmonary technician exam (general) (routine) w/o abn findingsUrinary urgency 0 8 Wei Crump. [address] [place] [address], [address] [place] [address] , [place]. tel:[phone] Referring Provider: Alisia Carvajal MD, [address] [place] [address], [address] . tel:[phone] Preven Meds E&m Estab Pt; 65/> [facility], [address], [place], [place], [id number], [place] tel:[phone] [facility] Quantitative Equity Head annual exam (chief complaint) Encntr for cardiopulmonary technician exam (general) (routine) w/o abn findingsEncounter for screening for malignant neoplasm of cervix 7 Wei Crump. [address] [place] [address], [id number] , . [phone] Referring Provider: Alisia Carvajal MD, [address] [place] [address], [address] . 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 [address] [place] [address], [address] [place] [address] , [place]. [phone] Referring Provider: Alisia Carvajal MD, [address] [place] [address], [address] . tel:[phone] [facility], [address] [address], [place], [place], [address] [place] [address], tel:[phone] Nadeem Valladares [facility] Quantitative Equity Head No Information 5 Wei Crump. [address] [place] [address], [address] [place] [address] , . [phone] Referring Provider: Alisia Carvajal MD, [address] [place] [address], [address] [place] [address] . tel:[phone] Preven Meds E&m Estab Pt; 65/> [facility], [address] [address], [place], [address] [place] [address], tel:[phone] Nadeem Valladares [facility] Quantitative Equity Head annual exam (chief complaint) Encntr for cardiopulmonary technician exam (general) (routine) w/o abn findingsEncounter for screening for malignant neoplasm of cervix 5 Wei Crump. [address] [place] [address], [address] [place] [address] , . [phone] Referring Provider: Alisia Carvajal MD, [address] [place] [address], [address] . tel:[phone] [address] [address], [place], [address] [place] [address], tel:[phone] Nadeem Valladares [facility] Quantitative Equity Head No Information 4 Wei Crump. [address] [place] [address], [address] [place] [address] , . tel:[phone] Referring Provider: Alisia Carvajal MD, [address] [place] [address], [address] . 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 [address] [place] [address], [address] [place] [address] , . tel:[phone] Referring Provider: Alisia Carvajal MD, [address] [place] [address], [address] . tel:[phone] [facility], [address], [place], [place], [id number], [place] tel:[phone] Nadeem Valladares [facility] Quantitative Equity Head No Information 3 Wei Crump. [address] [place] [address], [address] [place] [address] , . [phone] Referring Provider: Alisia Carvajal MD, [address] [place] [address], [address] [place] [address] . 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 [address] [place] [address], [id number] , [place]. tel:[phone] Referring Provider: Alisia Carvajal MD, [address] [place] [address], [address] . tel:[phone] [facility], [address], [place], [place], [id number], tel:[phone] Nadeem Valladares [facility] Quantitative Equity Head No Information 2 Wei Crump. [address] [place] [address], [id number] , [place]. tel:[phone] Referring Provider: Alisia Carvajal MD, [address] [place] [address], [address] . tel:[phone] Preven Meds E&m Estab Pt; 65/> [facility], [address], [place], [place], [id number], [place] tel:[phone] [facility] Equity Head annual visit (chief complaint) Screening PAP Only/pp Visit/obRoutine EMPLOYEE SERVICE OFFICER Exam W/wo A Pap 2 Wei Crump. [address] [place] [address], [id number] , [place]. tel:[phone] Referring Provider: Alisia Carvajal MD, [address] [place] [address], [address] . tel:[phone] [facility], [address], [place], [place], [id number], [place] tel:[phone] Nadeem Valladares [facility] Quantitative Equity Head No Information 1 Wei Crump. [address] [place] [address], [id number] , [place]. tel:[phone] Referring Provider: Alisia Carvajal MD, [address] [place] [address], [address] . tel:[phone] Offic/outpt E&m Estab Low-mod [facility], [address], [place], [place], [id number], [place] tel:[phone] LINH Valladares [facility] Quantitative Equity Head consult (chief complaint) No Information 1 Wei Crump. [address] [place] [address], [id number] , [place]. tel:[phone] Referring Provider: Alisia Carvajal MD, [address] [place] [address], [address] . tel:[phone] [facility], [address], [place], [place], [id number], [place] tel:[phone] [facility] Quantitative Equity Head No Information Sep-2 8 1 Wei Crump. [address] [place] [address], [address] [place] [address] , . tel:[phone] Referring Provider: Alisia Carvajal MD, [address] [place] [address], [address] . tel:[phone] [facility], [address], [address] [place] [address], tel:[phone] [facility] Quantitative Equity Head No Information Sep-0 6 1 Wei Crump. [address] [place] [address], [address] [place] [address] , . tel:[phone] Referring Provider: Alisia Carvajal MD, [address] [place] [address], [address] [place] [address] . tel:[phone] [facility] E&m Estab Pt; 65/> [facility], [address], [address] [place] [address], tel:[phone] [facility] Quantitative Equity Head annual visit (chief complaint) No Information Sep-0 1 Wei Crump. [address] [place] [address], [address] [place] [address] , . [phone] Referring Provider: Alisia Carvajal MD, [address] [place] [address], [address] . tel:[phone] [facility], [address], [address] [place] [address], tel:[phone] [facility] Quantitative Equity Head No Information Sep-0 2201 0 Wei Crump. [address] [place] [address], [address] [place] [address] , . tel:[phone] Referring Provider: Alisia Carvajal MD, [address] [place] [address], [address] . tel:[phone] [facility], [address], [place], [address] [place] [address], tel:[phone] [facility] Quantitative Equity Head annual visit (chief complaint) Colon/ Rectal CA Screening Jun-0 0 Wei Crump. [address] [place] [address], [address] [place] [address] , . [phone] Referring Provider: Alisia Carvajal MD, [address] [place] [address], [address] [place] [address] . tel:[phone] [facility] Meds E&m Estab Pt; 65/> [facility], [facility] [address], [place], [place], [address] [place] [address], tel:[phone] Nadeem Rodrigo Jacquelyn [facility] Quantitative Equity Head annual visit (chief complaint) No Information 9 Wei Crump. [address] [place] [address], [address] [place] [address] , . [phone] Referring Provider: Alisia Carvajal MD, [address] [place] [address], [address] . tel:[phone] [facility], [facility] [address], [place], [address] [place] [address], [place] tel:[phone] [facility] Quantitative Equity Head No Information 8 Wei Crump. [address] [place] [address], [address] [place] [address] , [place]. [phone] [facility] E&m Estab Pt; 65/> [facility], [address], [place], [address] [place] [address], [place] tel:[phone] [facility] Quantitative Equity Head No Information 8 Wei Crump. [address] [place] [address], [address] [place] [address] , [place]. tel:[phone] Referring Provider: Alisia Carvajal MD, [address] [place] [address], [address] . tel:[phone] [facility], [address], [place], [address] [place] [address], tel:[phone] Nadeem Rodrigo [facility] Quantitative Equity Head No Information 7 Wei Crump. [address] [place] [address], [address] [place] [address] , . tel: [phone] [facility] E&m Estab Pt; 40-6 [facility], [address] [facility], [place], [place], [address] [place] [address], tel:[phone] Nadeem [facility] Quantitative Equity Head annual visit (chief complaint) No Information 7 Wei Crump. [address] [place] [address], [address] [place] [address] , . tel:[phone] [facility], [address] [address], [place], [address] [place] [address], tel:[phone] Nadeem [facility] Quantitative Equity Head annual visit (chief complaint) No Information 6 Wei Crump. [address] [place] [address], [address] [place] [address] , . tel: [phone] [facility], [address] [facility], [place], [address] [place] [address], tel:[phone] [facility] Quantitative Equity Head annual visit (chief complaint) No Information 200 5 Wei Crump. [address] [place] [address], [address] [place] [address] , . tel: [phone] Family History Family Member Type Diagnosis Age At Onset Sister Problem (finding) Myocardial infarction Problem (finding) Family history of hyper tension Paternal aunt Problem (finding) breast cancer Maternal grandmother Problem (finding) Heart disease Sister Problem (finding) renal failure syndrome Payers Payer name Insurance type Covered green party ID Authoriza tion(s) [employer] Medicare PPO 16 [id number] Social History Type Description Quantity Date Captured Comments Alcohol Use Details Unknown Caffeine Use Details Unknown Tobacco Use Status No Information Smoking Status No Information Sex Female Sexual Orientation Straight or heterosexual Chief Complaint And Reason For Visit No Information Reason For Referral Reason For Referral No Information Plan Of Treatment Date Type Action Status Goal DEXA Scan. Due on 3 due Goal Unhealthy drug u se screening. Due on due Goal Zoster vaccine (1st). Due on due Goal Colonoscopy. Due on due Goal Zoster vaccine (1st). Due on due Goal Colonoscopy. Due on due Goal Unhealthy drug u se screening. Due on due Goal DEXA Scan. Due on 3 due Goal Colonoscopy. Due on due Goal Zoster vaccine (1st). Due on due Goal DEXA Scan. Due on 3 due Goal Colonoscopy. Due on due Goal DEXA Scan. Due on 3 due Goal Zoster vaccine (1st). Due on due Goal Colonoscopy. Due on due Goal Lipid Panel. Due on 017 due Goal DEXA Scan. Due on 3 due Goal Lipid Panel. Due on due Goal Mammogram. Due on 9 due Goal Colonoscopy. Due on due Goal DEXA Scan. Due on 3 due Goal Colonoscopy. Due on 022 due Goal Mammogram. Due on 8 due Goal Lipid Panel. Due on 017 due Goal DEXA Scan. Due on 3 due Goal DEXA Scan. Due on 3 due Goal DEXA Scan. Due on 3 due Goal Mammogram. Due on 5 due Goal Lipid Panel. Due on 019 due Goal DEXA Scan. Due on 3 due Goal Pneumococcal Vaccine. Due on due Goal Influenza Vaccine. Due on due Goal Mammogram. Due on 3 due Goal H&P. Due on due Goal Lipid Panel. Due on 011 due Goal TD Vaccine. Due on 13 due Goal FOBT. Due on due Goal DEXA Scan. Due on 3 due Future Order: Lab Order FOBT ([id number]), Ord ered on: Ordered History Of Present Illness Encounter Date Complaint History Of Prese nt Illness annual exam no complaintsno new medical problemsdenies any bleeding annual exam no complaintsno new medical problemsdenies any bleeding annual exam (comments) increased stress related to recent of - denies depression annual exam no complaintsno new medical problemsdenies any bleeding annual exam (comments) increased stress related to w/ dementia annual exam no complaintsno new medical problemsdenies any bleeding annual exam (comments) increased stress related to with dementiareports increased urgency annual exam no complaintsno new medical problemsdenies any bleeding annual exam no complaintsno new medical problemsdenies any bleeding annual exam (comments) increased stress due to recent hospitalizations - [place] annual exam no complaintsno new medical problemsdenies any bleeding annual exam no complaintsno new medical problemsdenies any bleeding annual exam (comments) scheduled for colonoscopy next monthincreased stress related to w/ hip fracture annual exam increased stress related to w/ heart disease pt recently hospitalized for urosepsis then w/ yeast-04/01-denies current sx Functional Status Date Functional Assessmen t No Information Instructions Date Instruction Additional Infor lisa discussed detrusor i nstability- pt declines trial medicationplan check urine culture Related to Urinary urgency Discussed Diet and exercise Rela marina 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
--- OUTSIDE RECORDS SUMMARY | 2025-02-01 10:00 | XMS_ITS ---
Author Organization [facility] Address [address] [place] [address] Care Team Providers Care Ichthyology Teacher Name Role Phone Shekhar Young MD Primary Care Provider Unava ilKiki Constantino [phone] Encounters Encounter Location Date Provider Diagnosis [address] [place] [address] 02/01/2025 Kiki Bledsoe Plan Of Treatment No Information Progress Notes * Javier GREGORIOisDOB:1940 ([age] yo F)Acc No.[id number]:02/01/2025 Progress Notes Patient: Macie PANG Provider: Lorna Bledsoe DPM :1940 A ge:84 Y S ex:Female Date:02/01/2025 Address:[address] [place], [place] Pcp:Shekhar Young MD Subjective: * Chief Complaints: [...] 02/01/2025 Generated for Printi ng/Faxing/eTransmitting on: 0 06/03/2025 10:24 AM EDT
--- OUTSIDE RECORDS SUMMARY | 2025-06-03 10:25 | XMS_ITS | Clinical Summary ---
Author Organization [facility] Address [address] [place] [address] Phone Care Team Providers Care Thoracic Surgeon Name Role Phone Stephen Harrison MD Primary [...] this topic Medical Devices Implanted Type Area Overlock Operator Device Identifier Shelf Expiration Date Model / Serial / Lot Reversed Multi Direction Lock Screw 4.5x20mm - Sn/A - [id number] Implanted:Qty: 1 on 10/09/2022 by Francis Brown MD at [facility] Internal and External Fixation Left: Shoulder [employer] [id number] / N/A / N/A Reversed Multi Direction Lock Screw 4.5x23mm - Sn/A - [id number] Implanted:Qty: 2 on 10/09/2022 by Francis Brown MD at [facility] Internal and External Fixation Left: Shoulder [employer] [id number] / N/A / N/A Reversed Multi Direction Lock Screw 4.5x26mm - Sn/A - [id number] Implanted:Qty: 1 on 10/09/2022 by Francis Brown MD at [facility] Internal and External Fixation Left: Shoulder [employer] [id number] / N/A / N/A Reverse Baseplate 2 Line Extension 28v95pm - [id number] - [id number] Implanted:Qty: 1 on 10/09/2022 by Francis Brown MD at [facility] Joints Shoulder Left: Shoulder [employer] [id number] 01/18/2027 [id number] / [id number] / N/A Glenoid Sphere Centered 36 Mm,25mm Baseplate - [id number] - [id number] Implanted:Qty: 1 on 10/09/2022 by Francis Brown MD at [facility] Shoulder Left: Shoulder [employer] 07/29/2027 [id number] / [id number] / N/A Tray Flex Rev Shldr Sys +0 - [id number] - [id number] Implanted:Qty: 1 on 10/09/2022 by Francis Brown MD at [facility] Shoulder Left: Shoulder [employer] 09/06/2027 [id number] / [id number] / N/A Shoulder Insrt Rev 36 6/12.5 B - [id number] - [id number] Implanted:Qty: 1 on 10/09/2022 by Francis Brown MD at [facility] Shoulder Left: Shoulder [employer] 05/27/2027 [id number] / [id number] / N/A Shoulder Stem Hum Ptc Flx 5b - [id number] - [id number] Implanted:Qty: 1 on 10/09/2022 by Francis Brown MD at [facility] Shoulder Left: Shoulder [employer] 02/06/2027 [id number] / [id number] / N/A Procedures Procedure Name Priority Date/Time Associated Diagnosis Comments BASIC METABOLIC PANEL Routine 10/10/2022 3:37 AM EST from Last 3 Months or Most Recently Relevant to Health Maintenance Results * (ABNORMAL) Basic metabolic panel (10/10/2022 3:37 AM EST) Sodium 135(L) 136 - 145 mmol/L LAB CHEMISTRY METHOD 10/10/2022 5:25 AM EST [facility] Potassium 4.5 3.6 - 5.1 mmol/L LAB CHEMISTRY METHOD 10/10/2022 5:25 AM EST [facility] Chloride 104 98 - 107 mmol/L LAB CHEMISTRY METHOD 10/10/2022 5:25 AM EST [facility] CO2 26 22 - 32 mmol/L LAB CHEMISTRY METHOD 10/10/2022 5:25 AM EST [facility] Anion Gap 5(L) 6 - 18 LAB CHEMISTRY METHOD 10/10/2022 5:25 AM EST [facility] Glucose 139(H) 70 - 99 mg/dL LAB CHEMISTRY METHOD 10/10/2022 5:25 AM EST [facility] BUN 25(H) 8 - 20 mg/dL LAB CHEMISTRY METHOD 10/10/2022 5:25 AM EST [facility] Creatinine 0.98 0.60 - 1.30 mg/dL LAB CHEMISTRY METHOD 10/10/2022 5:25 AM EST [facility] eGFR 59(L) >=60 mL/min/1. 73m2 LAB CHEMISTRY METHOD 10/10/2022 5:25 AM EST [facility] Comment:Effective July 28, 2022, calculation based on the Chronic Kidney Disease Epidemiology Collaboration (CKD-EPI) equation refit without adjustment for race. BUN/Creatinine Ratio 25.5(H) 12.0 - 20.0 LAB CHEMISTRY METHOD 10/10/2022 5:25 AM [facility] Calcium 9.0 8.9 - 10.3 mg/dL LAB CHEMISTRY METHOD 10/10/2022 5:25 AM EST [facility] Blood Venous blood specimen / Unknown Venipuncture / Unknown 10/10/2022 3:37 AM EST 10/10/2022 4:58 AM EST us Alan BLAKELY LAB BLOOD ORDERABLES Final Resul t [facility] [address] [place] [address] from Last 3 Months or Most Recently Relevant to [place] [address] [employer] MEDICARE ADVANTAGE Advance Directives * Full [...] currently active code status orders. Care Teams Thoracic Surgeon Relationship Specialty Start Date End Date Stephen Harrison MD PCP - General 12/17/22
[2025-06-03 10:39] LABS: Appearance Urine Cloudy; Glucose Urine UA Negative (Negative); PH 5.5 (5.0-9.0); Specific Gravity - Urine 1.025 (1.005-1.025); UMIC TRIGGER UACC YES
[2025-06-03 10:59] LABS: UACC Culture Trigger YES
== END 2025-06-03 07:21 | disposition home or self-care (01) ==
LOC: HO.LNP 07:20
PROVIDERS: Visit Provider Internal Medicine
DX: R30.0 Dysuria (principal)
CPT/HCPCS: 81001; 87086; 87088; 87186

== ENCOUNTER 2025-06-06 09:43 | Outpatient (AMB) | payer MEDICARE, SELFPAY ==
--- OUTSIDE RECORDS SUMMARY | 2023-04-08 05:32 | XMS_ITS | Continuity of Care Document ---
Author Organization [facility] Address [address] [place] [address] Phone Care Team Providers Care Financial Supervisor Name Role Phone Randy Newman MD Unavailable [...] Diagnoses Date Provider Providers Copied on Encounter [facility], [address], [place], [place], [id number], [place] tel:[phone] LINH Lovett Manager Imaging No Information 3 Paty Padilla. [address] [place] [address], [id number] , [place]. tel:[phone] [facility], [address], [place], [place], [id number], [place] tel:[phone] [facility] No Information 3 Roshan Kee. [address] [place] [address], [id number] , . tel:[phone] [facility] E&m Estab Pt; 65/> [facility], [address], [place], [place], [id number], [place] tel:[phone] [facility] Manager Imaging annual exam (chief complaint) Encounter for gynecological examination (general) (routine) without abnormal findings 2 Wei Crump. [address] [place] [address], [id number] , [place]. tel:[phone] Referring Provider: Alisia Carvajal MD, [address] [place] [address], [address] . tel:[phone] [facility] E&m Estab Pt; 65/> [facility], [facility] [address], [place], [place], [id number], [place] tel:[phone] [facility] Manager Imaging annual exam (chief complaint) Encounter for gynecological examination (general) (routine) without abnormal findings 1 Wei Crump. [address] [place] [address], [id number] , . tel:[phone] Referring Provider: Alisia Carvajal MD, [address] [place] [address], [address] . tel:[phone] [facility] E&m Estab Pt; 65/> [facility], [facility] [address], [place], [place], [id number], [place] tel:[phone] [facility] Manager Imaging annual exam (chief complaint) Encntr for obstetrics gyn exam (general) (routine) w/o abn findings 9 Wei Crump. [address] [place] [address], [id number] , . [phone] Referring Provider: Alisia Carvajal MD, [address] [place] [address], [address] . tel:[phone] [facility] E&m Estab Pt; 65/> [facility], [address], [place], [place], [id number], tel:[phone] [facility] Jacquelyn [facility] Manager Imaging annual exam (chief complaint) Encntr for obstetrics gyn exam (general) (routine) w/o abn findingsUrinary urgency 0 8 Wei Crump. [address] [place] [address], [address] [place] [address] , [place]. tel:[phone] Referring Provider: Alisia Carvajal MD, [address] [place] [address], [address] . tel:[phone] [facility] E&m Estab Pt; 65/> [facility], [address], [place], [place], [id number], [place] tel:[phone] [facility] Manager Imaging annual exam (chief complaint) Encntr for obstetrics gyn exam (general) (routine) w/o abn findingsEncounter for screening for malignant neoplasm of cervix 7 Wei Crump. [address] [place] [address], [id number] , . [phone] Referring Provider: Alisia Carvajal MD, [address] [place] [address], [address] . tel:[phone] [facility] E&m Estab Pt; 65/> [facility], [address], [place], [place], [id number], tel:[phone] [facility]em [facility] Manager Imaging annual exam (chief complaint) Encntr for obstetrics gyn exam (general) (routine) w/o abn findings 6 Wei Crump. [address] [place] [address], [address] [place] [address] , [place]. [phone] Referring Provider: Alisia Carvajal MD, [address] [place] [address], [address] . tel:[phone] [facility], [place] [address], [place], [place], [address] [place] [address], tel:[phone] Nadeem Valladares [facility] Manager Imaging No Information 5 Wei Crump. [address] [place] [address], [address] [place] [address] , . [phone] Referring Provider: Ailsia Carvajal MD, [address] [place] [address], [address] [place] [address] . tel:[phone] [facility] E&m Estab Pt; 65/> [facility], [place] [address], [place], [place], [address] [place] [address], tel:[phone] Nadeem Valladares [facility] Manager Imaging annual exam (chief complaint) Encntr for obstetrics gyn exam (general) (routine) w/o abn findingsEncounter for screening for malignant neoplasm of cervix 5 Wei Crump. [address] [place] [address], [address] [place] [address] , . [phone] Referring Provider: Alisia Carvajal MD, [address] [place] [address], [address] . tel:[phone] [place] [address], [place], [place], [address] [place] [address], tel:[phone] Nadeem Valladares [facility] Manager Imaging No Information 4 Wei Crump. [address] [place] [address], [address] [place] [address] , . tel:[phone] Referring Provider: Alisia Carvajal MD, [address] [place] [address], [address] . tel:[phone] [facility] E&m Estab Pt; 65/> [facility], [address] [place] [address], [id number], tel:[phone] LAURINadeem Valladares 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 [address] [place] [address], [address] [place] [address] , . tel:[phone] Referring Provider: Alisia Carvajal MD, [address] [place] [address], [address] . tel:[phone] [facility], [address], [place], [place], [id number], [place] tel:[phone] Nadeem Valladares [facility] Manager Imaging No Information 3 Wei Crump. [address] [place] [address], [address] [place] [address] , . [phone] Referring Provider: Alisia Carvajal MD, [address] [place] [address], [address] [place] [address] . tel:[phone] [facility] Meds E&m Estab Pt; 65/> [facility], [facility] [address], [place], [place], [address] [place] [address], tel:[phone] Nadeem Valladares 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 [address] [place] [address], [id number] , [place]. tel:[phone] Referring Provider: Alisia Carvajal MD, [address] [place] [address], [address] . tel:[phone] [facility], [address], [place], [place], [id number], tel:[phone] Nadeem Valladares [facility] Manager Imaging No Information 2 Wei Crump. [address] [place] [address], [id number] , [place]. tel:[phone] Referring Provider: Alisia Carvajal MD, [address] [place] [address], [address] . tel:[phone] [facility]s E&m Estab Pt; 65/> [facility], [address], [place], [place], [id number], [place] tel:[phone] [facility] Manager [facility] annual visit (chief complaint) Screening PAP Only/pp Visit/obRoutine FAMILY SERVICES WORKER Exam W/wo A Pap 2 Wei Crump. [address] [place] [address], [id number] , [place]. tel:[phone] Referring Provider: Alisia Carvajal MD, [address] [place] [address], [address] . tel:[phone] [facility], [address], [place], [place], [id number], [place] tel:[phone] Nadeem Valladares [facility] Manager Imaging No Information 1 Wei Crump. [address] [place] [address], [id number] , [place]. tel:[phone] Referring Provider: Alisia Carvajal MD, [address] [place] [address], [address] . tel:[phone] Offic/outpt E&m Estab Low-mod [facility], [address], [place], [place], [id number], [place] tel:[phone] LINH Valladares [facility] Manager Imaging consult (chief complaint) No Information 1 Wei Crump. [address] [place] [address], [id number] , [place]. tel:[phone] Referring Provider: Alisia Carvajal MD, [address] [place] [address], [address] . tel:[phone] [facility], [address], [place], [place], [id number], [place] tel:[phone] [facility] Manager Imaging No Information Sep-2 8 1 Wei Crump. [address] [place] [address], [address] [place] [address] , . tel:[phone] Referring Provider: Alisia Carvajal MD, [address] [place] [address], [address] . tel:[phone] [facility], [address], [address] [place] [address], tel:[phone] [facility] Manager Imaging No Information Sep-0 6 1 Wei Crump. [address] [place] [address], [address] [place] [address] , . tel:[phone] Referring Provider: Alisia Carvajal MD, [address] [place] [address], [address] [place] [address] . tel:[phone] [facility] E&m Estab Pt; 65/> [facility], [address], [address] [place] [address], tel:[phone] [facility] Manager Imaging annual visit (chief complaint) No Information Sep-0 1 Wei Crump. [address] [place] [address], [address] [place] [address] , . [phone] Referring Provider: Alisia Carvajal MD, [address] [place] [address], [address] . tel:[phone] [facility], [address], [address] [place] [address], tel:[phone] [facility] Manager Imaging No Information Sep-0 2201 0 Wei Crump. [address] [place] [address], [address] [place] [address] , . tel:[phone] Referring Provider: Alisia Carvajal MD, [address] [place] [address], [address] . tel:[phone] [facility], [address], [place], [address] [place] [address], tel:[phone] [facility] Manager Imaging annual visit (chief complaint) Colon/ Rectal CA Screening Jun-0 0 Wei Crump. [address] [place] [address], [address] [place] [address] , . [phone] Referring Provider: Alisia Carvajal MD, [address] [place] [address], [address] [place] [address] . tel:[phone] [facility] Meds E&m Estab Pt; 65/> [facility], [facility] [address], [place], [place], [address] [place] [address], tel:[phone] Nadeem Rodrigo Jacquelyn [facility] Manager Imaging annual visit (chief complaint) No Information 9 Wei Crump. [address] [place] [address], [address] [place] [address] , . [phone] Referring Provider: Alisia Carvajal MD, [address] [place] [address], [address] . tel:[phone] [facility], [facility] [address], [place], [address] [place] [address], [place] tel:[phone] [facility] Manager Imaging No Information 8 Wei Crump. [address] [place] [address], [address] [place] [address] , [place]. [phone] [facility] E&m Estab Pt; 65/> [facility], [address], [place], [address] [place] [address], [place] tel:[phone] Nadeem [facility] Manager Imaging No Information 8 Wei Crump. [address] [place] [address], [address] [place] [address] , [place]. tel:[phone] Referring Provider: Alisia Carvajal MD, [address] [place] [address], [address] . tel:[phone] [facility], [address], [place], [place], [address] [place] [address], tel:[phone] Nadeem Rodrigo [facility] Manager Imaging No Information 7 Wei Crump. [address] [place] [address], [address] [place] [address] , . tel: [phone] [facility] E&m Estab Pt; [phone] [facility], [address] [facility], [place], [place], [address] [place] [address], tel:[phone] Nadeem [facility] Manager Imaging annual visit (chief complaint) No Information 7 Wei Crump. [address] [place] [address], [address] [place] [address] , . tel:[phone] [facility], [place] [address], [place], [address] [place] [address], tel:[phone] Nadeem [facility] Manager Imaging annual visit (chief complaint) No Information 6 Wei Crump. [address] [place] [address], [address] [place] [address] , . tel: [phone] [facility], [address] [facility], [place], [place], [address] [place] [address], tel:[phone] [facility] Manager Imaging annual visit (chief complaint) No Information 200 5 Wei Crump. [address] [place] [address], [address] [place] [address] , . tel: [phone] Family History Family Member Type Diagnosis Age At Onset Sister Problem (finding) Myocardial infarction Problem (finding) Family history of hyper tension Paternal aunt Problem (finding) breast cancer Maternal grandmother Problem (finding) Heart disease Sister Problem (finding) renal failure syndrome Payers Payer name Insurance type Covered republican ID Authoriza tion(s) [employer] PPO 16 [id number] Social History Type Description Quantity Date Captured [...] Zoster vaccine (1st). Due on due Goal Lipid Panel. Due on due Goal Colonoscopy. Due on due Goal DEXA Scan. Due on 3 due Goal Lipid Panel. Due on due Goal Mammogram. Due on 9 due Goal Colonoscopy. Due on due Goal DEXA Scan. Due on 3 due Goal Mammogram. Due on 8 due Goal Lipid Panel. Due on due Goal DEXA Scan. Due on 3 due Goal Colonoscopy. Due on 022 due Goal DEXA Scan. 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
--- OUTSIDE RECORDS SUMMARY | 2025-02-01 10:00 | XMS_ITS ---
Author Organization [facility] Address [address] [place] [address] Care Team Providers Care Traffic Director Name Role Phone Shekhar Young MD Primary Care Provider Unava ilKiki Constantino [phone] Encounters Encounter Location Date Provider Diagnosis [address] [place] [address] 02/01/2025 Kiki Bledsoe Plan Of Treatment No Information Progress Notes * Javier GREGORIOisDOB:1940 ([age] yo F)Acc No.[id number]:02/01/2025 Progress Notes Patient: Macie PANG Provider: Lorna Bledsoe DPM :1940 A ge:84 Y S ex:Female Date:02/01/2025 Address:[address] [place], [place] Pcp:Shekhar Young MD Subjective: * Chief Complaints: [...] 02/01/2025 Generated for Printi ng/Faxing/eTransmitting on: 0 06/06/2025 10:24 AM EDT
--- NOTE | 2025-06-06 09:52 | A.OFFVIS_ITS ---
VS Expanded 06/06/25 10:04 BP 165/74 H Blood Pressure Location Rt brachial Blood Pressure Position Sitting Pulse 87 Pulse Source Pulse Oximeter Temp 96.9 F Temperature Source Temporal Artery Scan Pulse Oximetry 96 Oxygen Delivery Method Room Air Height 5 ft 5 in Weight 200 lb 3.2 oz BMI 33.3 Body Fat % 44.9 Body Fat Mass 90.0 Fat Free Mass 110.2 Visceral Fat Rating 15.0 Body Water % 38.7 Body Water Mass 77.4 Muscle Mass/Score 104.8 Basal Metabolic Rate/Score 1,528 Intake Visit Reasons: OV Diaphragmatic Hernia - Dr. Perea Ref. Allergies amoxicillin (From Augmentin) Allergy (Severe, Verified 06/06/25 10:19) Rash clavulanic acid (From Augmentin) Allergy (Severe, Verified 06/06/25 10:19) Rash levofloxacin (From Levaquin) Allergy (Severe, Verified 06/06/25 10:19) Rash Medication List - Last Reconciled 06/06/25 by Brant Pope MD albuterol sulfate 90 mcg/actuation 2 puffs inhalation Q4-6H PRN apixaban (Eliquis) 2.5 mg PO BID 90 days atorvastatin 40 mg PO DAILY 90 days calcium carbonate-vitamin D3 600 mg-10 mcg (400 unit) (Calcium with Vitamin D) 1 tab PO BID cholecalciferol (vitamin D3) 50 mcg PO DAILY esomeprazole magnesium 20 mg PO DAILY 90 days famotidine 20 mg PO BEDTIME PRN fluticasone propionate 50 mcg/actuation 2 sprays intranasal DAILY PRN 30 days potassium chloride ER 10 mEq PO DAILY 90 days propranolol ER 60 mg PO DAILY tramadol 50 mg PO DAILY PRN 90 days trazodone 50 mg PO BEDTIME PRN HPI Comments Details: Wakes up: 8.15am, Sleeps: 12am No home exercise equipment Was referred for a large paraesophageal hernia. Complains of worsening SOB and occasional GERD and chest pain Tests reviewed: 1) EGD: 04/2025: 6cm HH and H pylori negative 2) UGI: 11/13: type 3 Paraesophageal hernia 3) CT abd/pelvis: 2023: large hiatal hernia 4) Echo: 2022: normal 5) Holter 2022: normal [facility], [facility] Medical History (Updated 06/06/25 @ 11:14 by Brant Pope MD) Paraesophageal hernia Obesity (BMI 30-39.9) Insomnia Anemia Restless leg syndrome 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 History of colitis Hepatic hemangioma Hepatic cyst Osteoporosis Meniere's disease Large hiatal hernia Chronic kidney disease (CKD), stage III (moderate) Atherosclerosis of aorta History of recurrent deep vein thrombosis (DVT) (~12/2020) History of pulmonary embolism (~2017) History of deep vein thrombosis (DVT) of lower extremity (~2016) Pure hypercholesterolemia Benign essential hypertension Surgical History History of esophagogastroduodenoscopy (EGD) History of colonoscopy History of arthroplasty of left shoulder (~09/2022) History of arthroplasty of right hip (~12/2021) History of arthroplasty of right shoulder (~12/2020) S/P trigger finger release (~2018) History of total left hip arthroplasty (~2016) History of tubal ligation History of left oophorectomy Hx of parotidectomy History of ear surgery History of ankle surgery Family History Other Hypertension Social History (Updated 06/06/25 @ 10:01 by Maggi Medina CMA) Housing: Condominium Alcohol intake: current Alcohol intake frequency: holidays/special occasions only Patient Tobacco Use Status: Former Tobacco user Years Smoked: quit 9 years ago e-Cigarette/Vaping Use: Never Used service: No Current occupational status: retired Current occupational exposures/hazards: No Cognitive needs: No Hearing needs: No Vision needs: No Physical Exam Vital Signs: Last Vital Signs Temp 96.9 F 06/06/25 10:04 Pulse 87 06/06/25 10:04 BP 165/74 H 06/06/25 10:04 Pulse Ox 96 06/06/25 10:04 Oxygen Delivery Method Room Air 06/06/25 10:04 BMI result Body Mass Index 33.3 GI Inspection: Yes normal to inspection, Yes incision (well healed) and Yes obesity Palpation (GI): Soft to palpation Extrem Right lower extremity: normal to inspection and ankle (edema) Left lower extremity: ankle (edema) Assessment & Plan Assessment & Plan (1) Paraesophageal hernia: Code(s): K44.9 - Diaphragmatic hernia without obstruction or gangrene Category: Medical Plan: 1. We discussed the potential etiology of the hernia that could be worsened by her weight. We discussed the details of the diaphragmatic hernia repair and the potential technical challenges such as being able to achieve enough mobilization of the esophagus back in the abdomen and being able to close the diaphragmatic muscle (crura) primarily with sutures. We also discussed the possibility of using a biologic mesh to close the hernia defect if the crura cannot be adequately re-approximated primarily with sutures, although I try to avoid it as much as possible. We also discussed the option of doing a gastropexy or a fundoplication to prevent postoperative reflux and prevent hernia recurrence. As we discussed, I favor the gastropexy as the fundoplication can cause several distrurbing symptoms such as gas-bloating, flatulence, inability to burp which can be bothersome to patients. Also we discussed the complexity of a potential hernia recurrence in association with a hernia recurrence. We also discussed that after surgery, he will need to be on a liquid diet with protein shakes the first week. The second week will add protein bars and soft foods and after the third week we will introduce small amounts of regular food. The transition to normal eating habits will take about 6 weeks which is the time required for the repair to heal completely. 2. Nutritional counseling. Start with one CELEBRATE REBUILD protein (buy at hospital's gift shop) shakes (ONE scoop in 8oz low fat unsweetened almond milk) at 9am-11am, 1 protein bar (CELEBRATE protein bars, buy at hospital's gift shop) at 12pm-2pm, another CELEBRATE REBUILD protein shake (ONE scoop in 8oz low fat unsweetened almond milk) at 3pm-5pm, dinner at 6pm (8 forks of protein and 8 forks of salad/vegetables) AND one more protein bar after dinner at 8pm-10pm. So you do 2 protein shakes, 2 protein bars and one meal per day. Meal to include lean meat (beef, fish, pork, turkey, chicken), or eritrean yogurt, or egg whites, or beans with a salad with olive oil and fruits (berries, pears, apples, kiwi). Avoid salt, breads, potatoes, rice, pasta, desserts. 3. Each shake would be drunk slowly, like coffee in a period of 2 hours. 4. Cut each bar in 4 pieces and eat each piece in 30min ?to make each bar last 2 hours. 5. I emphasized the importance of measuring accurately the food portion and measure it when serving the food in plate 6. The meal portions include 8 full-size forks of meat and 8 full-size forks of salad. You always eat the meat portion but you can replace up to 4 forks for salad/vegetables with rice, potatoes or pasta, or a fruit ?if you like. The less you do it the better weight loss will be. 7. One full-size fork is what it can be scooped on the fork without falling aside and not what can be bit with the fork. Use regular forks like those you find in a typical restaurant. 8.? Please buy the body composition scale we discussed and send me weight measurements as soon as possible and then once a week. Always include your diet and exercise plan. 9. The best choice would be to purchase a stationary bike at home that can track calories. If you get one start stationary bike at a resistance level of 2.0 until 300 calories are burned. Do this daily. Goal is to burn 2000 calories per week on exercise 10. Goal is to lose at least 1.5-2lbs per week 11. Goal to lose 10% of your weight before surgery, which is about 20lbs. Ultimate weight goal: 180lbs before surgery 12. Please follow the diet plan exactly without any change. If you don't like something about the plan or you feel hungry you need to communicate with me so I can help you revise the plan. You should not change the plan yourself Orders: Orders ECG 12 lead EKG Today Z01.818 - Encounter for other preprocedural examination
[2025-06-06 10:04] VITALS: BP 165/74; PULSE 87; TEMP 36.1; O2SAT 96; BMI 33.3
--- OUTSIDE RECORDS SUMMARY | 2025-06-06 10:24 | XMS_ITS | Clinical Summary ---
Author Organization [facility] Address [address] [place] [address] Phone Care Team Providers Care Humanities Division Chair Name Role Phone Stephen Harrison MD Primary [...] this topic Medical Devices Implanted Type Area Marketing Strategy Lead Device Identifier Shelf Expiration Date Model / Serial / Lot Reversed Multi Direction Lock Screw 4.5x20mm - Sn/A - [id number] Implanted:Qty: 1 on 10/09/2022 by Francis Brown MD at [facility] Internal and External Fixation Left: Shoulder [employer] [id number] / N/A / N/A Reversed Multi Direction Lock Screw 4.5x23mm - Sn/A - [id number] Implanted:Qty: 2 on 10/09/2022 by Francis Brown MD at [facility] Internal and External Fixation Left: Shoulder [employer] [id number] / N/A / N/A Reversed Multi Direction Lock Screw 4.5x26mm - Sn/A - [id number] Implanted:Qty: 1 on 10/09/2022 by Francis Brown MD at [facility] Internal and External Fixation Left: Shoulder [employer] [id number] / N/A / N/A Reverse Baseplate 2 Line Extension [id number] - [id number] - [id number] Implanted:Qty: 1 on 10/09/2022 by Francis Brown MD at [facility] Joints Shoulder Left: Shoulder [employer] [id number] 01/18/2027 [id number] / [id number] / N/A Glenoid Sphere Centered 36 Mm,25mm Baseplate - [id number] - [id number] Implanted:Qty: 1 on 10/09/2022 by Francis Brown MD at [facility] Shoulder Left: Shoulder [employer] 07/29/2027 [id number] / [id number] / N/A Tray Flex Rev Shldr Sys +0 - [id number] - [id number] Implanted:Qty: 1 on 10/09/2022 by Francis Brown MD at [facility] Shoulder Left: Shoulder [employer] 09/06/2027 [id number] / [id number] / N/A Shoulder Insrt Rev 36 6/12.5 B - [id number] - [id number] Implanted:Qty: 1 on 10/09/2022 by Francis Brown MD at [facility] Shoulder Left: Shoulder [employer] 05/27/2027 [id number] / [id number] / N/A Shoulder Stem Hum Ptc Flx 5b - [id number] - [id number] Implanted:Qty: 1 on 10/09/2022 by Francis Brown MD at [facility] Shoulder Left: Shoulder [employer] 02/06/2027 [id number] / [id number] / N/A Procedures Procedure Name Priority Date/Time Associated Diagnosis Comments BASIC METABOLIC PANEL Routine 10/10/2022 3:37 AM EST from Last 3 Months or Most Recently Relevant to Health Maintenance Results * (ABNORMAL) Basic metabolic panel (10/10/2022 3:37 AM EST) Sodium 135(L) 136 - 145 mmol/L LAB CHEMISTRY METHOD 10/10/2022 5:25 AM EST [facility] Potassium 4.5 3.6 - 5.1 mmol/L LAB CHEMISTRY METHOD 10/10/2022 5:25 AM EST [facility] Chloride 104 98 - 107 mmol/L LAB CHEMISTRY METHOD 10/10/2022 5:25 AM EST [facility] CO2 26 22 - 32 mmol/L LAB CHEMISTRY METHOD 10/10/2022 5:25 AM EST [facility] Anion Gap 5(L) 6 - 18 LAB CHEMISTRY METHOD 10/10/2022 5:25 AM EST [facility] Glucose 139(H) 70 - 99 mg/dL LAB CHEMISTRY METHOD 10/10/2022 5:25 AM EST [facility] BUN 25(H) 8 - 20 mg/dL LAB CHEMISTRY METHOD 10/10/2022 5:25 AM EST [facility] Creatinine 0.98 0.60 - 1.30 mg/dL LAB CHEMISTRY METHOD 10/10/2022 5:25 AM EST [facility] eGFR 59(L) >=60 mL/min/1. 73m2 LAB CHEMISTRY METHOD 10/10/2022 5:25 AM EST [facility] Comment:Effective July 28, 2022, calculation based on the Chronic Kidney Disease Epidemiology Collaboration (CKD-EPI) equation refit without adjustment for race. BUN/Creatinine Ratio 25.5(H) 12.0 - 20.0 LAB CHEMISTRY METHOD 10/10/2022 5:25 AM [facility] Calcium 9.0 8.9 - 10.3 mg/dL LAB CHEMISTRY METHOD 10/10/2022 5:25 AM EST [facility] Blood Venous blood specimen / Unknown Venipuncture / Unknown 10/10/2022 3:37 AM EST 10/10/2022 4:58 AM EST us Alan BLAKELY LAB BLOOD ORDERABLES Final Resul t [facility] [address] [place] [address] from Last 3 Months or Most Recently Relevant to Health [place] [id number] [employer] MED[employer]ARE [employer]VANTAGE Advance Directives * Full [...] currently active code status orders. Care Teams Humanities Division Chair Relationship Specialty Start Date End Date Stephen Harrison MD PCP - General 12/17/22
--- OUTSIDE RECORDS SUMMARY | 2025-06-06 10:24 | XMS_ITS | Clinical Summary ---
Author Organization [facility] Address [address] [place] [id number] Phone Care Team Providers Care Setter Induction Heating Equipment Name Role Phone Shekhar Young MD Primary Care Provider [phone] Allergies Active Allergy Reactions Criticality Noted Date Comments Amoxicillin-Pot Clavulanate 05/21/20 rash Levofloxacin 05/21/2024 rash Medications omeprazole (PRILOSEC) [...] that she was diagnosed with anemia in [place] and given IV iron, since she could [...] surgery. During the visit I reviewed prior boat joiner helper record from [place], they have her on prophylaxis 2.5 mg BID dose. In case she has AF she would probably need to move up to 5 mg BID based on weight but we would need to check Cr (I am checking today) to confirm dose. If no new diagnosis, ok to keep 2.5 mg BID given this has been already determined by boat joiner helper. Borderline high blood pressure 08/12/2023 Assessment & [...] EDT) SODIUM 143 135 - 145 mmol/L [facility] POTASSIUM 4.2 3.4 - 5.0 mmol/L [facility] CHLORIDE 106 98 - 108 mmol/L [facility] CO2 26 23 - 32 mmol/L [facility] BUN 20 8 - 25 mg/dL [facility] CREATININE 1.20 0.60 - 1.50 mg/dL [facility] GLUCOSE 86 70 - 110 mg/dL [facility] CALCIUM 9.9 8.5 - 10.5 mg/dL [facility] EGFR 45(L) >59 mL/min/1.7 3m2 [facility] Comment:Estimated glomerular filtration rate calculated using the CKD-EPI refit equation. ANION GAP 11 3 - 17 mmol/L [facility] Blood 05/21/2024 3:11 PM EDT 05/21/2024 5:14 PM EDT us Chilango Gonzáles MD, MPhil LAB BLOOD ORDERABLES Fin al Result [facility] [address] [place] [address] from Last 3 Months or Most Recently Relevant to Health Maintenance Insurance [employer] PPO AENA PPO A[employer] PPO A[employer] PPO A[employer] PPO [employer] PPO Care Teams Setter Induction Heating Equipment Relationship Specialty Start Date End Date Shekhar Young MD [address] [place] [address] [facility] [id number] PCP - General Internal Medicine 08/28/23 Additional Source Comments The information contained in this document represents components of the legal health record. It is not the complete legal health record.[facility]
== END 2025-06-06 11:23 | disposition home or self-care (01) ==
LOC: HO.HBS 09:44
PROVIDERS: PCP Internal Medicine; Visit Provider Surgery
DX: K44.9 Diaphragmatic hernia without obstruction or gangrene (principal)
CPT/HCPCS: 99204

== ENCOUNTER → 2025-06-06 09:43 | Outpatient (REF) | payer MEDICARE, SELFPAY ==
--- NOTE | 2025-06-06 11:21 | ECG_ITS ---
Test Reason : PREOP Blood Pressure : */* mmHG Vent. Rate : 76 BPM Atrial Rate : 76 BPM P-R Int : 130 ms QRS Dur : 76 ms QT Int : 388 ms P-R-T Axes : -18 4 37 degrees QTcB Int : 436 ms Normal sinus rhythm Normal ECG When compared with ECG of 01-Jul-2023 15:34, No significant change was found Referred By: Brant Pope Electronically Signed By: RAJESH HENAO MD
== END ==
LOC: HO.CARD 09:43
PROVIDERS: PCP Internal Medicine; Visit Provider Surgery
DX: K44.9 Diaphragmatic hernia without obstruction or gangrene (principal); Z01.818 Encounter for other preprocedural examination
CPT/HCPCS: 93005; 99202

== ENCOUNTER → 2025-06-06 11:21 | Outpatient (BNV) | payer MEDICARE, SELFPAY | PROVIDERS: PCP Internal Medicine; Visit Provider Internal Medicine Cardiovascular Disease | DX: K44.9 Diaphragmatic hernia without obstruction or gangrene (principal) | CPT/HCPCS: 93010 ==

== ENCOUNTER 2025-06-07 12:16 | Outpatient (AMB) | payer MEDICARE, SELFPAY ==
--- NOTE | 2025-06-07 12:35 | A.OFFPC_ITS ---
Vital Signs 06/07/25 12:36 Height 5 ft 5 in Weight 202 lb 2 oz BMI 33.6 BP 124/80 Blood Pressure Location Lt brachial Position Sitting Pulse 76 Pulse Source Pulse Oximeter Pulse Oximetry (%) 97 Oxygen Delivery Method Room Air Intake Visit Reasons: 4mt f/u Rack Washer Required: No Accompanied by: Self / Same As Patient Allergies amoxicillin (From Augmentin) Allergy (Severe, Verified 06/07/25 12:59) Rash clavulanic acid (From Augmentin) Allergy (Severe, Verified 06/07/25 12:59) Rash levofloxacin (From Levaquin) Allergy (Severe, Verified 06/07/25 12:59) Rash Medication List - Last Reconciled 06/07/25 by Shekhar Young MD albuterol sulfate 90 mcg/actuation 2 puffs inhalation Q4-6H PRN apixaban (Eliquis) 2.5 mg PO BID 90 days atorvastatin 40 mg PO DAILY 90 days calcium carbonate-vitamin D3 600 mg-10 mcg (400 unit) (Calcium with Vitamin D) 1 tab PO BID cholecalciferol (vitamin D3) 50 mcg PO DAILY esomeprazole magnesium 20 mg PO DAILY 90 days famotidine 20 mg PO BEDTIME PRN fluticasone propionate 50 mcg/actuation 2 sprays intranasal DAILY PRN 30 days potassium chloride ER 10 mEq PO DAILY 90 days propranolol ER 60 mg PO DAILY tramadol 50 mg PO DAILY PRN 90 days trazodone 50 mg PO BEDTIME PRN Tobacco use date assessed: 06/07/25 Fall risk assessment: No Falls in past year Last assessed Fall Risk: 06/07/25 Dental Screening Dental Screen Date: 06/07/25 Did you have a dental visit in the last 12 months?: Yes Did you have a dental problem in the last 6 months where you did not have access to dental care?: No Was dental information given to patient?: Patient has dentist HPI 4mth f/u HPI Details Patient comes in today for her follow up visit States that she feels okay She denies any headaches or dizziness Denies any chest pains, no increased shortness of breath No nausea/vomiting, no abdominal pain No change in bowel habits noted She was seen by Dr. 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 History of colitis Hepatic hemangioma Hepatic cyst Osteoporosis Meniere's disease Large hiatal hernia Chronic kidney disease (CKD), stage III (moderate) Atherosclerosis of aorta History of recurrent deep vein thrombosis (DVT) (~12/2020) History of pulmonary embolism (~2017) History of deep vein thrombosis (DVT) of lower extremity (~2016) Pure hypercholesterolemia Benign essential hypertension Surgical History History of esophagogastroduodenoscopy (EGD) History of colonoscopy History of arthroplasty of left shoulder (~09/2022) History of arthroplasty of right hip (~12/2021) History of arthroplasty of right shoulder (~12/2020) S/P trigger finger release (~2018) History of total left hip arthroplasty (~2016) History of tubal ligation History of left oophorectomy Hx of parotidectomy History of ear surgery History of ankle surgery Family History Other Hypertension Social History Housing: Condominium Alcohol intake: current Alcohol intake frequency: holidays/special occasions only Patient Tobacco Use Status: Former Tobacco user Years Smoked: quit 9 years ago e-Cigarette/Vaping Use: Never Used service: No Current occupational status: retired Current occupational exposures/hazards: No Cognitive needs: No Hearing needs: No Vision needs: No Questionnaire PHQ-9 Over the last 2 weeks, how often have you been bothered by any of the following problems? 1. Little interest or pleasure in doing things: not at all 2. Feeling down, depressed, or hopeless: not at all 3. Trouble falling or staying asleep, or sleeping too much: not at all 4. Feeling tired or having little energy: several days 5. Poor appetite or overeating: several days 6. Feeling bad about yourself - or that you are a failure or have let yourself or your family down: not at all 7. Trouble concentrating on things, such as reading the newspaper or watching television: not at all 8. Moving or speaking so slowly that other people could have noticed. Or the opposite - being so fidgety or restless that you have been moving around a lot more than usual: not at all 9. Thoughts that you would be better off or of hurting yourself in some way: not at all Total score: 2 Depression Screening Interpretation: Negative Depression Screening Done: Yes 51738 - PHQ-9 Billing: Yes Source: Developed by Drs. Andrew Mcghee, Yue Mosqueda, Vazquez Johnson and colleagues, with an educational yesica from [employer]. Thrive Questionnaire Date Thrive assessed: 06/07/25 I am a: Patient What is your living situation today?: I have a steady place to live Within the past 12 months, did the food you bought not last and you didn't have the money to get more?: Never true Within the past 12 months, did you worry whether your food would run out before you got money to buy more?: Never true Do you have trouble paying for medicines?: No Do you have trouble getting transportation to medical appointments?: No Do you have trouble paying your heating and electricity bill?: No Do you have trouble taking care of your child, family member or friend?: No Do you have trouble with day-to-day activities such as bathing, preparing meals, shopping, managing finances, etc.?: No Are you currently unemployed and looking for a job?: No Are you interested in more education?: No Please select the resources that you would like help with: None Currently or been in a relationship where the following occur: No concerns reported THRIVE Score: 0 AUDIT C Alcohol Use Questionnaire (AUDIT-C) 1. How often do you have a drink containing alcohol?: Monthly or less 2. How many drinks containing alcohol do you have on a typical day when you are drinking?: 1 or 2 3. How often do you have six or more drinks on one occasion?: Never Total Score: 1 Score Reviewed/Action Taken: Yes PERCY-7 AMB Questionnaire PERCY-7 Date PERCY - 7 assessed: 06/07/25 Feeling nervous, anxious, or on edge: 0 = Not at all Not being able to stop or control worryin = Not at all Worrying too much about different things: 0 = Not at all Trouble relaxin = Not at all Being so restless that it is hard to sit still: 0 = Not at all Becoming easily annoyed or irritable: 0 = Not at all Feeling afraid as if something awful might happen: 0 = Not at all Total PERCY-7 score (0-4 normal; 5-9 mild; 10-14 moderate; 15-21 severe): 0 Source: Developed by Drs. Andrew Mcghee, Yue Mosqueda, Vazquez Johnson and colleagues, with an educational yesica from [employer]. Review of Systems Const Denies chills, Denies fatigue, Denies fever(s) and Denies headache(s) ENT Denies dysphagia, Denies dizziness, Denies otalgia, Denies headache(s), Denies neck pain, Denies odynophagia and Denies sore throat Card Denies chest pain, Denies rapid heart rate (controlled on Propranolol ER), Denies palpitations and Reports dyspnea on exertion (mild) Resp Denies chest congestion, Denies cough, Reports dyspnea on exertion (mild) and Denies wheezing GI Denies abdominal pain, Denies constipation, Denies dysphagia, Denies heartburn, Denies diarrhea, Denies nausea, Denies odynophagia and Denies vomiting Denies difficulty voiding, Denies nocturia, Denies dysuria and Denies urinary urgency Musc Reports back pain (over the lower back), Reports arthralgias (involving shoulders and hips, on and off; (+) pain in the R knee ), Denies neck pain and Denies stiffness Skin/Breast Denies rash Neuro Denies dizziness and Denies headache(s) Endo Denies fatigue and Denies palpitations Aller/Immun Denies wheezing Physical exam (Primary Care) Vital Signs: Oxygen Delivery Method Room Air 06/07/25 12:36 Tobacco/Smoking Status: Tobacco use Status Tobacco use date assessed 01/26/25 03/02/25 10:54 Patient Tobacco Use Status Former Tobacco user 06/06/25 10:01 e-Cigarette/Vaping Use Never Used 06/06/25 10:01 Depression Screening Interpretation: Negative Thrive Assessment: Date of Thrive Assessment Date Thrive assessed 01/26/25 03/02/25 10:54 Currently or been in a relationship where the following occur: No concerns reported Const General: no acute distress and alert HENMT Ears: TM's normal bilaterally and EAC's normal Throat: Yes posterior oropharynx normal and Yes tonsils normal (no TP congestion) Neck Neck: Yes supple and No lymphadenopathy Thyroid: Thyroid normal Resp Auscultation: clear to auscultation bilaterally (although breath sounds appear slightly diminished on auscultation), no rales and no wheezes Cardio Rate: regular rate Rhythm: regular rhythm Heart sounds: no murmurs GI Palpation (GI): Soft to palpation and nontender Auscultation: normal bowel sounds General: Yes no CVA tenderness Back/Spine/Pelvis Back: no CVA tenderness Thoracic/Lumbar Spine: lumbar spinal tenderness (mild) Skin Rashes: no rashes Extrem General: Yes no clubbing, cyanosis or edema Right lower extremity: knee Details: tenderness; no swelling Results Reviewed Results Reviewed: Laboratory Tests 06/01/25 06/03/25 09:12 07:20 WBC 4.4 L Hgb 12.7 Hct 40.4 Plt Count 211 Sodium 143 Potassium 4.0 Creatinine 1.01 Estimated GFR 52 Fasting Glucose 97 Calcium 9.2 AST 22 ALT 18 Triglycerides 73 Cholesterol 124 LDL Cholesterol, Calc 67 HDL Cholesterol 43 25-OH Vitamin D Total 61.8 TSH 3.16 Ur Specific [place] 1.025 Urine Protein Negative Urine Glucose (UA) Negative Urine Blood Negative Urine Nitrite Positive H Ur Leukocyte Esterase Small (1+) H Coding Level of Care Code Est Pt Level 4 (29171) Diagnoses Pure hypercholesterolemia E78.00 Benign essential hypertension I10 Palpitations R00.2 Atherosclerosis of aorta I70.0 Stage 3a chronic kidney disease N18.31 Chronic kidney disease stage 3 subtype: stage 3a (GFR 45-59) Anemia, unspecified type D64.9 Anemia type: unspecified type Large hiatal hernia K44.9 History of recurrent deep vein thrombosis (DVT) Z86.718 Primary osteoarthritis involving multiple joints M15.9 Osteoarthritis type: primary Age-related osteoporosis without current pathological fracture M81.0 Osteoporosis type: age-related Presence of current pathological fracture: without current pathological fracture Restless leg syndrome G25.81 E. coli urinary tract infection N39.0; B96.20 Insomnia, unspecified type G47.00 Insomnia type: unspecified Obesity (BMI 30-39.9) E66.9 Additional Codes PHQ-9 - 73247 - PHQ-9 Billing: Yes ([id number]) Assessment & Plan Assessment & Plan (1) Pure hypercholesterolemia: Code(s): E78.00 - Pure hypercholesterolemia, unspecified Category: Medical Plan: Results of her labs done a few days ago reviewed and discussed with patient Reinforced low cholesterol diet Continue Atorvastatin 40 mg QD Will recheck her fasting lipids and labs in 4 months for follow up (2) Benign essential hypertension: Code(s): I10 - Essential (primary) hypertension Category: Medical Plan: Reinforced low sodium diet - goal is systolic BP of at least 120 to 130 mm, based on her multiple comorbidities She was previously on Triamterene-HCTZ (also for her lower extremity edema) and Irbesartan but these were held due to low blood pressure during hospitalization a few years ago and eventually stopped - she has NOT required any Rx for her blood pressure since States that her systolic BP at home usually runs between 110 to 120 mm and diastolic is often in the 70s range She was however started on Propranolol ER 60 mg QD for her palpitations and she seems to be tolerating the Rx so far Patient is reminded to continue monitoring her blood pressure regularly at home (3) Palpitations: Code(s): R00.2 - Palpitations Category: Medical Plan: Patient's EKG, echocardiogram and 7-day Holter monitor done a few months ago all came back normal She was reportedly seen by cardiology at [facility] in [place] a few months ago and was also advised that her tests have all come back normal and they have no explanation for her recurrent symptoms of palpitations She has since been started on Propranolol ER 60 mg QD and she states that her symptoms have mostly subsided/controlled with the Rx (4) Atherosclerosis of aorta: Comment: seen on abdominal aorta CT in 2016 and on chest x-rays in 2017 - mild Code(s): I70.0 - Atherosclerosis of aorta Category: Medical Plan: She has been recommended to continue with risk factor(s) modification, including control of her BP and cholesterol, and to continue statin therapy to help slow down progression of this (5) Chronic kidney disease (CKD), stage III (moderate): Comment: due to long-term NSAID use Code(s): N18.30 - Chronic kidney disease, stage 3 unspecified Category: Medical Qualifiers: Chronic kidney disease stage 3 subtype: stage 3a (GFR 45-59) Qualified Code(s): N18.31 - Chronic kidney disease, stage 3a Plan: Reinforced avoidance of all NSAIDs as much as possible Will continue to monitor her renal function regularly (6) Anemia: Comment: unable to tolerate oral iron supplements Code(s): D64.9 - Anemia, unspecified Category: Medical Qualifiers: Anemia type: unspecified type Qualified Code(s): D64.9 - Anemia, unspecified Plan: CORRECTED on her most recent labs done last year - this was most likely due to her CKD Her CBC done at [facility] last year came back normal, with H/H of 14.0/45.3; her iron studies done back then also came out normal Patient reportedly had iron infusion done in late 2021 shortly before she left [place] and moved here to [facility] a couple of years ago (she is unable to tolerate any oral iron supplements), and recalls experiencing improvement of her symptoms, including less dizziness/orthostasis and less fatigue/more energy Her H/H is again normal on her recent labs done a few days ago Will continue to monitor her CBC regularly (7) Large hiatal hernia: Code(s): K44.9 - Diaphragmatic hernia without obstruction or gangrene Category: Medical Plan: Dietary restrictions similar to GERD reinforced Continue Omeprazole 40 mg QD Repeat UGI series done in November 2024 revealed (+) large type 3 paraesophageal hernia, with the majority the fundus located within the thoracic cavity There are also findings of (+) 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 Ugalde on 05/17/2025, which revealed (+) large hiatal hernia with aguila erosions. CRE balloon dilation was done up to 16.5 mm of upper esophagus She was then referred to surgery for correction of her paraesophageal hernias and was seen by Dr. Pope yesterday She is now scheduled for paraesophageal hernia repair on 07/19/2025 (8) History of recurrent deep vein thrombosis (DVT): Onset Date: ~12/2020 Comment: initial DVT occurred in 2017 following hip surgery; recurred following right shoulder arthroplasty and s/p COVID vaccine in 12/2020 Code(s): Z86.718 - Personal history of other venous thrombosis and embolism Category: Medical Plan: Continue Eliquis 2.5 mg BID (9) Osteoarthritis of multiple joints: Comment: involving hips and shoulders - symptoms relieved with Celecoxib (previously discussed NSAID use with PCP back in 2018) Code(s): M15.9 - Polyosteoarthritis, unspecified Category: Medical Qualifiers: Osteoarthritis type: primary Qualified Code(s): M15.9 - Polyosteoarthritis, unspecified Plan: Continue Tramadol 50 mg QD PRN Reinforced avoidance of NSAIDs due to her CKD but advised that she can continue taking OTC Tylenol PRN (10) Osteoporosis: Comment: of hip (BMD in 08/2018 revealed T-score of -2.9) - started on Alendronate in 09/2018; repeat BMD last done 08/2021 Code(s): M81.0 - Age-related osteoporosis without current pathological fracture Category: Medical Qualifiers: Osteoporosis type: age-related Presence of current pathological fracture: without current pathological fracture Qualified Code(s): M81.0 - Age- related osteoporosis without current pathological fracture Plan: Reinforced fall precautions Continue daily oral Calcium and Vitamin D supplements Will consider repeating BMD later this year (2024) for follow up and continuing monitoring (11) Restless leg syndrome: Comment: symptoms relieved with Ropinirole - 2020 Code(s): G25.81 - Restless legs syndrome Category: Medical Plan: Continue Ropinirole - patient takes this only PRN (12) E. coli urinary tract infection: Code(s): N39.0 - Urinary tract infection, site not specified; B96.20 - Unspecified Escherichia coli [E. coli] as the cause of diseases classified elsewhere Category: Medical Plan: Her urine culture done a few days ago is growing out beta-lactamase producing E. coli at >067622 cfu Patient has noticed that her urine was very cloudy in appearance when she went for her labs, which she states is unusual Will go ahead and start her on Macrobid 100 mg BID x 7 days (13) Insomnia: Code(s): G47.00 - Insomnia, unspecified Category: Medical Qualifiers: Insomnia type: unspecified Qualified Code(s): G47.00 - Insomnia, unspecified Plan: Sleep hygiene reinforced She has taken Zolpidem 5 mg Q HS PRN and/or Trazodone 50 mg Q HS PRN in the past but has been on Trazodone lately (14) Obesity (BMI 30-39.9): Code(s): E66.9 - Obesity, unspecified Category: Medical Plan: Reinforced diet; exercise and weight loss are unrealistic at this point given patient's multiple comorbidities and to a lesser extent, her age She is currently starting on a nutritional supplement from Dr. Pope to help her lose weight to help decrease the risk of recurrence of her paraesophageal hernia(s), which is scheduled to be repaired on 07/19/2025 Plan Follow up in 4 months Orders: Orders Comprehensive [place]. Panel Fast 4 Months E78.00 - Pure hypercholesterolemia, unspecified Lipid Panel 4 Months E78.00 - Pure hypercholesterolemia, unspecified Complete Blood Count Auto Diff 4 Months D64.9 - Anemia, unspecified TSH reflex Free T4 4 Months E78.00 - Pure hypercholesterolemia, unspecified UA CC w/rflx Micro + Cult 4 Months R30.0 - Dysuria Vitamin B12 and Folate 4 Months E53.8 - Deficiency of other specified B group vitamins Vitamin D 25-OH Total 4 Months E55.9 - Vitamin D deficiency, unspecified Medications: New nitrofurantoin monohyd/m-cryst 100 mg (Macrobid) must administer with a meal/food 100 mg PO Q12H 14 caps 0RF 7 days
[2025-06-07 12:36] VITALS: BP 124/80; PULSE 76; O2SAT 97; BMI 33.6
== END 2025-06-07 13:21 | disposition home or self-care (01) ==
LOC: HO.HMCH 12:17
PROVIDERS: PCP Internal Medicine; Visit Provider Internal Medicine
DX: E78.00 Pure hypercholesterolemia, unspecified (principal); I12.9 Hypertensive chronic kidney disease with stage 1 through stage 4 chronic kidney disease, or unspecified chronic kidney disease; N18.31 Chronic kidney disease, stage 3a; R00.2 Palpitations; I70.0 Atherosclerosis of aorta; D64.9 Anemia, unspecified; K44.9 Diaphragmatic hernia without obstruction or gangrene; Z86.718 Personal history of other venous thrombosis and embolism; M15.9 Polyosteoarthritis, unspecified; M81.0 Age-related osteoporosis without current pathological fracture; G25.81 Restless legs syndrome; N39.0 Urinary tract infection, site not specified

== ENCOUNTER → 2025-06-07 12:16 | Outpatient (BNVA) | payer MEDICARE, SELFPAY | PROVIDERS: PCP Internal Medicine; Visit Provider Internal Medicine | DX: I12.9 Hypertensive chronic kidney disease with stage 1 through stage 4 chronic kidney disease, or unspecified chronic kidney disease (principal); N18.31 Chronic kidney disease, stage 3a; E78.00 Pure hypercholesterolemia, unspecified; R00.2 Palpitations; I70.0 Atherosclerosis of aorta; D64.9 Anemia, unspecified; K44.9 Diaphragmatic hernia without obstruction or gangrene; M15.9 Polyosteoarthritis, unspecified; G25.1 Drug-induced tremor; M81.0 Age-related osteoporosis without current pathological fracture; G25.81 Restless legs syndrome; B96.20 Unspecified Escherichia coli [E. coli] as the cause of diseases classified elsewhere; G47.00 Insomnia, unspecified; E66.9 Obesity, unspecified; Z86.718 Personal history of other venous thrombosis and embolism; Z68.33 Body mass index [BMI] 33.0-33.9, adult | CPT/HCPCS: 96127; 99212 ==

== ENCOUNTER 2025-06-29 09:18 | Outpatient (AMB) | payer MEDICARE, SELFPAY ==
--- OUTSIDE RECORDS SUMMARY | 2023-04-08 05:32 | XMS_ITS | Continuity of Care Document ---
Author Organization 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 [address] [place] [address], [id number] , [place]. tel:[phone] [facility], [address], [place], [place], [id number], [place] tel:[phone] [facility] No Information 3 Roshan Kee. [address] [place] [address], [id number] , . 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 [address] [place] [address], [id number] , [place]. tel:[phone] Referring Provider: Alisia Carvajal MD, [address] [place] [address], [address] . 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 [address] [place] [address], [id number] , . tel:[phone] Referring Provider: Alisia Carvajal MD, [address] [place] [address], [address] . 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 [address] [place] [address], [address] [place] [address] , . [phone] Referring Provider: Alisia Carvajal MD, [address] [place] [address], [address] . tel:[phone] [facility] E&m Estab Pt; 65/> [facility], [address], [place], [place], [id number], tel:[phone] [facility] Jacquelyn [facility] Caseworker annual exam (chief complaint) Encntr for dock manager exam (general) (routine) w/o abn findingsUrinary urgency 0 8 Wei Crump. [address] [place] [address], [address] [place] [address] , [place]. tel:[phone] Referring Provider: Alisia Carvajal MD, [address] [place] [address], [address] . tel:[phone] [facility] E&m Estab Pt; 65/> [facility], [address], [place], [place], [id number], [place] tel:[phone] [facility] Caseworker annual exam (chief complaint) Encntr for dock manager exam (general) (routine) w/o abn findingsEncounter for screening for malignant neoplasm of cervix 7 Wei Crump. [address] [place] [address], [id number] , . [phone] Referring Provider: Alisia Carvajal MD, [address] [place] [address], [address] . 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 [address] [place] [address], [address] [place] [address] , [place]. [phone] Referring Provider: Alisia Carvajal MD, [address] [place] [address], [address] . tel:[phone] [facility], [place] [address], [place], [address] [place] [address], tel:[phone] Nadeem Valladares [facility] Caseworker No Information 5 Wei Crump. [address] [place] [address], [address] [place] [address] , . [phone] Referring Provider: Alisia Carvajal MD, [address] [place] [address], [address] [place] [address] . tel:[phone] [facility] E&m Estab Pt; 65/> [facility], [place] [address], [place], [address] [place] [address], tel:[phone] Nadeem Valladares [facility] Caseworker annual exam (chief complaint) Encntr for dock manager exam (general) (routine) w/o abn findingsEncounter for screening for malignant neoplasm of cervix 5 Wei Crump. [address] [place] [address], [address] [place] [address] , . [phone] Referring Provider: Alisia Carvajal MD, [address] [place] [address], [address] . tel:[phone] [place] [address], [place], [address] [place] [address], tel:[phone] Nadeem Valladares [facility] Caseworker No Information 4 Wei Crump. [address] [place] [address], [address] [place] [address] , . tel:[phone] Referring Provider: Alisia Carvajal MD, [address] [place] [address], [address] . tel:[phone] [facility] E&m Estab Pt; 65/> [facility], [address], [id number], tel:[phone] LAURINadeem Valladares [facility] Caseworker annual exam (chief complaint) ROUTINE TELECOM ASSISTANT EXAMINATION 4 Wei Crump. [address] [place] [address], [address] [place] [address] , . tel:[phone] Referring Provider: Alisia Carvajal MD, [address] [place] [address], [address] . tel:[phone] [facility], [address], [place], [place], [id number], [place] tel:[phone] Nadeem Valladares [facility] Caseworker No Information 3 Wei Crump. [address] [place] [address], [address] [place] [address] , . [phone] Referring Provider: Alisia Carvajal MD, [address] [place] [address], [address] [place] [address] . tel:[phone] [facility] E&m Estab Pt; 65/> [facility], [facility] [address], [place], [address] [place] [address], tel:[phone] Nadeem Valladares [facility] Caseworker annual exam (chief complaint) Routine TELECOM ASSISTANT Exam W/wo A Pap 3 Wei Crump. [address] [place] [address], [id number] , [place]. tel:[phone] Referring Provider: Alisia Carvajal MD, [address] [place] [address], [address] . tel:[phone] [facility], [address], [place], [place], [id number], tel:[phone] Nadeem Valladares [facility] Caseworker No Information 2 Wei Crump. [address] [place] [address], [id number] , [place]. tel:[phone] Referring Provider: Alisia Carvajal MD, [address] [place] [address], [address] . tel:[phone] [facility] E&m Estab Pt; 65/> [facility], [address], [place], [place], [id number], [place] tel:[phone] [facility] Caseworker annual visit (chief complaint) Screening PAP Only/pp Visit/obRoutine TELECOM ASSISTANT Exam W/wo A Pap 2 Wei Crump. [address] [place] [address], [id number] , [place]. tel:[phone] Referring Provider: Alisia Carvajal MD, [address] [place] [address], [address] . tel:[phone] [facility], [address], [place], [place], [id number], [place] tel:[phone] Nadeem Valladares [facility] Caseworker No Information 1 Wei Crump. [address] [place] [address], [id number] , [place]. tel:[phone] Referring Provider: Alisia Carvajal MD, [address] [place] [address], [address] . tel:[phone] Offic/outpt E&m Estab Low-mod [facility], [address], [place], [place], [id number], [place] tel:[phone] LINH Valladares [facility] Caseworker consult (chief complaint) No Information 1 Wei Crump. [address] [place] [id number] , [place]. tel:[phone] Referring Provider: Alisia Carvajal MD, [address] [place] [address], [address] . tel:[phone] [facility], [address], [place], [place], [id number], [place] tel:[phone] [facility] Caseworker No Information Sep-2 8 1 Wei Crump. [address] [place] [address], [address] [place] [address] , . tel:[phone] Referring Provider: Alisia Carvajal MD, [address] [place] [address], [address] . tel:[phone] [facility], [address], [address] [place] [address], tel:[phone] [facility] Caseworker No Information Sep-0 6 1 Wei Crump. [address] [place] [address], [address] [place] [address] , . tel:[phone] Referring Provider: Alisia Carvajal MD, [address] [place] [address], [address] [place] [address] . tel:[phone] [facility] E&m Estab Pt; 65/> [facility], [address], [address] [place] [address], tel:[phone] [facility] Caseworker annual visit (chief complaint) No Information Sep-0 1 Wei Crump. [address] [place] [address], [address] [place] [address] , . [phone] Referring Provider: Alisia Carvajal MD, [address] [place] [address], [address] . tel:[phone] [facility], [address], [address] [place] [address], tel:[phone] [facility] Rehabilitation Caseworker No Information Sep-0 2201 0 Wei Crump. [address] [place] [address], [address] [place] [address] , . tel:[phone] Referring Provider: Alisia Carvajal MD, [address] [place] [address], [address] . tel:[phone] [facility], [address], [place], [address] [place] [address], tel:[phone] [facility] Caseworker annual visit (chief complaint) Colon/ Rectal CA Screening Jun-0 0 Wei Crump. [address] [place] [address], [address] [place] [address] , . [phone] Referring Provider: Alisia Carvajal MD, [address] [place] [address], [address] [place] [address] . tel:[phone] [facility] E&m Estab Pt; 65/> [facility], [facility] [address], [place], [address] [place] [address], tel:[phone] Nadeem Rodrigo Jacquelyn [facility] Caseworker annual visit (chief complaint) No Information 9 Wei Crump. [address] [place] [address], [address] [place] [address] , . [phone] Referring Provider: Alisia Carvajal MD, [address] [place] [address], [address] . tel:[phone] [facility], [facility] [address], [place], [address] [place] [address], [place] tel:[phone] [facility] Rehabilitation Caseworker No Information 8 Wei Crump. [address] [place] [address], [address] [place] [address] , [place]. [phone] [facility] E&m Estab Pt; 65/> [facility], [address], [place], [address] [place] [address], [place] tel:[phone] [facility] Caseworker No Information 8 Wei Crump. [address] [place] [address], [address] [place] [address] , [place]. tel:[phone] Referring Provider: Alisia Carvajal MD, [address] [place] [address], [address] . tel:[phone] [facility], [address], [place], [address] [place] [address], tel:[phone] Nadeem Rodrigo [facility] Rehabilitation Caseworker No Information 7 Wei Crump. [address] [place] [address], [address] [place] [address] , . tel: [phone] [facility] E&m Estab Pt; 40-6 [facility], [address] [facility], [place], [place], [address] [place] [address], tel:[phone] Nadeem [facility] Caseworker annual visit (chief complaint) No Information 7 Wei Crump. [address] [place] [address], [address] [place] [address] , . tel:[phone] [facility], [place] [address], [place], [address] [place] [address], tel:[phone] Nadeem [facility] Caseworker annual visit (chief complaint) No Information 6 Wei Crump. [address] [place] [address], [address] [place] [address] , . tel: [phone] [facility], [address] [facility], [place], [place], [address] [place] [address], tel:[phone] [facility] Rehabilitation Caseworker annual visit (chief complaint) No Information 200 5 Wei Crump. [address] [place] [address], [address] [place] [address] , . tel: [phone] Family History Family Member Type Diagnosis Age At Onset Sister Problem (finding) Myocardial infarction Problem (finding) Family history of hyper tension Paternal aunt Problem (finding) breast cancer Maternal grandmother Problem (finding) Heart disease Sister Problem (finding) renal failure syndrome Payers Payer name Insurance type Covered republican ID Authoriza tion(s) [employer] PPO 16 [id number] Social History Type Description Quantity Date Captured [...] Goal Lipid Panel. Due on due Goal Lipid Panel. Due [...] on 3 due Goal Mammogram. Due on 3 due Goal Influenza Vaccine. Due on due Goal FOBT. Due on due Goal DEXA Scan. Due on 3 due Goal Pneumococcal Vaccine. Due on due Goal H&P. Due on due Goal Lipid Panel. Due on 011 due Goal TD Vaccine. Due on 13 due Future Order: Lab Order FOBT ([id number]), Ord ered on: Ordered History Of Present [...] Diet and exercise Rela marina to Routine TELECOM ASSISTANT Exam W/wo A Pap Perform self breast exam Related to Routine TELECOM ASSISTANT Exam W/wo A Pap discussed colonoscop y dexa amd mammogram timing continue vitamin d Related to RO UTINE TELECOM ASSISTANT EXAMINATION Discussed Diet and exercise Rela marina to Routine TELECOM ASSISTANT Exam W/wo A Pap Perform self breast exam Related to Routine TELECOM ASSISTANT Exam W/wo A Pap Assessments Type Assessment Date No Information Patient Care Teams Name Effective Dates (start - stop) Status Members No Information
--- OUTSIDE RECORDS SUMMARY | 2025-02-01 10:00 | XMS_ITS ---
Author Organization [facility] Address [address] [place] [address] Care Team Providers Care Tacker Elastic Band Name Role Phone Shekhar Young MD Primary Care Provider Unava ilKiki Constantino [phone] Encounters Encounter Location Date Provider Diagnosis [address] [place] [address] 02/01/2025 Kiki Bledsoe Plan Of Treatment No Information Progress Notes * Javier GREGORIOisDOB:1940 ([age] yo F)Acc No.[id number]:02/01/2025 Progress Notes Patient: Macie PANG Provider: Lorna Bledsoe DPM :1940 A ge:84 Y S ex:Female Date:02/01/2025 Address:[address] [place], [place] Pcp:Shekhar Young MD Subjective: * Chief Complaints: [...] 0 02/01/2025 Generated for Printi ng/Faxing/eTransmitting on: 0 06/29/2025 11:04 AM EDT
--- NOTE | 2025-06-29 09:25 | A.OFFVIS_ITS ---
VS Expanded 06/29/25 09:34 BP 179/78 H Blood Pressure Location Rt brachial Blood Pressure Position Sitting Pulse 71 Pulse Source Pulse Oximeter Temp 96.7 F L Temperature Source Temporal Artery Scan Pulse Oximetry 97 Oxygen Delivery Method Room Air Height 5 ft 5 in Weight 190 lb 9.6 oz BMI 31.7 Body Fat % 44.8 Body Fat Mass 85.4 Fat Free Mass 105.2 Visceral Fat Rating 14.0 Body Water % 38.7 Body Water Mass 73.6 Muscle Mass/Score 99.8 Basal Metabolic Rate/Score 1,459 Intake Visit Reasons: (OV) Pre Op Hiatal Hernia 07/19/25 Allergies amoxicillin (From Augmentin) Allergy (Severe, Verified 06/29/25 09:36) Rash clavulanic acid (From Augmentin) Allergy (Severe, Verified 06/29/25 09:36) Rash levofloxacin (From Levaquin) Allergy (Severe, Verified 06/29/25 09:36) Rash Medication List - Last Reconciled 06/29/25 by Brant Pope MD albuterol sulfate 90 mcg/actuation 2 puffs inhalation Q4-6H PRN apixaban (Eliquis) 2.5 mg PO BID 90 days atorvastatin 40 mg PO DAILY 90 days calcium carbonate-vitamin D3 600 mg-10 mcg (400 unit) (Calcium with Vitamin D) 1 tab PO BID cholecalciferol (vitamin D3) 50 mcg PO DAILY esomeprazole magnesium 20 mg PO DAILY 90 days famotidine 20 mg PO BEDTIME PRN fluticasone propionate 50 mcg/actuation 2 sprays intranasal DAILY PRN 30 days fondaparinux 2.5 mg (0.5 mL) subcut Q24H nitrofurantoin monohyd/m-cryst 100 mg (Macrobid) 100 mg PO Q12H 7 days ondansetron 4 mg PO Q12H pantoprazole 40 mg PO DAILY polyethylene glycol 3350 17 grams PO DAILY potassium chloride ER 10 mEq PO DAILY 90 days propranolol ER 60 mg PO DAILY sucralfate 10 mL PO BID tramadol 50 mg PO DAILY PRN 90 days trazodone 50 mg PO BEDTIME PRN HPI Comments Details: Was able to lose 10lbs with the meal plan I gave her Is doing one muffin in the morning, one Celebrate protein bar, one Celebrate shake with one scoop and a meal (8 forks each) [facility] Medical History Paraesophageal hernia Obesity (BMI 30-39.9) Insomnia Anemia Restless leg syndrome 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 History of colitis Hepatic hemangioma Hepatic cyst Osteoporosis Meniere's disease Large hiatal hernia Chronic kidney disease (CKD), stage III (moderate) Atherosclerosis of aorta History of recurrent deep vein thrombosis (DVT) (~12/2020) History of pulmonary embolism (~2016) History of deep vein thrombosis (DVT) of lower extremity (~2016) Pure hypercholesterolemia Benign essential hypertension Surgical History History of esophagogastroduodenoscopy (EGD) History of colonoscopy History of arthroplasty of left shoulder (~09/2022) History of arthroplasty of right hip (~12/2021) History of arthroplasty of right shoulder (~12/2020) S/P trigger finger release (~2018) History of total left hip arthroplasty (~2016) History of tubal ligation History of left oophorectomy Hx of parotidectomy History of ear surgery History of ankle surgery Family History Other Hypertension Social History Housing: [facility] Alcohol intake: current Alcohol intake frequency: holidays/special occasions only Patient Tobacco Use Status: Former Tobacco user Years Smoked: quit 9 years ago e-Cigarette/Vaping Use: Never Used service: No Current occupational status: retired Current occupational exposures/hazards: No Cognitive needs: No Hearing needs: No Vision needs: No Physical Exam Vital Signs: Last Vital Signs Temp 96.7 F L 06/29/25 09:34 Pulse 71 06/29/25 09:34 BP 179/78 H 06/29/25 09:34 Pulse Ox 97 06/29/25 09:34 Oxygen Delivery Method Room Air 06/29/25 09:34 BMI result Body Mass Index 31.7 Assessment & Plan Assessment & Plan (1) Paraesophageal hernia: Code(s): K44.9 - Diaphragmatic hernia without obstruction or gangrene Category: Medical Plan: 1. We discussed the potential etiology of the hernia that could be of traumatic etiology worsened by his weight. We discussed the details of the diaphragmatic hernia repair and the potential technical challenges such as being able to achieve enough mobilization of the esophagus back in the abdomen and being able to close the diaphragmatic muscle (crura) primarily with sutures. We also discussed the possibility of using a biologic mesh to close the hernia defect if the crura cannot be adequately re-approximated primarily with sutures. We also discussed the option of doing a gastropexy or a fundoplication to prevent postoperative reflux and prevent hernia recurrence. As we discussed, I favor the gastropexy as the fundoplication can cause several distrurbing symptoms such as gas-bloating, flatulence, inability to burp which can be bothersome to patients especially for him with a history of IBS. Also we discussed the complexity of a potential hernia recurrence in association with a hernia recurrence. He was in agreement not to have a fundoplication. We also discussed that after surgery, he will need to be on a liquid diet with protein shakes the first week. The second week will add protein bars and soft foods and after the third week we will introduce small amounts of regular food. The transition to normal eating habits will take about 6 weeks which is the time required for the repair to heal completely. 2. Preop prescriptions were provided and explained the purpose of each one. Need to be purchased preop. Start Pantoprazole now as you get it from the pharmacy, 1 pill per day. Sucralfate and Zofran are for after surgery as needed. 3. Bowel prep: please do 7 packets ?of Miralax mixing each one with a an 8oz glass of water, crystal light, gatorade zero, or propel ?on 07/17/25 and the same amount on 07/18/25. The Miralax you begin with one packet at a time in 8oz water or crystal light, gatorade zero, or propel ?as early in the day as you can and you do them back to back until you finish them. Continue the protein shakes during ?the bowel prep. 4. Needs to purchase 1oz medicine cups . 5. Needs to purchase Children's liquid Tylenol for postop pain control. 6. Avoid aspirin, motrin, Advil, Aleve, Meloxicam, Excedrin, Ibuprofen, Naproxyn. Tylenol is OK. 7. Stop the Eliquis on 07/13/25 (last day to take it). Start the Fondaparinux injections on 07/13/25 and take one per day until 07/18/25. Do not take the Fondaparinux or the Eliquis on 07/19/25 8. Will do basic preop blood work-up any day between Friday07/11/25 and Friday07/15/25 fasting for 12 hours and is scheduled to see the Anesthesiologist prior to the day of surgery. 9. Importance of adherence to postop folllow-up and recommendations was underscored and she understands that. 10. Stop food as of 07/13/25 and continue with one muffin in the morning at 9am, Celebrate protein shake (ONE scoop in 8oz almond milk) at 10am-12pm, a Celebrate protein bar at 1pm-3pm, another Celebrate Rebuild shake with TWO scoops in 8oz almond milk at 4pm-6pm, and one more Celebrate bar at 7pm-9pm 11. No soups, broths or V8 12. The patient's?medical?history has been reviewed and they are considered low risk for post op DVT and therefore DVT prophylaxis is not considered necessary. Travel after surgery was reviewed. The patient has not disclosed any travel plans during the first 30 days after surgery and they have been advised that within the first 30 days after surgery any bus, plane, train or car travel over 2 hours in duration is contraindicated due to the possibility of developing blood clots from immobility. Any travel, needs to include periods of ambulation of 10 minutes in duration every 2 hours.? Patient was instructed to discuss any plans for travel during this period with their bariatric surgeon.? 13. Please take at the day of surgery the following medications: NONE 14. Absolutely no smoking or vaping, or marijuana until the surgery and for at least the first 4 weeks. Only nicotine patches are allowed. 15. Send me weight measurements tomorrow 06/30/25, on 07/07/25, on 07/14/25 on and then on friday07/19/25, the day of surgery before you go to the hospital. 16. Avoid any steroids by mouth for any reason. Let me know if someone prescribes them to you Orders: Orders Prothrombin Time INR Today Z01.818 - Encounter for other preprocedural examination Comprehensive Met. Panel Today Z01.818 - Encounter for other preprocedural examination Type and Screen Today Z01.818 - Encounter for other preprocedural examination Partial Thromboplastin Time Today Z01.818 - Encounter for other preprocedural examination Complete Blood Count Auto Diff Today Z01.818 - Encounter for other preprocedural examination Medications: New sucralfate 10 mL PO BID 600 mL 2RF K44.9 - Diaphragmatic hernia without obstruction or gangrene polyethylene glycol 3350 Mix each measuring cup with 8oz of water, Crystal light, or Gatorade zero, or Propel and do 7 measuring cups on 07/17/25 and another 7 measuring cups on 07/18/25 17 grams PO DAILY 238 grams 0RF Z01.818 - Encounter for other preprocedural examination pantoprazole 40 mg PO DAILY 90 tabs 0RF K44.9 - Diaphragmatic hernia without obstruction or gangrene ondansetron Only take one every 12 hours as needed if you have nausea 4 mg PO Q12H 20 tabs 0RF nausea and vomiting R11.0 - Nausea fondaparinux Start on 07/13/25 one injection per day. Last injection should be on Friday07/18/25 2.5 mg (0.5 mL) subcut Q24H 5 mL 0RF Z86.718 - Personal history of other venous thrombosis and embolism
[2025-06-29 09:34] VITALS: BP 179/78; PULSE 71; TEMP 35.9; O2SAT 97; BMI 31.7
--- OUTSIDE RECORDS SUMMARY | 2025-06-29 11:05 | XMS_ITS | Patient Health Record ---
Author Organization [facility] Address [address] [place] [address] Care Team Providers Care Breeder Hen Service Technician Name Role Phone Hector CHILD, [place] Primary Care Provider [place] valadez Kiki Bledsoe Unavailable [phone] Allergies Allergen (clinical drug ingredient) Drug/Non Drug [...] Splint AFO - L1930 1 wear at rest; Duration: 30 days Active Vitamin D Active Ammonium Lactate 12 % 1 application Exte rnally to affected areas of dry skin to feet except for between the toes Twice a day; Duration: 30 days Active Eliquis Active Omeprazole Active [...] Status Risk Notes Problem 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) Plantar fasciitis, bilateral (M72.2) Active confirmed Vital Signs Blood pressure diastolic 74 mm Hg 12/14/2024 Height 5ft 5in in 12/14/2024 Blood pressure systolic 129 mm Hg 12/14/2024 Weight 185 lbs 12/14/2024 BMI 30.78 kg/m2 12/14/2024 Encounters Encounter Location Date Provider Diagnosis [address] [place] [address] 12/14/2024 Kiki Black Xerosis of skin L85.3 ; Pain in right foot M79.671 ; Plantar fasciitis, bilateral M72.2 ; Calcaneal spur, right foot M77.31 ; Other myositis of right foot M60.871 ; Bursitis of right foot M77.51 ; Pain in left foot M79.672 ; Calcaneal spur, left foot M77.32 ; Other myositis of left foot M60.872 and Bursitis of left foot M77.[address] [place] [address] 10/[facility]20[facility] [address] 11/05/2024 [facility] [address] [facility] [place] [address] 12/14/2024 [facility] [address] 12/20/[address] [place] [address] 12/22/2024 [facility] [address] [facility] [place] [address] 01/05/2025 [facility] [address] 01/18/2025 Kiki Bledsoe Assessments Encounter Date Diagnosis (ICD Code) Assessment [...] Start Date Coverage End Date [employer] [address] [place] [address] [id number] Macie Gregorio Self - patient is the [...]
--- OUTSIDE RECORDS SUMMARY | 2025-06-29 11:05 | XMS_ITS | Clinical Summary ---
Author Organization [facility] Address [address] [facility] [address] [place] [address] Phone Care Team Providers Care Front Office Agent Name Role Phone Shekhar Young MD Primary Care Provider [phone] Allergies Active Allergy Reactions Criticality Noted Date [...] that she was diagnosed with anemia in [place] and given IV iron, since she could [...] surgery. During the visit I reviewed prior ladle puller record from [place], they have her on prophylaxis 2.5 mg BID dose. In case she has AF she would probably need to move up to 5 mg BID based on weight but we would need to check Cr (I am checking today) to confirm dose. If no new diagnosis, ok to keep 2.5 mg BID given this has been already determined by ladle puller. Borderline high blood pressure 08/12/2023 Assessment & [...] SODIUM 143 135 - 145 mmol/L [facility] POTASSIUM 4.2 3.4 - 5.0 mmol/L [facility] CHLORIDE 106 98 - 108 mmol/L [facility] CO2 26 23 - 32 mmol/L [facility] BUN 20 8 - 25 mg/dL [facility] CREATININE 1.20 0.60 - 1.50 mg/dL [facility] GLUCOSE 86 70 - 110 mg/dL [facility] CALCIUM 9.9 8.5 - 10.5 mg/dL [facility] EGFR 45(L) >59 mL/min/1.7 3m2 [facility] Comment:Estimated glomerular filtration rate calculated using the CKD-EPI refit equation. ANION GAP 11 3 - 17 mmol/L [facility] Blood 05/21/2024 3:11 PM EDT 05/21/2024 5:14 PM EDT us Chilango Gonzáles MD, MPhil LAB BLOOD ORDERABLES Fin al Result [facility] [address] [place] [address] from Last 3 Months or Most Recently Relevant to Health Maintenance Insurance [employer] PPO AENA PPO AETNA PPO AETNA PPO AET[employer] PPO [employer] PPO Care Teams Front Office Agent Relationship Specialty Start Date End Date Shekhar Young MD [address] [place] [address] [facility] [address] PCP - General Internal Medicine 08/28/23 Additional Source Comments The information contained in this document represents components of the legal health record. It is not the complete legal health record.[facility]
--- OUTSIDE RECORDS SUMMARY | 2025-06-29 11:05 | XMS_ITS | Encounter Summary ---
Author Organization [facility] Address [address] [facility] [address] [place] [address] Phone Care Team Providers Care Prn Occupational Therapist Name Role Phone Shekhar Young MD Primary Care Provider [phone] Encounter Details Date Type Department Care Team (Late st Contact Info) Description 05/21/2024 Procedure Pass [facility] [address] [facility], 5th [address], [address] [place] [address] Social History Tobacco Use Types Packs/Day Years [...] on filedocumented in this encounter Care Teams Prn Occupational Therapist Relationship Specialty Start Date End Date Shekhar Young MD [address] [place] [address] [place] [address] PCP - General Internal Medicine 08/28/23 documented as of this encounter Additional Source Comments The information contained in this document represents components of the legal health record. It is not the complete legal health record.[facility]
--- OUTSIDE RECORDS SUMMARY | 2025-06-29 11:05 | XMS_ITS | Clinical Summary ---
Author Organization [facility] Address [address] [place] [address] Phone Care Team Providers Care Social Worker Clinical Name Role Phone Stephen Harrison MD Primary [...] 10/10/2023 10/10/2022, 10/09/2022, 09/25/2022, Additional history exists Depression Screening 10/20/2024 DTaP,Tdap,and Td Vaccines (3 - Td or Tdap) 02/21/2025 02/21/2015, 05/29/2005 COVID-19 Vaccine ( season) 2025 07/24/2022, 02/26/2022, 07/14/2021, Additional history exists Influenza Vaccine (#1) 2025 , 07/30/2021, 07/29/2020, [...] this topic Medical Devices Implanted Type Area Historical Site Guide Device Identifier Shelf Expiration Date Model / Serial / Lot Reversed Multi Direction Lock Screw 4.5x20mm - Sn/A - [id number] Implanted:Qty: 1 on 10/09/2022 by Francis Brown MD at [facility] Internal and External Fixation Left: Shoulder [employer] [id number] / N/A / N/A Reversed Multi Direction Lock Screw 4.5x23mm - Sn/A - [id number] Implanted:Qty: 2 on 10/09/2022 by Francis Brown MD at [facility] Internal and External Fixation Left: Shoulder [employer] [id number] / N/A / N/A Reversed Multi Direction Lock Screw 4.5x26mm - Sn/A - [id number] Implanted:Qty: 1 on 10/09/2022 by Francis Brown MD at [facility] Internal and External Fixation Left: Shoulder [employer] [id number] / N/A / N/A Reverse Baseplate 2 Line Extension [id number] - [id number] - [id number] Implanted:Qty: 1 on 10/09/2022 by Francis Brown MD at [facility] Joints Shoulder Left: Shoulder [employer] [id number] 01/18/2027 [id number] / [id number] / N/A Glenoid Sphere Centered 36 Mm,25mm Baseplate - [id number] - [id number] Implanted:Qty: 1 on 10/09/2022 by Francis Brown MD at [facility] Shoulder Left: Shoulder [employer] 07/29/2027 [id number] / [id number] / N/A Tray Flex Rev Shldr Sys +0 - [id number] - [id number] Implanted:Qty: 1 on 10/09/2022 by Francis Brown MD at [facility] Shoulder Left: Shoulder [employer] 09/06/2027 [id number] / [id number] / N/A Shoulder Insrt Rev 36 6/12.5 B - [id number] - [id number] Implanted:Qty: 1 on 10/09/2022 by Francis Brown MD at [facility] Shoulder Left: Shoulder [employer] 05/27/2027 [id number] / [id number] / N/A Shoulder Stem Hum Ptc Flx 5b - [id number] - [id number] Implanted:Qty: 1 on 10/09/2022 by Francis Brown MD at [facility] Shoulder Left: Shoulder [employer] 02/06/2027 [id number] / [id number] / N/A Procedures Procedure Name Priority Date/Time Associated Diagnosis Comments BASIC METABOLIC PANEL Routine 10/10/2022 3:37 AM EST from Last 3 Months or Most Recently Relevant to Health Maintenance Results * (ABNORMAL) Basic metabolic panel (10/10/2022 3:37 AM EST) Sodium 135(L) 136 - 145 mmol/L LAB CHEMISTRY METHOD 10/10/2022 5:25 AM EST [facility] Potassium 4.5 3.6 - 5.1 mmol/L LAB CHEMISTRY METHOD 10/10/2022 5:25 AM EST [facility] Chloride 104 98 - 107 mmol/L LAB CHEMISTRY METHOD 10/10/2022 5:25 AM EST [facility] CO2 26 22 - 32 mmol/L LAB CHEMISTRY METHOD 10/10/2022 5:25 AM EST [facility] Anion Gap 5(L) 6 - 18 LAB CHEMISTRY METHOD 10/10/2022 5:25 AM EST [facility] Glucose 139(H) 70 - 99 mg/dL LAB CHEMISTRY METHOD 10/10/2022 5:25 AM EST [facility] BUN 25(H) 8 - 20 mg/dL LAB CHEMISTRY METHOD 10/10/2022 5:25 AM EST [facility] Creatinine 0.98 0.60 - 1.30 mg/dL LAB CHEMISTRY METHOD 10/10/2022 5:25 AM EST [facility] eGFR 59(L) >=60 mL/min/1. 73m2 LAB CHEMISTRY METHOD 10/10/2022 5:25 AM EST [facility] Comment:Effective July 28, 2022, calculation based on the Chronic Kidney Disease Epidemiology Collaboration (CKD-EPI) equation refit without adjustment for race. BUN/Creatinine Ratio 25.5(H) 12.0 - 20.0 LAB CHEMISTRY METHOD 10/10/2022 5:25 AM [facility] Calcium 9.0 8.9 - 10.3 mg/dL LAB CHEMISTRY METHOD 10/10/2022 5:25 AM EST [facility] Blood Venous blood specimen / Unknown Venipuncture / Unknown 10/10/2022 3:37 AM EST 10/10/2022 4:58 AM EST us Alan BLAKELY LAB BLOOD ORDERABLES Final Resul t [facility] [address] [place] [address] from Last 3 Months or Most Recently Relevant to [place] [address] [employer] MEDICARE ADVANTAGE Advance Directives * Full [...] currently active code status orders. Care Teams Social Worker Clinical Relationship Specialty Start Date End Date Stephen Harrison MD PCP - General 12/17/22
--- OUTSIDE RECORDS SUMMARY | 2025-06-29 11:05 | XMS_ITS | Encounter Summary ---
Author Organization [facility] Address [address] [facility] [address] [place] [address] Phone Care Team Providers Care Scagliola Mechanic Name Role Phone Shekhar Young MD Primary Care Provider [phone] Encounter Details Date Type Department Care Team (Late st Contact Info) Description 05/20/2024 Documentation [facility] Cardiovascular Medicine [address] [facility], 5th [address], [address] [place] [address] Chilango Gonzáles MD, MPhil [address] [facility] [address] [place] [address] [email or web address] Social History Tobacco Use Types Packs/Day Years [...] on filedocumented in this encounter Care Teams Scagliola Mechanic Relationship Specialty Start Date End Date Shekhar Young MD [address] [place] [address] [place] [address] PCP - General Internal Medicine 08/28/23 documented as of this encounter Additional Source Comments The information contained in this document represents components of the legal health record. It is not the complete legal health record.[facility]
== END 2025-06-29 10:12 | disposition home or self-care (01) ==
LOC: HO.HBS 09:20
PROVIDERS: PCP Internal Medicine; Visit Provider Surgery
DX: K44.9 Diaphragmatic hernia without obstruction or gangrene (principal); E66.9 Obesity, unspecified; Z68.31 Body mass index [BMI] 31.0-31.9, adult; Z01.818 Encounter for other preprocedural examination
CPT/HCPCS: 99214

== ENCOUNTER → 2025-06-29 09:18 | Outpatient (BNVA) | payer MEDICARE, SELFPAY | PROVIDERS: PCP Internal Medicine; Visit Provider Surgery | DX: Z01.818 Encounter for other preprocedural examination (principal); K44.9 Diaphragmatic hernia without obstruction or gangrene; R11.0 Nausea; Z86.718 Personal history of other venous thrombosis and embolism | CPT/HCPCS: 99212 ==

== ENCOUNTER 2025-07-19 07:41 | Day surgery (SDC) | payer MEDICARE, SELFPAY ==
[2025-07-05 11:57] VITALS: BMI 31.1
[2025-07-13 10:00] LABS: MANUAL DIFF FLAG NO
[2025-07-13 11:09] LABS: Hematocrit 41.9 % (37.0-47.0); Hemoglobin 12.9 g/dl (12.0-16.0); Imm Gran Abs Auto 0.03 X10*3/uL (0.00-0.03); Imm Gran Pct Auto 0.4 % (0.0-0.4); Lymphocytes Absolute Auto 1.3 X10*3/uL (1.2-4.9); Mean Corpuscular HGB Conc 30.8 g/dl (31.0-35.0); Mean Corpuscular Hemoglobin 26.1 pg (27.0-33.0); Mean Corpuscular Volume 84.6 fL (80.0-98.0); NRBC Abs Auto 0.000 X10*3/uL (0.0-0.012); NRBC Pct Auto 0.0 /100WBC (0.0-0.2); Platelet Count 213 X10*3/uL (160-400); Red Blood Count 4.95 X10*6/uL (4.20-5.50); White Blood Count 7.1 X10*3/uL (4.8-10.8)
[2025-07-13 11:10] LABS: INTERNATIONAL NORM RATIO 1.1 (0.9-1.1); Prothrombin Time 12.6 SEC (10.9-12.4)
[2025-07-13 11:12] LABS: Partial Thromboplastin Time 26.4 SEC (26.7-34.1)
[2025-07-13 12:03] LABS: Alanine Aminotransferase 23 U/L (0-31); Albumin Level 3.9 g/dL (3.5-5.0); Alkaline Phosphatase 72 U/L (39-117); Anion Gap 10 (12-20); Aspartate Amino Transferase 19 U/L (5-31); Blood Urea Nitrogen 25 mg/dL (9-16); Calcium 9.1 mg/dL (8.4-10.2); Carbon Dioxide 26 mmol/L (22-29); Chloride 111 mmol/L (96-108); Creatinine Clr Calc Pharmacy 43.9; Estimated Glomerular Filt Rate 50; Potassium 4.0 mmol/L (3.3-5.1); Sodium 143 mmol/L (135-145); Total Protein 6.0 g/dL (6.5-8.0)
--- NOTE | 2025-07-15 10:11 | HO.ANESPROP2 ---
Documented by User: Huong Moctezuma NP 07/15/25 10:12 HPI - Anesthesia Eval Consult details Narrative: 84yo F for Hernia Diaphragmatic Lap Reducible s/p Upper Endoscopy with Balloon Dilitation 04/2025 with TIVA Eliquis for hx DVT Anesthesia Pre-Procedure Meds Is the patient on any of the following meds?: GLP1/DPP4 PMFSH Active Problems Active Problems: All Active Problems E. coli urinary tract infection (Acute) Upper esophageal web (Acute) Hiatal hernia (Acute) Erosive gastritis (Acute) Wheezing (Acute) Recurrent vertigo (Acute) Upper respiratory infection (Acute) Dyspnea (Acute) Edema (Acute) Left sided abdominal pain (Acute) Palpitations (Acute) Paraesophageal hernia (Acute) Obesity (BMI 30-39.9) (Acute) Insomnia (Acute) History of recurrent deep vein thrombosis (DVT) (Acute ~12/2020) Atherosclerosis of aorta (Acute) Anemia (Acute) Restless leg syndrome (Acute) Osteoarthritis of multiple joints (Acute) Osteoporosis (Acute) Meniere's disease (Acute) Large hiatal hernia (Acute) Chronic kidney disease (CKD), stage III (moderate) (Acute) Pure hypercholesterolemia (Acute) Benign essential hypertension (Acute) Past Medical History Medical History GERD (gastroesophageal reflux disease) History of home oxygen therapy Wears hearing aid in left ear Back pain Arthritis 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 Obesity (BMI 30-39.9) Insomnia Anemia Restless leg syndrome 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 History of colitis Hepatic hemangioma Hepatic cyst Osteoporosis Meniere's disease Large hiatal hernia Chronic kidney disease (CKD), stage III (moderate) Atherosclerosis of aorta History of recurrent deep vein thrombosis (DVT) (~12/2020) History of pulmonary embolism (~2017) History of deep vein thrombosis (DVT) of lower extremity (~2017) Pure hypercholesterolemia Benign essential hypertension Family History Family History Other Hypertension Family history of problems with anesthesia: No Surgical History Surgical History Hx of bilateral cataract extraction Hx of tonsillectomy History of esophagogastroduodenoscopy (EGD) History of colonoscopy History of arthroplasty of left shoulder (~09/2022) History of arthroplasty of right hip (~12/2021) History of arthroplasty of right shoulder (~12/2020) S/P trigger finger release (~2018) History of total left hip arthroplasty (~2016) History of tubal ligation History of left oophorectomy Hx of parotidectomy History of ear surgery History of ankle surgery History of Problems with Anesthesia: No Social History [facility] History [facility] Are you a primary acute care assistant to a significant other at home: No Do you presently have visiting nurse or other home services: No Alcohol intake: current Alcohol intake frequency: does not drink Patient Tobacco Use Status: Former Tobacco user Years Smoked: quit 9 years ago e-Cigarette/Vaping Use: Never Used Use of substances other than those prescribed or required for medical reasons: No Have you been hit, kicked, punched, or otherwise hurt by someone within the past year? If so, by whom?: No Are you DNR?: No Advance Directives: No Advance Directives Information Provided: Yes Advance Directives on File: No Patient : No : No Poor oral hygiene: Yes service: No Current occupational status: retired Current occupational exposures/hazards: No Cognitive needs: No Hearing needs: No Vision needs: No Meds Allergies Allergy/AdvReac Type Severity Reaction Status Date / Time amoxicillin (From Augmentin) Allergy Severe Rash Verified 07/07/25 11:47 clavulanic acid (From Allergy Severe Rash Verified 07/07/25 11:47 Augmentin) levofloxacin (From Levaquin) Allergy Severe Rash Verified 07/07/25 11:47 Home Medications ?Medication ?Instructions ?Recorded ?Confirmed ?Last Taken ?Type calcium 600 mg (as 1 tab PO BID 04/11/23 07/07/25 Unknown History carbonate)-vitamin D3 10 mcg (400 unit) tablet (Calcium with Vitamin D) cholecalciferol (vitamin D3) 50 50 mcg PO DAILY 04/11/23 07/07/25 Unknown History mcg (2,000 unit) capsule propranolol 60 mg capsule,24 60 mg PO BEDTIME 04/12/24 07/07/25 Unknown History hr,extended release acetaminophen 650 mg 650 mg PO Q12H PRN Pain 07/05/25 07/07/25 Unknown History tablet,extended release atorvastatin 40 mg tablet 40 mg PO BEDTIME 07/05/25 07/07/25 Unknown History potassium chloride 10 mEq 10 meq PO BEDTIME 07/05/25 07/07/25 Unknown History capsule,extended release Exam Height,Weight and Vital Signs: Height 5 ft 5 in Weight 84.822 kg Pertinent Lab Results Pertinent Lab Results: Laboratory Tests 07/13/25 07/13/25 09:49 09:58 WBC 7.1 RBC 4.95 Hgb 12.9 Hct 41.9 MCV 84.6 MCH 26.1 L MCHC 30.8 L RDW 14.9 Plt Count 213 MPV 11.6 Immature Gran % (Auto) 0.4 Neut % (Auto) 72.2 Lymph % (Auto) 18.5 L [place] % (Auto) 7.5 Eos % (Auto) 1.3 Baso % (Auto) 0.1 Lymph # (Auto) 1.3 [place] # (Auto) 0.5 Eos # (Auto) 0.1 Baso # (Auto) 0.0 Abs Immat Gran (auto) 0.03 Absolute Neuts (auto) 5.1 Absolute Nucleated RBC 0.000 Nucleated RBC % (auto) 0.0 PT 12.6 H INR 1.1 APTT 26.4 L Sodium 143 Potassium 4.0 Chloride 111 H Carbon Dioxide 26 Anion Gap 10 L BUN 25 H Creatinine 1.06 Estim Creat Clear Calc 43.9 Estimated GFR 50 Random Glucose 90 Calcium 9.1 Total Bilirubin 0.6 AST 19 ALT 23 Alkaline Phosphatase 72 Total Protein 6.0 L Albumin 3.9 Blood Type O Positive Antibody Screen NEGATIVE Narrative Narrative: EKG 05/2025 Vent. Rate : 76 BPM Atrial Rate : 76 BPM P-R Int : 130 ms QRS Dur : 76 ms QT Int : 388 ms P-R-T Axes : -18 4 37 degrees QTcB Int : 436 ms Normal sinus rhythm Normal ECG When compared with ECG of 01-Jul-2023 15:34, No significant change was found ECHO 2022 Conclusions: - 1. Normal LV ejection fraction of 60-65% 2. Mild calcific aortic and mitral annular calcification noted with normal cardiac valvular Dopplers 3. Normal RV systolic pressure 4. 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 History of colitis Hepatic hemangioma Hepatic cyst Osteoporosis Meniere's disease Large hiatal hernia Chronic kidney disease (CKD), stage III (moderate) Atherosclerosis of aorta History of recurrent deep vein thrombosis (DVT) (~12/2020) History of pulmonary embolism (~2016) History of deep vein thrombosis (DVT) of lower extremity (~2016) Pure hypercholesterolemia Benign essential hypertension Family History Family History Other Hypertension Surgical History Surgical History Hx of bilateral cataract extraction Hx of tonsillectomy History of esophagogastroduodenoscopy (EGD) History of colonoscopy History of arthroplasty of left shoulder (~09/2022) History of arthroplasty of right hip (~12/2021) History of arthroplasty of right shoulder (~12/2020) S/P trigger finger release (~2018) History of total left hip arthroplasty (~2016) History of tubal ligation History of left oophorectomy Hx of parotidectomy History of ear surgery History of ankle surgery Social History Social History Housing: Condominium Are you a primary acute care assistant to a significant other at home: No Do you presently have visiting nurse or other home services: No Alcohol intake: current Alcohol intake frequency: does not drink Patient Tobacco Use Status: Former Tobacco user Years Smoked: quit 9 years ago e-Cigarette/Vaping Use: Never Used Use of substances other than those prescribed or required for medical reasons: No Have you been hit, kicked, punched, or otherwise hurt by someone within the past year? If so, by whom?: No Are you DNR?: No Advance Directives: No Advance Directives Information Provided: Yes Advance Directives on File: No Patient : No : No Poor oral hygiene: Yes service: No Current occupational status: retired Current occupational exposures/hazards: No Cognitive needs: No Hearing needs: No Vision needs: No Meds Allergies Allergy/AdvReac Type Severity Reaction Status Date / Time amoxicillin (From Augmentin) Allergy Severe Rash Verified 07/07/25 11:47 clavulanic acid (From Allergy Severe Rash Verified 07/07/25 11:47 Augmentin) levofloxacin (From Levaquin) Allergy Severe Rash Verified 07/07/25 11:47 Home Medications ?Medication ?Instructions ?Recorded ?Confirmed ?Last Taken ?Type calcium 600 mg (as 1 tab PO BID 04/11/23 07/07/25 Unknown History carbonate)-vitamin D3 10 mcg (400 unit) tablet (Calcium with Vitamin D) cholecalciferol (vitamin D3) 50 50 mcg PO DAILY 04/11/23 07/07/25 Unknown History mcg (2,000 unit) capsule propranolol 60 mg capsule,24 60 mg PO BEDTIME 04/12/24 07/07/25 Unknown History hr,extended release acetaminophen 650 mg 650 mg PO Q12H PRN Pain 07/05/25 07/07/25 Unknown History tablet,extended release atorvastatin 40 mg tablet 40 mg PO BEDTIME 07/05/25 07/07/25 Unknown History potassium chloride 10 mEq 10 meq PO BEDTIME 07/05/25 07/07/25 Unknown History capsule,extended release Exam Airway Mallampati Class: III TM Dist: >3cm Neck ROM: Limited Loose/Missing/Broken Teeth: No Heart: RRR Lungs: CTA Assessment and Plan Assessment Anesthesia Assessment: Anesthesia Plan Discussed Final Anesthetic Review NPO: Yes ASA Class: III Final Preanesthetic Review: Meds/Allgs Chart Reviewed, Consent Obtained/Reviewed and Anes Risks/Benef Reviewed Patient Risk: Intermediate Procedure Risk: Intermediate Anesthetic Plan Anesthetic Plan: GA Disposition: Standard PACU
[2025-07-19] VITALS (14 sets, daily range): BP systolic 128–159; BP diastolic 53–75; PULSE 65–87; RESP 14–20; TEMP 36.1–36.9; O2SAT 95–100; BMI 31.1; BMI 34.5
[2025-07-19] MEDS: Aprepitant 32 MG/4.4 ML VIAL IVPUSH (08:57)
[2025-07-19] MEDS: Lactated Ringers 1,000 ML 999 ML IV (08:58)
[2025-07-19] MEDS: Lactated Ringers 1,000 ML 100 ML IVCONT ×2 (09:56→15:36)
--- NOTE | 2025-07-19 10:02 | MHC.SHP ---
Pre-Procedural Eval Section A - 24 Hr Update-Section A only Date of Service: 07/19/25 The patient is an INPATIENT: Yes The patient has been examined within 24 hours of the surgical procedure. The History & Physical has been completed within 30 days and I have reviewed it.: No Section B - Complete if H&P > 30 days Chief Complaint: Diaphragmatic hernia without obstruction Relevant Family History (Specify if Yes): No Relevant Social History: None Present Medications: None Medical History: No relevant PMH History of Previous Operations: No relevant previous surgery Allergies: Allergies Allergy/AdvReac Type Severity Reaction Status Date / Time amoxicillin (From Augmentin) Allergy Severe Rash Verified 07/07/25 11:47 clavulanic acid (From Allergy Severe Rash Verified 07/07/25 11:47 Augmentin) levofloxacin (From Levaquin) Allergy Severe Rash Verified 07/07/25 11:47 Review of Systems Sugical H&P ROS: Negative: Constitution, Cardiovascular, Respiratory, Neurological, Psychiatric, Hem-Onc, Allergic/Immunologic, Gastrointestinal, Genitourinary, Musculoskeletal, Integumentary, Endocrine and Eyes/Ears/Nose/Throat Exam Surgical H&P Exam: Normal: HEENT, Normal: Heart, Normal: Lungs, Normal: Extremities, Normal: Abdomen, Normal: Skin and Normal: Neurological Plan Diagnosis/Plan: Unchanged I have reviewed the history and physical and performed a pertinent physical examination on my patient. No changes have occurred unless specified. Time Spent With Patient Time: Total time managing care of this patient today ____ minutes.
--- NOTE | 2025-07-19 10:12 | PM.OP ---
Brief Operative Note Date of Service: 07/19/25 Pre-op diagnosis: Large paraesophageal hernia Post-op diagnosis: same Procedure: Date of Service: 07/19/2025 Pre-op diagnosis: Diaphragmatic hernia Post-op diagnosis: same (Giant paraesophageal hernia & abdominal adhesions) COMORBIDITIES: GERD, diaphragmatic hernia, hyperlipidemia, anxiety, depression, hypertension, knee pain ?INDICATIONS: The patient is a 84 year old female who was referred to me from Dr. Perea for a diaphragmatic hernia and GERD confirmed by EGD and UGI. The patient is scheduled today for diaphragmatic hernia repair. Risks of recurrent hernia, dysphagia, persistent GERD, VTE, leak, infection and bleeding were discussed with the patient and he is in agreement with the plan. PROCEDURE: Esophago-gastroscopy, extensive laparoscopic lysis of adhesions, laparoscopic repair of incarcerated giant diaphragmatic hernia and laparoscopic gastropexy. DESCRIPTION OF PROCEDURE: After informed consent was obtained from the patient, the patient was given preoperative antibiotics, and was transferred to the operating room. After successful induction of general anesthesia, pneumatic compression devices were placed on both lower extremities. An upper endoscopy was performed next. The oropharynx and upper esophagus appeared to be within normal limits. The stomach was entered but the scope could not be advanced all the way to the pylorus due to the size of the hernia.? After all fluid and air were suctioned and the stomach was fully decompressed, the scope was withdrawn and secured in the mid esophagus. The patient was then prepped and draped in the usual sterile manner. Abdominal access was established at the right upper quadrant with the Henri technique. A 12 mm blunt trocar was inserted and the abdomen was insufflated with CO2 to a pressure of 15 mmHg. Following that additional ports were placed, specifically two 5 mm Versi-step ports to the left upper and one 5 mm Versi-step to the right upper quadrant. 1% lidocaine plain was used to infiltrate all port sites as well as all fascia defects. Following that, the patient was placed in a steep reverse Trendelenburg position. An additional 5 mm port was placed to the right flank for the Mediflex retractor that was used to retract the left lobe of the liver. There was a giant paraesophageal hernia with about half of the stomach herniated into the chest next to the esophagus. I then opened the gastrocolic ligament between the transverse colon and the greater curvature of the stomach with the ultrasonic device to enter the lesser sac and facilitate the ligation of the short gastric vessels. I started at at the upper third along the greater curvature and using the Thunderbeat, all attachments were divided. There was a giant paraesophageal hiatal hernia with more than half of the stomach being incarcerated into the mediastinum. The stomach was incarcerated into the mediastinum with multiple thick adhesions. Mobilization of the stomach was very difficult and required tedious and careful dissection of the proximal short gastric vessels. I continued dissecting along the hiatus toward the left wilner into the mediastinum mobilizing the hernia sac from the mediastinum. Dissection of the left wilner was very difficult because the left gastric vessels were completely incarcerated into the mediastinum completely distorting the proper anatomy. Careful dissection was required laterally to the vessels to avoid injuring the left gastric vessels. The esophagus was carefully dissected off the aorta. The pleura spaces were not violated in either side. The pars flaccida was opened. It was actually herniated into the hernia defect. The vena cava was not dilated and it was carefully protected. I then continued by dissecting even further into the posterior retro-esophageal space all the way to the angle of His. I continued to mobilize the esophagus into the mediastinum circumferentially. The esophagus was densely adhrent to the aorta and the majority of these adhesions were mobilized. Both vagal nerves were seen and preserved. With extensive circumferential dissection into the mediastinum, I was able to bring the GE junction at least 3cm below the crura. I closed the hernia defect with five interrupted #0 Surgidac sutures using the Endo Stitch device, three of which were placed anterior and two of which posterior to the esophagus. The bites were carefully placed to include both the ventral and dorsal aspect of the two crura, advancing slightly more at the left wilner as it was located more diagonally than the right. ? A gastropexy was then performed in order to prevent postoperative GERD and partial gastric volvulus. Several interrupted 2.0 Surgidac sutures were placed between the greater curvature of the dissected stomach and the previously divided greater omentum and gastro-colic ligament using the Endo-Stitch device. ?An upper endoscopy was performed. There was no narrowing at the GE junction or any esophageal injury. The scope was easily advanced all the way to the pylorus which was clearly visualized. There was no narrowing anywhere. I confirmed that the GE junction was 3cm intra-abdominally. At that point the gastroscope was withdrawn from the patient?s mouth while we were decompressing the bowel and the stomach from any remaining air. I looked into the lesser sac to see how the stomach was situating and it was situating well. There was no bleeding from the, spleen, or short gastric vessels. The Mediflex retractor was removed, and the undersurface of the liver was inspected and there was no bleeding. The patient was placed in supine position. Then 30cc of Ropivacaine plain with 10 mg of Dexamethasone were used to infiltrate the fascial closure as well as all skin incisions. At this point, the abdomen was deflated, all ports were removed under direct vision, and no bleeding was noted from any of the port sites. The skin incisions were irrigated with saline and were closed with 4-0 absorbable monofilament sutures. Steri-Strips and OpSites were used to cover all incisions. The patient was extubated and was transferred in stable condition to the recovery room for further care. I was present and performed all leone parts of the procedure. Ms. Abdullahi was the assistant head cashier. There were no residents to assist with this case. Due to the complexity of the surgery, total operative time was 3 hours and 30 minutes Dayne Pope MD, PhD, FACS Surgeon: Brant Pope MD Anesthesia: local and other (TAP block) Was an Compressor Operator Adjuster used for this Procedure?: No Compressor Operator Adjuster: Ginger Abdullahi Estimated blood loss (mL): 10 IV fluids (mL): 1,300 Urine output (mL): 0 (No Marin to record output) Pathology: none sent Condition: stable Disposition: PACU
--- NOTE | 2025-07-19 10:16 | P.PNGS_ITS ---
Subjective Subjective Date of Service: 07/20/25 Interval history: Feels well. Mild incisional pain. She is tolerating phase 1 bariatric diet Physical Exam 2 Vital Signs: Vital Signs: Last Vital Signs Temp 98.2 F 07/19/25 08:22 Pulse 82 07/19/25 08:22 Resp 14 07/19/25 08:22 BP 134/73 07/19/25 08:22 Pulse Ox 98 07/19/25 08:22 O2 Del Method Room Air 07/19/25 08:22 BMI result Body Mass Index 31.1 GI: Inspection: Yes normal to inspection, Yes incision (clean, dry and intact) and Yes obesity Palpation (GI): Soft to palpation Extrem: Right lower extremity: normal to inspection (no calf tenderness) L eft lower extremity: normal to inspection (no calf tenderness) Objective Data Active Medications Albuterol/Ipratropium (Albuterol/Iprat 2.5/0.5mg 3 Ml Ampul.Neb) 3 ml INHALE ONCE PRN PRN Reason: Bronchospasm/wheezing Stop: 07/19/25 16:11 Fentanyl (Fentanyl Citrate/Pf 100 Mcg/2 Ml Vial) 25 mcg IVPUSH Q5M PRN PRN Reason: Pain, Moderate to Severe (Pain Scale 4-10) Stop: 07/19/25 16:11 Haloperidol Lactate (Haloperidol Lactate 5 Mg/Ml Vial) 1 mg IVPUSH ONCE PRN PRN Reason: intractable nausea Stop: 07/19/25 16:11 Lactated Ringer's (Lr) 1,000 mls @ 100 mls/hr IVCONT .Q10H ANNAMARIE Last Admin: 07/19/25 09:56 Dose: 100 mls/hr Documented By: LYDIA Naloxone HCl (Naloxone Hcl 0.4 Mg/Ml Vial) 0.04 mg IVPUSH Q5M PRN PRN Reason: Excessive sedation or RR < 8 Ondansetron HCl (Ondansetron Hcl 4 Mg/2 Ml Vial) 4 mg IVPUSH ONCE PRN PRN Reason: Nausea and Vomiting Stop: 07/19/25 16:11 Oxycodone HCl (Oxycodone Hcl Immed Release 5 Mg Tablet) 5 mg PO ONCE PRN PRN Reason: Pain, Moderate(Pain Scale 4-6) if no IV Access Stop: 07/19/25 16:11 Labs 07/20/25 05:35 07/20/25 05:35 Procedures Date of Service Date of Service: 07/20/25 Progress Note: A&P Assessment and plan (1) Obesity (BMI 30-39.9): Status: Acute (2) BMI 33.0-33.9,adult: Status: Acute (3) Benign essential hypertension: Status: Acute (4) History of recurrent deep vein thrombosis (DVT): Status: Acute (5) Atherosclerosis of aorta: Status: Acute (6) Pure hypercholesterolemia: Status: Acute (7) Osteoporosis: Status: Acute (8) Paraesophageal hernia: Status: Acute Assessment and Plan: s/p laparoscopic, lysis of adhesions, giant paraesophageal hernia repair and gastropexy Doing well Will check am labs and if OK the patient will be discharged home (9) GERD (gastroesophageal reflux disease): Status: Acute (10) Anemia: Status: Acute (11) Insomnia: Status: Acute (12) Osteoarthritis of multiple joints: Status: Acute (13) Status post repair of paraesophageal diaphragmatic hernia: Status: Acute (14) Intra-abdominal adhesions: Status: Acute Time Spent With Patient Time: Total time managing care of this patient today ____ minutes. Quality Stroke Does the patient have a stroke diagnosis?: No VTE Prior VTE?: Yes VTE Risk Level:: Surgical - high VTE Device Contraindication: N/A - Device Ordered VTE Drug Contraindication: Treatment Not Indicated
--- NOTE | 2025-07-19 14:52 | P.DS_ITS ---
DS: Providers Provider Date of Service: 07/20/25 Date of discharge: 07/20/25 Primary care physician: Shekhar Young MD DS: Diagnosis Discharge Diagnosis (1) Obesity (BMI 30-39.9): Status: Acute (2) BMI 33.0-33.9,adult: Status: Acute (3) Benign essential hypertension: Status: Acute (4) History of recurrent deep vein thrombosis (DVT): Status: Acute (5) Atherosclerosis of aorta: Status: Acute (6) Pure hypercholesterolemia: Status: Acute (7) Osteoporosis: Status: Acute (8) Paraesophageal hernia: Status: Acute (9) GERD (gastroesophageal reflux disease): Status: Acute (10) Anemia: Status: Acute (11) Insomnia: Status: Acute (12) Osteoarthritis of multiple joints: Status: Acute (13) Status post repair of paraesophageal diaphragmatic hernia: Status: Acute (14) Intra-abdominal adhesions: Status: Acute DS: Summary Hospital Course Hospital Course: ADMITTING DIAGNOSIS: large diaphragmatic hernia DISCHARGE DIAGNOSIS: same, s/p laparoscopic diaphragmatic hernia repair with gastropexy PAST SURGICAL HISTORY:? History of esophagogastroduodenoscopy (EGD) History of colonoscopy History of arthroplasty of left shoulder (~09/2022) History of arthroplasty of right hip (~12/2021) History of arthroplasty of right shoulder (~12/2020) S/P trigger finger release (~2018) History of total left hip arthroplasty (~2016) History of tubal ligation History of left oophorectomy Hx of parotidectomy History of ear surgery History of ankle surgery PROCEDURE: upper endoscopy, laparoscopic diaphragmatic hernia repair and gastropexy DISCHARGE SUMMARY: History of Present Illness: The patient is an 84 year-old woman with associated co-morbidities as described above. The patient was found to have a large diaphragmatic hernia associated with worsening SOB and occasional GERD and chest pain. She was electively scheduled for laparoscopic, possible open diaphragmatic hernia repair and gastropexy. Risks and complications of the surgery were discussed with the patient in advance, particularly the possibility of , pulmonary embolism, anastomotic leak, bleeding, bowel injury, GERD, cardiac, renal or pulmonary complications. The patient understood all the risks and was in agreement with the surgical plan. Hospital Course: The patient underwent an uneventful laparoscopic gastropexy and repair of diaphragmatic hernia on the day of admission. Postoperatively, the patient was transferred to the surgical floor. The patient received IV acetaminophen and IV Dilaudid for pain control. Patient was started on bariatric phase 1 diet POD #0. On postoperative day one, the patient was feeling well without nausea, vomiting, fevers, or tachycardia. The patient had some mild incisional pain and the abdomen was soft.? ? On the morning of postoperative day one, the patient was continued on 1 ounce of water or ice every half hour. During the day, the patient did fairly well, having some incisional pain, but able to ambulate adequately and to tolerate liquids well. Since the patient is doing well, we decided that the patient was ready to be discharged. The patient was given instructions to follow-up in office next week and to call the office for any fever over 101, persistent abdominal pain, nausea, vomiting, GERD, symptoms of DVT such as calf tenderness, or leg swelling, or pulmonary embolism such as chest pain or shortness of breath.? The patient was also instructed to drink 40-60 ounces of liquids per day using the 1-ounce cups. The patient had been given prescriptions for Tylenol for pain, Zofran prn for nausea, and pantoprazole and carafate previously. The patient was encouraged to ambulate and use the incentive spirometer. The patient was allowed to shower, but no baths, and encouraged to stay active at home. All of these instructions were given to the patient personally. All questions were answered and the patient understood all instructions, the instructions were also given to the patient in print. Time Attestation Discharge Coordination Time (in mins): 30 Quality: Safe Use of Opioids Does Pt have an Active Cancer Diagnosis on the Problem List?: No Quality: Stroke Does the patient have a stroke diagnosis?: No Physical Exam Vital Signs: Vital Signs: Last Vital Signs Temp 97.5 F 07/19/25 14:30 Pulse 75 07/19/25 14:50 Resp 16 07/19/25 14:50 BP 151/59 H 07/19/25 14:50 Pulse Ox 99 07/19/25 14:50 O2 Del Method Simple Mask 07/19/25 14:50 O2 Flow Rate 6 07/19/25 14:50 BMI result Body Mass Index 31.1 Discharge Plan Discharge Patient Disposition: Home, Self-Care Referrals: Shekhar Young MD [Primary Care Provider, Internal Medicine] - 1 Week Discharge Medications: Continued fluticasone propionate 50 mcg/actuation spray,suspension 2 spray intranasal DAILY PRN (Reason: allergy symptoms) 30 Days Qty: 16 1RF Rx Instructions: administer into each nostril tramadol 50 mg tablet 50 mg PO DAILY PRN (Reason: pain) 90 Days Qty: 90 0RF trazodone 50 mg tablet 50 mg PO BEDTIME PRN (Reason: for insomnia) Qty: 90 0RF albuterol sulfate 90 mcg/actuation HFA aerosol inhaler 2 puff inhalation Q4-6H PRN (Reason: shortness of breath or wheezing) Qty: 1 3RF sucralfate 100 mg/mL suspension 10 ml PO BID Qty: 600 2RF pantoprazole 40 mg tablet,delayed release (DR/EC) 40 mg PO DAILY Qty: 90 0RF ondansetron 4 mg tablet,disintegrating 4 mg PO Q12H Qty: 20 0RF Rx Instructions: Only take one every 12 hours as needed if you have nausea Held Eliquis 2.5 mg tablet 2.5 mg PO BID 90 Days Qty: 180 3RF Hold Instructions: Resume on 07/20/25. Only resume when instructed to do so by Dr. Pope atorvastatin 40 mg tablet 40 mg PO BEDTIME Hold Instructions: Resume on 07/25/25. propranolol 60 mg capsule,extended release 24 hr 60 mg PO BEDTIME Hold Instructions: Resume on 07/20/25. Only resume according to parameters given by Dr. Pope Discontinued famotidine 20 mg tablet 20 mg PO BEDTIME PRN (Reason: for acid reflux) Qty: 90 1RF potassium chloride 10 mEq capsule, extended release 10 meq PO BEDTIME acetaminophen 650 mg Tablet Extended Release 650 mg PO Q12H PRN (Reason: Pain) calcium carbonate-vitamin D3 [Calcium with Vitamin D] 600 mg-10 mcg (400 unit) tablet 1 tab PO BID cholecalciferol (vitamin D3) 50 mcg (2,000 unit) capsule 50 mcg PO DAILY fondaparinux 2.5 mg/0.5 mL syringe 2.5 mg subcut Q24H Qty: 5 0RF Rx Instructions: Start on 07/13/25 one injection per day. Last injection should be on Friday07/18/25 polyethylene glycol 3350 17 gram/dose powder 17 g PO DAILY Qty: 238 0RF Rx Instructions: Mix each measuring cup with 8oz of water, Crystal light, or Gatorade zero, or Propel and do 7 measuring cups on 07/17/25 and another 7 measuring cups on 07/18/25 Discharge Orders: Discharge Order (Routine); Ordered 07/20/25 Ordered By: Brant Pope Activity on Discharge: No heavy lifting Activity Restrictions/Additional Instructions: No tub baths, sex or returning to work until discussed at first post op appointment. No alcohol, tobacco or illegal drug use. Continue to use incentive spirometer hourly while awake. Walk in home for 5- 10 minutes every 2 hours during the first week. Wear abdominal binder with activity. Follow all meal plan instructions from your bariatric surgeon. Review bariatric handbook and call with any questions. Discharge Instructions 1. Please call your doctor or come back to the emergency room should any new symptoms arise. 2. Activity: abstain from alcohol,? limited stair climbing, no bending, no driving, no exercise, no illicit substances, no lifting, no sex, no tub bath, no work. 4. Diet: follow your bariatric surgeon's recommendations for advancing diet. 5. Dressing Change/Wound Care: Your incisions are covered with waterproof dressings. You can shower with these and pat dry. Do not rub over dressings or incisions. If the area is tender, you may apply an ice pack for short intervals (no more than 20 minutes on, followed by at least 20 minutes off). Do not apply heat. Do not use creams, lotions, or topical antibiotics unless instructed to do so by your surgeon. 6. Call your doctor if: - Your temperature exceeds 101.5 F - You experience excessive pain or swelling - You have an unexpected reaction to medication - You have excessive bleeding - You experience continued vomiting/nausea - Your incision begins to separate - Your incision shows signs of infection such as increased redness, swelling, excessive pain, heat, or drainage (light blood or clear fluid is normal) General instructions: No lifting greater than 10 lbs for the next 6 weeks[address] driving within 24 hours of taking narcotic pain medications. If you do not move your bowels in the next 2 days, please take milk of magnesia over the counter. Please follow the post op diet and do not advance your diet until instructed by your surgeon or until you are seen in the office in about 1 week. Please walk around your home every hour or two to prevent blood clots from forming in your legs. You do not need to wake from sleeping to walk. Please sleep in a bed or couch to prevent kinking at the hips and knees. Please take your incentive spirometer (your lung senior analysis specialist) home with you and use it for the next few days to prevent pneumonias. You may shower; no hot tubs, baths or swimming pools. Please make sure you are consuming 40-60 ounces of total fluids per day. Avoid all carbonation. Please call the office with any questions or concerns such as increasing abdominal pain, fever, chills, shortness of breath, chest pain, leg pain or swelling, or redness or drainage from your incisions. Do not hesitate to contact the office with any questions at . The patient's medical history has been reviewed and they are considered low risk for post op DVT and therefore DVT prophylaxis is not considered necessary. Travel after surgery was reviewed. The patient has not disclosed any travel plans during the first 30 days after surgery and they have been advised that within the first 30 days after surgery any bus, plane, train or car travel over 2 hours in duration is contraindicated due to the possibility of developing blood clots from immobility. Any travel, needs to include periods of ambulation of 10 minutes in duration every 2 hours.? The patient was instructed to discuss any plans for travel during this period with their bariatric surgeon. Print Language: Hungarian Discharge Date/Time: 07/20/25 14:29
[2025-07-19 15:19] LABS: Hematocrit 41.6 % (37.0-47.0); Hemoglobin 13.3 g/dl (12.0-16.0)
[2025-07-19 15:32] LABS: Anion Gap 13 (12-20); Blood Urea Nitrogen 11 mg/dL (9-16); Calcium 9.1 mg/dL (8.4-10.2); Carbon Dioxide 26 mmol/L (22-29); Chloride 108 mmol/L (96-108); Creatinine Clr Calc Pharmacy 43.5; Estimated Glomerular Filt Rate 49; Potassium 4.9 mmol/L (3.3-5.1); Sodium 142 mmol/L (135-145)
[2025-07-19] MEDS: 0.9 % Sodium Chloride Flush 3 ML SYRINGE IVFLUSH ×2 (15:41→19:55)
--- NOTE | 2025-07-19 18:33 | PC.NURSE ---
Pt instructed on phase I diet and use of incentive spirometer . tolerating diet , lap sites X5 CDI binder in use
[2025-07-20] MEDS: Lactated Ringers 1,000 ML 100 ML IVCONT (00:53)
[2025-07-20 01:39] VITALS: PULSE 64
[2025-07-20 04:00] VITALS: BP 134/70; PULSE 66; RESP 16; TEMP 36.1; O2SAT 97
[2025-07-20 05:57] LABS: NRBC Abs Auto 0.000 X10*3/uL (0.0-0.012); NRBC Pct Auto 0.0 /100WBC (0.0-0.2); PLT CLUMP 1; SCAN SMEAR FLAG 1
[2025-07-20 05:59] LABS: Hematocrit 38.4 % (37.0-47.0); Hemoglobin 12.3 g/dl (12.0-16.0); Imm Gran Abs Auto 0.06 X10*3/uL (0.00-0.03); Imm Gran Pct Auto 0.6 % (0.0-0.4); Lymphocytes Absolute Auto 0.4 X10*3/uL (1.2-4.9); Mean Corpuscular HGB Conc 32.0 g/dl (31.0-35.0); Mean Corpuscular Hemoglobin 26.6 pg (27.0-33.0); Mean Corpuscular Volume 83.1 fL (80.0-98.0); Red Blood Count 4.62 X10*6/uL (4.20-5.50)
[2025-07-20 06:07] LABS: White Blood Count 9.3 X10*3/uL (4.8-10.8)
[2025-07-20 06:08] LABS: MANUAL DIFF FLAG NO; Platelet Count 138 X10*3/uL (160-400)
[2025-07-20 06:09] LABS: Anion Gap 11 (12-20); Blood Urea Nitrogen 13 mg/dL (9-16); Calcium 8.5 mg/dL (8.4-10.2); Carbon Dioxide 24 mmol/L (22-29); Chloride 109 mmol/L (96-108); Creatinine Clr Calc Pharmacy 52.3; Estimated Glomerular Filt Rate 57; Potassium 4.3 mmol/L (3.3-5.1); Sodium 140 mmol/L (135-145)
[2025-07-20 07:55] VITALS: BP 160/78; PULSE 69; RESP 18
[2025-07-20 08:00] VITALS: BP 184/86; PULSE 73; RESP 16; TEMP 36.2; O2SAT 96
--- NOTE | 2025-07-20 09:59 | HO.POSTANES ---
Post Anesthesia Evaluation Post Anesthesia Evaluation Date of Service: 07/20/25 Vital Signs: Vital Signs Temp Pulse Resp BP Pulse Ox O2 Del Method O2 Flow Rate 07/20/25 08:00 97.2 F 73 16 184/86 H 96 Room Air 07/20/25 07:55 69 18 160/78 H 07/20/25 04:00 96.9 F 66 16 134/70 97 Nasal Cannula 2 07/20/25 01:39 64 07/19/25 23:50 96.9 F 65 16 140/71 H 95 Room Air Anesthesia: General Mental Status: Awake Pain Control: Satisfactory Nausea/Vomiting: None Hydration: Adequate Anesthesia-Related Issues: No Anes. Related Issues
[2025-07-20] MEDS: Lactated Ringers 1,000 ML 50 ML IVCONT (10:21)
[2025-07-20 11:59] VITALS: BP 158/74
--- NOTE | 2025-07-20 14:31 | MHC.CM.PN ---
Patient dc'd home self care via private transport prior to CM assessment.
== END 2025-07-20 14:29 | disposition home or self-care (01) ==
LOC: HO.SSS 14:45 → HO.S3 14:48
PROVIDERS: Physician Assistant Surgical; PCP Internal Medicine; Visit Provider Surgery
PROC: (CPT 43282; principal; 2025-07-19 10:20)
DX: K44.9 Diaphragmatic hernia without obstruction or gangrene (principal); K66.0 Peritoneal adhesions (postprocedural) (postinfection); K21.9 Gastro-esophageal reflux disease without esophagitis; E78.00 Pure hypercholesterolemia, unspecified; I12.9 Hypertensive chronic kidney disease with stage 1 through stage 4 chronic kidney disease, or unspecified chronic kidney disease; N18.30 Chronic kidney disease, stage 3 unspecified; Z87.19 Personal history of other diseases of the digestive system; E66.9 Obesity, unspecified; Z68.33 Body mass index [BMI] 33.0-33.9, adult; M25.569 Pain in unspecified knee; I70.0 Atherosclerosis of aorta; D64.9 Anemia, unspecified; M15.9 Polyosteoarthritis, unspecified; M81.0 Age-related osteoporosis without current pathological fracture; Z86.718 Personal history of other venous thrombosis and embolism; G47.00 Insomnia, unspecified; Z79.899 Other long term (current) drug therapy; Z79.01 Long term (current) use of anticoagulants; Z79.51 Long term (current) use of inhaled steroids; Z88.1 Allergy status to other antibiotic agents; Z98.890 Other specified postprocedural states; Z96.642 Presence of left artificial hip joint; Z87.891 Personal history of nicotine dependence
CPT/HCPCS: 43282; 43659; 36415; 80048; 80053; 85014; 85018; 85025; 85610; 85730; 86850; 86900; 86901; A4649; C9145; J0131; J0616; J1100; J1308; J2003; J2371; J2405; J2704; J2765; J2795; J3010; J3374; J7120

== ENCOUNTER → 2025-07-19 07:41 | Outpatient (BNV) | payer MEDICARE, SELFPAY | PROVIDERS: PCP Internal Medicine; Visit Provider Surgery | DX: E66.9 Obesity, unspecified (principal); Z68.31 Body mass index [BMI] 31.0-31.9, adult; K44.0 Diaphragmatic hernia with obstruction, without gangrene | CPT/HCPCS: 43281; 43775 ==

== ENCOUNTER 2025-07-27 08:55 | Outpatient (AMB) | payer MEDICARE, SELFPAY ==
--- NOTE | 2025-07-27 09:08 | MHC.OFFVISWM ---
VS Expanded 07/27/25 09:26 BP 132/76 Blood Pressure Location Rt brachial Blood Pressure Position Sitting Pulse 111 H Pulse Source Pulse Oximeter Temp 96.1 F L Temperature Source Temporal Artery Scan Pulse Oximetry 94 Oxygen Delivery Method Room Air Height 5 ft 5 in Weight 182 lb 9.6 oz BMI 30.4 Body Fat % 46.5 Body Fat Mass 84.8 Fat Free Mass 97.6 Visceral Fat Rating 14.0 Body Water % 37.4 Body Water Mass 68.4 Muscle Mass/Score 92.6 Basal Metabolic Rate/Score 1,370 Intake Visit Reasons: (OV) s/p Hiatal Hernia 07/19/25 Allergies amoxicillin (From Augmentin) Allergy (Severe, Verified 07/27/25 09:28) Rash clavulanic acid (From Augmentin) Allergy (Severe, Verified 07/27/25 09:28) Rash levofloxacin (From Levaquin) Allergy (Severe, Verified 07/27/25 09:28) Rash Medication List - Last Reconciled 07/27/25 by REDDY Elliott albuterol sulfate 90 mcg/actuation 2 puffs inhalation Q4-6H PRN amlodipine 2.5 mg PO DAILY apixaban (Eliquis) 2.5 mg PO BID 90 days Held on 07/19/25. Instructions: Resume on 07/20/25. Only resume when instructed to do so by Dr. Pope atorvastatin 40 mg PO BEDTIME Held on 07/20/25. Instructions: Resume on 07/25/25. fluticasone propionate 50 mcg/actuation 2 sprays intranasal DAILY PRN 30 days fondaparinux 2.5 mg (0.5 mL) subcut Q24H ondansetron 4 mg PO Q12H pantoprazole 40 mg PO DAILY propranolol ER 60 mg PO BEDTIME Held on 07/19/25. Instructions: Resume on 07/20/25. Only resume according to parameters given by Dr. Pope sucralfate 10 mL PO BID tramadol 50 mg PO DAILY PRN 90 days trazodone 50 mg PO BEDTIME PRN HPI Comments Details: Pt is 3w s/p lap diaphragmatic hernia repair with gastropexy, 07/19/2025. She notes nausea related to vertigo. She does have Meniere's disease but it has been many years since she has had an attack. Off propranolol and she notes her HR increases when she is off this. She is still on fondaparinux, has not restarted Eliquis. She is in communication with Dr Gomez for all of these things. Taking 30-36oz fluids per day. Does not like protein shakes. Wants to start solid foods. 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 History of colitis Hepatic hemangioma Hepatic cyst Osteoporosis Meniere's disease Large hiatal hernia Chronic kidney disease (CKD), stage III (moderate) Atherosclerosis of aorta History of recurrent deep vein thrombosis (DVT) (~12/2020) History of pulmonary embolism (~2017) History of deep vein thrombosis (DVT) of lower extremity (~2017) Pure hypercholesterolemia Benign essential hypertension Surgical History (Updated 07/27/25 @ 10:05 by REDDY Elliott) Status post repair of paraesophageal diaphragmatic hernia Hx of hernia repair Hx of bilateral cataract extraction Hx of tonsillectomy History of esophagogastroduodenoscopy (EGD) History of colonoscopy History of arthroplasty of left shoulder (~09/2022) History of arthroplasty of right hip (~12/2021) History of arthroplasty of right shoulder (~12/2020) S/P trigger finger release (~2018) History of total left hip arthroplasty (~2016) History of tubal ligation History of left oophorectomy Hx of parotidectomy History of ear surgery History of ankle surgery Family History Other Hypertension Social History Household Members: None Housing: Condominium Are you a primary healthcare liaison to a significant other at home: No Do you presently have visiting nurse or other home services: No Alcohol intake: current Alcohol intake frequency: does not drink Patient Tobacco Use Status: Former Tobacco user Years Smoked: quit 9 years ago e-Cigarette/Vaping Use: Never Used Second Hand Smoke Exposure: No service: No Current occupational status: retired Current occupational exposures/hazards: No Cognitive needs: No Hearing needs: No Vision needs: No Physical Exam Vital Signs: Last Vital Signs Temp 96.1 F L 07/27/25 09:26 Pulse 111 H 07/27/25 09:26 BP 132/76 07/27/25 09:26 Pulse Ox 94 07/27/25 09:26 Oxygen Delivery Method Room Air 07/27/25 09:26 BMI result Body Mass Index 30.4 Const General: cooperative, comfortable and no acute distress Orientation/consciousness: patient oriented x3 GI Other: soft, nontender, nondistended, steri-strips c/d/i Neuro General: patient oriented x3 Assessment & Plan Assessment & Plan (1) Status post repair of paraesophageal diaphragmatic hernia: Code(s): Z98.890 - Other specified postprocedural states; Z87.19 - Personal history of other diseases of the digestive system Category: Medical Plan May shower tomorrow but no bath or submersion of abdomen in water. No abdominal exercises x 6 weeks. Abdominal binder for the next 2 weeks with activity or exercise. Continue meal plan per Dr Gomez until next f/u in 2 weeks. Continue pantoprazole and carafate dosing. Reminded of the pace of drinking 2 mL/min or 1oz per 15 min. Pt and daughter texted Dr Gomez while in office to ask about meal plan, propranolol restarting. Orders: Orders IRON PROFILE Today R42 - Dizziness and giddiness Complete Blood Count Auto Diff Today R42 - Dizziness and giddiness Comprehensive Met. Panel Today R42 - Dizziness and giddiness Zinc Today R42 - Dizziness and giddiness Vitamin B12 and Folate Today R42 - Dizziness and giddiness Vitamin B1 Today R42 - Dizziness and giddiness Ferritin Today R42 - Dizziness and giddiness Vitamin D 25-OH Total Today R42 - Dizziness and giddiness TSH reflex Free T4 Today R42 - Dizziness and giddiness Vitamin A Today R42 - Dizziness and giddiness
[2025-07-27 09:26] VITALS: BP 132/76; PULSE 111; TEMP 35.6; O2SAT 94; BMI 30.4
== END 2025-07-27 10:06 | disposition home or self-care (01) ==
LOC: HO.HBS 08:56
PROVIDERS: PCP Internal Medicine; Visit Provider Physician Assistant Surgical
DX: E66.9 Obesity, unspecified (principal); Z68.30 Body mass index [BMI] 30.0-30.9, adult; Z98.890 Other specified postprocedural states; Z87.19 Personal history of other diseases of the digestive system
CPT/HCPCS: 99024

== ENCOUNTER → 2025-07-27 08:55 | Outpatient (BNVA) | payer MEDICARE, SELFPAY | PROVIDERS: PCP Internal Medicine; Visit Provider Physician Assistant Surgical | DX: R42 Dizziness and giddiness (principal); Z98.890 Other specified postprocedural states; Z87.19 Personal history of other diseases of the digestive system | CPT/HCPCS: 99212 ==

== ENCOUNTER 2025-08-15 10:37 | Outpatient (AMB) | payer MEDICARE, SELFPAY ==
--- OUTSIDE RECORDS SUMMARY | 2025-02-01 10:00 | XMS_ITS ---
Author Organization [facility] Address [address] [place] [address] Care Team Providers Care Barnworker Groom Name Role Phone Shekhar Young MD Primary Care Provider Unava ilKiki Constantino [phone] Encounters Encounter Location Date Provider Diagnosis [address] [place] [address] 02/01/2025 Kiki Bledsoe Plan Of Treatment No Information Progress Notes * Javier GREGORIOisDOB:1940 ([age] yo F)Acc No.[id number]:02/01/2025 Progress Notes Patient: Macie PANG Provider: Lorna Bledsoe DPM :1940 A ge:84 Y S ex:Female Date:02/01/2025 Address:[address] [place], [place] Pcp:Shekhar Young MD Subjective: * Chief Complaints: [...] 02/01/2025 Generated for Printi ng/Faxing/eTransmitting on: 1 01:02 PM EDT
--- NOTE | 2025-08-15 10:35 | MHC.OFFVISWM ---
VS Expanded 08/15/25 10:46 Height 5 ft 5 in Weight 181 lb 3 oz BMI 30.1 Intake Visit Reasons: TV s/p Hiatal Hernia 07/19/25 Allergies amoxicillin (From Augmentin) Allergy (Severe, Verified 07/27/25 09:28) Rash clavulanic acid (From Augmentin) Allergy (Severe, Verified 07/27/25 09:28) Rash levofloxacin (From Levaquin) Allergy (Severe, Verified 07/27/25 09:28) Rash Medication List - Last Reconciled 08/15/25 by REDDY Elliott albuterol sulfate 90 mcg/actuation 2 puffs inhalation Q4-6H PRN apixaban (Eliquis) 2.5 mg PO BID 90 days Held on 07/19/25. Instructions: Resume on 07/20/25. Only resume when instructed to do so by Dr. Pope atorvastatin 40 mg PO BEDTIME Held on 07/20/25. Instructions: Resume on 07/25/25. fluticasone propionate 50 mcg/actuation 2 sprays intranasal DAILY PRN 30 days meclizine 12.5 mg PO TID PRN ondansetron 4 mg PO Q12H pantoprazole 40 mg PO DAILY propranolol ER 60 mg PO BEDTIME Held on 07/19/25. Instructions: Resume on 07/20/25. Only resume according to parameters given by Dr. Pope sucralfate 10 mL PO BID tramadol 50 mg PO DAILY PRN 90 days trazodone 50 mg PO BEDTIME PRN HPI Comments Details: Pt is 6w s/p lap diaphragmatic hernia repair with gastropexy, 07/19/2025. She notes ongoing vertigo. This appears to be related to BPPV. She has been going to PT which has helped a little . She had been given meclizine by Dr. Gomez but this did not help. She does have Meniere's disease but it has been many years since she has had an attack and feels this is different. Restarted propranolol; she has restarted Eliquis. Reports her hydration is fine. Is still supposed to do 2 shakes and a bar, plus one solid meal. She has been unable to exercise due to vertigo and is much less active. 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 History of colitis Hepatic hemangioma Hepatic cyst Osteoporosis Meniere's disease Large hiatal hernia Chronic kidney disease (CKD), stage III (moderate) Atherosclerosis of aorta History of recurrent deep vein thrombosis (DVT) (~12/2020) History of pulmonary embolism (~2016) History of deep vein thrombosis (DVT) of lower extremity (~2016) Pure hypercholesterolemia Benign essential hypertension Surgical History (Updated 07/28/25 @ 00:02 by Juice Robert) Status post repair of paraesophageal diaphragmatic hernia Hx of hernia repair Hx of bilateral cataract extraction Hx of tonsillectomy History of esophagogastroduodenoscopy (EGD) History of colonoscopy History of arthroplasty of left shoulder (~09/2022) History of arthroplasty of right hip (~12/2021) History of arthroplasty of right shoulder (~12/2020) S/P trigger finger release (~2018) History of total left hip arthroplasty (~2016) History of tubal ligation History of left oophorectomy Hx of parotidectomy History of ear surgery History of ankle surgery Family History Other Hypertension Social History Household Members: None Housing: Condominium Are you a primary critical care transport nurse to a significant other at home: No Do you presently have visiting nurse or other home services: No Alcohol intake: current Alcohol intake frequency: does not drink Patient Tobacco Use Status: Former Tobacco user Years Smoked: quit 9 years ago e-Cigarette/Vaping Use: Never Used Second Hand Smoke Exposure: No service: No Current occupational status: retired Current occupational exposures/hazards: No Cognitive needs: No Hearing needs: No Vision needs: No Telehealth Telehealth Telehealth Platform: Telephone Location of provider rendering services: practice address Location of patient: address on file Patient Identification confirmed using: Name, : Yes Telehealth method: voice only Patient verbally consented to treatment: Yes Patient verbally consented to billing insurance company: Yes Patient informed of any privacy concerns related to visit: Yes Minutes spent on Phone/Video with Pt.: 16 Assessment & Plan Assessment & Plan (1) Status post repair of paraesophageal diaphragmatic hernia: Code(s): Z98.890 - Other specified postprocedural states; Z87.19 - Personal history of other diseases of the digestive system Category: Surgical (2) Vertigo: Code(s): R42 - Dizziness and giddiness Category: Medical (3) Obesity (BMI 30-39.9): Code(s): E66.9 - Obesity, unspecified Category: Medical Plan Pt is concerned that her vertigo is not improving despite PT. Offered ENT referral which pt reports her PT had been in agreement with if not improving. In the meantime she will continue to follow meal plan per Dr Gomez. We discussed that full healing of diaphragmatic hernia takes 6 weeks. She will ask about decreasing to 1 shake per day. RTC Oct 31 at 9:15am for TV. Orders: Referrals Ear/Nose/Throat Referral H81.10 - Benign paroxysmal vertigo, unspecified ear
[2025-08-15 10:46] VITALS: BMI 30.1
--- OUTSIDE RECORDS SUMMARY | 2025-08-15 13:02 | XMS_ITS | Clinical Summary ---
Author Organization [facility] Address [address] [place] [address] Phone Care Team Providers Care Drug And Alcohol Counsellor Name Role Phone Stephen Harrison MD Primary [...] this topic Medical Devices Implanted Type Area Laborer Salvage Device Identifier Shelf Expiration Date Model / Serial / Lot Reversed Multi Direction Lock Screw 4.5x20mm - Sn/A - [id number] Implanted:Qty: 1 on 10/09/2022 by Francis Brown MD at [facility] Internal and External Fixation Left: Shoulder [employer]- [employer] [id number] / N/A / N/A Reversed Multi Direction Lock Screw 4.5x23mm - Sn/A - [id number] Implanted:Qty: 2 on 10/09/2022 by Francis Brown MD at [facility] Internal and External Fixation Left: Shoulder [employer] [id number] / N/A / N/A Reversed Multi Direction Lock Screw 4.5x26mm - Sn/A - [id number] Implanted:Qty: 1 on 10/09/2022 by Francis Brown MD at [facility] Internal and External Fixation Left: Shoulder [employer] [id number] / N/A / N/A Reverse Baseplate 2 Line Extension [id number] - [id number] - [id number] Implanted:Qty: 1 on 10/09/2022 by Francis Brown MD at [facility] Joints Shoulder Left: Shoulder [employer] [id number] 01/18/2027 [id number] / [id number] / N/A Glenoid Sphere Centered 36 Mm,25mm Baseplate - [id number] - [id number] Implanted:Qty: 1 on 10/09/2022 by Francis Brown MD at [facility] Shoulder Left: Shoulder [employer] 07/29/2027 [id number] / [id number] / N/A Tray Flex Rev Shldr Sys +0 - [id number] - [id number] Implanted:Qty: 1 on 10/09/2022 by Francis Brown MD at [facility] Shoulder Left: Shoulder [employer] 09/06/2027 [id number] / [id number] / N/A Shoulder Insrt Rev 36 6/12.5 B - [id number] - [id number] Implanted:Qty: 1 on 10/09/2022 by Francis Brown MD at [facility] Shoulder Left: Shoulder [employer] 05/27/2027 [id number] / [id number] / N/A Shoulder Stem Hum Ptc Flx 5b - [id number] - [id number] Implanted:Qty: 1 on 10/09/2022 by Francis Brown MD at [facility] Shoulder Left: Shoulder [employer] 02/06/2027 [id number] / [id number] / N/A Procedures Procedure Name Priority Date/Time Associated Diagnosis Comments BASIC METABOLIC PANEL Routine 10/10/2022 3:37 AM EST from Last 3 Months or Most Recently Relevant to Health Maintenance Results * (ABNORMAL) Basic metabolic panel (10/10/2022 3:37 AM EST) Sodium 135(L) 136 - 145 mmol/L LAB CHEMISTRY METHOD 10/10/2022 5:25 AM EST [facility] Potassium 4.5 3.6 - 5.1 mmol/L LAB CHEMISTRY METHOD 10/10/2022 5:25 AM EST [facility] Chloride 104 98 - 107 mmol/L LAB CHEMISTRY METHOD 10/10/2022 5:25 AM EST [facility] CO2 26 22 - 32 mmol/L LAB CHEMISTRY METHOD 10/10/2022 5:25 AM EST [facility] Anion Gap 5(L) 6 - 18 LAB CHEMISTRY METHOD 10/10/2022 5:25 AM EST [facility] Glucose 139(H) 70 - 99 mg/dL LAB CHEMISTRY METHOD 10/10/2022 5:25 AM EST [facility] BUN 25(H) 8 - 20 mg/dL LAB CHEMISTRY METHOD 10/10/2022 5:25 AM EST [facility] Creatinine 0.98 0.60 - 1.30 mg/dL LAB CHEMISTRY METHOD 10/10/2022 5:25 AM EST [facility] eGFR 59(L) >=60 mL/min/1. 73m2 LAB CHEMISTRY METHOD 10/10/2022 5:25 AM EST [facility] Comment:Effective July 28, 2022, calculation based on the Chronic Kidney Disease Epidemiology Collaboration (CKD-EPI) equation refit without adjustment for race. BUN/Creatinine Ratio 25.5(H) 12.0 - 20.0 LAB CHEMISTRY METHOD 10/10/2022 5:25 AM [facility] Calcium 9.0 8.9 - 10.3 mg/dL LAB CHEMISTRY METHOD 10/10/2022 5:25 AM EST [facility] Blood Venous blood specimen / Unknown Venipuncture / Unknown 10/10/2022 3:37 AM EST 10/10/2022 4:58 AM EST us Alan BLAKELY LAB BLOOD ORDERABLES Final Resul t [facility] [address] [place] [place] [address] from Last 3 Months or Most Recently Relevant to Health [place] [address] [employer] MEDICARE ADVANTAGE Advance Directives * Full [...] currently active code status orders. Care Teams Drug And Alcohol Counsellor Relationship Specialty Start Date End Date Stephen Harrison MD PCP - General 12/17/22
--- OUTSIDE RECORDS SUMMARY | 2025-08-15 13:02 | XMS_ITS | Encounter Summary ---
Author Organization [facility] Address [address] [place] [address] Phone Care Team Providers Care Scrap Baller Name Role Phone Shekhar Young MD Primary Care Provider [phone] Encounter Details Date Type Department Care Team (Late st Contact Info) Description 05/20/2024 Documentation [facility] [address], 5th [address], [address] [place] [address] Chilango Gonzáles MD, MPhil [address] [place] [address] [email or web address] Social History Tobacco Use Types Packs/Day [...] on filedocumented in this encounter Care Teams Scrap Baller Relationship Specialty Start Date End Date Shekhar Young MD [address] [place] [address] [place] [address] PCP - General Internal Medicine 08/28/23 documented as of this encounter Additional Source Comments The information contained in this document represents components of the legal health record. It is not the complete legal health record.[facility]
--- OUTSIDE RECORDS SUMMARY | 2025-08-15 13:02 | XMS_ITS | Encounter Summary ---
Author Organization [facility] Address [address] [facility] [address] [place] [address] Phone Care Team Providers Care Linux Support Engineer Name Role Phone Shekhar Young MD Primary Care Provider [phone] Encounter Details Date Type Department Care Team (Late st Contact Info) Description 05/21/2024 Procedure Pass [facility] [address] 5[address], [address] [place] [address] Social History Tobacco Use Types Packs/Day Years [...] on filedocumented in this encounter Care Teams Linux Support Engineer Relationship Specialty Start Date End Date Shekhar Young MD [address] [place] [address] [place] [address] PCP - General Internal Medicine 08/28/23 documented as of this encounter Additional Source Comments The information contained in this document represents components of the legal health record. It is not the complete legal health record.[facility]
--- OUTSIDE RECORDS SUMMARY | 2025-08-15 13:02 | XMS_ITS | Clinical Summary ---
Author Organization [facility] Address [address] [place] [address] Phone Care Team Providers Care Back Padder Name Role Phone Shekhar Young MD Primary Care Provider [phone] Allergies Active Allergy Reactions Criticality Noted Date [...] that she was diagnosed with anemia in [place] and given IV iron, since she could [...] surgery. During the visit I reviewed prior senior web designer record from [place], they have her on prophylaxis 2.5 mg BID dose. In case she has AF she would probably need to move up to 5 mg BID based on weight but we would need to check Cr (I am checking today) to confirm dose. If no new diagnosis, ok to keep 2.5 mg BID given this has been already determined by senior web designer. Borderline high blood pressure 08/12/2023 Assessment & [...] 1-dose 75+ series) 2017 INFLUENZA VACCINE (#1) 2025 CREATININE LEVEL 05/21/2025 05/21/2024, , 05/30/2012, Additional history exists POTASSIUM LEVEL 05/21/2025 05/21/2024, 07/21, 05/30/2012, Additional history exists COVID-19 VACCINE ( - season) 2025 OSTEOPOROSIS SCREENING INITIAL (ONE-TIME) Completed 08/23/2021 HEPATITIS [...] EDT) SODIUM 143 135 - 145 mmol/L [facility] POTASSIUM 4.2 3.4 - 5.0 mmol/L [facility] CHLORIDE 106 98 - 108 mmol/L [facility] CO2 26 23 - 32 mmol/L [facility] BUN 20 8 - 25 mg/dL [facility] CREATININE 1.20 0.60 - 1.50 mg/dL [facility] GLUCOSE 86 70 - 110 mg/dL [facility] CALCIUM 9.9 8.5 - 10.5 mg/dL [facility] EGFR 45(L) >59 mL/min/1.7 3m2 [facility] Comment:Estimated glomerular filtration rate calculated using the CKD-EPI refit equation. ANION GAP 11 3 - 17 mmol/L [facility] Blood 05/21/2024 3:11 PM EDT 05/21/2024 5:14 PM EDT us Chilango Gonzáles MD, MPhil LAB BLOOD ORDERABLES Fin al Result [facility] [address] [place] [address] from Last 3 Months or Most Recently Relevant to Health Maintenance Insurance [employer] PPO AETNA PPO AETNA PPO AETNA PPO AENA PPO AET[employer] PPO Care Teams Back Padder Relationship Specialty Start Date End Date Shekhar Young MD [address] [place] [address] [place] [address] PCP - General Internal Medicine 08/28/23 Additional Source Comments The information contained in this document represents components of the legal health record. It is not the complete legal health record.[facility]
--- OUTSIDE RECORDS SUMMARY | 2025-08-15 13:02 | XMS_ITS | Patient Health Record ---
Author Organization [facility] Address [address] [facility] [place] [address] Care Team Providers Care Aircraft Avionics Technician Name Role Phone Hector CHILD, [place] Primary Care Provider [place] valadez Kiki Bledsoe Unavailable [phone] Allergies Allergen (clinical drug ingredient) Drug/Non Drug [...] Status Risk Notes Problem Plantar fascial fibromatosis (53450311) Plantar fasciitis, bilateral (M72.2) Active confirmed Vital Signs Blood pressure diastolic 74 mm Hg 12/14/2024 Height 5ft 5in in 12/14/2024 Blood pressure systolic 129 mm Hg 12/14/2024 Weight 185 lbs 12/14/2024 BMI 30.78 kg/m2 12/14/2024 Encounters Encounter Location Date Provider Diagnosis [address] [place] [address] 12/14/2024 Kiki Black Xerosis of skin L85.3 ; Pain in right foot M79.671 ; Plantar fasciitis, bilateral M72.2 ; Calcaneal spur, right foot M77.31 ; Other myositis of right foot M60.871 ; Bursitis of right foot M77.51 ; Pain in left foot M79.672 ; Calcaneal spur, left foot M77.32 ; Other myositis of left foot M60.872 and Bursitis of left foot M77.[address] [place] [address] [facility] [address] 11/05/2024 [facility] [address] [place] [address] 12/14/20[facility] [address] 12/20/[address] [facility] [place] [address] 12/22/2024 [facility] [address] [place] [address] 01/05/2025 [facility] [address] 01/18/2025 Kiki Bledsoe Assessments Encounter Date Diagnosis [...] Start Date Coverage End Date [employer] [address] [place] [address] [id number] Macie Gregorio Self - patient is the [...]
== END 2025-08-15 11:02 | disposition home or self-care (01) ==
LOC: HO.HBS 10:37
PROVIDERS: PCP Internal Medicine; Visit Provider Physician Assistant Surgical
DX: E66.9 Obesity, unspecified (principal); Z68.30 Body mass index [BMI] 30.0-30.9, adult; R42 Dizziness and giddiness; Z98.890 Other specified postprocedural states; Z87.19 Personal history of other diseases of the digestive system
CPT/HCPCS: 99024

== ENCOUNTER 2025-09-27 09:39 | Outpatient (REF) | payer MEDICARE, SELFPAY ==
[2025-09-27 09:55] LABS: MANUAL DIFF FLAG NO
[2025-09-27 10:53] LABS: Hematocrit 38.8 % (37.0-47.0); Hemoglobin 12.1 g/dl (12.0-16.0); Imm Gran Abs Auto 0.01 X10*3/uL (0.00-0.03); Imm Gran Pct Auto 0.2 % (0.0-0.4); Lymphocytes Absolute Auto 1.0 X10*3/uL (1.2-4.9); Mean Corpuscular HGB Conc 31.2 g/dl (31.0-35.0); Mean Corpuscular Hemoglobin 26.6 pg (27.0-33.0); Mean Corpuscular Volume 85.3 fL (80.0-98.0); NRBC Abs Auto 0.000 X10*3/uL (0.0-0.012); NRBC Pct Auto 0.0 /100WBC (0.0-0.2); Platelet Count 219 X10*3/uL (160-400); Red Blood Count 4.55 X10*6/uL (4.20-5.50); White Blood Count 4.5 X10*3/uL (4.8-10.8)
[2025-09-27 12:06] LABS: Alanine Aminotransferase 12 U/L (0-31); Albumin Level 3.9 g/dL (3.5-5.0); Alkaline Phosphatase 71 U/L (39-117); Anion Gap 10 (12-20); Aspartate Amino Transferase 22 U/L (5-31); Blood Urea Nitrogen 16 mg/dL (9-16); Calcium 9.7 mg/dL (8.4-10.2); Carbon Dioxide 30 mmol/L (22-29); Chloride 107 mmol/L (96-108); Cholesterol 120 mg/dL (<200); Estimated Glomerular Filt Rate 56; HDL Cholesterol 44 mg/dL (>40); Potassium 3.9 mmol/L (3.3-5.1); Sodium 143 mmol/L (135-145); Total Protein 6.2 g/dL (6.5-8.0); Triglycerides 79 mg/dL (<150)
[2025-09-27 12:39] LABS: Folate 13.2 ng/mL (> or = 4.0); Vitamin B12 913 pg/mL (200-900)
== END 2025-09-27 09:40 | disposition home or self-care (01) ==
LOC: HO.LAB 09:39
PROVIDERS: PCP Internal Medicine; Visit Provider Internal Medicine
DX: E53.8 Deficiency of other specified B group vitamins (principal); E78.00 Pure hypercholesterolemia, unspecified; D64.9 Anemia, unspecified; E55.9 Vitamin D deficiency, unspecified
CPT/HCPCS: 36415; 80053; 80061; 82306; 82607; 82746; 84443; 85025

== ENCOUNTER 2025-09-29 10:38 | Outpatient (REF) | payer MEDICARE, SELFPAY ==
[2025-09-29 10:58] LABS: Appearance Urine Cloudy; Glucose Urine UA Negative (Negative); PH 6.0 (5.0-9.0); Specific Gravity - Urine 1.020 (1.005-1.025); UMIC TRIGGER UACC YES
[2025-09-29 11:05] LABS: UACC Culture Trigger YES
== END 2025-09-29 10:39 ==
LOC: HO.LNP 10:38
PROVIDERS: Visit Provider Internal Medicine
DX: R30.0 Dysuria (principal)
CPT/HCPCS: 81001; 87086

== ENCOUNTER 2025-10-07 10:41 | Outpatient (AMB) | payer MEDICARE, SELFPAY ==
--- OUTSIDE RECORDS SUMMARY | 2025-02-01 09:00 | XMS_ITS ---
Author Organization [facility] Address [address] [place] [address] Care Team Providers Care Product Safety Professional Name Role Phone Shekhar Young MD Primary Care Provider Unava ilKiki Constantino [phone] Encounters Encounter Location Date Provider Diagnosis [address] [address] 02/01/2025 Kiki Bledsoe Plan Of Treatment No Information Progress Notes * Javier GREGORIOisDOB:1940 ([age] yo F)Acc No.[id number]:02/01/2025 Progress Notes Patient: Macie PANG Provider: Lorna Bledsoe DPM :1940 A ge:84 Y S ex:Female Date:02/01/2025 Address:[address] [place], [place] Pcp:Shekhar Young MD Subjective: * Chief Complaints: * * Medical History: Objective: * Vitals: Assessment: Plan: * Treatment: * Images: * The named appointment provid er may or may not be the originator of this progress note, and it is not deemed complete until electronically signed by the appointment provider. Sign off status: Pending * Provider: Lorna Bledsoe DPM Date: 0 02/01/2025 Generated for Printi ng/Faxing/eTransmitting on: 1 12/08/2024 12:25 PM EST
[2025-10-07 11:09] VITALS: BP 130/80; PULSE 79; O2SAT 95; BMI 30.2
--- NOTE | 2025-10-07 11:09 | MHC.PC.OV ---
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 Instructions: Resume on 07/20/25. Only resume when instructed to do so by Dr. Pope atorvastatin 40 mg PO BEDTIME Held on 07/20/25. Instructions: Resume on 07/25/25. fluticasone propionate 50 mcg/actuation 2 sprays intranasal DAILY PRN 30 days meclizine 12.5 mg PO TID PRN nitrofurantoin monohyd/m-cryst 100 mg (Macrobid) 100 mg PO Q12H 7 days ondansetron 4 mg PO Q12H pantoprazole 40 mg PO DAILY propranolol ER 60 mg PO BEDTIME Held on 07/19/25. Instructions: Resume on 07/20/25. Only resume according to parameters given by Dr. Pope sucralfate 10 mL PO BID tramadol 50 mg PO DAILY PRN 90 days trazodone 50 mg PO BEDTIME PRN Tobacco use date assessed: 10/07/25 Fall risk assessment: No Falls in past year Last assessed Fall Risk: 10/07/25 Dental Screening Dental Screen Date: 10/07/25 Did you have a dental visit in the last 12 months?: Yes Did you have a dental problem in the last 6 months where you did not have access to dental care?: No Was dental information given to patient?: Patient has dentist HPI 4mth f/u HPI Details Patient comes in today for her follow up visit States that she currently feels okay She denies any headaches or dizziness Denies any chest pains, no increased shortness of breath No nausea/vomiting, no abdominal pain No change in bowel habits noted States that she has been dealing with recurrent dizziness ever since she had her paraesophageal hernia repair with in late June 2025 and that Meclizine did not help much States that canalith positioning with PT helped somewhat but did not clear up her symptoms completely and she believed that her recent bout with dizziness was a reactivation of her Meniere's disease, which she's had for years (and for which she underwent endolymphatic sac surgery in her left ear when she was 28 y/o) She was referred to ENT and states that just a couple of days before her appointment, her symptoms just suddenly cleared up She went for her ENT appointment anyway and was advised that her symptoms were likely due to her Meniere's but as she no longer had her symptoms by the time she was seen, there was not much else to do then She also appears to have lost a lot of weight with the help of some nutritional supplements provided / prescribed to her by weight management to help her lose some weight to lower the risks of hernia recurrence - she has already lost about 20 pounds since her last visit States that she just started taking the Macrobid Rx that we sent in for her the other day for her UTI yesterday so she has not yet noticed any significant improvement or change in her urinary symptoms Needs her Tramadol Rx refilled today She had her follow up labs done last week - to discuss her results [facility] Medical History BMI 33.0-33.9,adult Vertigo GERD (gastroesophageal reflux disease) History of home oxygen therapy Wears hearing aid in left ear Back pain Arthritis 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 Obesity (BMI 30-39.9) Insomnia Anemia Restless leg syndrome 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 History of colitis Hepatic hemangioma Hepatic cyst Osteoporosis Meniere's disease Large hiatal hernia Chronic kidney disease (CKD), stage III (moderate) Atherosclerosis of aorta History of recurrent deep vein thrombosis (DVT) (~12/2020) History of pulmonary embolism (~2016) History of deep vein thrombosis (DVT) of lower extremity (~2016) Pure hypercholesterolemia Benign essential hypertension Surgical History (Updated 10/07/25 @ 12:43 by Shekhar Young MD) Status post repair of paraesophageal diaphragmatic hernia Hx of hernia repair Hx of bilateral cataract extraction Hx of tonsillectomy History of esophagogastroduodenoscopy (EGD) History of colonoscopy History of arthroplasty of left shoulder (~09/2022) History of arthroplasty of right hip (~12/2021) History of arthroplasty of right shoulder (~12/2020) S/P trigger finger release (~2018) History of total left hip arthroplasty (~2016) History of tubal ligation History of left oophorectomy Hx of parotidectomy History of ear surgery History of ankle surgery Family History Other Hypertension Social History Household Members: None [facility] Are you a primary personal care home administrator to a significant other at home: No Do you presently have visiting nurse or other home services: No Alcohol intake: current Alcohol intake frequency: does not drink Patient Tobacco Use Status: Former Tobacco user Years Smoked: quit 9 years ago e-Cigarette/Vaping Use: Never Used Second Hand Smoke Exposure: No service: No Current occupational status: retired Current occupational exposures/hazards: No Cognitive needs: No Hearing needs: No Vision needs: No Questionnaire PHQ-9 Over the last 2 weeks, how often have you been bothered by any of the following problems? 1. Little interest or pleasure in doing things: not at all 2. Feeling down, depressed, or hopeless: not at all 3. Trouble falling or staying asleep, or sleeping too much: not at all 4. Feeling tired or having little energy: several days 5. Poor appetite or overeating: several days 6. Feeling bad about yourself - or that you are a failure or have let yourself or your family down: not at all 7. Trouble concentrating on things, such as reading the newspaper or watching television: not at all 8. Moving or speaking so slowly that other people could have noticed. Or the opposite - being so fidgety or restless that you have been moving around a lot more than usual: not at all 9. Thoughts that you would be better off or of hurting yourself in some way: not at all Total score: 2 Depression Screening Interpretation: Negative Depression Screening Done: Yes 67067 - PHQ-9 Billing: Yes Source: Developed by Drs. Andrew Mcghee, Yue Mosqueda, Vazquez Johnson and colleagues, with an educational yesica from [email or web address]. Thrive Questionnaire Date Thrive assessed: 10/07/25 I am a: Patient What is your living situation today?: I have a steady place to live Within the past 12 months, did the food you bought not last and you didn't have the money to get more?: Never true Within the past 12 months, did you worry whether your food would run out before you got money to buy more?: Never true Do you have trouble paying for medicines?: No Do you have trouble getting transportation to medical appointments?: No Do you have trouble paying your heating and electricity bill?: No Do you have trouble taking care of your child, family member or friend?: No Do you have trouble with day-to-day activities such as bathing, preparing meals, shopping, managing finances, etc.?: No Are you currently unemployed and looking for a job?: No Are you interested in more education?: No Please select the resources that you would like help with: None Currently or been in a relationship where the following occur: No concerns reported THRIVE Score: 0 AUDIT C Alcohol Use Questionnaire (AUDIT-C) 1. How often do you have a drink containing alcohol?: Monthly or less 2. How many drinks containing alcohol do you have on a typical day when you are drinking?: 1 or 2 3. How often do you have six or more drinks on one occasion?: Never Total Score: 1 Score Reviewed/Action Taken: Yes PERCY-7 AMB Questionnaire PERCY-7 Date PERCY - 7 assessed: 10/07/25 Feeling nervous, anxious, or on edge: 0 = Not at all Not being able to stop or control worryin = Not at all Worrying too much about different things: 0 = Not at all Trouble relaxin = Not at all Being so restless that it is hard to sit still: 0 = Not at all Becoming easily annoyed or irritable: 0 = Not at all Feeling afraid as if something awful might happen: 0 = Not at all Total PERCY-7 score (0-4 normal; 5-9 mild; 10-14 moderate; 15-21 severe): 0 Source: Developed by Drs. Andrew Mcghee, Yue Mosqueda, Vazquez Johnson and colleagues, with an educational yesica from [email or web address]. Review of Systems Const Denies chills, Denies fatigue, Denies fever(s) and Denies headache(s) ENT Denies dysphagia, Denies dizziness, Denies otalgia, Denies headache(s), Denies neck pain, Denies odynophagia and Denies sore throat Card Denies chest pain, Denies rapid heart rate (controlled on Propranolol ER), Denies palpitations and Reports dyspnea on exertion (mild) Resp Denies chest congestion, Denies cough, Reports dyspnea on exertion (mild) and Denies wheezing GI Denies abdominal pain, Denies constipation, Denies dysphagia, Denies heartburn, Denies diarrhea, Denies nausea, Denies odynophagia and Denies vomiting Denies difficulty voiding, Reports nocturia, Reports dysuria and Reports urinary urgency (occasionally) Musc Reports back pain (over the lower back), Reports arthralgias (involving shoulders and hips, on and off; (+) pain in the R knee ), Denies neck pain and Denies stiffness Skin/Breast Denies rash Neuro Denies dizziness and Denies headache(s) Endo Denies fatigue and Denies palpitations Aller/Immun Denies wheezing Physical exam (Primary Care) Vital Signs: Last Vital Signs Pulse 79 10/07/25 11:09 BP 130/80 10/07/25 11:09 Pulse Ox 95 10/07/25 11:09 Oxygen Delivery Method Room Air 10/07/25 11:09 BMI result Body Mass Index 30.2 Tobacco/Smoking Status: Tobacco use Status Tobacco use date assessed 10/07/25 10/07/25 11:15 Patient Tobacco Use Status Former Tobacco user 10/07/25 11:15 e-Cigarette/Vaping Use Never Used 10/07/25 11:15 PHQ-9: PHQ-9 Score PHQ-9: Total score 2 10/07/25 11:15 Depression Screening Interpretation: Negative Thrive Assessment: Date of Thrive Assessment Date Thrive assessed 10/07/25 10/07/25 11:15 Currently or been in a relationship where the following occur: No concerns reported Const General: no acute distress and alert HENMT Ears: TM's normal bilaterally and EAC's normal Throat: Yes posterior oropharynx normal and Yes tonsils normal (no TP congestion) Neck Neck: Yes supple and No lymphadenopathy Thyroid: Thyroid normal Resp Auscultation: clear to auscultation bilaterally (although breath sounds appear slightly diminished on auscultation), no rales and no wheezes Cardio Rate: regular rate Rhythm: regular rhythm Heart sounds: no murmurs GI Palpation (GI): Soft to palpation and nontender Auscultation: normal bowel sounds General: Yes no CVA tenderness Back/Spine/Pelvis Back: no CVA tenderness Thoracic/Lumbar Spine: lumbar spinal tenderness (mild) Skin Rashes: no rashes Extrem General: Yes no clubbing, cyanosis or edema Right lower extremity: knee Details: tenderness; no swelling Results Reviewed Results Reviewed: Laboratory Tests 09/27/25 09/29/25 09:54 07:46 WBC 4.5 L Hgb 12.1 Hct 38.8 Plt Count 219 D Sodium 143 Potassium 3.9 Creatinine 0.95 Estimated GFR 56 Fasting Glucose 86 Calcium 9.7 D AST 22 ALT 12 Triglycerides 79 Cholesterol 120 LDL Cholesterol, Calc 61 HDL Cholesterol 44 Vitamin B12 913 H 25-OH Vitamin D Total 60.5 TSH 2.57 Ur Specific [place] 1.020 Urine Protein Negative Urine Glucose (UA) Negative Urine Blood Negative Urine Nitrite Positive H Ur Leukocyte Esterase Small (1+) H Coding Level of Care Code Est Pt Level 4 (88873) Diagnoses Pure hypercholesterolemia E78.00 Atherosclerosis of aorta I70.0 Benign essential hypertension I10 Palpitations R00.2 Stage 3a chronic kidney disease N18.31 Chronic kidney disease stage 3 subtype: stage 3a (GFR 45-59) Anemia, unspecified type D64.9 Anemia type: unspecified type Large hiatal hernia K44.9 History of recurrent deep vein thrombosis (DVT) Z86.718 Primary osteoarthritis involving multiple joints M15.9 Osteoarthritis type: primary Age-related osteoporosis without current pathological fracture M81.0 Osteoporosis type: age-related Presence of current pathological fracture: without current pathological fracture Restless leg syndrome G25.81 E. coli urinary tract infection N39.0; B96.20 Insomnia, unspecified type G47.00 Insomnia type: unspecified Obesity (BMI 30-39.9) E66.9 Additional Codes PHQ-9 - 06996 - PHQ-9 Billing: Yes ([id number]) Assessment & Plan Assessment & Plan (1) Pure hypercholesterolemia: Code(s): E78.00 - Pure hypercholesterolemia, unspecified Category: Medical Plan: Results of her labs done last week reviewed and discussed with patient - her cholesterol levels remain well-controlled on her recent labs Reinforced low cholesterol diet Continue Atorvastatin 40 mg QD Will recheck her fasting lipids and labs in 4 months for follow up (2) Atherosclerosis of aorta: Comment: seen on abdominal aorta CT in 2016 and on chest x-rays in 2017 - mild Code(s): I70.0 - Atherosclerosis of aorta Category: Medical Plan: She has been recommended to continue with risk factor(s) modification, including control of her BP and cholesterol, and to continue statin therapy to help slow down the progression of this issue (3) Benign essential hypertension: Code(s): I10 - Essential (primary) hypertension Category: Medical Plan: Reinforced low sodium diet - goal is systolic BP of at least 120 to 130 mm with her comorbidities She was previously on Triamterene-HCTZ (also for her lower extremity edema) and Irbesartan but these were held due to low blood pressure during her hospitalization a few years ago and they were eventually discontinued - she has NOT required any Rx for her blood pressure since States that her systolic BP at home usually runs between 110 to 120 mm and diastolic is often in the 70s range She was however started on Propranolol ER 60 mg QD for her palpitations and she seems to be tolerating the Rx so far Patient is reminded to continue monitoring her blood pressure regularly at home (4) Palpitations: Code(s): R00.2 - Palpitations Category: Medical Plan: Patient's EKG, echocardiogram and 7-day Holter monitor done a few months ago all came back normal She was reportedly seen by cardiology at [facility] in [place] a few months ago and was also advised that her tests have all come back normal and they have no explanation for her recurrent symptoms of palpitations She has since been started on Propranolol ER 60 mg QD and she states that her symptoms have mostly subsided and remain well-controlled with her Rx (5) Chronic kidney disease (CKD), stage III (moderate): Comment: due to long-term NSAID use Code(s): N18.30 - Chronic kidney disease, stage 3 unspecified Category: Medical Qualifiers: Chronic kidney disease stage 3 subtype: stage 3a (GFR 45-59) Qualified Code(s): N18.31 - Chronic kidney disease, stage 3a Plan: Her renal function has been stable so far Reinforced avoidance of all NSAIDs as much as possible Will continue to monitor her renal function regularly (6) Anemia: Comment: unable to tolerate oral iron supplements Code(s): D64.9 - Anemia, unspecified Category: Medical Qualifiers: Anemia type: unspecified type Qualified Code(s): D64.9 - Anemia, unspecified Plan: CORRECTED - her H/H remain normal on her recent labs This was most likely due to her CKD Her CBC done at [facility] last year came back normal, with H/H of 14.0/45.3; her iron studies done back then also came out normal Patient reportedly had iron infusion done in late 2021 shortly before she left [place] and moved here to [facility] a couple of years ago (she is unable to tolerate any oral iron supplements), and recalls experiencing improvement of her symptoms, including less dizziness/orthostasis and less fatigue/more energy Will continue to monitor her CBC regularly (7) Large hiatal hernia: Code(s): K44.9 - Diaphragmatic hernia without obstruction or gangrene Category: Medical Plan: Repeat UGI series done in November 2024 revealed (+) large type 3 paraesophageal hernia, with the majority the fundus located within the thoracic cavity There are also findings of (+) 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 at the level of C4; (+) moderate esophageal dysmotility, (+) thickened appearance the gastric rugal folds with multiple foci of contrast pooling in the fundus and body of the stomach, suggestive of erosive gastritis - EGD was recommended for further evaluation Patient underwent EGD with Dr. Ugalde on 05/17/2025, which revealed (+) large hiatal hernia with aguila erosions. CRE balloon dilation was done up to 16.5 mm of upper esophagus She was then referred to surgery for correction of her paraesophageal hernias and subsequently underwent paraesophageal hernia repair with Dr. Pope successfully on 07/19/2025 She was then advised to lose weight to lower the risks of hernia recurrence and she has been working on this with the help of some nutritional supplements provided / prescribed to her by weight management (8) History of recurrent deep vein thrombosis (DVT): Onset Date: ~12/2020 Comment: initial DVT occurred in 2017 following hip surgery; recurred following right shoulder arthroplasty and s/p COVID vaccine in 12/2020 Code(s): Z86.718 - Personal history of other venous thrombosis and embolism Category: Medical Plan: Continue Eliquis 2.5 mg BID (9) Osteoarthritis of multiple joints: Comment: involving hips and shoulders - symptoms relieved with Celecoxib (previously discussed NSAID use with PCP back in 2018) Code(s): M15.9 - Polyosteoarthritis, unspecified Category: Medical Qualifiers: Osteoarthritis type: primary Qualified Code(s): M15.9 - Polyosteoarthritis, unspecified Plan: Continue Tramadol 50 mg QD PRN - Rx refilled Reinforced avoidance of NSAIDs due to her CKD and her esophageal erosions seen on EGD but advised that she can continue taking OTC Tylenol PRN (10) Osteoporosis: Comment: of hip (BMD in 08/2018 revealed T-score of -2.9) - started on Alendronate in 09/2018; repeat BMD last done 08/2021 Code(s): M81.0 - Age-related osteoporosis without current pathological fracture Category: Medical Qualifiers: Osteoporosis type: age-related Presence of current pathological fracture: without current pathological fracture Qualified Code(s): M81.0 - Age-related osteoporosis without current pathological fracture Plan: Reinforced fall precautions Continue daily oral Calcium and Vitamin D supplements Will consider repeating BMD early next year (2025) for follow up and continuing monitoring (11) Restless leg syndrome: Comment: symptoms relieved with Ropinirole - 2020 Code(s): G25.81 - Restless legs syndrome Category: Medical Plan: Continue Ropinirole - patient takes this only PRN (12) E. coli urinary tract infection: Code(s): N39.0 - Urinary tract infection, site not specified; B96.20 - Unspecified Escherichia coli [E. coli] as the cause of diseases classified elsewhere Category: Medical Plan: Her urine culture done last week again grew out beta-lactamase producing E. coli at >[id number] cfu Patient states that she just started taking her Macrobid yesterday so she has not yet noticed any significant improvement in her dysuria and related symptoms (13) Insomnia: Code(s): G47.00 - Insomnia, unspecified Category: Medical Qualifiers: Insomnia type: unspecified Qualified Code(s): G47.00 - Insomnia, unspecified Plan: Sleep hygiene reinforced She has taken Zolpidem 5 mg Q HS PRN and/or Trazodone 50 mg Q HS PRN in the past but is currently taking Trazodone 50 mg Q HS PRN (14) Obesity (BMI 30-39.9): Code(s): E66.9 - Obesity, unspecified Category: Medical Plan: Reinforced diet/exercise as tolerated/lose weight She is currently taking nutritional supplements from Dr. Pope to help her lose weight to help decrease the risk of recurrence of her paraesophageal hernia(s) and has already lost about 20 pounds since her last visit Plan Follow up in 4 months Orders: Orders Complete Blood Count Auto Diff 4 Months D64.9 - Anemia, unspecified TSH reflex Free T4 4 Months E78.00 - Pure hypercholesterolemia, unspecified UA CC w/rflx Micro + Cult 4 Months R30.0 - Dysuria Vitamin B12 and Folate 4 Months E53.8 - Deficiency of other specified B group vitamins Comprehensive [place]. Panel Fast 4 Months E78.00 - Pure hypercholesterolemia, unspecified Lipid Panel 4 Months E78.00 - Pure hypercholesterolemia, unspecified Vitamin D 25-OH Total 4 Months E55.9 - Vitamin D deficiency, unspecified Medications: Refilled tramadol 50 mg PO DAILY PRN 90 tabs 0RF pain 90 days
--- OUTSIDE RECORDS SUMMARY | 2025-10-07 12:26 | XMS_ITS | Clinical Summary ---
Author Organization [facility] Address [address] [address] Phone Care Team Providers Care Electrical Technology Instructor Name Role Phone Shekhar Young MD Primary Care Provider [phone] Allergies Active Allergy Reactions Criticality Noted Date [...] that she was diagnosed with anemia in [place] and given IV iron, since she could [...] surgery. 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 In case she has AF she would probably need to move up to 5 mg BID based on weight but we would need to check Cr (I am checking today) to confirm dose. If no new diagnosis, ok to keep 2.5 mg BID given this has been already determined by military aircraft designer. Borderline high blood pressure 08/12/2023 Assessment [...] Date/Time Associated Diagnosis Comments BASIC METABOLIC PANEL (BMP) Routine 05/21/2024 3:11 PM EDT Dizziness Bradycardia from Last 3 Months or Most Recently Relevant to Health Maintenance Results * (ABNORMAL) Basic metabolic panel (05/21/2024 3:11 PM EDT) SODIUM 143 135 - 145 mmol/L [facility] POTASSIUM 4.2 3.4 - 5.0 mmol/L [facility] CHLORIDE 106 98 - 108 mmol/L [facility] CO2 26 23 - 32 mmol/L [facility] BUN 20 8 - 25 mg/dL [facility] CREATININE 1.20 0.60 - 1.50 mg/dL [facility] GLUCOSE 86 70 - 110 mg/dL [facility] CALCIUM 9.9 8.5 - 10.5 mg/dL [facility] EGFR 45(L) >59 mL/min/1.7 3m2 [facility] Comment:Estimated glomerular filtration rate calculated using the CKD-EPI refit equation. ANION GAP 11 3 - 17 mmol/L [facility] Blood 05/21/2024 3:11 PM EDT 05/21/2024 5:14 PM EDT Chilango Gonzáles MD, MPhil LAB BLOOD BKR ORDERABLES Final Result Performing Organization Address City/State/[facility] Co de Phone Number [address] [address] from Last 3 Months or Most Recently Relevant to Health Maintenance Insurance [employer] PPO A[employer] PPO [employer] PPO [employer] PPO [employer] PPO [employer] PPO Care Teams Electrical Technology Instructor Relationship Specialty Start Date End Date Shekhar Young MD [address] [place] [address] [place] [address] PCP - General Internal Medicine 08/28/23 Additional Source Comments The information contained in this document represents components of the legal health record. It is not the complete legal health record.[facility]
--- OUTSIDE RECORDS SUMMARY | 2025-10-07 12:26 | XMS_ITS | Clinical Summary ---
Author Organization [facility] Address [address] [place] [address] Phone Care Team Providers Care Senior Drafter Name Role Phone Stephen Harrison MD Primary [...] Years Used Date Smoking Tobacco: Former Cigarettes 0 Q uit: 2016 Smokeless Tobacco: Never Tobacco [...] Health Maintenance Due Date Last Done Comments Drug Screen 1940 Non-Opioid Controlled Substance Agreement 1940 Hepatitis A Vaccines (1 of 2 - [...] this topic Medical Devices Implanted Type Area Barber Shop Operator Device Identifier Shelf Expiration Date Model / Serial / Lot Reversed Multi Direction Lock Screw 4.5x20mm - Sn/A - [id number] Implanted:Qty: 1 on 10/09/2022 by Francis Brown MD at [facility] Internal and External Fixation Left: Shoulder [employer] [id number] / N/A / N/A Reversed Multi Direction Lock Screw 4.5x23mm - Sn/A - [id number] Implanted:Qty: 2 on 10/09/2022 by Francis Brown MD at [facility] Internal and External Fixation Left: Shoulder [employer] [id number] / N/A / N/A Reversed Multi Direction Lock Screw 4.5x26mm - Sn/A - [id number] Implanted:Qty: 1 on 10/09/2022 by Francis Brown MD at [facility] Internal and External Fixation Left: Shoulder [employer] [id number] / N/A / N/A Reverse Baseplate 2 Line Extension [id number] - [id number] - [id number] Implanted:Qty: 1 on 10/09/2022 by Francis Brown MD at [facility] Joints Shoulder Left: Shoulder [employer] [id number] 01/18/2027 [id number] / [id number] / N/A Glenoid Sphere Centered 36 Mm,25mm Baseplate - [id number] - [id number] Implanted:Qty: 1 on 10/09/2022 by Francis Brown MD at [facility] Shoulder Left: Shoulder [employer] 07/29/2027 [id number] / [id number] / N/A Tray Flex Rev Shldr Sys +0 - [id number] - [id number] Implanted:Qty: 1 on 10/09/2022 by Francis Brown MD at [facility] Shoulder Left: Shoulder [employer] 09/06/2027 [id number] / [id number] / N/A Shoulder Insrt Rev 36 6/12.5 B - [id number] - [id number] Implanted:Qty: 1 on 10/09/2022 by Francis Brown MD at [facility] Shoulder Left: Shoulder [employer] 05/27/2027 [id number] / [id number] / N/A Shoulder Stem Hum Ptc Flx 5b - [id number] - [id number] Implanted:Qty: 1 on 10/09/2022 by Francis Brown MD at [facility] Shoulder Left: Shoulder [employer] 02/06/2027 [id number] / [id number] / N/A Procedures Procedure Name Priority Date/Time Associated Diagnosis Comments BASIC METABOLIC PANEL Routine 10/10/2022 3:37 AM EST from Last 3 Months or Most Recently Relevant to Health Maintenance Results * (ABNORMAL) Basic metabolic panel (10/10/2022 3:37 AM EST) Sodium 135(L) 136 - 145 mmol/L LAB CHEMISTRY METHOD 10/10/2022 5:25 AM EST [facility] Potassium 4.5 3.6 - 5.1 mmol/L LAB CHEMISTRY METHOD 10/10/2022 5:25 AM EST [facility] Chloride 104 98 - 107 mmol/L LAB CHEMISTRY METHOD 10/10/2022 5:25 AM EST [facility] CO2 26 22 - 32 mmol/L LAB CHEMISTRY METHOD 10/10/2022 5:25 AM EST [facility] Anion Gap 5(L) 6 - 18 LAB CHEMISTRY METHOD 10/10/2022 5:25 AM [facility] Glucose 139(H) 70 - 99 mg/dL LAB CHEMISTRY METHOD 10/10/2022 5:25 AM EST [facility] BUN 25(H) 8 - 20 mg/dL LAB CHEMISTRY METHOD 10/10/2022 5:25 AM [facility] Creatinine 0.98 0.60 - 1.30 mg/dL LAB CHEMISTRY METHOD 10/10/2022 5:25 AM [facility] eGFR 59(L) >=60 mL/min/1. 73m2 LAB CHEMISTRY METHOD 10/10/2022 5:25 AM EST [facility] Comment:Effective July 28, 2022, calculation based on the Chronic Kidney Disease Epidemiology Collaboration (CKD-EPI) equation refit without adjustment for race. BUN/Creatinine Ratio 25.5(H) 12.0 - 20.0 LAB CHEMISTRY METHOD 10/10/2022 5:25 AM [facility] Calcium 9.0 8.9 - 10.3 mg/dL LAB CHEMISTRY METHOD 10/10/2022 5:25 AM [facility] Blood Venous blood specimen / Unknown Venipuncture / Unknown 10/10/2022 3:37 AM EST 10/10/2022 4:58 AM EST us Alan BLAKELY LAB BLOOD ORDERABLES Final Resul t [facility] [address] [place] [address] from Last 3 Months or Most Recently Relevant to Health Maintenance Insurance [employer] MEDICARE ADVANTAGE Member Subscriber Plan / Payer (Ef fective 2021-Present) Name:Macie Gregorio Relation to Subscriber:Self Name:Macie Gregorio Payer ID:[id number] ([facility]) Type:Not on file Address: [facility] [id number] [phone] Advance Directives * Full Code - Default (Latest Code Status on File) Date Activated Date Inactivated Comments 10/09/2022 2:31 PM 10/10/2022 5:13 PM This is o rder is used when code status has not been discussed with the patient, or code status is otherwise unknown/unconfirmed To update the patient's code status, place a code status order. Do not modify or discontinue any currently active code status orders. Care Teams Senior Drafter Relationship Specialty Start Date End Date Stephen Harrison MD PCP - General 12/17/22
--- OUTSIDE RECORDS SUMMARY | 2025-10-07 12:26 | XMS_ITS | Patient Health Record ---
Author Organization [facility] Address [address] [place] [address] Care Team Providers Care Project Systems Engineer Name Role Phone Hector CHILD, [place] Primary Care Provider [place] valadez Kiki Bledsoe Unavailable [phone] Allergies Allergen (clinical drug ingredient) Drug/Non Drug [...] Status Risk Notes Problem Plantar fascial fibromatosis (38569430) Plantar fasciitis, bilateral (M72.2) Active confirmed Vital Signs Blood pressure diastolic 74 mm Hg 12/14/2024 Height 5ft 5in in 12/14/2024 Blood pressure systolic 129 mm Hg 12/14/2024 Weight 185 lbs 12/14/2024 BMI 30.78 kg/m2 12/14/2024 Encounters Encounter Location Date Provider Diagnosis [address] [facility] [place] [address] 12/14/2024 Kiki Black Xerosis of skin L85.3 ; Pain in right foot M79.671 ; Plantar fasciitis, bilateral M72.2 ; Calcaneal spur, right foot M77.31 ; Other myositis of right foot M60.871 ; Bursitis of right foot M77.51 ; Pain in left foot M79.672 ; Calcaneal spur, left foot M77.32 ; Other myositis of left foot M60.872 and Bursitis of left foot M77.[address] [place] [address] [facility] [facility] [address] 11/05/2024 [facility] [address] [place] [address] 12/14/[address] [address] 12/20/[address] [place] [address] 12/22/2024 [facility] [address] [place] [address] 01/05/2025 [facility] [address] [address] 01/18/2025 Kiki Bledsoe Assessments Encounter Date Diagnosis [...] Start Date Coverage End Date [employer] [address] [place] [address] [id number] Macie Gregorio Self - patient is the [...]
--- OUTSIDE RECORDS SUMMARY | 2025-10-07 12:26 | XMS_ITS | Encounter Summary ---
Author Organization [facility] Address [address] [place] [address] Phone Care Team Providers Care Catalyst Plant Supervisor Name Role Phone Shekhar Young MD Primary Care Provider [phone] Encounter Details Date Type Department Care Team (Late st Contact Info) Description 05/20/2024 Documentation [facility] [address] 5th [address], [address] [place] [address] Chilango Gonzáles MD, MPhil [address] [place] [address] [email or web address] Social History Tobacco Use Types Packs/Day Years [...] on filedocumented in this encounter Care Teams Catalyst Plant Supervisor Relationship Specialty Start Date End Date Shekhar Young MD [address] [place] [address] [facility] [place] [address] PCP - General Internal Medicine 08/28/23 documented as of this encounter Additional Source Comments The information contained in this document represents components of the legal health record. It is not the complete legal health record.[facility]
--- OUTSIDE RECORDS SUMMARY | 2025-10-07 12:26 | XMS_ITS | Encounter Summary ---
Author Organization [facility] Address [address] [place] [address] Phone Care Team Providers Care Internet Marketing Analyst Name Role Phone Shekhar Young MD Primary Care Provider [phone] Encounter Details Date Type Department Care Team (Late st Contact Info) Description 05/21/2024 [facility] [address], [address], [address] [place] [address] Social History Tobacco Use Types Packs/Day Years [...] on filedocumented in this encounter Care Teams Internet Marketing Analyst Relationship Specialty Start Date End Date Shekhar Young MD [address] [place] [address] [place] [address] PCP - General Internal Medicine 08/28/23 documented as of this encounter Additional Source Comments The information contained in this document represents components of the legal health record. It is not the complete legal health record.[facility]
== END 2025-10-07 11:58 | disposition home or self-care (01) ==
LOC: HO.HMCH 10:42
PROVIDERS: PCP Internal Medicine; Visit Provider Internal Medicine
DX: I12.9 Hypertensive chronic kidney disease with stage 1 through stage 4 chronic kidney disease, or unspecified chronic kidney disease (principal); N18.31 Chronic kidney disease, stage 3a; E66.9 Obesity, unspecified; Z68.30 Body mass index [BMI] 30.0-30.9, adult; E78.00 Pure hypercholesterolemia, unspecified; I70.0 Atherosclerosis of aorta; R00.2 Palpitations; D64.9 Anemia, unspecified; K44.9 Diaphragmatic hernia without obstruction or gangrene; Z86.718 Personal history of other venous thrombosis and embolism; M15.9 Polyosteoarthritis, unspecified; M81.0 Age-related osteoporosis without current pathological fracture; G25.81 Restless legs syndrome; N39.0 Urinary tract infection, site not specified; B96.20 Unspecified Escherichia coli [E. coli] as the cause of diseases classified elsewhere; G47.00 Insomnia, unspecified

== ENCOUNTER → 2025-10-07 10:41 | Outpatient (BNVA) | payer MEDICARE, SELFPAY | PROVIDERS: PCP Internal Medicine; Visit Provider Internal Medicine | DX: I10 Essential (primary) hypertension (principal); I70.0 Atherosclerosis of aorta; E78.00 Pure hypercholesterolemia, unspecified; D64.9 Anemia, unspecified; M15.9 Polyosteoarthritis, unspecified; M81.0 Age-related osteoporosis without current pathological fracture; G25.81 Restless legs syndrome; N39.0 Urinary tract infection, site not specified; B96.20 Unspecified Escherichia coli [E. coli] as the cause of diseases classified elsewhere; G47.00 Insomnia, unspecified; E66.9 Obesity, unspecified; R00.2 Palpitations; N18.31 Chronic kidney disease, stage 3a; Z13.31 Encounter for screening for depression; Z13.39 Encounter for screening examination for other mental health and behavioral disorders | CPT/HCPCS: 96127; 99212 ==